=== PATIENT | female | born 1965 | race Caucasian/White ===

== ENCOUNTER 2019-02-16 10:21 | Emergency (ER) | payer OTHER, SELFPAY ==
[2019-02-16 10:22] VITALS: BP 148/99; PULSE 90; RESP 17; TEMP 37; O2SAT 97; BMI 42.7
--- NOTE | 2019-02-16 11:09 | US_ITS ---
STUDY: ULTRASOUND OF THE FEMALE PELVIS - COMPLETE REASON FOR EXAM: Female, 53 years old. 18 day history of vaginal bleeding. LMP: January 30, 2019 TECHNIQUE: Transvaginal TECHNICAL QUALITY: Adequate. COMPARISON: None. FINDINGS: The uterus is anteverted and is in a midline position. The uterus measures 8.7 cm x 7.8 sign of by 4.2 cm. There is a Nabothian cyst of the cervix. The endometrium measures 11.9 mm in thickness, and is hyperechoic. There is no demonstrated endometrial mass. 2 fibroids are seen within the body of the uterus. The larger measures 2 cm x 2.4 cm by 1.9 cm. I.U.D. - The patient does not have an I.U.D. The right ovary is non-visualized. The left ovary is non-visualized. There is no fluid in the cul-de-sac. Polycystic ovary disease: No. US/Transvaginal Non- IMPRESSION: Fibroid uterus. Electronically Signed: Lenny House, at 12:37 EDT , Service support ,
--- NOTE | 2019-02-16 11:10 | ED.VISSUMM ---
- ER Visit Summary Date of Service: 02/16/19 Chief Complaint: Vaginal bleeding History of Present Illness: The patient is a 53 F presenting with vaginal bleeding. Patient states this started 18 days ago. She states she has had daily heavy vaginal bleeding. She is now starting to feel fatigued. She has not passed out. She has intermittent pelvic cramping. 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 She was set up to see Dr. Wallis on Saturday. She was unable to get in before that and was advised to come to the ED for further evaluation. Physical Examination: Vitals are stable. Patient is afebrile. Alert no acute distress. HEENT exam is unremarkable. Neck is supple. Lungs are clear and equal bilaterally. Heart is regular rate and rhythm. Abdomen is soft nontender nondistended. Pelvic: Blood clots are cleared. No active bleeding. Extremities are unremarkable. Skin is warm and dry. Remainder of exam is unremarkable. Emergency Department Course and Treatment: With orthostatic vital signs, her blood pressure remained stable and her heart rate increases. She was given IV fluids. CBC shows hemoglobin 8.5. Chemistries are unremarkable. hCG negative. Pelvic ultrasound shows fibroid uterus. Patient remained hemodynamically stable. Discussed with Dr. Wallis. Patient will be started on Aygestin. Advised to follow-up with him as scheduled. Advised return to ED for worsening complaints. Disposition: Discharge home Impression: Dysfunctional uterine bleeding This note was generated with Rouxbe dictation software. It may contain incorrect words, spelling, and punctuation that were not noted in review of the chart prior to signing ED Disposition - Plan for ED Patient: Instructions: Dysfunctional Uterine Bleeding Prescriptions: Norethindrone [Aygestin] 5 mg PO DAILY 7 Days #42 tab Prescription Printed Referrals: Bran Wallis MD [Primary Care Provider] -
[2019-02-16 11:12] VITALS: BP 144/88; BP 148/88; BP 150/90; PULSE 68; PULSE 96
[2019-02-16] MEDS: 0.9% Normal Saline 1,000 ML 1000 ML IV (11:21)
[2019-02-16 11:31] LABS: Absolute Lymphocyte Count 1.05 X10^3/uL (0.83-4.51); Absolute Neutrophil Count 7.2 X10^3/uL (2.0-7.7); Basophil# 0.04 X10^3/uL; Basophil% 0.4 % (0-1); Differential Indicated SCAN CRITERIA MET; Eosinophil# 0.13 X10^3/uL; Eosinophils% 1.4 % (0-5); Hematocrit 30.8 % (37-47); Hemoglobin 8.5 g/dL (12.0-15.0); Lymphocyte # 1.05 X10^3/ul (4.0); Lymphocyte % 11.7 % (19-41); Mean Corp Hgb Conc 27.6 g/dL (32-36); Mean Corpuscular Hgb 17.1 pg (27.0-32.0); Mean Platelet Vol. 9.3 fl (6.2-12.0); Monocyte# 0.51 X10^3/uL; Monocyte% 5.7 % (0-10); NRBC Flagged by Analyzer 0.2 % (0-5); Neutrophil # 7.18 X10^3/uL (2.7-7.7); Neutrophil % 79.9 % (47-70); POSITIVE MORPHOLOGY YES; Platelet Count 389 K/mm3 (150-450); RBC Distribution Width CV 20.7 % (11.6-14.6); RBC Distribution Width SD 43.4 fl (35.1-43.9); Red Blood Count 4.97 M/mm3 (4.2-5.4)
[2019-02-16 11:44] LABS: Anion Gap 6 (5-15); BUN 15 mg/dL (7-18); BUN/Creat Ratio 15.4 RATIO (10-20); Calcium,Total 8.7 mg/dL (8.5-10.1); Chloride 108 mmol/L (98-107); Creatinine, Serum 0.97 mg/dL (0.55-1.02); EST Glomerular Filtration Rate 64 mL/min (>60); Est Glom Filt Rate - Afr Amer 77 mL/min (>60); Estimated Creatinine Clearance 56.76 ml/min; Glucose 99 mg/dL (74-106); Potassium 4.1 mmol/L (3.5-5.1); Sodium Level 141 mmol/L (136-145)
[2019-02-16 12:03] LABS: Internal QC Validated? YES +Cl - CLEAR BKGD; Pregnancy, Serum, hCG Quali. NEGATIVE Negative
[2019-02-16 12:22] VITALS: BP 142/88; PULSE 86; RESP 16; O2SAT 100
--- NOTE | 2019-02-16 13:25 | ED.DEP ---
ED Disposition - Plan for ED Patient: Instructions: Dysfunctional Uterine Bleeding Prescriptions: Norethindrone [Aygestin] 5 mg PO DAILY 7 Days #42 tablet Referrals: Bran Wallis MD [Primary Care Provider] -
== END 2019-02-16 13:48 | disposition home or self-care (01) ==
PROVIDERS: Emergency Provider Emergency Medicine; Family Provider Obstetrics & Gynecology; PCP Obstetrics & Gynecology
DX: N93.8 Other specified abnormal uterine and vaginal bleeding (principal); D25.9 Leiomyoma of uterus, unspecified
CPT/HCPCS: 76830; 80048; 84703; 85025; 96360; 99285; J7030

== ENCOUNTER → 2019-02-23 17:36 | Outpatient (CLI) | payer OTHER, SELFPAY ==
[2019-02-16 10:22] VITALS: BMI 42.7
--- NOTE | 2019-02-23 16:30 | EMB_PTH ---
PATIENT: LEIDY VAZQUEZ LOC: [facility] U#:[id number] AGE/SX: 59/F ROOM: RE02/23/[address]: Dr. Bran Wallis MD : 1965 BED: DIS: SPEC #: [id number] RECD: 02/23/19 17:40 STATUS: PAUL REYNALDO #: [id number] DAVID: 02/23/19 16:[address]: Bran Wallis DEPT: SURGICAL PATHOLOGY RECD BY: Ken Harrington Tissues: Endometrium, NOS Procedures: Surgery Specimen Level IV HEADER OPERATION: Endometrial biopsy PRE-OP DIAGNOSIS: Abnormal uterine bleeding TISSUE SUBMITTED: Endometrial biopsy MICROSCOPIC DIAGNOSIS Endometrium, biopsy: Secretory endometrium. AM:ashutosh 02/25/19 MICROSCOPIC DESCRIPTION Slides are reviewed. GROSS DESCRIPTION Received in fixative is one container labeled with the patient's name and designated endometrial biopsy. The specimen consists of multiple irregular and elongated fragments of light to dark eckert soft tissue that in aggregate measure 3 x 1.5 x 0.2 cm. The specimen is totally submitted in one cassette. / AM:ashutosh 02/24/19 TC:5 CPT: 62213
[2019-02-27 12:26] LABS: HPV Reflexed? NOT INDICATED
== END ==
PROVIDERS: Family Provider Obstetrics & Gynecology; PCP Obstetrics & Gynecology; Referring Provider Obstetrics & Gynecology; Visit Provider Obstetrics & Gynecology
DX: Z12.4 Encounter for screening for malignant neoplasm of cervix (principal)
CPT/HCPCS: 88175; 88305; G0145

== ENCOUNTER → 2019-03-10 14:28 | Outpatient (CLI) | payer OTHER, SELFPAY ==
[2019-02-16 10:22] VITALS: BMI 42.7
--- NOTE | 2019-03-10 14:30 | BI_ITS ---
MAMMOGRAPHY - BILATERAL SCREENING REASON FOR EXAM: Female, 53 years old. Routine annual screening examination. PERTINENT HISTORY: Mother with breast cancer. TECHNIQUE: Digital bilateral breast bri (3D mammographic acquisition) in the CC and MLO projections. 2-D mediolateral oblique (MLO) and craniocaudad (CC) views of both breasts were obtained. CAD: Full Field Digital Mammography with Computer Added Detection was performed. COMPARISON: Comparison is made with prior study dated June 21, 2015. FINDINGS: Breast Composition: The breasts are almost entirely fatty. There are no dominant masses or suspicious calcifications. Stable small bilateral benign-appearing axillary lymph nodes. No other significant abnormalities are identified. There has been no significant change since the prior study. BI/SCREEN MAMM (CAD) W/BRI BILAT IMPRESSION: Stable bilateral screening mammogram. Yearly follow-up mammogram recommended. (A) ASSESSMENT CATEGORY: BIRADS Category 2: Benign. A letter regarding these results will be sent to the patient by the facility within 30 days. Approximately 10% of breast cancers are not detected by mammography. A normal mammogram should not delay biopsy of a clinically suspicious abnormality. [id number] Electronically Signed: Lenny House, at 8:17 EDT , Service support ,
== END ==
PROVIDERS: Referring Provider Obstetrics & Gynecology; Visit Provider Obstetrics & Gynecology
DX: Z12.31 Encounter for screening mammogram for malignant neoplasm of breast (principal)
CPT/HCPCS: 77063; 77067

== ENCOUNTER 2019-03-23 06:22 | Day surgery (SDC) | payer OTHER, SELFPAY ==
--- NOTE | 2019-03-18 11:01 | EKG12_ITS ---
Test Reason : PREOP Blood Pressure : / mmHG Vent. Rate : 073 BPM Atrial Rate : 073 BPM P-R Int : 160 ms QRS Dur : 090 ms QT Int : 396 ms P-R-T Axes : 032 036 051 degrees QTc Int : 436 ms Normal sinus rhythm Normal ECG Confirmed by ELINA SANTIAGO, RAI ([id number]), editor magazine YAYA CHRISTENSEN ([id number]) on 03/20/2019 11:00:03 AM Referred By: Bran Wallis Confirmed By:RAI ANTOINE MD
[2019-03-18 12:14] LABS: Hematocrit 31.7 % (37-47); Hemoglobin 8.6 g/dL (12.0-15.0); Mean Corp Hgb Conc 27.1 g/dL (32-36); Mean Corpuscular Volume 62.5 fL (81-99); Mean Platelet Vol. 9.5 fl (6.2-12.0); Platelet Count 372 K/mm3 (150-450); RBC Distribution Width CV 19.9 % (11.6-14.6); RBC Distribution Width SD 42.6 fl (35.1-43.9); Red Blood Count 5.07 M/mm3 (4.2-5.4); White Blood Count 7.5 K/mm3 (4.4-11.0)
[2019-03-18 12:17] LABS: Prothrombin Time (Protime)PT. 13.1 SECONDS (11.7-14.9)
[2019-03-18 12:47] LABS: EST Glomerular Filtration Rate 94 mL/min (>60); Est Glom Filt Rate - Afr Amer 114 mL/min (>60); Thyroid Stim Hormone (TSH) 2.36 uIU/mL (0.358-3.74)
--- NOTE | 2019-03-22 15:56 | HP.PCM_ITS ---
History and Physical Date of Admission: 03/23/19 Surgical History and Physical Letty Ruth, a 53 year old female 6 0 0 0 6, presents for RAVH/BSO on March 23, 2019 at 7:30. -- Menorrhagia, Blood Loss Anemia; Submucous Fibroids -- Letty presents here today for concerns regarding excessive bleeding that started 01-30-19 lasting until 02-20-19 after use of Aygestin Taper. 53 y.o G 6 P 6 non-smoker reporting that she had been regular with her menses up until this past several months that became increasingly worse from 2-3 heavy days with menses to 5-6 , then this last episode with continual bleeding. Excessive bleeding, but adds she feels like she could start any moment. Excessive Bleeding which began started 01-30-19. Letty claims it started suddenly and has been present Stopped 02/20/19 after Aygestin Taper. It occurs all the time. It is located in the vagina.; It is located in the lower abdomen. Letty characterizes the quality heavy.; Letty characterizes the quality bleeding. Severity is moderate and not improving and very concerned; Additional comments are: Hgb down to about 8.5; U/S shows 9 cm uterus with two 2-3 cm fibroids present; sent home with Aygestin taper.; Additional comments are: saw in ER after bleeding for 18 days. MEDICATIONS HISTORY: Patient is also takin. lisinopril 5 mg tablet, One pill by mouth once a day 2. Rhinocort Allergy 32 mcg/actuation nasal spray, As Directed prn ALLERGIES: Sulfa (Sulfonamide Antibiotics), Hives and/or rash, Adhesive and Hives and/or rash Infections - Chicken pox, Mumps and Measles Illnesses - no serious past illnesses Accidents - None Hospitalizations - see surgery Review of Systems: GENERAL - Denies fever, or chills SKIN - Denies skin changes EYES - Denies visual changes EARS - Denies difficulty hearing NOSE - Denies nasal congestion or bleeding MOUTH - Denies sore throat or difficulty swallowing NECK - Denies pain or swelling RESPIRATORY - Denies shortness of breath or wheezing CARDIOVASCULAR - Denies palpitations or chest pain GASTROINTESTINAL - Denies nausea, vomiting, diarrhea, constipation GENITOURINARY - Denies dysuria, frequency of urination, incontinence of urine MUSCULOSKELETAL - Denies joint or muscle pain NEUROLOGICAL - Denies localized numbness or weakness PSYCHIATRIC - Denies depression or anxiety ENDOCRINE - Denies heat or cold intolerance, weight loss or gain HEMATO-IMMUNOLOGIC - Denies excessive bleeding with cuts SOCIAL HISTORY: Alcohol Use - socially Smoking - Never Diet - no special diet Lifestyle - moderate stress lifestyle and Exercise - active Seat Belt Use - always Employer - [employer] 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 11/23/1994 2. 2000 (L) Ankle Surgery PHYSICAL EXAM BP- 152/98 Sitting, Right arm, large cuff Weight- 248.35910 lbs Height- 62.5 inch BMI:44.73 CONSTITUTIONAL - NAD, well nourished, and well developed SKIN - No rash, lesions, or ulcers HEENT - Normocephalic, PERRLA, EOMI NECK - No nodes, no nuchal rigidity and thyroid normal size and texture LYMPH NODES - Palpation of lymph nodes in neck and groins within normal limits LUNGS - CTA x2 without wheezes, crackles or rales CARDIAC - Regular rate and rhythm without rubs, murmurs, or gallops ABDOMEN - Without hepatosplenomegaly, distention, masses, rebound, or guarding; normal bowel sounds; no hernias EXTREMITIES - No edema or calf tenderness NEUROLOGICAL - Cranial nerves II-XII grossly intact PSYCHIATRIC - A and O to time, place, person, mood and affect External Genital Vagina - non-tender without lesions Urethra/Urethral Meatus - non-tender Bladder - non-tender Vagina - vaginal angela are pink and moist without loss of rugae and no evidence of atropy Cervix - without cervical motion tenderness and has normal size and features without evident lesions Uterus - multiparous size 6 cm & wt 75-125 g Adnexa - clear without massess or tenderness ASSESSMENT/PLAN: 1. Blood Loss Anemia, Menorrhagia and Submucous Leiomyoma Of Uterus Likely submucous fibroids causing severe menorrhagia. EMBx results ok. Pt desires proceeding with hysterectomy given severity of bleeding. Plan to proceed with RAVH/BSO as had prior . Discussed RBAs and all questions answered.
[2019-03-23] VITALS (11 sets, daily range): BP systolic 127–178; BP diastolic 81–93; PULSE 65–89; RESP 16–18; TEMP 36.3–37.3; O2SAT 92–100; BMI 43.7
[2019-03-23 06:54] LABS: Hematocrit 31.5 % (37-47); Hemoglobin 8.6 g/dL (12.0-15.0); Mean Corp Hgb Conc 27.3 g/dL (32-36); Mean Corpuscular Volume 62.3 fL (81-99); Mean Platelet Vol. 8.8 fl (6.2-12.0); Platelet Count 309 K/mm3 (150-450); RBC Distribution Width CV 19.8 % (11.6-14.6); RBC Distribution Width SD 42.3 fl (35.1-43.9); Red Blood Count 5.06 M/mm3 (4.2-5.4); White Blood Count 9.6 K/mm3 (4.4-11.0)
[2019-03-23] MEDS: Lactated Ringers 1,000 ML 100 ML IV ×2 (07:18→14:00)
--- NOTE | 2019-03-23 08:30 | HYST_PTH ---
PATIENT: LEIDY VAZQUEZ LOC: [facility] – [place] U#:[id number] AGE/SX: 53/F ROOM: RE03/23/[address]: Dr. Bran Wallis MD : 1965 BED: DIS: 03/24/2019 SPEC #: [id number] RECD: 03/23/19 15:47 STATUS: PAUL RESam #: [id number] DAVID: 03/23/19 08:[address]: Bran Wallis DEPT: SURGICAL PATHOLOGY RECD BY: Alejandro Zapata ENTERED: 03/24/19 07:56 SP TYPE: HYSTERECT OTHR DR: Alejandro Monreal, FLOOR CLERK-C Tissues: Uterus, NOS Procedures: Surgery Specimen Level V HEADER OPERATION: Robotic-assisted vaginal hysterectomy, bilateral salpingo-oophorectomy PRE-OP DIAGNOSIS: Blood loss anemia, menorrhagia and submucous leiomyoma of uterus TISSUE SUBMITTED: Uterus, cervix, bilateral fallopian tubes and ovaries MICROSCOPIC DIAGNOSIS Uterus, cervix, bilateral fallopian tubes and ovaries, vaginal hysterectomy and bilateral salpingo-oophorectomy: Cervix - chronic cystic cervicitis with tunnel cluster formation and squamous metaplasia. Endometrium - secretory endometrium. Myometrium - leiomyomas, submucosal and intramural (largest measuring 4 cm in greatest dimension). - Adenomyosis. Bilateral fallopian tubes - no pathologic diagnosis. Bilateral ovaries - mesothelial inclusion cysts with focal calcifications. - Physiologic follicular and corpus luteal cysts. - Focal endometriosis (one of the ovaries). LIN:ashutosh 03/25/19 MICROSCOPIC DESCRIPTION Slides are reviewed. GROSS DESCRIPTION Received in fixative is one container labeled with the patient's name and designated uterus, cervix, bilateral fallopian tubes and bilateral ovaries. The specimen consists of a hysterectomy specimen in multiple pieces consisting of uterus with cervix and bilateral fallopian tubes and ovaries. The bilateral fallopian tubes and ovaries are attached to the largest piece. The specimen's orientation could not be done due to the disrupted nature of the specimen. The uterus with cervix in multiple pieces weighs in aggregate 312 gm. The detached cervix measures 3.5 x 2.5 x 2 cm. The ectocervical mucosa is congested. The external os is oval in contour. The endocervical canal measures up to 1.5 cm in length. Sections reveal unremarkable cut surfaces. Also present in the container is a detached piece of cervix containing proximal portion of cervix measuring 3 x 2.5 x 2.5 cm. The endocervical canal in this portion measures 2 cm in length. Sections reveal a few cysts filled with mucoid material. The largest piece of uterus measures 9 x 7 x 5.5 cm. The endometrial cavity in the larger piece of uterus measures 3.5 cm in length and 4 cm in width. The endometrium is congested without any mass lesion and measures up to 0.2 cm in thickness. Sections of this piece of uterus reveal multiple nodular masses of submucosal and intramural in location. The largest mass measures 4 cm in greatest dimension. The uninvolved uterine wall measures up to 3.5 cm in thickness. The detached smaller pieces of uterus measures in aggregate 7 x 7 x 3 cm. Sections of these reveal one nodular mass measuring 2 cm in greatest dimension. Sections of the nodular masses reveal whorled cut surfaces without areas of hemorrhage, necrosis or cystic degeneration. Sections of the uterine wall also reveal an ill-defined nodular mass. The fallopian tube and ovary could not be oriented due to distorted nature of the specimen. One of the fallopian tubes measures 5.5 cm in length and up to 0.5 cm in diameter. The fimbrial end is identified. No tubo-ovarian adhesions are noted. Sections of fallopian tube reveal unremarkable cut surfaces. The soft to cystic adjacent ovary measures 2.5 x 2 x 2 cm. Sections reveal a hemorrhagic cyst measuring 2 cm in greatest dimension. This cyst appears to be collapsed. The second fallopian tube measures 5.7 cm in length and 0.5 cm in diameter. The fimbrial end is identified. A paratubal cyst is noted at the fimbrial end measuring 0.6 cm in greatest dimension. It is filled with clear fluid. No tubo-ovarian adhesions are noted. The soft to cystic ovary measures 4 x 2.5 x 1.5 cm. A hemorrhagic cyst is noted measuring 1.5 cm in greatest dimension. A second smaller hemorrhagic cyst is also noted measuring 1 cm in greatest dimension. Legal Administrative Secretary sections are submitted in 14 cassettes as follows: 1 & 2 - cervix, 3-6 - endometrium, 7 - largest nodular mass, 8 - second largest nodular mass, 9 - smaller nodular masses, 10 - ill-defined nodular mass, 11 & 12 - one fallopian tube and adjacent ovary, 13 & 14 - second fallopian tube and adjacent ovary. / SJ:ashutosh 03/24/19 TC:1 CPT: 57382
[2019-03-23 08:47] LABS: Internal QC Validated? YES +Cl - CLEAR BKGD; Pregnancy, Serum, hCG Quali. NEGATIVE Negative
[2019-03-23] MEDS: Ropivacaine 0.5% 30 ML Vial (10:30)
--- NOTE | 2019-03-23 13:08 | OP.PCM_ITS ---
Report of Operation Date of Procedure: 03/23/19 Pre-Operative Diagnosis: Menorrhagia, Blood Loss Anemia, Submucous Fibroids Post-Operative Diagnosis: Menorrhagia, Blood Loss Anemia, Submucous Fibroids Surgery/Procedure Performed:: Robotic Assisted Vaginal Hysterectomy and Bilateral Salpingo-Oophorectomy Description of Surgical Findings:: 12 cm uterus with normal-appearing fallopian tubes and ovaries. Evidence of prior section. molder operator: Joaquim Glover molder operator: Carol Krishnamurthy Type of Anesthesia:: General - Endotracheal Anesthesiologist: Rosita Montenegro Specimen's removed: Uterus and bilateral fallopian tubes and ovaries Drains: Cordoba to straight drain Estimated Blood Loss (mL): 50 cc Fluids Replaced: 1800 cc of crystalloid Description of Procedure: Surgeon: Bran Wallis MD, FACOG Indication: This is a 53 year old patient who has been having problems with extremely heavy periods, blood loss anemia and found to have submucous fibroids. Conservative measures have not been helpful. The patient has been counseled regarding the risks, benefits and alternatives of this procedure including the possibility of bleeding, infection, and injury to surrounding structures such as bowel bladder and all questions were answered. She understands that if BSO is performed that she will need to be on HRT for an indefinite period of time. Procedure: Pt taken to the operating room where, after induction of general anesthesia, the patient was prepped and draped in the usual sterile fashion and placed on a non-slip Huggy-u-vac device. Trendelenburg test was satisfactory. Bladder was drained of urine with a Cordoba catheter which was left in place. Anterior cervix grasped and cervix was dilated to about 3-4 mm. Uterus sounded to 11 cms. 0-Vicryl suture was placed at the 3:00 and 9:00 position of the cervix. A small Advincula Oven Heater Helper Uterine Manipulator was then placed in the uterus and attention was turned to the laparoscopic portion of the procedure. Ropivocaine 0.5% was injected approximately 2-3 cm superior to the umbilicus and an 8 mm robotic camera port was introduced directly with intraperitoneal placement confirmed with CO2 insufflation. 8 mm robotic side ports were introduced under direct visualization approximately 11 cm lateral and 2 cm inferior to the umbilical port. A 5 mm left upper quadrant port was introduced and airseal insufflation with CO2 was started. The above findings were noted. Robot was docked without difficulty and attention turned to the robotic portion of the procedure. Approximately 30 cc of Ropivicaine was used. Bilateral infundibulopelvic ligaments were ligated with 35 redd bipolar coagulation to the level of the round ligament. The posterior aspect of the cervix was identified and then opened for about 1 cm using 25 watt monopolar cautery. Bladder flap was opened and divided to the level of the round ligaments using monopolar cautery. Progressive bites were then ligated on each side of the cervix with 35 redd bipolar cautery to the uterine arteries. The anterior vaginal mucosa was entered and cervix circumscribed with monopolar cautery. Uterus and attached tubes and ovaries were removed through the vagina. It was necessary to partially manually morcellate the lower part of the uterus to allow removal through the vagina. Vaginal cuff was closed first with 0- Vicryl Chanda stitches placed at each angle followed by closure of the mid-cuff with 0-Monocryl V-lock suture in two layers. Pelvis was copiously irrigated with saline and the right ureter was noted to peristalse. Robot was undocked and trocars were removed with as much gas as possible. Incisions were closed with 4-0 Monocryl subcuticular sutures and incisions covered with steri-strips. The patient tolerated the procedure well and was taken to the recovery room in satisfactory condition. Sponge, instruments and needle counts were all correct. There were no apparent complications of the surgery. Cefotan 2 gms IV was given prior to the procedure. Grafts/Implants Used: None - Complications None - Admit VTE Documentation VTE Present on Admission: Yes VTE Mechan Device Prophylaxis: SCD's VTE Pharm Prophylaxis ordered?: Yes
--- NOTE | 2019-03-23 13:15 | DCINST_ITS ---
Discharge Diet: No Restrictions Discharge Activity: Return to Normal Activity, May Not Drive - while taking narcotic pain medications., May Shower, May Take a Tub Bath May resume sexual activity in: 6-8 weeks Call your doctor if your incision/area has: Continuous Slow Oozing, Sudden Inc reased Bleeding, Increased Pain/ Swelling, Increased Redness, Foul Smelling Discharge Call your doctor if you observe: Fever of 101 or Higher, Inability to urinate, Inability to have a bowel movement, Using more than one pad per hour Allergies/Adverse Reactions: Allergies Sulfa (Sulfonamide Antibiotics) Allergy (Verified 03/23/19 06:48) Swelling Medications to take at Discharge Budesonide [Rhinocort Allergy] 1 spray NS DAILY 02/16/19 Docusate Sodium [Colace] 100 mg PO BID PRN PRN #60 cap 03/23/19 Estradiol 2 mg PO DAILY #100 tab 03/23/19 Lisinopril [Zestril] 5 mg PO DAILY 03/23/19 Oxycodone [Oxyir] 5 mg PO Q6H PRN PRN 7 Days #14 tab 03/23/19 The following prescriptions were given: Docusate Sodium [Colace] 100 mg PO BID PRN PRN #60 cap PRN Reason: Constipation Prescription Printed Estradiol 2 mg PO DAILY #100 tab Prescription Printed Oxycodone [Oxyir] 5 mg PO Q6H PRN PRN 7 Days #14 tab PRN Reason: Pain Score 6-10/10 Prescription Printed Primary Care Physician: Alejandro Monreal NP-C [Primary Care Provider] - Test Results: Test results from this visit will be discussed in further detail at your follow- up appointment, if applicable. Please Follow Up With: Bran Wallis MD When: 2 to 3 weeks
[2019-03-23] MEDS: Ketorolac 30 MG/ML Syringe IV ×2 (16:27→20:17)
[2019-03-23] MEDS: Dextrose 5%-Lactated Ringers 1,000 ML 150 ML IV (16:28)
[2019-03-23] MEDS: Enoxaparin 40 MG/0.4 ML Syringe SC (18:46)
[2019-03-23] MEDS: Acetaminophen 500 MG Tablet 1000 MG PO (20:17)
[2019-03-24] MEDS: Ketorolac 30 MG/ML Syringe IV ×2 (01:37→08:40)
[2019-03-24 01:41] VITALS: BP 137/77; PULSE 85; RESP 18; TEMP 37; O2SAT 96
[2019-03-24 06:47] LABS: Hematocrit 27.5 % (37-47); Hemoglobin 7.6 g/dL (12.0-15.0); Mean Corp Hgb Conc 27.6 g/dL (32-36); Mean Corpuscular Volume 61.4 fL (81-99); Mean Platelet Vol. 9.3 fl (6.2-12.0); Platelet Count 315 K/mm3 (150-450); RBC Distribution Width CV 19.7 % (11.6-14.6); RBC Distribution Width SD 41.9 fl (35.1-43.9); Red Blood Count 4.48 M/mm3 (4.2-5.4); White Blood Count 13.8 K/mm3 (4.4-11.0)
[2019-03-24 07:06] LABS: Creatinine, Serum 0.91 mg/dL (0.55-1.02); EST Glomerular Filtration Rate 69 mL/min (>60); Est Glom Filt Rate - Afr Amer 84 mL/min (>60)
[2019-03-24 07:35] VITALS: O2SAT 95
[2019-03-24 08:30] VITALS: BP 168/97; PULSE 82; RESP 18; TEMP 36.9; O2SAT 95
[2019-03-24] MEDS: 0.9% Saline Lock 10 ML Syringe IV (08:41)
--- NOTE | 2019-03-24 08:41 | PN.OBGYN_ITS ---
Subjective: Patient without complaints. Tolerating diet well. Positive flatus and able to void on own. Denies any vaginal bleeding at present. Ready to go home. - Physical Exam Vitals/I&O's: Vital Signs Temp Pulse Resp BP Pulse Ox 98.6 F 85 18 137/77 H 95 03/24/19 01:41 03/24/19 01:41 03/24/19 01:41 03/24/19 01:41 03/24/19 07:35 Oxygen Flow Rate (L/min) 2 Oxygen Delivery Method Room Air Weight: 246 lb 11.156 oz Body Mass Index (BMI) 43.7 Intake and Output for Last 24 Hours 03/22/19 03/23/19 03/24/19 23:59 23:59 23:59 Intake Total 2470 / 2470 Output Total 935 / 935 1000 / 1000 Balance 1535 / 1535 -1000 / -1000 Laboratory Results 03/23/19 08:00: Serum , Qual NEGATIVE 03/24/19 06:30: WBC 13.8 H, RBC 4.48, Hgb 7.6 L, Hct 27.5 L, MCV 61.4 L, MCH 17.0 L, MCHC 27.6 L, RDW Std Deviation 41.9, RDW Coeff of Brittny 19.7 H, Plt Count 315, MPV 9.3 03/24/19 06:30: Creatinine 0.91, Estim Creat Clear Calc 60.50, Est GFR (MDRD) Af Amer 84, Est GFR (MDRD) Non-Af 69 Current Medications Acetaminophen (Tylenol) 1,000 mg PO Q8H PRN PRN PRN Reason: Pain Score 1-3/10 or Fever Last Admin: 03/23/19 20:17 Dose: 1,000 mg Documented by: Docusate Sodium (Colace) 100 mg PO BID PRN PRN PRN Reason: CONSTIPATION Estrogens Conjugated (Premarin) 1.25 mg PO DAILY [facility] Fluticasone Propionate (Flonase Nasal [place]) 1 spray NASAL DAILY [facility] Hydromorphone HCl (Dilaudid Inj) 0.5 mg IV Q3H PRN PRN PRN Reason: Pain Score 4-10/10 Ketorolac Tromethamine (Toradol) 30 mg IV Q6H SHONDA Stop: 03/28/19 14:01 Last Admin: 03/24/19 01:37 Dose: 30 mg Documented by: Lisinopril (Zestril) 5 mg PO DAILY [facility] Ondansetron HCl (Zofran) 4 mg IV Q4H PRN PRN PRN Reason: NAUSEA Oxycodone HCl (Oxyir) 5 mg PO Q4H PRN PRN PRN Reason: Pain Score 4-10/10 Simethicone (Mylicon) 80 mg PO [facility] Last Admin: 03/23/19 22:02 Dose: 80 mg Documented by: Sodium Chloride () 10 - 40 ml IV UD PRN PRN Reason: SALINE FLUSH Good urine output. Hemoglobin stable. Creatinine okay. Wounds are clean, dry, intact. Medical Necessity - Tobacco Use Smoking Status: Never smoker Tobacco Use: Non-smoker Assessment/Plan Doing well postoperative day #1 status post robotic assisted vaginal hysterectomy and bilateral salpingo-oophorectomy. Will release to home with routine instructions.
[2019-03-24] MEDS: Lisinopril 5 MG Tablet PO (08:44)
== END 2019-03-24 09:34 | disposition home or self-care (01) ==
LOC: SDC 06:23 → AC 06:25 → MS3 13:20
PROVIDERS: Anesthesiology; Family Provider Nurse Practitioner Primary Care; PCP Nurse Practitioner Primary Care; Referring Provider Obstetrics & Gynecology; Visit Provider Obstetrics & Gynecology
PROC: 0UT94ZZ Resection of Uterus, Percutaneous Endoscopic Approach (ICD-10-PCS; CPT 58552; principal; 2019-03-23 08:10)
DX: N92.0 Excessive and frequent menstruation with regular cycle (principal); N80.1 Endometriosis of ovary; N72 Inflammatory disease of cervix uteri; N83.12 Corpus luteum cyst of left ovary; N83.11 Corpus luteum cyst of right ovary; N80.0 Endometriosis of uterus; D50.0 Iron deficiency anemia secondary to blood loss (chronic); Z79.899 Other long term (current) drug therapy
CPT/HCPCS: 58552; 36415; 82565; 84443; 84703; 85027; 85610; 86850; 86900; 86901; 88307; 93005; J7120; A4216; J2405

== ENCOUNTER → 2019-05-21 12:30 | Outpatient (CLI) | payer OTHER, SELFPAY ==
[2019-05-08 10:50] VITALS: BMI 43.7
--- NOTE | 2019-05-21 12:31 | MRI_ITS ---
STUDY: MRI RIGHT KNEE REASON FOR EXAM: Female, 53 years old. Pain. Injury March 2019. TECHNIQUE: Standardized fat and water weighted pulse sequences were obtained in all 3 orthogonal planes. COMPARISON: None. FINDINGS: There is medial meniscal tear of the posterior horn adjacent to the meniscal root, series 7 image and . Normal hyaline cartilage of the medial femorotibial compartment. Normal medial femoral condyle and tibial plateau. There is a partial sprain of the MCL with interstitial and periligamentous edema. Normal distal semimembranosus, gracilis and semitendinosus tendons. Normal lateral meniscus. Normal hyaline cartilage of the lateral femorotibial compartment. Normal lateral femoral condyle and tibial plateau. Normal proximal tibiofibular articulation. Normal lateral collateral (fibular) ligament. Normal popliteus tendon. Normal biceps femoris tendon. There is edema with swelling and loss of definition of the of the ACL fascicles, producing a celery stick appearance, with preservation of the continuity of fibers, consistent with mucoid cystic degeneration versus sprain. Normal posterior cruciate ligament (PCL). Normal congruent patellofemoral articulation. Normal hyaline cartilage of the patellofemoral compartment. Normal medial and lateral patellar retinaculum. Normal quadriceps tendon. Normal patellar tendon. Normal Hoffa''s fat pad. There is a large volume joint effusion. The soft tissues are unremarkable. The otherwise visualized osseous structures are unremarkable. MRI/Lower Ext Joint Only (Routine) IMPRESSION: Medial meniscus tear. Medial collateral ligament sprain. Mucoid cystic degeneration or sprain of the anterior cruciate ligament. Joint effusion. Electronically Signed: Josiah Barraza MD at 17:22 EST , Service support ,
== END ==
PROVIDERS: Family Provider Nurse Practitioner Primary Care; PCP Nurse Practitioner Primary Care; Referring Provider Orthopaedic Surgery; Visit Provider Orthopaedic Surgery
DX: M25.561 Pain in right knee (principal)
CPT/HCPCS: 73721

== ENCOUNTER → 2019-06-03 15:09 | Outpatient (CLI) | payer OTHER, SELFPAY ==
[2019-06-01 11:15] VITALS: BMI 43.7
[2019-06-03 16:17] LABS: Absolute Lymphocyte Count 1.21 X10^3/uL (0.83-4.51); Absolute Neutrophil Count 6.8 X10^3/uL (2.0-7.7); Basophil# 0.05 X10^3/uL; Basophil% 0.6 % (0-1); Eosinophil# 0.14 X10^3/uL; Eosinophils% 1.6 % (0-5); Hematocrit 35.3 % (37-47); Hemoglobin 9.9 g/dL (12.0-15.0); Lymphocyte # 1.21 X10^3/ul (4.0); Mean Corpuscular Hgb 19.2 pg (27.0-32.0); Mean Corpuscular Volume 68.5 fL (81-99); Mean Platelet Vol. 9.3 fl (6.2-12.0); Monocyte# 0.39 X10^3/uL; Monocyte% 4.5 % (0-10); NRBC Flagged by Analyzer 0 % (0-5); Neutrophil # 6.79 X10^3/uL (2.7-7.7); Neutrophil % 78.8 % (47-70); Platelet Count 347 K/mm3 (150-450); RBC Distribution Width CV 19.6 % (11.6-14.6); RBC Distribution Width SD 47.6 fl (35.1-43.9); Red Blood Count 5.15 M/mm3 (4.2-5.4); White Blood Count 8.6 K/mm3 (4.4-11.0)
[2019-06-03 16:53] LABS: ALB/GLOB Ratio 0.9 RATIO (0.9-2.4); AST(SGOT) 10 U/L (15-37); Alanine Aminotransfer ALT/SGPT 23 U/L (13-56); Albumin, Serum 3.3 g/dL (3.2-5.0); Alkaline Phosphatase 99 U/L (45-117); Anion Gap 8 (5-15); BUN 23 mg/dL (7-18); Calcium,Total 8.3 mg/dL (8.5-10.1); Chloride 106 mmol/L (98-107); Creatinine, Serum 0.96 mg/dL (0.55-1.02); EST Glomerular Filtration Rate 65 mL/min (>60); Est Glom Filt Rate - Afr Amer 79 mL/min (>60); Globulin 3.6 g/dL (2.2-4.2); Glucose 94 mg/dL (74-106); Potassium 3.7 mmol/L (3.5-5.1); Protein, Total 6.9 g/dL (6.4-8.2); Rheumatoid Factor < 10.0 IU/mL (<15); Sodium Level 139 mmol/L (136-145)
[2019-06-04 09:41] LABS: Hepatitis B Surface Antibody Non-Reactive; Hepatitis B Surface Antigen Non-Reactive (Nonreactive); Hepatitis C Antibody Non-Reactive (Nonreactive)
[2019-06-06 15:25] LABS: CCP IgG Antibodies 6 units (0-19); Hepatitis B Core Ab Total Negative (Negative)
[2019-06-07 15:17] LABS: ANTINUCLEAR ANTIBODIES DIRECT Negative (Negative)
== END ==
PROVIDERS: Family Provider Nurse Practitioner Primary Care; PCP Nurse Practitioner Primary Care; Referring Provider Internal Medicine Rheumatology; Visit Provider Internal Medicine Rheumatology
DX: I10 Essential (primary) hypertension (principal); M06.4 Inflammatory polyarthropathy; M79.7 Fibromyalgia; L71.9 Rosacea, unspecified
CPT/HCPCS: 36415; 80053; 85025; 86038; 86200; 86431; 86704; 86706; 86803; 87340

== ENCOUNTER → 2019-06-04 16:11 | Outpatient (CLI) | payer OTHER, SELFPAY ==
[2019-06-04 14:37] VITALS: BMI 43.7
[2019-06-04 16:15] LABS: Pathologist Comment May follow
[2019-06-04 17:14] LABS: Appearance /Synovial Fluid Sl hazy (CLEAR); CRYSTALS, BODY FLUID See PATH REV; Color / Synovial Fluid Yellow (Pale Yellow); Source- Body Fluid SYNOVIAL
[2019-06-04 18:45] LABS: RBC /Synovial Fluid 20 /mm3 (0)
[2019-06-04 18:47] LABS: Synovial Fld Mononuclear WBC # 0.495 10^3/ul; Synovial Fld Mononuclear WBC % 94.8 %; Synovial Fld Polynuclear WBC # 0.027 10^3/uL; Synovial Fld Polynuclear WBC % 5.2 %
[2019-06-04 19:02] LABS: AUTO B FLUID DILUENT BKGD CT WBC <0.1 RBC <0.01 (W<.1,R<.01)
[2019-06-04 19:03] LABS: Body Fluid QC Type(s) BF2Q,BF3Q; Lymph 18 %; Monocyte /Synovial Fluid 75 %; Neutrophil 7 % (0-25)
[2019-06-05 14:14] LABS: Pathologist Review Reviewed
[2019-06-06 15:20] LABS: GLUCOSE, SYNOVIAL FLUID 99 mg/dL (.); PROTEIN, SYNOVIAL FLUID 3.3 g/dL (.)
== END ==
PROVIDERS: Family Provider Nurse Practitioner Primary Care; PCP Nurse Practitioner Primary Care; Referring Provider Orthopaedic Surgery; Visit Provider Orthopaedic Surgery
DX: M25.461 Effusion, right knee (principal)
CPT/HCPCS: 82945; 84157; 87070; 87075; 87205; 89050; 89051; 89060

== ENCOUNTER → 2020-05-05 07:25 | Outpatient (CLI) | payer OTHER, SELFPAY ==
[2019-06-04 14:37] VITALS: BMI 43.7
--- NOTE | 2020-05-05 07:26 | BI_ITS ---
MAMMOGRAPHY - BILATERAL SCREENING REASON FOR EXAM: Female, 54 years old. Routine annual screening examination. PERTINENT HISTORY: Mother with breast cancer. TECHNIQUE: Digital bilateral breast bri (3D mammographic acquisition) in the CC and MLO projections. 2-D mediolateral oblique (MLO) and craniocaudad (CC) views of both breasts were obtained. CAD: Full Field Digital Mammography with Computer Added Detection was performed. COMPARISON: Comparison is made with prior study dated 03/10/2019 and 06/21/2015. FINDINGS: Breast Composition: There are scattered areas of fibroglandular density. There are no dominant masses or suspicious calcifications. Stable small benign appearing bilateral axillary lymph nodes. No other significant abnormalities are identified. There has been no significant change since the prior study. BI/SCREEN MAMM (CAD) W/BRI BILAT IMPRESSION: Stable bilateral screening mammogram. Yearly follow-up mammogram recommended. (A) ASSESSMENT CATEGORY: BIRADS Category 2: Benign. A letter regarding these results will be sent to the patient by the facility within 30 days. Approximately 10% of breast cancers are not detected by mammography. A normal mammogram should not delay biopsy of a clinically suspicious abnormality. [id number] Electronically Signed: Lenny House, at 8:25 EST , Service support ,
== END ==
PROVIDERS: PCP Nurse Practitioner Primary Care; Referring Provider Obstetrics & Gynecology; Visit Provider Obstetrics & Gynecology
DX: Z12.31 Encounter for screening mammogram for malignant neoplasm of breast (principal); Z80.3 Family history of malignant neoplasm of breast
CPT/HCPCS: 77063; 77067

== ENCOUNTER → 2021-01-20 08:42 | Outpatient (CLI) | payer OTHER, SELFPAY ==
[2021-01-20 09:44] LABS: Hemoglobin 14.7 g/dL (12.0-15.0); Mean Corp Hgb Conc 33.4 g/dL (32-36); Mean Corpuscular Hgb 29.4 pg (27.0-32.0); Mean Platelet Vol. 9.5 fl (6.2-12.0); Platelet Count 269 K/mm3 (150-450); RBC Distribution Width CV 12.3 % (11.6-14.6); RBC Distribution Width SD 39.5 fl (35.1-43.9); White Blood Count 6.7 K/mm3 (4.4-11.0)
[2021-01-20 10:21] LABS: Vitamin D,25 Hydroxy 21.4 ng/mL
[2021-01-20 10:25] LABS: AST(SGOT) 12 U/L (15-37); Alanine Aminotransfer ALT/SGPT 23 U/L (13-56); Albumin, Serum 3.5 g/dL (3.2-5.0); Alkaline Phosphatase 75 U/L (45-117); Anion Gap 6 (5-15); BUN 14 mg/dL (7-18); BUN/Creat Ratio 21.8 RATIO (10-20); Calcium,Total 8.8 mg/dL (8.5-10.1); Chloride 103 mmol/L (98-107); Cholesterol 279 mg/dL (200); Creatinine, Serum 0.64 mg/dL (0.55-1.02); EST Glomerular Filtration Rate 103 mL/min (>60); Est Glom Filt Rate - Afr Amer 124 mL/min (>60); Ferritin 43 ng/mL (8-252); Globulin 3.6 g/dL (2.2-4.2); Glucose 93 mg/dL (74-106); High Density Lipoprotein 54 mg/dL; Iron 71 ug/dL (50-170); Potassium 4.1 mmol/L (3.5-5.1); Protein, Total 7.1 g/dL (6.4-8.2); Sodium Level 137 mmol/L (136-145); Thyroid Stim Hormone (TSH) 2.11 uIU/mL (0.358-3.74); Triglycerides 487 mg/dL
== END ==
LOC: LAB 08:47
PROVIDERS: PCP Nurse Practitioner Primary Care; Referring Provider Nurse Practitioner Primary Care; Visit Provider Nurse Practitioner Primary Care
DX: I10 Essential (primary) hypertension (principal); D64.9 Anemia, unspecified; J30.2 Other seasonal allergic rhinitis; R53.83 Other fatigue
CPT/HCPCS: 36415; 80053; 80061; 82306; 82728; 83540; 84443; 85027

== ENCOUNTER → 2021-10-19 | Outpatient (CLI) | payer BC, SELFPAY ==
--- NOTE | 2021-10-19 17:01 | MRI_ITS ---
STUDY: MRI LUMBAR SPINE WITHOUT CONTRAST REASON FOR EXAM: Female, 56 years old. pain lower back just above hips X 3-4 YEARS TECHNIQUE: Standardized fat and water weighted pulse sequences were obtained in the sagittal and axial planes. COMPARISON: Lumbar spine x-ray dated OCTOBER 16, 2021 FINDINGS: T12-L1: Normal endplates. Normal disc height, hydration and morphology. Normal bilateral facet joints. Normal central canal and bilateral lateral recesses. Normal bilateral intervertebral neural foramina. Normal lumbar lordosis. There is no substantial scoliosis. Normal conus medullaris that terminates at the T12-L1 level. No fracture or marrow edema or compression deformity is present. L1-2: Diffuse disc desiccation with mild disc space narrowing and a minimal anterior disc spur complex. No posterior disc herniation or bulging. Slight retrolisthesis of less than 2 mm. Mild fluid distention of the facet joints and hypertrophy. Normal central canal and bilateral lateral recesses. Normal bilateral intervertebral neural foramina. L2-3: Normal endplates. Minor disc desiccation. Normal disc height and morphology. Normal bilateral facet joints. Normal central canal and bilateral lateral recesses. Normal bilateral intervertebral neural foramina. L3-4: Benign fatty hemangioma of the L3 vertebral body. Normal endplates. Diffuse disc desiccation. Normal disc height and morphology. Mild facet joint hypertrophy and fluid distention, as well as degeneration of the posterior aspect of the left facet joint. Normal central canal and bilateral lateral recesses. Normal bilateral intervertebral neural foramina. L4-5: Normal endplates. Diffuse disc desiccation. Slight anterolisthesis of L4 and L5 of less than 2 mm. Mild facet joint and ligament of flava hypertrophy, as well as mild fluid distention of the right facet joint. Normal disc height and morphology. Normal bilateral facet joints. Normal central canal and bilateral lateral recesses. Normal bilateral intervertebral neural foramina. L5-S1: Normal endplates. Diffuse disc desiccation. Normal disc height and morphology. Mild right facet joint hypertrophy and fluid distention. Normal central canal and bilateral lateral recesses. Normal bilateral intervertebral neural foramina. Normal visualized sacral ala. Normal visualized paraspinous soft tissue structures. MRI/Spine Lumbar (Routine) IMPRESSION: Multilevel degenerative changes, as described above. Electronically Signed: Ron Tapia MD at 11:47 EDT ,
== END | disposition home or self-care (01) ==
LOC: MRI 17:01
PROVIDERS: PCP Nurse Practitioner Primary Care; Visit Provider Orthopaedic Surgery
DX: M54.12 Radiculopathy, cervical region (principal); M50.30 Other cervical disc degeneration, unspecified cervical region
CPT/HCPCS: 72148

== ENCOUNTER 2021-11-17 07:00 | Outpatient (RCR) | payer BC, SELFPAY ==
--- NOTE | 2021-10-03 09:00 | HP.PTEVAL ---
Patient's Visit Information LEIDY VAZQUEZ is a 56 year old F referred to Physical Therapy by Dr. Kulwinder Pritchett DO with a diagnosis of Lumbago, B grt trochanteric bursitis. Date of Evaluation: 10/03/21 Physical Therapist: HEIDI Celaya - Visit Plan Frequency: 2x /Week Duration: 3 Weeks Plan: 2X/ week for 3-5 weeks for IT band stretches, hip flexor stretches, Hamstring stretches, core stability, hip strength, gait training (increase stride length) with HEP. HEP: strap HS and IT band stretches, PT, and PT with bridges - Subjective Pt started a few weeks ago a podatrist and had arthritis in feet. Saw Dr and no hip arthritis but bursitis. She can not sleep on both sides due to tender and sore. If she sits for 15 min or more it will be a tight entire leg. She has decrease step length due to tightness and she does walk duck footed. She has catches in her back when she bends wrong. She might have to flex to the ground and then walk up the wall to crawl up and then it usually relieves itself after that. It could do it 16 times a day or could go for over a week. She has an appt with Dr Berrios on the for her back. She has no N&T in her legs. She has lots of problems in her R knee and has nothing holding her knee together. She sleeps on her sides even though it hurts. - Pain R hip pain Pain Intensity (Out of 10): 1 Pain Intensity Range: 7 L hip pain Pain Intensity (Out of 10): 1 Pain Intensity Range: 7 - Objective Gait: Walks with decrease stride length and toe out. B hip drop for weakness. Pt is able to walk on heels and toes but has increase pain due to metatarsal arthritis with heel raises. LE MMT: B hip flex, hip abd, knee ext 4/5 and B knee flex and B hip ext 4/5. PT HAS TIGHT HIP FLEXORS, IT BAND B, HAMSTRINGS, GASTROC. Trunk AROM: flex 100%, Ext 100%, SB B 100%. Patella DTR's 2+/3 B. Good piriformis muscle length but has some increase pain with hip ER B - Balance/Special Test Scores Lower Extremity Functional Score: 25 - Goals Goal 1:: I HEP Goal Time Frame: 4-6 Weeks Goal 2:: Decrease B hip pain to 2/10 with stairs, walking, sit to stand Goal Time Frame: 4-6 Weeks Goal 3:: Decrease frequency of back locking to 1X/ week Goal Time Frame: 4-6 Weeks Goal 4:: Learn how to hold core with ADL's and all exercies Goal 5:: Increase B ITBand, hip flexor flexibility to not have pain with stretching Goal Time Frame: 4-6 Weeks Goal 6:: Increase stride with gait Goal Time Frame: 4-6 Weeks - Rehabilitation Potential Rehabilitation Potential: Good - Anticipated Interventions Patient/Client Instruction: Educate patient on: Condition, Plan of Care For the Purpose of:: To decrease pain, To increase ROM, To improve nutrient delivery to tissue, To improve muscle performance and motor function, To improve ability to perform ADL's, To increase tolerance to activity/condition/position, To improve performance and independence with ADL's, To decrease level of supervision to perform tasks, To improve ability of physical actions for home/community/work/leisure, To improve gait and locomotor functions, To improve health of tissue, To decrease soft tissue restriction, To increase flexibility/ROM Therapeutic Exercise to Include: Strength training, Body mechanics, Postural training, Flexibilty training, Gait and locomotor training, Neuromotor development, Passive ROM, Active ROM, Dynamic Lumbar Stabilization For the Purpose of:: To decrease pain, To increase ROM, To improve nutrient delivery to tissue, To increase oxygenation perfusion, To improve muscle performance and motor function, To improve ability to perform ADL's, To increase tolerance to activity/condition/position, To improve performance and independence with ADL's, To decrease level of supervision to perform tasks, To improve ability of physical actions for home/community/work/leisure, To improve gait and locomotor functions, To improve health of tissue, To decrease soft tissue restriction, To increase flexibility/ROM Functional Training to Include: Gait training For the Purpose of:: To improve gait and locomotor functions Thank you for the opportunity to evaluate your patient. For Medicare and Medicare HMO plans, please review the plan of care and approve it. It will need to be FAXED BACK to us at [phone] for Medicare purposes. For Medicare only, by signing this I certify the plan of care. Please let me know if there are questions or concerns regarding this plan of care. Physician Signature: Date:
--- NOTE | 2021-11-17 07:44 | HP.PTDCSUM_ITS ---
It has been my pleasure to treat LEIDY VAZQUEZ referred by Dr. Kulwinder Pritchett DO, with the diagnosis of Lumbago, B grt trochanteric bursitis for a total of 8 visit(s). Discharge Date: 11/17/21 Please see the following information for a summary of their discharge status. Subjective: Woke up at 4 am she had burning pain in her R knee and could not sl eep but now it seems ok. Stretching is helping with the pain great. She has a pain management appt on Saturday. She is not sure she wants a shot now cause she is not that bad. R hip pain Pain Intensity (Out of 10): 3 L hip pain Pain Intensity (Out of 10): 2 feet Pain Intensity (Out of 10): 4 LBP Pain Intensity (Out of 10): 0 R knee pain Pain Intensity (Out of 10): 2 % Improvement: 99 Objective/Function: Gait: walks with normal gait pattern and increased normal stride compared to shorter stride at [facility]. IT band length: good muscle length. HS length: very good muscle length. Pt was issued an exercise log with all machine numbers, weights, and sets. Pt has full understanding of how to do an I gym workout routine. Goal 1:: I HEP Goal Progress: Goal Met Goal 2:: Decrease B hip pain to 2/10 with stairs, walking, sit to stand Goal Progress: Goal Met Goal 3:: Decrease frequency of back locking to 1X/ week Goal Progress: Goal Met Goal 4:: Learn how to hold core with ADL's and all exercies Goal Progress: Goal Met Goal 5:: Increase B ITBand, hip flexor flexibility to not have pain with stretching Goal Progress: Goal Met Goal 6:: Increase stride with gait Goal Progress: Goal Met Plan: 2X/ week for 3-5 weeks for IT band stretches, hip flexor stretches, Hams tring stretches, core stability, hip strength, gait training (increase stride length) with HEP. HEP: strap HS and IT band stretches, PT, and PT with bridges Discharge Comments: DC PT to HEP If there are questions or concerns regarding this patient's physical therapy, please feel free to call me at [phone]. Thank you for the referral of this patient. Sincerely, Alyson Santana, MPT Balance/Gait/Functional tests - Balance/Special Test Scores Lower Extremity Functional Score: 69
== END 2021-11-17 19:00 | disposition home or self-care (01) ==
LOC: PT 07:00
PROVIDERS: PCP Nurse Practitioner Primary Care; Referring Provider Orthopaedic Surgery; Visit Provider Orthopaedic Surgery
DX: M54.50 Low back pain, unspecified (principal); M70.61 Trochanteric bursitis, right hip; M70.62 Trochanteric bursitis, left hip
CPT/HCPCS: 97110; 97162

== ENCOUNTER → 2022-07-18 | Outpatient (CLI) | payer BC, SELFPAY ==
[2022-07-18 17:51] LABS: Absolute Lymphocyte Count 1.22 X10^3/uL (0.83-4.51); Absolute Neutrophil Count 5.1 X10^3/uL (2.0-7.7); Basophil# 0.03 X10^3/uL; Basophil% 0.4 % (0-1); Eosinophil# 0.07 X10^3/uL; Hematocrit 43.7 % (37-47); Hemoglobin 14.4 g/dL (12.0-15.0); Lymphocyte # 1.22 X10^3/ul (0.83-4.51); Lymphocyte % 17.8 % (19-41); Mean Corpuscular Hgb 29.1 pg (27.0-32.0); Mean Corpuscular Volume 88.5 fL (81-99); Mean Platelet Vol. 10.3 fl (6.2-12.0); Monocyte% 5.8 % (0-10); NRBC Flagged by Analyzer 0 % (0-5); Neutrophil % 74.6 % (47-70); Platelet Count 315 K/mm3 (150-450); RBC Distribution Width CV 12.8 % (11.6-14.6); RBC Distribution Width SD 41.2 fl (35.1-43.9); Red Blood Count 4.94 M/mm3 (4.2-5.4); White Blood Count 6.9 K/mm3 (4.4-11.0)
[2022-07-18 18:40] LABS: ALB/GLOB Ratio 1.1 RATIO (0.9-2.4); Albumin, Serum 3.6 g/dL (3.2-5.0); BUN 25 mg/dL (7-18); BUN/Creat Ratio 27.8 RATIO (10-20); EST Glomerular Filtration Rate 69 mL/min (>60); Est Glom Filt Rate - Afr Amer 84 mL/min (>60); Globulin 3.4 g/dL (2.2-4.2); Glucose 101 mg/dL (74-106)
[2022-07-18 18:41] LABS: AST(SGOT) 13 U/L (15-37); Alanine Aminotransfer ALT/SGPT 25 U/L (13-56); Alkaline Phosphatase 122 U/L (45-117); Anion Gap 7 (5-15); Calcium,Total 9.3 mg/dL (8.5-10.1); Chloride 104 mmol/L (98-107); Sodium Level 137 mmol/L (136-145)
== END | disposition home or self-care (01) ==
PROVIDERS: PCP Nurse Practitioner Primary Care; Referring Provider Podiatrist; Visit Provider Podiatrist
DX: M10.9 Gout, unspecified (principal)
CPT/HCPCS: 36415; 80053; 84550; 85025

== ENCOUNTER 2022-07-20 06:56 | Emergency (ER) | payer BC, SELFPAY ==
[2022-07-20 06:57] VITALS: BP 204/111; PULSE 78; RESP 15; TEMP 36.8; O2SAT 98; BMI 38.4
[2022-07-20 07:01] VITALS: O2SAT 99
--- NOTE | 2022-07-20 07:21 | EX.ED.DYSGE1 ---
HPI History of Present Illness Chief Complaint: Hypertension Informant: patient Narrative Narrative: Patient is a 56-year-old female with history of hypertension, arthritis and gout presenting for headache and elevated blood pressure. Patient states she has been out of her lisinopril (15 mg) for the past month and a half. She states that she is trying to get a new primary care doctor and ran out of her prescription. She reports that she developed a gradual onset of headache yesterday. She notes that over the past month her blood pressure has been around 160 systolic. Her blood pressure has been more elevated over the past day or 2. Initially the headache was in the front and she described it as tension headache and started radiate to the back of her head and she was concerned that maybe she was going to have a stroke as her blood pressure was elevated at home. She notes she does drink a lot of caffeine and knows that she needs to cut back. She did have intra-articular injection of steroids into her foot 2 days ago for gout. She denies any chest pain, nausea, vomiting, vision changes, fever, chills or any other symptoms. Denies any associated numbness, tingling or speech changes. No other complaints at this time. PFSH PFSH Home Medications budesonide 32 mcg/actuation nasal spray 1 spray NS DAILY 02/16/19 [History Last Taken Unknown] lisinopril 5 mg tablet 10 mg PO DAILY 10/02/21 [History Last Taken Unknown] lisinopril 10 mg tablet 15 mg PO DAILY 30 days #45 tabs 07/20/22 [Rx Last Taken Unknown] Allergy/AdvReac Type Severity Reaction Status Date / Time adhesive tape Allergy rash Verified 11/06/21 15:02 Sulfa (Sulfonamide Allergy Swelling Verified 11/06/21 15:02 Antibiotics) Family History Mother CD (celiac disease) Surgical History History of ankle surgery Hx of section Hx of hysterectomy Social History Smoking Status: Never smoker ROS ROS ED Constitutional Constitutional ED: Denies chills or fever(s) Eyes Eyes: Denies blurry vision or change in vision ENT ENT ED: Denies sore throat Cardiovascular Cardiovascular: Denies chest pain or palpitations Respiratory/Chest Respiratory/Chest: Denies cough Gastrointestinal Gastrointestinal: Denies abdominal pain, nausea or vomiting Musculoskeletal Musculoskeletal: Denies myalgias Integumentary Denies rash Neurologic Neurologic: Reports headache(s); Denies paresthesias or weakness Psychiatric Psychiatric: Denies anxiety Hematologic/Lymphatic Hematologic/Lymphatic: Denies easy bleeding or easy bruising EXAM Physical Exam Const Vital Signs: 07/20/22 06:57 07/20/22 07:01 07/20/22 07:02 Temperature 98.3 F Temperature Source Temporal Pulse Rate 78 Respiratory Rate 15 Respiratory Pattern Normal Blood Pressure 204/111 H Blood Pressure Mean 142 Pulse Ox 98 99 Oxygen Delivery Method Room Air Room Air 07/20/22 08:20 07/20/22 08:32 07/20/22 08:48 Temperature Temperature Source Pulse Rate 68 Respiratory Rate 15 18 Respiratory Pattern Blood Pressure 173/115 H 160/100 H Blood Pressure Mean 134 120 Pulse Ox 98 Oxygen Delivery Method Room Air Positive well nourished and well developed General Appearance ED: well developed and NAD HEENT Reports moist mucous membranes Eyes PERRL and EOMs intact bilaterally Neck supple and no JVD Chest Wall inspection of chest normal and palpation of chest normal Resp normal respiratory effort and clear to auscultation bilaterally Cardio regular rate, regular rhythm and no murmurs GI normal to inspection, nondistended, normoactive bowel sounds Palpation: soft Extremity normal to inspection General Extremety ED: Negative for edema General Extremity: Negative for edema Neuro oriented x3, CN's II-XII intact bilaterally and no sensory deficits noted Neuro Narrative: Normal coordination, normal finger-nose. Steady gait. No truncal ataxia. Sensorium / Orientation: alert Motor Exam: strength 5/5 throughout; Negative for general weakness Psych mental status grossly normal Skin no rashes or lesions noted MDM MDM MDM Narrative Medical decision making narrative: Patient is evaluated for elevated blood pressure reading at home as well as headache. Headache seems to be tension headache. No meningeal signs and presentation not consistent with stroke. Patient has a normal neurologic exam. Her blood pressure is elevated and this is likely exacerbated by recent steroid use in conjunction with her not taking her lisinopril because she is out. Patient had lab work 2 days ago that is independently reviewed. She had normal kidney function at that time. No significant electrolyte abnormalities, anemia or leukocytosis. Patient was given a dose of IV Toradol as well as an oral dose of lisinopril 15 mg (her home dose). I do not think this is a hypertensive emergency. Patient will be reevaluated. She has improvement of her symptoms we will give her prescription/refill of her lisinopril and she will continue to work on following up outpatient with a primary care doctor. On repeat evaluation patient's headache is resolved. She is feeling better. Her blood pressure is also improved. She will be discharged home with 30-day supply of her lisinopril and will continue to work on following up with a primary care doctor. Patient verbalized agreement understand this plan. Discharged home in improved and stable condition. Discharge Plan Triage Chief Complaint: Hypertension ED Provider: Thu Marin Dx/Rx/DC Orders Clinical Impression: HTN (hypertension), Acute tension headache Instructions: ED Headache, Tension, ED Hypertension, Established Prescriptions: New lisinopril 10 mg tablet 15 mg PO DAILY 30 Days Qty: 45 0RF No Action budesonide 8.43 ML spray,non-aerosol 1 spray NS DAILY lisinopril 5 mg tablet 10 mg PO DAILY Primary Care Provider: Care Physician,No Primary Referrals: Erin Carmichael DO [Med Staff - Active Staff] - As soon as possible Care Physician,No Primary [Primary Care Provider] - Disposition Disposition: Home, Self Care Discharge Date/Time: 07/20/22 08:48
[2022-07-20] MEDS: Ketorolac 15 MG/ML Vial IV (07:33)
[2022-07-20] MEDS: Lisinopril 5 MG Tablet 15 MG PO (07:35)
[2022-07-20 08:20] VITALS: BP 173/115; PULSE 68; RESP 15; O2SAT 98
[2022-07-20 08:32] VITALS: BP 160/100
[2022-07-20 08:48] VITALS: RESP 18
== END 2022-07-20 08:48 | disposition home or self-care (01) ==
PROVIDERS: Emergency Provider Emergency Medicine; Visit Provider Emergency Medicine
DX: I10 Essential (primary) hypertension (principal); G44.209 Tension-type headache, unspecified, not intractable; Z79.899 Other long term (current) drug therapy; M19.90 Unspecified osteoarthritis, unspecified site
CPT/HCPCS: 96374; 99284; A4216

== ENCOUNTER → 2022-08-22 | Outpatient (CLI) | payer BC, SELFPAY ==
--- NOTE | 2022-08-22 08:45 | US_ITS ---
STUDY: ULTRASOUND BREAST - LEFT REASON FOR EXAM: Female, 57 years old. Palpable lump left breast. TECHNIQUE: Axial and longitudinal images of the LEFT breast were performed with a high resolution ultrasound transducer. # OF IMAGES: 24 COMPARISON: Comparison is made with prior sonogram of the left breast dated December 20, 2015 and prior mammogram done earlier today. FINDINGS: LEFT Breast: The upper inner quadrant of the left breast was examined with ultrasound. The palpable lump corresponds to a 2.4 cm x 2.8 cm x 1.1 cm slightly echogenic nodule suggests a possible lipoma. US/Breast Limited Unilateral IMPRESSION: The pathologic amount to correspond to a 2.4 cm x 2.8 cm x 1.1 cm slightly echogenic nodule suggestive of a small lipoma. ASSESSMENT CATEGORY: BIRADS Category 2: Benign. A letter regarding these results will be sent to the patient by the facility within 30 days. Electronically Signed: Lenny House MD at 15:51 EDT ,
--- NOTE | 2022-08-22 08:45 | BI_ITS ---
MAMMOGRAPHY - BILATERAL DIAGNOSTIC REASON FOR EXAM: Female, 57 years old. Left breast lump. PERTINENT HISTORY: Mother with breast cancer. TECHNIQUE: Digital bilateral breast boby (3D mammographic acquisition) in the CC and MLO projections. 2-D mediolateral oblique (MLO) and craniocaudad (CC) views of both breasts were obtained. CAD: Full Field Digital Mammography with Computer Added Detection was performed. COMPARISON: Comparison is made with prior study dated March 10, 2019 and May 05, 2020. FINDINGS: Breast Composition: The breasts are almost entirely fatty. There are no dominant masses or suspicious calcifications. Stable small benign-appearing bilateral axillary lymph nodes. No other significant abnormalities are identified. There has been no significant change since the prior study. BI/DIAG MAMM W/CAD, BILAT IMPRESSION: Stable bilateral diagnostic mammogram. With the patient''s history of a palpable lump in the anterior upper central portion of the left breast, correlation with ultrasound is recommended. ASSESSMENT CATEGORY: BIRADS Category 0: Incomplete. Need additional imaging evaluation. A letter regarding these results will be sent to the patient by the facility within 30 days. Approximately 10% of breast cancers are not detected by mammography. A normal mammogram should not delay biopsy of a clinically suspicious abnormality. Electronically Signed: Lenny House MD at 8:20 EDT ,
== END | disposition home or self-care (01) ==
PROVIDERS: Visit Provider Obstetrics & Gynecology
DX: N63.22 Unspecified lump in the left breast, upper inner quadrant (principal)
CPT/HCPCS: 76642; 77062; 77066; G0279

== ENCOUNTER → 2022-09-06 | Outpatient (CLI) | payer BC, SELFPAY | END | disposition home or self-care (01) | LOC: SL 11:07 | PROVIDERS: Referring Provider Internal Medicine; Visit Provider Internal Medicine | DX: G47.10 Hypersomnia, unspecified (principal) | CPT/HCPCS: 95806 ==

== ENCOUNTER → 2022-10-04 | Outpatient (CLI) | payer BC, SELFPAY ==
[2022-10-04 11:33] LABS: Anion Gap 3 (5-15); BUN 23 mg/dL (7-18); BUN/Creat Ratio 34.4 RATIO (10-20); Calcium,Total 9.2 mg/dL (8.5-10.1); Chloride 105 mmol/L (98-107); Cholesterol 370 mg/dL (200); Creatinine, Serum 0.67 mg/dL (0.55-1.02); EST Glomerular Filtration Rate 97 mL/min (>60); Est Glom Filt Rate - Afr Amer 118 mL/min (>60); Glucose 121 mg/dL (74-106); High Density Lipoprotein 54 mg/dL; Potassium 4.4 mmol/L (3.5-5.1); Sodium Level 137 mmol/L (136-145); Triglycerides 410 mg/dL; Uric Acid 4.7 mg/dL (2.6-6.0)
== END | disposition home or self-care (01) ==
LOC: LAB 10:27
PROVIDERS: PCP Internal Medicine; Visit Provider Internal Medicine
DX: I10 Essential (primary) hypertension (principal); M79.675 Pain in left toe(s)
CPT/HCPCS: 36415; 80048; 80061; 84550

== ENCOUNTER → 2022-11-14 | Outpatient (CLI) | payer BC, SELFPAY ==
[2022-11-14 08:33] LABS: ALB/GLOB Ratio 1.1 RATIO (0.9-2.4); AST(SGOT) 10 U/L (15-37); Alanine Aminotransfer ALT/SGPT 19 U/L (13-56); Albumin, Serum 3.3 g/dL (3.2-5.0); Alkaline Phosphatase 94 U/L (45-117); Anion Gap 6 (5-15); BUN 18 mg/dL (7-18); BUN/Creat Ratio 27.7 RATIO (10-20); Calcium,Total 9.2 mg/dL (8.5-10.1); Chloride 108 mmol/L (98-107); Creatinine, Serum 0.65 mg/dL (0.55-1.02); EST Glomerular Filtration Rate 101 mL/min (>60); Est Glom Filt Rate - Afr Amer 122 mL/min (>60); Globulin 3.1 g/dL (2.2-4.2); Glucose 93 mg/dL (74-106); Potassium 4.3 mmol/L (3.5-5.1); Protein, Total 6.4 g/dL (6.4-8.2); Sodium Level 143 mmol/L (136-145)
[2022-11-14 08:36] LABS: Hemoglobin A1c 5.3 % (3.8-5.6)
== END | disposition home or self-care (01) ==
LOC: LAB 07:44
PROVIDERS: PCP Internal Medicine; Referring Provider Internal Medicine; Visit Provider Internal Medicine
DX: R73.9 Hyperglycemia, unspecified (principal); E78.5 Hyperlipidemia, unspecified
CPT/HCPCS: 36415; 80053; 83036

== ENCOUNTER → 2023-02-15 | Outpatient (CLI) | payer BC, SELFPAY ==
[2023-02-15 08:12] LABS: Anion Gap 6 (5-15); BUN 21 mg/dL (7-18); Calcium,Total 9.4 mg/dL (8.5-10.1); Chloride 106 mmol/L (98-107); Cholesterol 205 mg/dL (200); Creatinine, Serum 0.78 mg/dL (0.55-1.02); EST Glomerular Filtration Rate 82 mL/min (>60); Est Glom Filt Rate - Afr Amer 99 mL/min (>60); Glucose 92 mg/dL (74-106); High Density Lipoprotein 56 mg/dL; Potassium 4.1 mmol/L (3.5-5.1); Sodium Level 140 mmol/L (136-145); Triglycerides 298 mg/dL; Very Low Density Lipoprotein 60 mg/dL (5-40)
== END | disposition home or self-care (01) ==
PROVIDERS: PCP Internal Medicine; Referring Provider Internal Medicine; Visit Provider Internal Medicine
DX: E78.5 Hyperlipidemia, unspecified (principal); I10 Essential (primary) hypertension
CPT/HCPCS: 36415; 80048; 80061

== ENCOUNTER → 2023-03-25 | Outpatient (CLI) | payer BC, SELFPAY ==
[2023-03-25 12:10] LABS: Erythrocyte Sedimentation Rate 2 mm/hr (0-30)
[2023-03-25 12:14] LABS: Absolute Lymphocyte Count 1.23 X10^3/uL (0.83-4.51); Absolute Neutrophil Count 4.3 X10^3/uL (2.0-7.7); Basophil# 0.03 X10^3/uL; Basophil% 0.5 % (0-1); Eosinophils% 1.6 % (0-5); Hematocrit 43.2 % (37-47); Hemoglobin 14.5 g/dL (12.0-15.0); Lymphocyte # 1.23 X10^3/ul (0.83-4.51); Lymphocyte % 20.2 % (19-41); Mean Corp Hgb Conc 33.6 g/dL (32-36); Mean Corpuscular Hgb 29.7 pg (27.0-32.0); Mean Corpuscular Volume 88.5 fL (81-99); Mean Platelet Vol. 9.8 fl (6.2-12.0); Monocyte# 0.46 X10^3/uL; Monocyte% 7.6 % (0-10); NRBC Flagged by Analyzer 0 % (0-5); Neutrophil # 4.26 X10^3/uL (2.7-7.7); Neutrophil % 69.9 % (47-70); Platelet Count 301 K/mm3 (150-450); RBC Distribution Width CV 12.6 % (11.6-14.6); RBC Distribution Width SD 40.9 fl (35.1-43.9); Red Blood Count 4.88 M/mm3 (4.2-5.4); White Blood Count 6.1 K/mm3 (4.4-11.0)
[2023-03-25 12:48] LABS: ALB/GLOB Ratio 1.2 RATIO (0.9-2.4); AST(SGOT) 13 U/L (15-37); Alanine Aminotransfer ALT/SGPT 28 U/L (13-56); Albumin, Serum 4.1 g/dL (3.2-5.0); Alkaline Phosphatase 97 U/L (45-117); Anion Gap 6 (5-15); BUN 29 mg/dL (7-18); BUN/Creat Ratio 28.2 RATIO (10-20); Calcium,Total 9.7 mg/dL (8.5-10.1); Chloride 106 mmol/L (98-107); Creatinine, Serum 1.03 mg/dL (0.55-1.02); EST Glomerular Filtration Rate 59 mL/min (>60); Est Glom Filt Rate - Afr Amer 71 mL/min (>60); Globulin 3.4 g/dL (2.2-4.2); Glucose 99 mg/dL (74-106); Potassium 4.3 mmol/L (3.5-5.1); Protein, Total 7.5 g/dL (6.4-8.2); Rheumatoid Factor < 10.0 IU/mL (<15); Sodium Level 138 mmol/L (136-145)
[2023-03-25 14:31] LABS: Hepatitis B Surface Antibody Non-Reactive; Hepatitis B Surface Antigen Non-Reactive (Nonreactive); Hepatitis C Antibody Non-Reactive (Nonreactive)
[2023-03-26 12:09] LABS: CCP IgG Antibodies 3 units (0-19)
== END | disposition home or self-care (01) ==
LOC: MTLAB 09:39
PROVIDERS: PCP Internal Medicine; Referring Provider Internal Medicine Rheumatology; Visit Provider Internal Medicine Rheumatology
DX: M06.4 Inflammatory polyarthropathy (principal); M79.7 Fibromyalgia
CPT/HCPCS: 36415; 80053; 85025; 85652; 86140; 86200; 86431; 86706; 86803; 87340

== ENCOUNTER → 2023-05-09 | Outpatient (CLI) | payer BC, SELFPAY ==
[2023-05-09 10:57] LABS: Cholesterol 212 mg/dL (200); High Density Lipoprotein 57 mg/dL; Triglycerides 274 mg/dL; Very Low Density Lipoprotein 55 mg/dL (5-40)
== END | disposition home or self-care (01) ==
LOC: LAB 09:14
PROVIDERS: PCP Internal Medicine; Referring Provider Internal Medicine; Visit Provider Internal Medicine
DX: E78.5 Hyperlipidemia, unspecified (principal)
CPT/HCPCS: 36415; 80061

== ENCOUNTER → 2023-05-22 | Outpatient (CLI) | payer BC, SELFPAY ==
--- NOTE | 2023-05-22 16:01 | US_ITS ---
EXAM: US CHEST CLINICAL INDICATION: Right Left Chest/Back Swelling TECHNIQUE: Real-time ultrasound of the chest with image documentation. COMPARISON: Left shoulder radiograph, 06/21/2015 FINDINGS: SOFT TISSUES: Lobulated masses are identified within the subcutaneous adipose of the right posterior chest wall, slightly echogenic compared to the adjacent fat and hypoechoic compared to skeletal muscle. The largest of these measures up to 5.2 cm with 2 small lesions more superiorly in the subcutaneous adipose measuring 1.1 and 1.5 cm respectively. Lobulated masses within the left posterior chest wall are identified measuring up to 2.0 and 1.3 cm respectively with similar sonographic features. None of these lesions appear to extend beyond the subcutaneous adipose. No pathologic fluid collection is identified. No additional masses. US/Chest IMPRESSION: Multiple posterior chest wall subcutaneous mass is most consistent with lipomas. If there has been interval growth, pain, or other suspicious features, biopsy may be indicated. Consider surgical consultation. Electronically Signed: Rosales Johnson DO at 20:21 EST ,
== END | disposition home or self-care (01) ==
LOC: US 16:00
PROVIDERS: PCP Internal Medicine; Referring Provider Internal Medicine; Visit Provider Internal Medicine
DX: R22.9 Localized swelling, mass and lump, unspecified (principal)
CPT/HCPCS: 76882; 76604

== ENCOUNTER → 2023-06-14 | Outpatient (CLI) | payer BC, SELFPAY ==
--- OUTSIDE RECORDS SUMMARY | 2023-06-14 08:53 | XMS RPT_ITS | CCD ---
Author Name Unknown Address [address] [place] [address] Organization [facility] Results Test Name Value Interpretation Reference Range Facil ity Summary Purpose Family History No Family History Records Found Advance Directives No Advanced Directives Records Found Additional Source Comments INFORMATION SOURCE (unrecogn ized section and content) FOR RECORDS PERTAINING TO PATIENTS WHO ARE OR HAVE BEEN ENROLLED IN A CHEMICAL DEPENDENCY/SUBSTANCEABUSE PROGRAM, SOME INFORMATION MAY BE OMITTED. This clinical summary was aggregated from multiple sources. Caution should be exercised in using it in the provision of clinical care. This summary normalizes information from multiple sources, and as a consequence, information in this document may materially change the coding, format and clinical context of patient data. In addition, data may be omitted in some cases. CLINICAL DECISIONS SHOULD BE BASED ON THE PRIMARY CLINICAL RECORDS. [employer] provides no warranty or guarantee of the accuracy or completeness of information in this document.
[2023-06-14 09:27] LABS: Absolute Lymphocyte Count 1.05 X10^3/uL (0.83-4.51); Absolute Neutrophil Count 3.5 X10^3/uL (2.0-7.7); Basophil# 0.04 X10^3/uL; Basophil% 0.8 % (0-1); Eosinophil# 0.13 X10^3/uL; Eosinophils% 2.5 % (0-5); Hematocrit 41.5 % (37-47); Hemoglobin 13.5 g/dL (12.0-15.0); Lymphocyte # 1.05 X10^3/ul (0.83-4.51); Lymphocyte % 20.3 % (19-41); Mean Corp Hgb Conc 32.5 g/dL (32-36); Mean Corpuscular Hgb 29.3 pg (27.0-32.0); Mean Platelet Vol. 9.4 fl (6.2-12.0); Monocyte# 0.48 X10^3/uL; Monocyte% 9.3 % (0-10); NRBC Flagged by Analyzer 0 % (0-5); Neutrophil # 3.45 X10^3/uL (2.7-7.7); Neutrophil % 66.7 % (47-70); Platelet Count 267 K/mm3 (150-450); RBC Distribution Width CV 13.7 % (11.6-14.6); RBC Distribution Width SD 44.3 fl (35.1-43.9); Red Blood Count 4.61 M/mm3 (4.2-5.4); White Blood Count 5.2 K/mm3 (4.4-11.0)
[2023-06-14 10:12] LABS: ALB/GLOB Ratio 1.1 RATIO (0.9-2.4); AST(SGOT) 19 U/L (15-37); Alanine Aminotransfer ALT/SGPT 42 U/L (13-56); Albumin, Serum 3.6 g/dL (3.2-5.0); Alkaline Phosphatase 116 U/L (45-117); Anion Gap 7 (5-15); BUN 18 mg/dL (7-18); BUN/Creat Ratio 22.3 RATIO (10-20); Calcium,Total 9.9 mg/dL (8.5-10.1); Chloride 105 mmol/L (98-107); Creatinine, Serum 0.81 mg/dL (0.55-1.02); EST Glomerular Filtration Rate 78 mL/min (>60); Est Glom Filt Rate - Afr Amer 95 mL/min (>60); Globulin 3.3 g/dL (2.2-4.2); Glucose 105 mg/dL (74-106); Potassium 4.1 mmol/L (3.5-5.1); Protein, Total 6.9 g/dL (6.4-8.2); Sodium Level 139 mmol/L (136-145)
== END | disposition home or self-care (01) ==
LOC: LAB 08:37
PROVIDERS: PCP Internal Medicine; Referring Provider Internal Medicine Rheumatology; Visit Provider Internal Medicine Rheumatology
DX: M06.4 Inflammatory polyarthropathy (principal); Z79.899 Other long term (current) drug therapy; M79.7 Fibromyalgia
CPT/HCPCS: 36415; 80053; 85025

== ENCOUNTER 2023-06-18 05:55 | Day surgery (SDC) | payer BC, SELFPAY ==
--- OUTSIDE RECORDS SUMMARY | 2023-06-18 05:59 | XMS RPT_ITS | CCD ---
Author Name Unknown Address [address] [place] [address] Organization [facility] Results Test Name Value Interpretation [...] BE BASED ON THE PRIMARY CLINICAL RECORDS. [employer] provides no warranty or guarantee of the accuracy or completeness of information in this document.
[2023-06-18 06:24] VITALS: BP 150/100; PULSE 72; RESP 20; TEMP 36.7; O2SAT 98; BMI 43.2
[2023-06-18] MEDS: Lactated Ringers 1,000 ML 15 ML IV (06:35)
--- NOTE | 2023-06-18 07:12 | HP.PCM_ITS ---
History and Physical Date of Admission: 06/18/23 Date of Service: 05/24/23 MR#: [id number] Acct: [id number] Name: LEIDY VAZQUEZ Rep #: [id number] : 1965 Provider: Dr. Bebe Torres MD Age/Sex: 57/F Location: [facility] Status: Signed Intake Vital Signs 05/13/2313:46 05/24/2309:59 Height 5 ft 2 in 5 ft 6 in Weight: 261 lb 261 lb 8 oz BMI 47.7 42.2 BP 120/82 H 125/89 H Blood Pressure Location Lt brachial Rt brachial Position Sitting Sitting Respiration 14 17 Pulse 74 83 Pulse Source Monitor Monitor Temp 99.8 F H Temp Source Temporal Pulse Oximetry (%) 99 99 Oxygen Delivery Method room air room air Intake Visit Reasons: LIPOMA ON R SIDE OF BACK Chief Complaint: lipoma on back Is patient in pain?: No Allergies adhesive tape Allergy (Verified 05/24/23 10:01) rashSulfa (Sulfonamide Antibiotics) Allergy (Verified 05/24/23 10:01) Swelling Medications budesonide 32 mcg/actuation nasal spray 1 spray NS DAILY 02/16/19 [History Confirmed 05/13/23] triamcinolone acetonide 55 mcg nasal spray aerosol (Nasacort) 1 spray intranasal DAILY 10/08/22 [History Confirmed 05/13/23] olopatadine 0.2 % eye drops 1 drp ophthalmic (eye) DAILY PRN itching #2.5 mL 10/30/22 [Rx Confirmed 05/13/23] gabapentin 100 mg capsule 200 mg (2 x 100 mg) PO BID 1 month #120 caps 01/01/23 [Rx Confirmed 05/13/23] lisinopril 20 mg tablet 20 mg PO BID 3 months #180 tabs 01/21/23 [Rx Confirmed 05/13/23] atorvastatin 40 mg tablet 40 mg PO DAILY #90 tabs 02/15/23 [Rx Confirmed 05/13/23] gabapentin 400 mg capsule 400 mg PO QHS 02/15/23 [History Confirmed 05/13/23] dexamethasone 6 mg tablet 6 mg PO DAILY #5 tabs 04/12/23 [Rx Confirmed 05/13/23] phenylephrine HCl 10 mg tablet (Sudafed PE) 10 mg PO Q6H PRN 04/12/23 [History Confirmed 05/13/23] methotrexate sodium 5 mg tablet 5 mg PO QWEEK 05/13/23 [History Confirmed 05/13/23] prednisone 5 mg tablet 5 mg PO TID 05/13/23 [History Confirmed 05/13/23] folic acid 1 mg tablet 1 mg PO DAILY 05/24/23 [History Confirmed 05/24/23] PFSH Medical History Allergic conjunctivitis Allergic rhinosinusitis Anemia Arthritis Blood glucose elevated High cholesterol History of back problems History of blood transfusion History of pneumonia Hyperlipidemia Hypersomnolence Localized soft tissue swelling Morbid obesity Osteoarthritis Pain of left great toe Seasonal allergies URI (upper respiratory infection) Surgical History History of ankle surgery Hx of section Hx of hysterectomy Family History Mother CD (celiac disease) Depression High cholesterol Thyroid disorder Cancer breastSister AsthmaGrandmother ArthritisFather Heart disease Social History Smoking Status: Never smoker alcohol intake: current alcohol intake frequency: holidays/special occasions only Alcohol type: wine and hard liquor substance use type: does not use what type of physical activity do you participate in: walking frequency: 1-2 times per week seatbelt use: always do you feel safe at home: Yes HPI HPI HPI: 57-year-old female presents due to multiple lipomas and also left-sided skin lesion. Patient states she has had larger 1 lipoma on her right flank about 8 years catches on her bras and also has 1 much more tender right flank just anterior to the larger 1 and another tender 1 on the left flank. Patient also has skin lesion on the left anterior axilla likely seborrheic keratosis that catches on her clothes as well she would like removed. Patient never had previous lipomas removed but does have multiple other lipomas as well. Patient had ultrasound which did confirm these are lipomas. ROS General General: Yes fatigue; No weight change, appetite, colon cancer or breast cancer HEENT HEENT: No difficulty swallowing, eye injury, eye surgery, swollen glands or hoarseness Endo Endocrine: No thyroid disease, diabetes mellitus, thyroid cancer, Hair loss, heat intolerance or cold intolerance Skin Skin: No rash or changing moles Musc Musculoskeletal: Yes back problems and arthritis; No rheumatoid arthritis, gout or joint pain Cardio Cardiovascular: Yes high blood pressure; No murmur, pacemaker, heart disease, atrial fibrillation, heart attack, heart stent, palpitations, shortness of breat with exertion or chest pain Psych Psychiatric: No depression, anxiety or hearing voices Resp Respiratory: No shortness of breath, Yes sleep apnea, No cough, No COPD, No asthma, No emphysema and No wheezing Gastro Gastrointestinal: No abdominal pain, No nausea or vomiting, No diarrhea, No constipation, No blood in stool, No acid reflux, No hemorrhoids, No ulcers, No gallbladder problem and No black,tarry stools Wilmer Hematologic: No blood thinners, No blood disorders, No bleeding, Yes anemia and No blood clots Neuro Neurologic: No numbness and No tingling Exam Const General: cooperative, healthy appearing, comfortable and no acute distress HENMT Head: normocephalic and atraumatic Neck Neck: supple Resp Effort & Inspection: normal respiratory effort Cardio Rate: regular rate GI Inspection: non-distended Palpation: soft Skin Other: Multiple lipomas on the right flank 2 she is interested in having removed 1 is about 4.5 cm mid right flank and the other 1 is about a centimeter anterior and inferior little to the the larger 1. Patient also has 1 on her left flank about 1 to 1.5 cm?tender to palpation. Patient also has seborrheic keratosis on her left anterior axillary skin about 6 mm in size which catches on her close. No changes to the overlying skin and lipomas. Bedside ultrasound also confirmed these are consistent with lipomas. Neuro General: CN's II-XI intact bilaterally Extrem General: normal to inspection Psych Mental Status: mental status grossly normal Attitude: cooperative Assessment and Plan Assessment and Plan (1) Multiple lipomas: Status: Acute Comment: Right and left flank (2) Skin lesion: Status: Acute Comment: Left anterior axillary area Plan Plan for excision of the painful/tender lipomas 2 on the right flank & 1 on the left as well as excision of the left anterior axillary skin lesion with MAC anesthesia. Discussed procedure including but not limited to risk of bleeding, infection, need for further surgery. Patient no further questions at this time. Patient agrees with plan. Patient will be leaving on a cruise 05/28/2023-(available by phone until 4 PM) and returning by 06/07/2023. Bebe Torres M.D. Pager: [phone] [facility] [address] [place] [address], [address] [place] [address] Office: [phone] Coding Level of Care Code Off vis,new,level 3 Diagnoses Multiple lipomas D17.9 Skin lesion L98.9 05/24/23 1015 <Electronically signed by Bebe Torres MD> Date Bebe Torres MD
--- NOTE | 2023-06-18 07:30 | LIP_PTH ---
PATHOLOGY RESULTS PATIENT: LEIDY VAZQUEZ LOC: [facility] U#:[id number] AGE/SX: 57/F ROOM: RE06/18/[address]: Dr. Bebe Torres MD : 1965 BED: DIS: 06/18/2023 SPEC #: [id number] RECD: 06/18/23 12:11 STATUS: CHRISTIAreli JACOBS #: [id number] DAVID: 06/18/23 07:[address]: Bebe Torres DEPT: SURGICAL PATHOLOGY RECD BY: Opal Brady ENTERED: 06/18/23 12:13 SP TYPE: LIPOMA OTHR DR: Dr. Carlyle Elmore MD Tissues: Soft tissues, NOS Soft tissues, NOS Soft tissues, NOS Soft tissues, NOS Skin of axilla, NOS Soft tissues, NOS Procedures: Surgery Specimen Level III Surgery Specimen Level IV HEADER OPERATION: Excision multiple lipomas right and left flanks, skin lesion left anterior axillary area PRE-OP DIAGNOSIS: Multiple lipomas right and left flanks, skin lesion left anterior axillary area TISSUE SUBMITTED: A - Right flank posterior 3.5 x 2.0 x 1.0 cm, B - Right flank middle 1.5 x 1.0 x 1.0 cm, C - Right flank anterior 3.0 x 2.5 x 1.0 cm, D - Left flank anterior 1.5 x 2.0 x 1.0 cm, E - Left anterior axillary skin lesion, F - Left flank posterior 3.0 x 2.0 x 1.0 cm MICROSCOPIC DIAGNOSIS A. Right flank posterior lesion, excision: Angiolipoma. B. Right flank middle lesion, excision: Angiolipoma. C. Right flank anterior lesion, excision: Angiolipoma. D. Left flank anterior lesion, excision: Angiolipoma. E. Left anterior axillary skin lesion, excision: Verrucous keratosis. Negative for malignancy. F. Left flank posterior lesion, excision: Angiolipoma. SJ:ashutosh 06/19/2023 MICROSCOPIC DESCRIPTION Slides are reviewed. GROSS DESCRIPTION A - Received in fixative is one container labeled with the patient's name and designated right flank posterior. The specimen consists of multiple pieces of yellow adipose tissue measuring in aggregate 4.5 x 3.5 x 1.0 cm. Sections reveal yellow adipose cut surfaces without area of hemorrhage, necrosis or cystic degeneration. Tour Actor sections are submitted in two cassettes. B - Received in fixative is one container labeled with the patient's name and designated right flank middle. The specimen consists of a piece of yellow adipose tissue measuring 1.5 x 1.2 x 1.0 cm. The specimen is serially sectioned and reveal yellow adipose cut surfaces without area of hemorrhage, necrosis or cystic degeneration. The entire specimen is submitted in one cassette. C - Received in fixative is one container labeled with the patient's name and designated right flank anterior. The specimen consists of a piece of yellow adipose tissue partly disrupted measuring 3.0 x 2.5 x 1.5 cm. Sections reveal yellow adipose cut surfaces without area of hemorrhage, necrosis or cystic degeneration. Tour Actor sections are submitted in one cassette. D - Received in fixative is one container labeled with the patient's name and designated left flank anterior. The specimen consists of a piece of yellow adipose tissue measuring 2.0 x 2.0 x 1.0 cm. The specimen is serially sectioned and reveal yellow adipose cut surfaces without area of hemorrhage, necrosis or cystic degeneration. The entire specimen is submitted in one cassette. E - Received in fixative is one container labeled with the patient's name and designated left anterior axillary skin lesion. The specimen consists of a polypoid piece of eckert-white skin measuring 1.5 x 1.0 x 0.3 cm. The specimen is inked, bisected and submitted entirely in one cassette. F - Received in fixative is one container labeled with the patient's name and designated left flank posterior. The specimen consists of a piece of yellow adipose tissue partly disrupted measuring 3.0 x 2.0 x 1.5 cm. Sections reveal yellow adipose cut surfaces without area of hemorrhage, necrosis or cystic degeneration. The entire specimen is submitted in two cassettes. / SJ:rg 06/18/2023 TC:1 CPT: 82732 x5, 19612
[2023-06-18] MEDS: Cefazolin 3 GM in 0.9% Normal Saline (100mL Bag) 100 ML IV (07:33)
--- NOTE | 2023-06-18 08:10 | OP.PCM_ITS ---
Report of Operation Date of Procedure: 06/18/23 Pre-Operative Diagnosis: Multiple right and left flank lipomas, left anterior a xillary skin lesion Post-Operative Diagnosis: Same Surgery/Procedure Performed:: Excision of multiple right flank (3) and left flank (2) lipomas, excision of left anterior axillary skin lesion Surgeon: Bebe Torres Type of Anesthesia: Local MAC Anesthesiologist: Valentin Man Special Medications: Ancef 3 g IV x 1 Specimen's removed: 1. Right flank anterior lipoma, 2. Right flank middle lipoma, 3. Right flank posterior lipoma, 4. Left flank anterior lipoma, 5. Left anterior axillary skin lesion, 6. Left flank posterior lipoma Estimated Blood Loss (mL): 10 cc Description of Procedure: Patient was brought to the operating room placed supine on the operating table. A timeout was completed verifying correct patient, procedure, site, positioning, special equipment prior to beginning procedure. MAC anesthesia was induced. Bilateral flanks were prepped and draped with ChloraPrep as well as the left anterior axillary skin lesion. Each of the lipomas were done similarly. Incision was made with a 15 blade scalpel overlying the lipoma. This was deepened with electrocautery and removed and sent to pathology. All lesions were consistent with lipoma electrocautery was used for hemostasis. The left anterior axillary skin incision was excised using the cut on electrocautery. Lipoma sizes were as follows: Right anterior flank 3.5 x 2.5 x 1 cm, right middle flank 1.5 x 1 x 1 cm, right posterior flank 3 x 2.5 x 1 cm, left anterior flank 1.5 x 2 x 1 cm, left posterior flank 3 x 2 x 1 cm. All incisions were closed using subdermal 3-0 Vicryl interrupted sutures and skin was closed with 4-0 Monocryl and Steri-Strips. OpSite's were placed. A Band-Aid was placed over the anterior axillary skin lesion site. Local anesthesia of 0.5% Marcaine?20 cc. Patient tolerated procedure well and taken to the postanesthesia care in stable condition. Complications none
[2023-06-18] MEDS: Bupivacaine Mpf 0.5% 30 ML VIAL (08:15)
--- NOTE | 2023-06-18 08:18 | DCINST_ITS ---
Discharge Instructions Diet Discharge Diet: Light diet - advance as tolerated Activity Discharge Activity: May Not Drive (while taking narcotic pain medications.) May shower in (days): 1 Additional Activity Instructions:: Avoid strenuous activity for 2 days Dressing / Incision Call your doctor if your incision/area has: Continuous Slow Oozing, Sudden Increased Bleeding, Increased Pain/ Swelling, Increased Redness, Foul Smelling Discharge and Swelling at the incision site Call your doctor if you observe: Fever of 101 or Higher Remove Dressing in: 2 days Cleanse incision/area with: Soap & Water Additional Dressing/Incision Instructions:: Steri-Strips will fall off in 7 to 10 days, if they do not fall off okay to remove after 10 days. Follow Up Care Please Follow Up With: Bebe Torres MD When: Call the office for a follow-up appointment 2 weeks; after 5 PM and on the weekends call [phone] with any concerns. Test Results: Test results from this visit will be discussed in further detail at your follow- up appointment, if applicable. Discharge Plan Admission Attending Provider: Bebe Torres Primary Care Provider: Carlyle Elmore Discharge Orders/Prescriptions Prescriptions: New tramadol 50 mg tablet 50 mg PO Q6H PRN (Reason: pain) 3 Days Qty: 7 0RF Continued triamcinolone acetonide [Nasacort] 55 mcg aerosol,spray 1 spray intranasal DAILY PRN (Reason: ALLERGIES) Rx Instructions: administer into each nostril olopatadine 0.2 % drops 1 drp ophthalmic (eye) DAILY PRN (Reason: itching) Qty: 2.5 0RF Rx Instructions: to both eyes gabapentin 400 mg capsule 400 mg PO QHS atorvastatin 40 mg tablet 40 mg PO DAILY Qty: 90 2RF methotrexate sodium 5 mg tablet 5 mg PO QWEEK prednisone 5 mg tablet 5 mg PO TID PRN (Reason: ARTHRITIS) phenylephrine HCl [Sudafed PE] 10 mg tablet 10 mg PO Q6H PRN (Reason: nasal congestion) folic acid 1 mg tablet 2 mg PO DAILY budesonide 8.43 ML spray,non-aerosol 1 spray intranasal DAILY PRN (Reason: ALLERGIES) gabapentin 100 mg capsule 300 mg PO 0800 lisinopril 20 mg tablet 20 mg PO BID 90 Days Qty: 180 1RF Referrals / Follow Up: Carlyle Elmore MD [Primary Care Provider] - Disposition Disposition (needs filled in before D/C Order can be placed): Home, Self Care
[2023-06-18 08:47] VITALS: BP 137/93; BP 150/100; PULSE 76; RESP 18; TEMP 36.1; O2SAT 97
[2023-06-18 08:52] VITALS: BP 130/78; BP 150/100; PULSE 78; RESP 18; O2SAT 98
[2023-06-18 08:55] VITALS: BP 119/85; BP 150/100; PULSE 78; RESP 12; O2SAT 98
[2023-06-18 09:00] VITALS: BP 121/87; BP 150/100; PULSE 64; PULSE 73; RESP 12; RESP 18; TEMP 36.2; O2SAT 100; O2SAT 98
[2023-06-18] MEDS: traMADol 50 MG Tablet PO (09:30)
[2023-06-18 10:30] VITALS: BP 147/90; BP 150/100; PULSE 66; RESP 18; TEMP 36.6; O2SAT 99
== END 2023-06-18 10:35 | disposition home or self-care (01) ==
LOC: SDC 05:59 → AC 06:01
PROVIDERS: PCP Internal Medicine; Referring Provider Surgery; Visit Provider Surgery
PROC: (CPT 11406; principal; 2023-06-18 07:20)
DX: D17.9 Benign lipomatous neoplasm, unspecified (principal); E66.01 Morbid (severe) obesity due to excess calories; Z68.42 Body mass index [BMI] 45.0-49.9, adult; E78.00 Pure hypercholesterolemia, unspecified; I10 Essential (primary) hypertension; Z90.710 Acquired absence of both cervix and uterus; R22.9 Localized swelling, mass and lump, unspecified; G47.10 Hypersomnia, unspecified; Z87.01 Personal history of pneumonia (recurrent); L98.9 Disorder of the skin and subcutaneous tissue, unspecified
CPT/HCPCS: 11406; 00400; 88304; 88305; J7120; J2405

== ENCOUNTER → 2023-08-09 | Outpatient (CLI) | payer BC, SELFPAY ==
--- OUTSIDE RECORDS SUMMARY | 2023-08-09 08:30 | XMS RPT_ITS | CCD ---
Author Name Unknown Address [address] [place] [address] Organization [facility] Results Test Name Value Interpretation [...] BE BASED ON THE PRIMARY CLINICAL RECORDS. [employer] provides no warranty or guarantee of the accuracy or completeness of information in this document.
[2023-08-09 09:03] LABS: Absolute Lymphocyte Count 1.24 X10^3/uL (0.83-4.51); Absolute Neutrophil Count 4.3 X10^3/uL (2.0-7.7); Basophil# 0.03 X10^3/uL; Basophil% 0.5 % (0-1); Eosinophil# 0.21 X10^3/uL; Eosinophils% 3.4 % (0-5); Hematocrit 39.8 % (37-47); Hemoglobin 13.3 g/dL (12.0-15.0); Lymphocyte # 1.24 X10^3/ul (0.83-4.51); Lymphocyte % 19.9 % (19-41); Mean Corp Hgb Conc 33.4 g/dL (32-36); Mean Corpuscular Hgb 30.2 pg (27.0-32.0); Mean Corpuscular Volume 90.5 fL (81-99); Mean Platelet Vol. 9.1 fl (6.2-12.0); Monocyte# 0.42 X10^3/uL; Monocyte% 6.7 % (0-10); NRBC Flagged by Analyzer 0 % (0-5); Platelet Count 294 K/mm3 (150-450); RBC Distribution Width CV 13.1 % (11.6-14.6); RBC Distribution Width SD 42.5 fl (35.1-43.9); White Blood Count 6.2 K/mm3 (4.4-11.0)
[2023-08-09 09:38] LABS: AST(SGOT) 15 U/L (15-37); Alanine Aminotransfer ALT/SGPT 30 U/L (13-56); Albumin, Serum 3.4 g/dL (3.2-5.0); Alkaline Phosphatase 96 U/L (45-117); Anion Gap 5 (5-15); BUN 18 mg/dL (7-18); BUN/Creat Ratio 21.3 RATIO (10-20); Calcium,Total 9.6 mg/dL (8.5-10.1); Chloride 110 mmol/L (98-107); Cholesterol 196 mg/dL (200); Creatinine, Serum 0.85 mg/dL (0.55-1.02); EST Glomerular Filtration Rate 74 mL/min (>60); Est Glom Filt Rate - Afr Amer 90 mL/min (>60); Globulin 3.3 g/dL (2.2-4.2); Glucose 98 mg/dL (74-106); High Density Lipoprotein 53 mg/dL; Potassium 4.3 mmol/L (3.5-5.1); Protein, Total 6.7 g/dL (6.4-8.2); Sodium Level 140 mmol/L (136-145); Triglycerides 241 mg/dL; Very Low Density Lipoprotein 48 mg/dL (5-40)
== END | disposition home or self-care (01) ==
LOC: LAB 08:20
PROVIDERS: PCP Internal Medicine; Referring Provider Internal Medicine Rheumatology; Visit Provider Internal Medicine Rheumatology
DX: M06.4 Inflammatory polyarthropathy (principal); M79.7 Fibromyalgia; Z79.899 Other long term (current) drug therapy
CPT/HCPCS: 36415; 80053; 80061; 85025

== ENCOUNTER → 2023-10-04 | Outpatient (CLI) | payer BC, SELFPAY ==
[2023-10-04 06:21] LABS: Absolute Lymphocyte Count 1.59 X10^3/uL (0.83-4.51); Absolute Neutrophil Count 5.1 X10^3/uL (2.0-7.7); Basophil# 0.04 X10^3/uL; Basophil% 0.6 % (0-1); Eosinophil# 0.13 X10^3/uL; Eosinophils% 1.8 % (0-5); Hematocrit 43.6 % (37-47); Hemoglobin 14.4 g/dL (12.0-15.0); Lymphocyte # 1.59 X10^3/ul (0.83-4.51); Lymphocyte % 21.9 % (19-41); Mean Corpuscular Volume 90.8 fL (81-99); Mean Platelet Vol. 9.5 fl (6.2-12.0); Monocyte# 0.41 X10^3/uL; Monocyte% 5.6 % (0-10); NRBC Flagged by Analyzer 0 % (0-5); Neutrophil # 5.06 X10^3/uL (2.7-7.7); Neutrophil % 69.7 % (47-70); Platelet Count 274 K/mm3 (150-450); RBC Distribution Width CV 13.2 % (11.6-14.6); RBC Distribution Width SD 44.2 fl (35.1-43.9); White Blood Count 7.3 K/mm3 (4.4-11.0)
[2023-10-04 06:57] LABS: AST(SGOT) 9 U/L (15-37); Alanine Aminotransfer ALT/SGPT 25 U/L (13-56); Albumin, Serum 3.5 g/dL (3.2-5.0); Alkaline Phosphatase 101 U/L (45-117); Anion Gap 5 (5-15); BUN 27 mg/dL (7-18); BUN/Creat Ratio 31.8 RATIO (10-20); Calcium,Total 9.7 mg/dL (8.5-10.1); Chloride 107 mmol/L (98-107); Creatinine, Serum 0.85 mg/dL (0.55-1.02); EST Glomerular Filtration Rate 74 mL/min (>60); Est Glom Filt Rate - Afr Amer 89 mL/min (>60); Globulin 3.4 g/dL (2.2-4.2); Glucose 104 mg/dL (74-106); Potassium 4.3 mmol/L (3.5-5.1); Protein, Total 6.9 g/dL (6.4-8.2); Sodium Level 138 mmol/L (136-145)
== END | disposition home or self-care (01) ==
LOC: LAB 06:00
PROVIDERS: PCP Internal Medicine; Referring Provider Internal Medicine Rheumatology; Visit Provider Internal Medicine Rheumatology
DX: M06.4 Inflammatory polyarthropathy (principal); Z79.899 Other long term (current) drug therapy; M79.7 Fibromyalgia; M47.897 Other spondylosis, lumbosacral region; I10 Essential (primary) hypertension; E78.5 Hyperlipidemia, unspecified; L71.9 Rosacea, unspecified
CPT/HCPCS: 36415; 80053; 85025

== ENCOUNTER → 2023-12-03 | Outpatient (CLI) | payer BC, SELFPAY ==
[2023-12-03 17:49] LABS: Absolute Lymphocyte Count 1.42 X10^3/uL (0.83-4.51); Absolute Neutrophil Count 8.6 X10^3/uL (2.0-7.7); Basophil# 0.03 X10^3/uL; Basophil% 0.3 % (0-1); Eosinophil# 0.13 X10^3/uL; Eosinophils% 1.2 % (0-5); Hematocrit 35.1 % (37-47); Hemoglobin 11.5 g/dL (12.0-15.0); Lymphocyte # 1.42 X10^3/ul (0.83-4.51); Mean Corp Hgb Conc 32.8 g/dL (32-36); Mean Corpuscular Hgb 29.7 pg (27.0-32.0); Mean Corpuscular Volume 90.7 fL (81-99); Monocyte# 0.61 X10^3/uL; Monocyte% 5.6 % (0-10); NRBC Flagged by Analyzer 0 % (0-5); Neutrophil # 8.61 X10^3/uL (2.7-7.7); Neutrophil % 78.4 % (47-70); Platelet Count 481 K/mm3 (150-450); RBC Distribution Width SD 45.1 fl (35.1-43.9); Red Blood Count 3.87 M/mm3 (4.2-5.4)
[2023-12-03 18:04] LABS: ALB/GLOB Ratio 0.8 RATIO (0.9-2.4); AST(SGOT) 19 U/L (15-37); Alanine Aminotransfer ALT/SGPT 23 U/L (13-56); Albumin, Serum 3.2 g/dL (3.2-5.0); Alkaline Phosphatase 89 U/L (45-117); Anion Gap 8 (5-15); BUN 15 mg/dL (7-18); BUN/Creat Ratio 17.2 RATIO (10-20); Calcium,Total 9.5 mg/dL (8.5-10.1); Chloride 100 mmol/L (98-107); Creatinine, Serum 0.87 mg/dL (0.55-1.02); EST Glomerular Filtration Rate 71 mL/min (>60); Est Glom Filt Rate - Afr Amer 86 mL/min (>60); Globulin 3.8 g/dL (2.2-4.2); Glucose 149 mg/dL (74-106); Sodium Level 133 mmol/L (136-145)
== END | disposition home or self-care (01) ==
LOC: MTLAB 15:10
PROVIDERS: PCP Internal Medicine; Referring Provider Internal Medicine Rheumatology; Visit Provider Internal Medicine Rheumatology
DX: M06.4 Inflammatory polyarthropathy (principal); M79.7 Fibromyalgia; Z79.899 Other long term (current) drug therapy
CPT/HCPCS: 36415; 80053; 85025

== ENCOUNTER → 2024-01-30 | Outpatient (CLI) | payer BC, SELFPAY ==
[2024-01-30 09:04] LABS: Absolute Lymphocyte Count 1.28 X10^3/uL (0.83-4.51); Absolute Neutrophil Count 3.2 X10^3/uL (2.0-7.7); Basophil# 0.02 X10^3/uL; Basophil% 0.4 % (0-1); Eosinophil# 0.08 X10^3/uL; Eosinophils% 1.6 % (0-5); Hematocrit 42.4 % (37-47); Hemoglobin 13.7 g/dL (12.0-15.0); Lymphocyte # 1.28 X10^3/ul (0.83-4.51); Lymphocyte % 25.5 % (19-41); Mean Corp Hgb Conc 32.3 g/dL (32-36); Mean Corpuscular Hgb 28.5 pg (27.0-32.0); Mean Corpuscular Volume 88.3 fL (81-99); Mean Platelet Vol. 9.9 fl (6.2-12.0); Monocyte# 0.39 X10^3/uL; Monocyte% 7.8 % (0-10); NRBC Flagged by Analyzer 0 % (0-5); Neutrophil # 3.22 X10^3/uL (2.7-7.7); Neutrophil % 64.3 % (47-70); Platelet Count 252 K/mm3 (150-450); RBC Distribution Width CV 13.9 % (11.6-14.6); RBC Distribution Width SD 44.1 fl (35.1-43.9)
[2024-01-30 09:34] LABS: Anion Gap 8 (5-15); BUN 17 mg/dL (7-18); Calcium,Total 9.8 mg/dL (8.5-10.1); Chloride 106 mmol/L (98-107); Cholesterol 210 mg/dL (200); Creatinine, Serum 0.81 mg/dL (0.55-1.02); EST Glomerular Filtration Rate 78 mL/min (>60); Est Glom Filt Rate - Afr Amer 94 mL/min (>60); Glucose 103 mg/dL (74-106); High Density Lipoprotein 53 mg/dL; Potassium 4.3 mmol/L (3.5-5.1); Sodium Level 138 mmol/L (136-145); Triglycerides 209 mg/dL; Very Low Density Lipoprotein 42 mg/dL (5-40)
== END | disposition home or self-care (01) ==
LOC: LAB 08:15
PROVIDERS: PCP Internal Medicine; Referring Provider Internal Medicine; Visit Provider Internal Medicine
DX: I10 Essential (primary) hypertension (principal)
CPT/HCPCS: 36415; 80048; 80061; 85025

== ENCOUNTER → 2024-02-20 | Outpatient (CLI) | payer BC, SELFPAY ==
[2024-02-20 08:44] LABS: Absolute Lymphocyte Count 1.42 X10^3/uL (0.83-4.51); Absolute Neutrophil Count 3.1 X10^3/uL (2.0-7.7); Basophil# 0.03 X10^3/uL; Basophil% 0.6 % (0-1); Eosinophil# 0.09 X10^3/uL; Eosinophils% 1.8 % (0-5); Hematocrit 41.1 % (37-47); Hemoglobin 13.2 g/dL (12.0-15.0); Lymphocyte # 1.42 X10^3/ul (0.83-4.51); Lymphocyte % 27.7 % (19-41); Mean Corp Hgb Conc 32.1 g/dL (32-36); Mean Corpuscular Hgb 28.7 pg (27.0-32.0); Mean Corpuscular Volume 89.3 fL (81-99); Mean Platelet Vol. 10.1 fl (6.2-12.0); Monocyte# 0.47 X10^3/uL; Monocyte% 9.2 % (0-10); NRBC Flagged by Analyzer 0 % (0-5); Neutrophil # 3.09 X10^3/uL (2.7-7.7); Neutrophil % 60.3 % (47-70); Platelet Count 250 K/mm3 (150-450); RBC Distribution Width CV 14.5 % (11.6-14.6); RBC Distribution Width SD 46.3 fl (35.1-43.9); White Blood Count 5.1 K/mm3 (4.4-11.0)
[2024-02-20 09:25] LABS: ALB/GLOB Ratio 1.2 RATIO (0.9-2.4); AST(SGOT) 10 U/L (15-37); Alanine Aminotransfer ALT/SGPT 24 U/L (13-56); Albumin, Serum 3.7 g/dL (3.2-5.0); Alkaline Phosphatase 97 U/L (45-117); Anion Gap 6 (5-15); BUN 17 mg/dL (7-18); BUN/Creat Ratio 20.8 RATIO (10-20); Calcium,Total 9.8 mg/dL (8.5-10.1); Chloride 107 mmol/L (98-107); Creatinine, Serum 0.82 mg/dL (0.55-1.02); EST Glomerular Filtration Rate 77 mL/min (>60); Est Glom Filt Rate - Afr Amer 93 mL/min (>60); Globulin 3.2 g/dL (2.2-4.2); Glucose 110 mg/dL (74-106); Potassium 4.2 mmol/L (3.5-5.1); Protein, Total 6.9 g/dL (6.4-8.2); Sodium Level 140 mmol/L (136-145)
== END | disposition home or self-care (01) ==
LOC: LAB 08:20
PROVIDERS: PCP Internal Medicine; Referring Provider Internal Medicine Rheumatology; Visit Provider Internal Medicine Rheumatology
DX: M06.4 Inflammatory polyarthropathy (principal); M79.7 Fibromyalgia; Z79.899 Other long term (current) drug therapy
CPT/HCPCS: 36415; 80053; 85025

== ENCOUNTER 2024-04-03 12:00 | Outpatient (RCR) | payer BC, SELFPAY ==
--- NOTE | 2023-12-24 07:44 | HP.PTEVAL_ITS ---
Patient's Visit Information Visit Information Visit Information: LEIDY VAZQUEZ is a 58 year old F referred to Physical Therapy by RACHELL WHITE with a diagnosis of Right TKR 11/25/23. Date of Evaluation: 12/24/23 Physical Therapist: Judith Bueno DPT Visit Plan Frequency: 2-3x /Week Duration: 4 Weeks Plan: Right TKR- 12/24/23- Focus on higher level activities- gait, stairs, and proprioception. HEP: reviewed current and added SLS and step stretch Subjective Subjective: Right TKR November 25, [address] Basilio- she stayed overnight- she had one flash pain day a couple days after-she had home therapy 5-6 visits and that ended a week or two ago and she had her follow up on the . She did not have x-ray at that apt but they had no concerns. The swelling isn't too bad right now but by 2:00 this afternoon she will have swelling and heat to the touch. Worst: 7/10 Agg: middle of the night, being up on it after sitting still. Eases: ice, Percoset at night time as needed. Best: 1/10. Today she is 2/10. The pain is located in the whole knee- the stiffness is in the thigh. The pain the most stinging in the knee cap and tightness in the thigh. She has no N/T in the toes. She feels that she is 50% back to normal. She does not perform stairs recip. She feels that she is stressing out her left knee. Sleep: disturbed at least one time a night- she is a side sleeper. 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 PMHx: HTN Meds: Gabapentin, Astrovastin, methotrexate. Objective Objective: Posture: fair throughout Gait: slightly antalgic- decreased stance on right LE HR/TR: able without UE A SLS: 5 sec then LOB Stairs: asc/desc 8 recip with 2 HR- decreased control with descent Palpation: tender along medial and lateral joint lines Observation: incision healing well no s/s of infection ROM:5 degrees from full extension to 104 degrees Strength: Hip: 4+/5 throughout, Core: fair, Knee: Extn: 40 Flexion: 26 Ankle: 5/5 Flex: HS: moderate, Gastroc: moderate Balance/Special Test Scores Lower Extremity Functional Score: 33 Goals Goal 1:: Patient will be I with HEP and progression Goal Time Frame: 4-6 Weeks Goal 2:: Patient will asc/desc 8 stairs recip with a single HR Goal Time Frame: 4-6 Weeks Goal 3:: Patient will ambulate >150 feet with a normalized gait pattern on an uneven surface Goal Time Frame: 4-6 Weeks Goal 4:: Patient will demo 0-115 degrees of ROM Goal Time Frame: 4-6 Weeks Goal 5:: Patient will report 80% improvement Goal Time Frame: 4-6 Weeks Rehabilitation Potential Physical Therapy Diagnosis: Patient presents s/p right TKR- she has decreased ROM, strength, proprioception, flex and muscular endurance leading to abnormal gait pattern and decreased ability to perform ADL's. Rehabilitation Potential: Good Anticipated Interventions Patient/Client Instruction: Educate patient on: Benefits of Fitness Program Therapeutic Exercise to Include: Strength training, Endurance training, Balance training, Agility training, Body mechanics, Postural training, Flexibilty training, Gait and locomotor training, Neuromotor development, Passive ROM, Active ROM, Dynamic Lumbar Stabilization and Scapular Strength/Stabilization For the Purpose of:: To improve muscle performance and motor function Functional Training to Include: Gait training TENS: Yes Cryotherapy (ice pack, ice massage): Yes Thermo therapy (hot pack): Yes Text: Thank you for the opportunity to evaluate your patient. For Medicare and Medicare HMO plans, please review the plan of care and approve it. It will need to be FAXED BACK to us at [phone] for Medicare purposes. For Medicare only, by signing this I certify the plan of care. Please let me know if there are questions or concerns regarding this plan of care. Physician Signature: Date:
--- NOTE | 2024-02-18 14:00 | HP.PTREVAL_ITS ---
Re-Evaluation Intro: GEMA BELLA, TALISHA-C, It has been my pleasure to treat LEIDY VAZQUEZ over the last 16 visits for Right TKR 11/25/23. Please see the progress note below for an update on the physical therapy plan of care! Subjective Subjective: I have made leaps and bounds over the past 2-3 weeks Objective Objective/Function: R knee pain ranges from 0-4/10 R knee ROM: 0-104 degrees R knee MMT: flex= 33, ext= 50 #F Pt is showing significant progress at this time. Still lacks functional strength and ROM which is evident with her inability to negotiate stairs reciprocally Plan Plan Plan: 02/18/24- Cont 2 times per week for 3 weeks with transitioning pt to full LE gym routine Balance/Gait/Functional tests Balance/Special Test Scores Lower Extremity Functional Score: 49 Tug Test: <10 sec.=free mobile Goals Goals Goal 1:: Patient will be I with HEP and progression Goal Time Frame: 4-6 Weeks Goal Progress: Progressing Goal 2:: Patient will asc/desc 8 stairs recip with a single HR Goal Time Frame: 4-6 Weeks Goal Progress: Progressing Goal 3:: Patient will ambulate >150 feet with a normalized gait pattern on an uneven surface Goal Time Frame: 4-6 Weeks Goal Progress: Progressing Goal 4:: Patient will demo 0-115 degrees of ROM Goal Time Frame: 4-6 Weeks Goal Progress: Progressing Goal 5:: Patient will report 80% improvement Goal Time Frame: 4-6 Weeks Goal Progress: Progressing Anticipated Interventions Anticipated Interventions Patient/Client Instruction: Educate patient on: Benefits of Fitness Program Therapeutic Exercise to Include: Strength training, Endurance training, Balance training, Agility training, Body mechanics, Postural training, Flexibilty training, Gait and locomotor training, Neuromotor development, Passive ROM, Active ROM, Dynamic Lumbar Stabilization and Scapular Strength/Stabilization For the Purpose of:: To improve muscle performance and motor function Functional Training to Include: Gait training TENS: Yes Cryotherapy (ice pack, ice massage): Yes Thermo therapy (hot pack): Yes Re-Evaluation Ending Re-evaluation ending: Please do not hesitate to contact me at [phone] by phone or Fax: if you have questions or concerns regarding this new plan of care! Sincerely, Christopher Barth, PT, ATC
--- NOTE | 2024-04-03 12:58 | HP.PTREVAL ---
Re-Evaluation Intro: GEMA BELLA, TALISHA-C, It has been my pleasure to treat LEIDY VAZQUEZ over the last 24 visits for Right TKR 11/25/23. Please see the progress note below for an update on the physical therapy plan of care! Subjective Subjective: Pt reports she is much better now. Significant change in function now. Objective Objective/Function: R knee pain ranges from 0-3/10 R knee ROM 0-115 degrees Stairs: Pt is able to negotiate stairs reciprocally with one rail Walking: Pt is able to ambulate greater than 340 feet without difficulty Plan Plan Plan: Discharge to I gym routine Balance/Gait/Functional tests Balance/Special Test Scores Lower Extremity Functional Score: 56 Tug Test: <10 sec.=free mobile Goals Goals Goal 1:: Patient will be I with HEP and progression Goal Time Frame: 4-6 Weeks Goal Progress: Goal Met Goal 2:: Patient will asc/desc 8 stairs recip with a single HR Goal Time Frame: 4-6 Weeks Goal Progress: Goal Met Goal 3:: Patient will ambulate >150 feet with a normalized gait pattern on an uneven surface Goal Time Frame: 4-6 Weeks Goal Progress: Goal Met Goal 4:: Patient will demo 0-115 degrees of ROM Goal Time Frame: 4-6 Weeks Goal Progress: Goal Met Goal 5:: Patient will report 80% improvement Goal Time Frame: 4-6 Weeks Goal Progress: Goal Met Anticipated Interventions Anticipated Interventions Patient/Client Instruction: Educate patient on: Benefits of Fitness Program Therapeutic Exercise to Include: Strength training, Endurance training, Balance training, Agility training, Body mechanics, Postural training, Flexibilty training, Gait and locomotor training, Neuromotor development, Passive ROM, Active ROM, Dynamic Lumbar Stabilization and Scapular Strength/Stabilization For the Purpose of:: To improve muscle performance and motor function Functional Training to Include: Gait training TENS: Yes Cryotherapy (ice pack, ice massage): Yes Thermo therapy (hot pack): Yes Re-Evaluation Ending Re-evaluation ending: Please do not hesitate to contact me at [phone] by phone or if you have questions or concerns regarding this new plan of care! Sincerely, Christopher Barth, PT, ATC
--- NOTE | 2024-05-15 12:25 | HP.PTDCSUM ---
Discharge Summary D/C summary: It has been my pleasure to treat LEIDY VAZQUEZ referred by RACHELL WHITE, with the diagnosis of Right TKR 11/25/23 for a total of 24 visit(s). Discharge Date: Please see the following information for a summary of their discharge status. Subjective Subjective: Pt reports she is much better now. Significant change in function now. Pain R knee: Pain Intensity (Out of 10): 0 Overall Improvement % Improvement: 90 Objective Objective/Function: R knee pain ranges from 0-3/10 R knee ROM 0-115 degrees Stairs: Pt is able to negotiate stairs reciprocally with one rail Walking: Pt is able to ambulate greater than 340 feet without difficulty Goals Goal 1:: Patient will be I with HEP and progression Goal Progress: Goal Met Goal 2:: Patient will asc/desc 8 stairs recip with a single HR Goal Progress: Goal Met Goal 3:: Patient will ambulate >150 feet with a normalized gait pattern on an uneven surface Goal Progress: Goal Met Goal 4:: Patient will demo 0-115 degrees of ROM Goal Progress: Goal Met Goal 5:: Patient will report 80% improvement Goal Progress: Goal Met Plan Plan: Discharge to I gym routine D/C Information d/c sentence: If there are questions or concerns regarding this patient's physical therapy, please feel free to call me at [phone]. Thank you for the referral of this patient. Sincerely, Christopher Barth, PT, ATC Balance/Gait/Functional tests Balance/Special Test Scores Lower Extremity Functional Score: 56 Tug Test: <10 sec.=free mobile Improvement % Improvement: 90
== END 2024-04-03 19:00 | disposition home or self-care (01) ==
LOC: PT 12:00
PROVIDERS: PCP Internal Medicine; Referring Provider Nurse Practitioner Family; Visit Provider Nurse Practitioner Family
DX: M17.11 Unilateral primary osteoarthritis, right knee (principal); Z96.651 Presence of right artificial knee joint
CPT/HCPCS: 97110; 97162; 97530

== ENCOUNTER → 2024-05-11 | Outpatient (CLI) | payer BC, SELFPAY ==
[2024-05-11 12:18] LABS: Absolute Lymphocyte Count 0.95 X10^3/uL (0.83-4.51); Absolute Neutrophil Count 3.4 X10^3/uL (2.0-7.7); Basophil# 0.03 X10^3/uL; Basophil% 0.6 % (0-1); Eosinophil# 0.12 X10^3/uL; Eosinophils% 2.4 % (0-5); Hematocrit 41.9 % (37-47); Hemoglobin 13.3 g/dL (12.0-15.0); Lymphocyte # 0.95 X10^3/ul (0.83-4.51); Lymphocyte % 19.3 % (19-41); Mean Corp Hgb Conc 31.7 g/dL (32-36); Mean Corpuscular Hgb 28.7 pg (27.0-32.0); Mean Corpuscular Volume 90.5 fL (81-99); Mean Platelet Vol. 10.5 fl (6.2-12.0); Monocyte# 0.39 X10^3/uL; Monocyte% 7.9 % (0-10); NRBC Flagged by Analyzer 0 % (0-5); Neutrophil # 3.41 X10^3/uL (2.7-7.7); Neutrophil % 69.6 % (47-70); Platelet Count 304 K/mm3 (150-450); RBC Distribution Width CV 13.8 % (11.6-14.6); RBC Distribution Width SD 45.5 fl (35.1-43.9); Red Blood Count 4.63 M/mm3 (4.2-5.4); White Blood Count 4.9 K/mm3 (4.4-11.0)
[2024-05-11 13:30] LABS: AST(SGOT) 14 U/L (15-37); Alanine Aminotransfer ALT/SGPT 27 U/L (13-56); Albumin, Serum 3.5 g/dL (3.2-5.0); Alkaline Phosphatase 76 U/L (45-117); Anion Gap 8 (5-15); BUN 17 mg/dL (7-18); BUN/Creat Ratio 18.9 RATIO (10-20); Calcium,Total 9.8 mg/dL (8.5-10.1); Chloride 108 mmol/L (98-107); EST Glomerular Filtration Rate 69 mL/min (>60); Est Glom Filt Rate - Afr Amer 83 mL/min (>60); Globulin 3.4 g/dL (2.2-4.2); Glucose 82 mg/dL (74-106); Potassium 4.4 mmol/L (3.5-5.1); Protein, Total 6.9 g/dL (6.4-8.2); Sodium Level 140 mmol/L (136-145)
== END | disposition home or self-care (01) ==
LOC: BIMLAB 09:14
PROVIDERS: PCP Internal Medicine; Referring Provider Internal Medicine; Visit Provider Internal Medicine
DX: E88.810 Metabolic syndrome (principal)
CPT/HCPCS: 36415; 80053; 85025

== ENCOUNTER → 2024-07-30 | Outpatient (CLI) | payer BC, SELFPAY ==
[2024-07-30 07:57] LABS: Absolute Neutrophil Count 4.1 X10^3/uL (2.0-7.7); Basophil# 0.03 X10^3/uL; Basophil% 0.5 % (0-1); Eosinophils% 1.7 % (0-5); Hematocrit 41.4 % (37-47); Hemoglobin 13.8 g/dL (12.0-15.0); Lymphocyte % 20.7 % (19-41); Mean Corp Hgb Conc 33.3 g/dL (32-36); Mean Corpuscular Hgb 29.3 pg (27.0-32.0); Mean Corpuscular Volume 87.9 fL (81-99); Mean Platelet Vol. 10.1 fl (6.2-12.0); Monocyte% 6.9 % (0-10); NRBC Flagged by Analyzer 0 % (0-5); Neutrophil # 4.05 X10^3/uL (2.7-7.7); Platelet Count 266 K/mm3 (150-450); RBC Distribution Width CV 13.1 % (11.6-14.6); RBC Distribution Width SD 42.1 fl (35.1-43.9); Red Blood Count 4.71 M/mm3 (4.2-5.4); White Blood Count 5.8 K/mm3 (4.4-11.0)
[2024-07-30 08:45] LABS: ALB/GLOB Ratio 1.7 RATIO (0.9-2.4); AST(SGOT) 16 U/L (<=31); Alanine Aminotransfer ALT/SGPT 16 U/L (<=34); Albumin, Serum 4.2 g/dL (3.5-5.0); Alkaline Phosphatase 81 U/L (35-104); Anion Gap 13 (5-15); BUN 18 mg/dL (4-19); BUN/Creat Ratio 19.2 RATIO (10-20); Calcium,Total 9.6 mg/dL (7.6-11.0); Carbon Dioxide 24.9 mmol/L (21.0-32.0); Chloride 103 mmol/L (98-108); Cholesterol 170 mg/dL (<=200); Creatinine, Serum 0.95 mg/dL (0.70-1.20); EST Glomerular Filtration Rate 70 (>60); Globulin 2.5 g/dL (2.2-4.2); Glucose 91 mg/dL (70-99); High Density Lipoprotein 55 mg/dL; Low Density Lipoprotein Calc. 89 mg/dL; Protein, Total 6.6 g/dL (5.9-8.4); Sodium Level 140 mmol/L (133-145); Triglycerides 128 mg/dL; Very Low Density Lipoprotein 26 mg/dL (5-40); cholesterol:hdl ratio screen 3.08
== END | disposition home or self-care (01) ==
PROVIDERS: PCP Internal Medicine; Referring Provider Internal Medicine; Visit Provider Internal Medicine
DX: E78.5 Hyperlipidemia, unspecified (principal); I10 Essential (primary) hypertension
CPT/HCPCS: 36415; 80053; 80061; 85025

== ENCOUNTER → 2024-08-04 | Outpatient (CLI) | payer BC, SELFPAY ==
--- NOTE | 2024-08-04 08:30 | BI_ITS ---
PROCEDURE: SCRN MAMM (CAD)W/BRI BILAT REASON FOR EXAM: F, Age 59 y/o , BREAST CANCER SCREENING. Family history of breast cancer in her mother at age 45. TECHNIQUE: Bilateral screening digital breast tomosynthesis with 2D and 3D images. Computer aided detection. COMPARISON: 08/02/2022 FINDINGS: The breasts are almost entirely fatty. No suspicious masses, areas of developing architectural distortion, or suspicious calcifications. BI/SCRN MAMM (CAD)W/BRI BILAT IMPRESSION: There is no mammographic evidence of malignancy. BI-RADS 1: NEGATIVE. RECOMMEND ANNUAL MAMMOGRAPHIC SCREENING. Follow-up code: Routine Follow-up The patient will be notified of the results by letter. Reading Location: [id number]
== END | disposition home or self-care (01) ==
LOC: OPBI 08:14
PROVIDERS: PCP Internal Medicine; Referring Provider Internal Medicine; Visit Provider Internal Medicine
DX: Z12.31 Encounter for screening mammogram for malignant neoplasm of breast (principal); Z80.3 Family history of malignant neoplasm of breast
CPT/HCPCS: 77063; 77067

== ENCOUNTER → 2024-08-17 | Outpatient (CLI) | payer BC, SELFPAY ==
[2024-08-17 12:39] LABS: Absolute Lymphocyte Count 1.16 X10^3/uL (0.83-4.51); Absolute Neutrophil Count 5.3 X10^3/uL (2.0-7.7); Basophil# 0.01 X10^3/uL; Basophil% 0.1 % (0-1); Eosinophils% 1.4 % (0-5); Hematocrit 42.9 % (37-47); Hemoglobin 14.3 g/dL (12.0-15.0); Lymphocyte # 1.16 X10^3/ul (0.83-4.51); Lymphocyte % 16.3 % (19-41); Mean Corp Hgb Conc 33.3 g/dL (32-36); Mean Corpuscular Hgb 29.4 pg (27.0-32.0); Mean Corpuscular Volume 88.1 fL (81-99); Mean Platelet Vol. 10.2 fl (6.2-12.0); Monocyte# 0.47 X10^3/uL; Monocyte% 6.6 % (0-10); NRBC Flagged by Analyzer 0 % (0-5); Neutrophil # 5.34 X10^3/uL (2.7-7.7); Neutrophil % 75.3 % (47-70); Platelet Count 292 K/mm3 (150-450); RBC Distribution Width CV 12.9 % (11.6-14.6); RBC Distribution Width SD 41.6 fl (35.1-43.9); Red Blood Count 4.87 M/mm3 (4.2-5.4); White Blood Count 7.1 K/mm3 (4.4-11.0)
[2024-08-17 14:45] LABS: ALB/GLOB Ratio 1.8 RATIO (0.9-2.4); AST(SGOT) 16 U/L (<=31); Alanine Aminotransfer ALT/SGPT 15 U/L (<=34); Albumin, Serum 4.2 g/dL (3.5-5.0); Alkaline Phosphatase 82 U/L (35-104); Anion Gap 14 (5-15); BUN 16 mg/dL (4-19); BUN/Creat Ratio 19.1 RATIO (10-20); Calcium,Total 10.1 mg/dL (7.6-11.0); Carbon Dioxide 22.5 mmol/L (21.0-32.0); Chloride 102 mmol/L (98-108); Creatinine, Serum 0.82 mg/dL (0.70-1.20); EST Glomerular Filtration Rate 83 (>60); Globulin 2.4 g/dL (2.2-4.2); Glucose 84 mg/dL (70-99); Potassium 4.2 mmol/L (3.3-5.1); Protein, Total 6.6 g/dL (5.9-8.4); Sodium Level 138 mmol/L (133-145); Total Bilirubin 0.79 mg/dL (0.00-1.30)
== END | disposition home or self-care (01) ==
LOC: LAB 11:34
PROVIDERS: PCP Internal Medicine; Referring Provider Internal Medicine Rheumatology; Visit Provider Internal Medicine Rheumatology
DX: M06.4 Inflammatory polyarthropathy (principal); Z79.899 Other long term (current) drug therapy; M79.7 Fibromyalgia
CPT/HCPCS: 36415; 80053; 85025

== ENCOUNTER → 2024-08-20 | Outpatient (CLI) | payer BC, SELFPAY | END | disposition home or self-care (01) | LOC: LABSPEC 07:41 | PROVIDERS: PCP Internal Medicine; Visit Provider Physician Assistant | DX: R82.90 Unspecified abnormal findings in urine (principal) | CPT/HCPCS: 87086; 87088 ==

== ENCOUNTER → 2024-12-03 | Outpatient (CLI) | payer BC, SELFPAY ==
[2024-12-03 12:18] LABS: Hematocrit 41.2 % (37-47); Hemoglobin 13.9 g/dL (12.0-15.0); Immature Granulocytes Count 0.020 X10^3/uL (0.0-0.0); Mean Corp Hgb Conc 33.7 g/dL (32-36); Mean Corpuscular Volume 88.6 fL (81-99); Mean Platelet Vol. 9.9 fl (6.2-12.0); NRBC Flagged by Analyzer 0 % (0-5); Platelet Count 287 K/mm3 (150-450); RBC Distribution Width CV 13.0 % (11.6-14.6); RBC Distribution Width SD 42.3 fl (35.1-43.9); Red Blood Count 4.65 M/mm3 (4.2-5.4); White Blood Count 6.8 K/mm3 (4.4-11.0)
[2024-12-03 12:47] LABS: AST(SGOT) 18 U/L (<=31); Alanine Aminotransfer ALT/SGPT 20 U/L (<=34); Albumin, Serum 4.1 g/dL (3.5-5.0); Alkaline Phosphatase 75 U/L (35-104); Anion Gap 11 (5-15); BUN 19 mg/dL (4-19); BUN/Creat Ratio 19.8 RATIO (10-20); Calcium,Total 9.6 mg/dL (7.6-11.0); Carbon Dioxide 23.1 mmol/L (21.0-32.0); Chloride 103 mmol/L (98-108); Globulin 2.4 g/dL (2.2-4.2); Glucose 88 mg/dL (70-99); Potassium 4.4 mmol/L (3.3-5.1)
== END | disposition home or self-care (01) ==
LOC: LAB 11:50
PROVIDERS: PCP Internal Medicine; Referring Provider Internal Medicine Rheumatology; Visit Provider Internal Medicine Rheumatology
DX: M06.4 Inflammatory polyarthropathy (principal); Z79.899 Other long term (current) drug therapy; M79.7 Fibromyalgia
CPT/HCPCS: 36415; 80053; 85025

== ENCOUNTER 2025-02-15 08:33 | Outpatient (CLI) | payer BC, SELFPAY ==
[2025-02-15 09:04] LABS: Hematocrit 40.5 % (37-47); Hemoglobin 13.8 g/dL (12.0-15.0); Immature Granulocytes Count 0.010 X10^3/uL (0.0-0.0); Mean Corp Hgb Conc 34.1 g/dL (32-36); Mean Corpuscular Volume 88.0 fL (81-99); Mean Platelet Vol. 9.4 fl (6.2-12.0); NRBC Flagged by Analyzer 0 % (0-5); Platelet Count 254 K/mm3 (150-450); RBC Distribution Width CV 11.9 % (11.6-14.6); RBC Distribution Width SD 38.4 fl (35.1-43.9); Red Blood Count 4.60 M/mm3 (4.2-5.4); White Blood Count 5.0 K/mm3 (4.4-11.0)
[2025-02-15 09:43] LABS: AST(SGOT) 15 U/L (<=31); Alanine Aminotransfer ALT/SGPT 13 U/L (<=34); Albumin, Serum 4.1 g/dL (3.5-5.0); Alkaline Phosphatase 66 U/L (35-104); Anion Gap 10 (5-15); BUN 21 mg/dL (4-19); BUN/Creat Ratio 23.9 RATIO (10-20); Calcium,Total 9.5 mg/dL (7.6-11.0); Carbon Dioxide 24.4 mmol/L (21.0-32.0); Chloride 106 mmol/L (98-108); Globulin 2.2 g/dL (2.2-4.2); Glucose 106 mg/dL (70-99); Potassium 4.6 mmol/L (3.3-5.1)
== END 2025-02-15 23:59 | disposition home or self-care (01) ==
LOC: LAB 08:34
PROVIDERS: PCP Internal Medicine; Referring Provider Internal Medicine Rheumatology; Visit Provider Internal Medicine Rheumatology
DX: M06.4 Inflammatory polyarthropathy (principal); Z79.899 Other long term (current) drug therapy
CPT/HCPCS: 36415; 80053; 85025

== ENCOUNTER → 2025-03-10 | Outpatient (CLI) | payer BC, SELFPAY | END | disposition home or self-care (01) | LOC: LABSPEC 16:01 | PROVIDERS: PCP Internal Medicine; Visit Provider Physician Assistant | DX: R82.90 Unspecified abnormal findings in urine (principal) | CPT/HCPCS: 87077; 87086; 87088; 87186 ==

== ENCOUNTER → 2025-03-25 | Outpatient (CLI) | payer BC, SELFPAY ==
[2025-03-25 11:09] LABS: AST(SGOT) 17 U/L (<=31); Alanine Aminotransfer ALT/SGPT 16 U/L (<=34); Albumin, Serum 4.3 g/dL (3.5-5.0); Alkaline Phosphatase 65 U/L (35-104); Anion Gap 10 (5-15); BUN 16 mg/dL (4-19); BUN/Creat Ratio 18.7 RATIO (10-20); Calcium,Total 9.7 mg/dL (7.6-11.0); Carbon Dioxide 25.7 mmol/L (21.0-32.0); Chloride 105 mmol/L (98-108); Cholesterol 181 mg/dL (<=200); Globulin 2.4 g/dL (2.2-4.2); Glucose 85 mg/dL (70-99); Low Density Lipoprotein Calc. 98 mg/dL; Potassium 4.5 mmol/L (3.3-5.1); Triglycerides 96 mg/dL; Very Low Density Lipoprotein 19 mg/dL (5-40); cholesterol:hdl ratio screen 2.74
== END | disposition home or self-care (01) ==
LOC: LAB 09:41
PROVIDERS: PCP Internal Medicine; Referring Provider Internal Medicine; Visit Provider Internal Medicine
DX: I10 Essential (primary) hypertension (principal); E78.5 Hyperlipidemia, unspecified
CPT/HCPCS: 36415; 80053; 80061

== ENCOUNTER → 2025-05-18 | Outpatient (CLI) | payer BC, SELFPAY ==
--- OUTSIDE RECORDS SUMMARY | 2025-05-18 07:11 | XMS RPT_ITS | CCD ---
Author Organization [facility] Care Team Providers Care Teacher Ballet Name Role Phone Jocelin SIGNAL HELPER, SIGNAL HELPER-C Alejandro Primary Care Provider [phone] Jocelin SIGNAL HELPER, SIGNAL HELPER-C Alejandro Referring Provider [phone] Dr. Kulwinder Pritchett Attending Provider [phone] Dr. Morgan Vo Attending Provider [phone] Dr. Adria Berrios Attending Provider [phone] Care Physician, No Primary Primary Care Provider Unavailable Care Physician, No Primary Referring Provider Un available Dr. Carlyle Elmore Attending Provider [phone] Dr. Carlyle Elmore Primary Care Provider [phone] Dr. Carlyle Elmore Referring Provider [phone] WEI Parham Attending Provider Dr. Carlyle Elmore Primary Care Provider [phone] Dr. Carlyle Elmore Attending Provider [phone] Dr. Carlyle Elmore Referring Provider [phone] Dr. Carlyle Elmore Primary Care Provider [phone] Dr. Carlyle Elmore Attending Provider [phone] Dr. Carlyle Elmore Referring Provider [phone] WEI Almendarez Attending Provider Dr. Bebe Torres Attending Provider Dr. Carlyle Elmore Primary Care Provider [phone] Ramírez, Dr. Tadeo Referring Provider [phone] Ramírez, Dr. Tadeo Attending Provider [phone] Melissa, Dr. Spence Referring Provider [phone] Robotchetan, Dr. Spence Other Provider Ramírez, Dr. Tadeo Primary Care Provider [phone] Ramírez, Dr. Tadeo Attending Provider [phone] Olelaureano, Dr. Tadeo Referring Provider [phone] Melissa, Dr. Spence Attending Provider [facility], Dr. Spence Referring Provider [phone] [facility], Dr. Spence Other Provider LOLA Elizabeth Attending Provider WEI Parham Attending Provider Ramírez SANTIAGO, Dr. Tadeo Primary Care Provider Ramírez SANTIAGO, Dr. Tadeo Attending Provider [phone] Ramírez SANTIAGO, Dr. Tadeo Referring Provider [phone] Samantha SANTIAGO, Dr. Cabrera Attending Provider Samantha SANTIAGO, Dr. Cabrera Referring Provider Rajat Parham Attending Provider Ramírez SANTIAGO, Dr. Tadeo Primary Care Provider Ramírez SANTIAGO, Dr. Tadeo Referring Provider [phone] Ramírez SANTIAGO, Dr. Tadeo Attending Provider [phone] Ramírez SANTIAGO, Dr. Tadeo Primary Care Physician Samantha SANTIAGO, Dr. Cabrera Attending Physician Samantha SANTIAGO, Dr. Cabrera Referring Provider Ramírez SANTIAGO, Dr. Efewongbe Attending Physician [phone] Dr. Carlyle Elmore MD Referring Provider [phone] Rajat Parham Attending Physician Oleghe, Efewongbe Attending Unavailable Oleghe, Efewongbe Referring Unavailable Oleghe, Efewongbe Primary Care Unavailable Oleghe, Efewongbe Primary Care Unavailable Oleghe, Efewongbe Referring Unavailable Oleghe, Efewongbe Attending Unavailable Oleghe, Efewongbe Primary Care Unavailable Oleghe, Efewongbe Referring Unavailable Oleghe, Efewongbe Attending Unavailable Oleghe, Efewongbe Attending Unavailable Oleghe, Efewongbe Primary Care Unavailable Oleghe, Efewongbe Referring Unavailable Oleghe, Efewongbe Primary Care Unavailable Oleghe, Efewongbe Referring Unavailable Rajat Parham Attending Unavailable Oleghe, Efewongbe Referring Unavailable Rajat Parham Attending Unavailable Oleghe, Efewongbe Primary Care Unavailable Vellanki, Deborah Referring Unavailable Vellanki, Deborah Attending Unavailable Oleghe, Efewongbe Primary Care Unavailable Oleghe, Efewongbe Attending Unavailable Oleghe, Efewongbe Primary Care Unavailable Oleghe, Efewongbe Referring Unavailable Vellanki, Deborah Referring Unavailable Vellanki, Deborah Attending Unavailable Oleghe, Efewongbe Primary Care Unavailable Oleghe, Efewongbe Primary Care Unavailable Rajat Parham Attending Unavailable Oleghe, Efewongbe Primary Care Unavailable Oleghe, Efewongbe Referring Unavailable Oleghe, Efewongbe Attending Unavailable Oleghe, Efewongbe Primary Care Unavailable Vellanki, Deborah Referring Unavailable Vellanki, Deborah Attending Unavailable Oleghe, Efewongbe Primary Care Unavailable Oleghe, Efewongbe Referring Unavailable Oleghe, Efewongbe Attending Unavailable Oleghe, Efewongbe Primary Care Unavailable Oleghe, Efewongbe Referring Unavailable Oleghe, Efewongbe Attending Unavailable Oleghe, Efewongbe Primary Care Unavailable GEMA BELLA Referring Unavailable WATGEMA WEAVER Attending Unavailable Oleghe, Efewongbe Primary Care Unavailable Rajat Parham Attending Unavailable Allergies Allergy Classification Reported Allergen(s) Allergy Type Date of Onset Reaction(s) Facility (20 sources) Adhesive Tape; Translations: [adhesive tape] Allergy to substance 06-04-2019 rash [facility] (20 sources) Sulfonamides (Antibiotic); Translations: [Sulfa (Sulfonamide Antibiotics)] Allergy to substance 10-02-2021 Swelling [facility] Comment on above: eye drops are bother some (12 sources) Cheese; Translations: [cheese] Allergy to substance 06-18-2023 Other [facility] Comment on above: PT REPORTS ALLERGY T O BLUE CHEESE REACTION OCCASIONALLY Medications Current Medications Medication Drug Class(es) Dates Sig (Normalized) Sig (Original) dexamethasone 6 mg oral tablet (3 sources) Corticosteroid Start: 04-12-2023 take 6 mg by mouth once daily Dexamethasone Active 6 MG PO DAILY April 12, 2023 12:00am folic acid 1 mg oral tablet (12 sources) Start: 05-24-2023 take 2 tablets by mouth once daily Start: 05-24-2023 take 2 mg by mouth once daily Folic Acid Active 2 MG PO DAILY May 24, 2023 1:00am Start: 05-24-2023 take 1 mg by mouth once daily Folic Acid Active 1 MG PO DAILY May 24, 2023 12:00am gabapentin 400 mg oral capsule (20 sources) Anti-epileptic Agent Start: 07-31-2024 take 1 capsule by mouth twice daily Start: 01-10-2024 End: 07-31-2024 take 1 capsule by mouth once daily in the morning Gabapentin 300 mg capsule Discontinued 300 mg PO EVERY MORNING 90 May 19, 2024 12:11pm July 31, 2024 2:24pm Start: 06-20-2023 End: 01-10-2024 Gabapentin 300 mg capsule Discontinued 0 .ROUTE .COMPLEX 60 June 20, 2023 5:55pm January 10, 2024 5:09pm One capsule in the morning Start: 06-20-2023 End: 06-20-2023 take 2 capsules by mouth twice daily Gabapentin 100 mg capsule Discontinued 0 .ROUTE .COMPLEX 120 June 20, 2023 5:53pm June 20, 2023 5:56pm take 2 capsule by mouth twice a day Start: 06-12-2023 End: 06-20-2023 Gabapentin 100 mg capsule Discontinued 300 mg PO [id number] 12, 2023 1:00am June 20, 2023 5:53pm Start: 06-12-2023 End: 06-20-2023 Gabapentin Discontinued 300 MG PO [id number] 12, 2023 1:00am June 20, 2023 5:53pm Start: 02-15-2023 End: 12-10-2024 take 1 capsule by mouth at bedtime Gabapentin 400 mg capsule Discontinued 400 mg PO AT BEDTIME 90 1 May 19, 2024 12:11pm December 10, 2024 4:37pm Start: 01-01-2023 End: 06-12-2023 take 2 capsules by mouth twice daily Gabapentin 100 mg capsule Discontinued 200 mg PO TWICE A DAY 120 30 January 01, 2023 12:00am June 12, 2023 1:04pm Start: 01-01-2023 End: 06-12-2023 take 200 mg by mouth twice daily Gabapentin Discontinu ed 200 MG PO TWICE A DAY 120 30 January 01, 2023 12:00am June 12, 2023 1:04pm Start: 10-08-2022 End: 12-07-2022 take 2 capsules by mouth twice daily Gabapentin 100 mg capsule Discontinued 200 mg PO TWICE A DAY 240 60 0 October 08, 2022 8:35am December 06, 2022 12:00am December 07, 2022 12:05am Start: 10-08-2022 End: 12-07-2022 take 200 mg by mouth twice daily Gabapentin Discontinu ed 200 MG PO TWICE A DAY 240 60 October 08, 2022 8:35am December 07, 2022 12:05am Start: 10-08-2022 End: 10-08-2022 take 4 capsules by mouth at bedtime Gabapentin 100 mg capsule Discontinued 400 mg PO AT BEDTIME October 08, 2022 8:09am October 08, 2022 8:36am Start: 10-08-2022 End: 10-08-2022 take 400 mg by mouth at bedtime Gabapentin Discontinue d 400 MG PO AT BEDTIME October 08, 2022 8:09am October 08, 2022 8:36am Start: 08-09-2022 End: 10-08-2022 take 1 capsule by mouth at bedtime Gabapentin 100 mg capsule Discontinued 100 mg PO AT BEDTIME August 09, 2022 12:00am October 08, 2022 8:10am lisinopril 20 mg oral tablet (20 sources) Angiotensin Converting Enzyme Inhibitor Start: 12-10-2024 take 1 tablet by mouth once daily Start: 05-11-2024 End: 12-10-2024 take 1 tablet by mouth once daily Lisinopril 30 mg tablet Discontinued 30 mg PO daily 90 90 October 26, 2024 8:12am December 10, 2024 4:39pm Start: 01-28-2024 End: 05-11-2024 take 1 tablet by mouth once daily Lisinopril 40 mg tablet Discontinued 40 mg PO daily 90 90 January 28, 2024 11:24am May 11, 2024 10:06am Start: 01-06-2024 End: 01-28-2024 take 1 tablet by mouth twice daily Lisinopril 20 mg tablet Discontinued 20 mg PO TWICE A DAY 180 90 1 January 06, 2024 12:47pm January 28, 2024 11:25am Start: 10-08-2022 End: 01-05-2024 take 1 tablet by mouth twice daily Lisinopril 20 mg tablet Discontinued 20 mg PO TWICE A DAY 180 90 0 October 07, 2023 5:23pm January 04, 2024 12:00am January 05, 2024 12:04am Start: 08-09-2022 End: 10-08-2022 take 1 tablet by mouth twice daily Lisinopril 10 mg tablet Discontinued 10 mg PO TWICE A DAY October 08, 2022 8:09am October 08, 2022 8:33am Start: 07-20-2022 End: 08-09-2022 Lisinopril 10 mg tablet Disc ontinued 15 mg PO DAILY 45 30 0 July 20, 2022 1:00am August 09, 2022 2:48pm Start: 07-20-2022 End: 08-09-2022 take 15 mg by mouth once daily Lisinopril Discontinued 15 MG PO DAILY 45 30 July 20, 2022 1:00am August 09, 2022 2:48pm Start: 10-02-2021 End: 08-09-2022 take 2 tablets by mouth once daily Lisinopril 5 mg tablet Discontinued 10 mg PO DAILY October 02, 2021 8:43am August 09, 2022 2:49pm Start: 10-02-2021 End: 08-09-2022 take 10 mg by mouth once daily Lisinopril Discontinued 10 MG PO DAILY October 02, 2021 8:43am August 09, 2022 2:49pm Start: 03-23-2019 End: 10-02-2021 take 1 tablet by mouth once daily Lisinopril 5 MG tablet Discontinued 5 mg PO DAILY March 23, 2019 12:00am October 02, 2021 8:43am Multivitamin tablet (8 sources) Start: 01-17-2024 Start: 01-17-2024 Multivitamin t ablet Active 1 {tbl} PO DAILY January 17, 2024 12:00am Multivitamin With Minerals ( Hair,Skin And Nails) tablet (8 sources) Start: 01-17-2024 Start: 01-17-2024 Multivitamin W ith Minerals (Hair,Skin And Nails) tablet Active 1 {tbl} PO DAILY January 17, 2024 12:00am nitrofurantoin, macrocrystals 25 mg / nitrofurantoin, monohydrate 75 mg oral capsule (7 sources) Nitrofuran Antibacterial Start: 03-10-2025 End: 03-15-2025 take 1 capsule by mouth every twelve hours at mealtime Nitrofurantoin Monohyd/M-Cryst (Macrobid) 100 mg capsule Discontinued 100 mg PO Q12H 10 5 0 March 10, 2025 12:00am March 14, 2025 12:00am March 15, 2025 12:08am must administer with a meal/food Start: 08-19-2024 End: 08-24-2024 take 1 capsule by mouth every twelve hours at mealtime Nitrofurantoin Monohyd/M-Cryst (Macrobid) 100 mg capsule Discontinued 100 mg PO Q12H 10 5 0 August 19, 2024 12:00am August 23, 2024 12:00am August 24, 2024 12:09am must administer with a meal/food predniSONE 5 mg oral tablet (14 sources) Start: 05-13-2023 take 1 tablet by julián three times daily as needed for arthritis Tirzepatide (Weight Loss) (20 sources) Start: 02-27-2024 Start: 02-27-2024 Tirzepatide (W eight Loss) (Zepbound) 2.5 mg/0.5 mL solution Active 2.5 mg SC EVERY WEEK 2 February 27, 2024 9:43am Obesity Morbid (severe) obesity due to excess calories Body mass index [BMI] 45.0-49.9, adult dx: obesity E66.9 Start: 02-27-2024 Tirzepatide (W eight Loss) (Zepbound) 2.5 mg/0.5 mL solution Active 2.5 mg SC EVERY WEEK February 27, 2024 9:43am dx: obesity E66.9 Start: 02-26-2024 End: 02-27-2024 Tirzepatide (Weight Loss) (Z epbound) 2.5 mg/0.5 mL solution Discontinued 2.5 mg SC EVERY WEEK February 26, 2024 3:34pm February 27, 2024 9:43am dx: obesity E66.9 Start: 02-24-2024 End: 02-26-2024 Tirzepatide (Weight Loss) (Z epbound) 2.5 mg/0.5 mL solution Discontinued 2.5 mg SC EVERY WEEK 2 February 24, 2024 3:54pm March 22, 2024 12:00am February 26, 2024 3:34pm Start: 02-24-2024 End: 02-26-2024 Tirzepatide (Weight Loss) (Z epbound) 2.5 mg/0.5 mL solution Discontinued 2.5 mg SC EVERY WEEK 2 February 24, 2024 3:54pm March 22, 2024 12:00am February 26, 2024 3:34pm Start: 02-24-2024 End: 02-24-2024 Tirzepatide (Weight Loss) (Z epbound) 2.5 mg/0.5 mL solution Discontinued 2.5 mg SC EVERY WEEK 2 February 24, 2024 12:00am March 22, 2024 12:00am February 24, 2024 3:54pm Start: 02-24-2024 End: 02-24-2024 Tirzepatide (Weight Loss) (Z epbound) 2.5 mg/0.5 mL solution Discontinued 2.5 mg SC EVERY WEEK 2 February 24, 2024 12:00am March 22, 2024 12:00am February 24, 2024 3:54pm traMADol hydrochloride 50 mg oral tablet (11 sources) Opioid Agonist Start: 06-18-2023 take 1 tablet by mouth every six hours as needed for pain triamcinolone acetonide 0.05 5 mg/actuat metered dose nasal spray (17 sources) Corticosteroid Start: 10-08-2022 Start: 10-08-2022 take 1 spray(s) nasa l route once daily Triamcinolone Acetonide (Nasacort) 55 mcg aerosol,spray Active 1 SPRAY INTRANASAL DAILY October 08, 2022 12:00am administer into each nostril Start: 06-04-2019 End: 06-04-2019 Kenalog (triamcinolone aceto nide) 40 mg/mL suspension for injection Discontinued 80 MG INTRAARTIC ONCE June 04, 2019 3:28pm June 04, 2019 4:02pm Completed/Discontinued Medications Medication Drug Class(es) Dates Sig (Normalized) Sig (Original) atorvastatin 40 mg oral tablet (20 sources) HMG-CoA Reductase Inhibitor Start: 10-08-2022 End: 08-21-2024 take 1 tablet by mouth once daily Atorvastatin 40 mg tablet Discontinued 40 mg PO DAILY 90 2 October 30, 2023 6:39pm August 21, 2024 8:39am azithromycin 250 mg oral tablet (9 sources) Macrolide Antimicrobial Start: 07-29-2023 End: 08-12-2023 Azithromycin 250 mg tablet Discontinued 250 mg PO daily 12 0 July 29, 2023 1:00am August 12, 2023 8:18am 2 tablets today, then 1 tablet daily on days 2 through 11 budesonide 0.032 mg/actuat metered dose nasal spray (20 sources) Corticosteroid Start: 02-16-2019 End: 05-11-2024 Budesonide 8.43 ML spray,non-aerosol Discontinued 1 NMA INTRANASAL DAILY as needed for ALLERGIES February 16, 2019 12:00am May 11, 2024 9:52am Start: 02-16-2019 Budesonide Act pippa 1 SPRAY INTRANASAL DAILY February 16, 2019 12:00am docusate sodium 100 mg oral capsule (20 sources) Start: 03-23-2019 End: 05-08-2019 take 1 capsule by mouth twice daily as needed for constipation Docusate Sodium 100 MG capsule Discontinued 100 mg PO TWICE DAILY NEEDED as needed for Constipation 60 1 March 23, 2019 12:00am May 08, 2019 11:50am estradiol 2 mg oral tablet (20 sources) Estrogen Start: 03-23-2019 End: 10-16-2021 take 1 tablet by mouth once daily Estradiol 2 MG tablet Discontinued 2 mg PO DAILY 100 4 March 23, 2019 12:00am October 16, 2021 9:38am methotrexate 2.5 mg oral tablet (20 sources) Folate Analog Metabolic Inhibitor Start: 01-17-2024 End: 05-11-2024 take 5 tablets by mouth every week Methotrexate Sodium 2.5 mg tablet Discontinued 12.5 mg PO EVERY WEEK January 17, 2024 12:00am May 11, 2024 9:52am Start: 08-12-2023 End: 01-17-2024 take 6 mg by mouth every week Methotrexate Sodium 5 mg tablet Discontinued 6 mg PO EVERY WEEK August 12, 2023 8:18am January 17, 2024 8:35am Start: 08-12-2023 take 6 mg by mouth every week Methotrexate Sodium Active 6 MG PO EVERY WEEK August 12, 2023 8:18am Start: 05-13-2023 End: 08-12-2023 take 1 tablet by mouth every week Methotrexate Sodium 5 mg tablet Discontinued 5 mg PO EVERY WEEK May 13, 2023 1:00am August 12, 2023 8:19am methylPREDNISolone 4 mg oral tablet (16 sources) Corticosteroid Start: 10-30-2022 End: 11-15-2022 take 1 tablet by mouth once Methylprednisolone (Medrol (Marco)) 4 mg tablets,dose pack Discontinued 0 PO per package directions 21 0 October 30, 2022 12:00am November 15, 2022 4:11pm PO PER PKG DIR norethindrone acetate 5 mg oral tablet (20 sources) Start: 02-16-2019 End: 02-23-2019 take 2 tablets by mouth every two hours, then take 2 tablets by mouth once daily Norethindrone Acetate 5 MG tablet Discontinued 5 mg PO DAILY 42 7 0 February 16, 2019 12:00am February 22, 2019 12:00am February 23, 2019 12:10am Take 2 tabs every 2 hrs until bleeding stops, do not exceed 12 tabs/day; then take 2 tabs po tid x 3 days; then 2 tabs po bid x 3 days olopatadine 2 mg/ml ophthalmic solution (16 sources) Histamine-1 Receptor Inhibitor Start: 10-30-2022 End: 08-12-2023 Olopatadine 0.2 % drops Discontinued 1 NMA OPHTHALMIC DAILY as needed for itching 2.5 0 October 30, 2022 12:00am August 12, 2023 8:19am to both eyes oxyCODONE hydrochloride 5 mg oral tablet (20 sources) Opioid Agonist Start: 03-23-2019 End: 04-05-2019 take 1 tablet by mouth every six hours as needed for pain Oxycodone 5 MG tablet Discontinued 5 mg PO EVERY 6 HOURS NEEDED as needed for Pain Score 6-10/10 14 7 0 March 23, 2019 March 29, 2019 12:00am April 05, 2019 1:09am Other acute postprocedural pain phenylephrine hydrochloride 10 mg oral tablet (14 sources) alpha-1 Adrenergic Agonist Start: 04-12-2023 End: 10-28-2023 take 1 tablet by mouth every six hours as needed for congestion Phenylephrine Hcl (Sudafed Pe) 10 mg tablet Discontinued 10 mg PO EVERY 6 HOURS as needed for nasal congestion April 12, 2023 1:00am October 28, 2023 3:01pm Semaglutide (2 sources) Start: 01-17-2024 End: 01-31-2024 Semaglutide 0.25 mg or 0.5 mg (2 mg/3 mL) pen injector Discontinued 0.25 mg SC EVERY WEEK 3 January 17, 2024 12:00am January 31, 2024 9:04am for 4 weeks Semaglutide (Weight Loss) (16 sources) Start: 02-26-2024 End: 02-27-2024 Semaglutide (Weight Loss) (Wegovy) 0.25 mg/0.5 mL pen injector Discontinued 0.25 mg SC EVERY WEEK 2 February 26, 2024 4:12pm February 27, 2024 9:42am Obesity Morbid (severe) obesity due to excess calories Body mass index [BMI] 45.0-49.9, adult administer weeks 1 through 4 of therapy Start: 02-26-2024 End: 10-03-2024 Semaglutide (Weight Loss) (W egovy) 0.25 mg/0.5 mL pen injector Discontinued 0.25 mg SC EVERY WEEK 2 February 26, 2024 4:12pm February 27, 2024 9:42am administer weeks 1 through 4 of therapy Start: 01-31-2024 End: 02-24-2024 Semaglutide (Weight Loss) (W egovy) 0.25 mg/0.5 mL pen injector Discontinued 0.25 mg SC EVERY WEEK 2 January 31, 2024 12:00am February 24, 2024 11:07am administer weeks 1 through 4 of therapy Start: 01-31-2024 End: 02-24-2024 Semaglutide (Weight Loss) (W egovy) 0.25 mg/0.5 mL pen injector Discontinued 0.25 mg SC EVERY WEEK 2 January 31, 2024 12:00am February 24, 2024 11:07am administer weeks 1 through 4 of therapy Semaglutide 0.25 mg or 0.5 m g (2 mg/3 mL) pen injector (6 sources) Start: 01-17-2024 End: 01-31-2024 Semaglutide 0.25 mg or 0.5 m g (2 mg/3 mL) pen injector Discontinued 0.25 mg SC EVERY WEEK 3 0 January 17, 2024 12:00am January 31, 2024 9:04am for 4 weeks Start: 01-17-2024 End: 01-31-2024 Semaglutide 0.25 mg or 0.5 m g (2 mg/3 mL) pen injector Discontinued 0.25 mg SC EVERY WEEK 3 January 17, 2024 12:00am January 31, 2024 9:04am for 4 weeks Problems Active Problems Problem Classification Problem Date Documented Date Episodic/Chronic Administrative/social admission (10 sources) Patient encounter status; Translations: [Persons encountering health services in other specified circumstances] 01-17-2024 Episodic Deficiency and other anemia (17 sources) Anemia; Translations: [Anemia, unspecified] 08-09-2022 Episodic Diabetes mellitus without complication (16 sources) Hyperglycemia; Translations: [Hyperglycemia, unspecified] 10-08-2022 Episodic Disorders of lipid metabolism (20 sources) Hypercholesterolemia; Translations: [Pure hypercholesterolemia, unspecified] Onset: 12-10-2024 08-09-2022 Chronic Essential hypertension (20 sources) Hypertensive disorder; Translations: [Essential (primary) hypertension] Onset: 12-10-2024 07-20-2022 Chronic Genitourinary symptoms and ill-defined conditions (2 sources) Unspecified abnormal findings in urine; Translations: [Dysuria] Onset: 03-10-2025 Episodic Headache; including migraine (19 sources) Tension-type headache; Translations: [Tension-type headache, unspecified, not intractable] 07-20-2022 Chronic Immunizations and screening for infectious disease (1 source) Encounter for immunization; Translations: [Encounter for immunization] Onset: 03-26-2025 Episodic Inflammation; infection of eye (except that caused by tuberculosis or sexually transmitteddisease) (17 sources) Allergic conjunctivitis; Translations: [Acute atopic conjunctivitis, unspecified eye] 10-30-2022 Episodic Osteoarthritis (20 sources) Osteoarthritis; Translations: [Unspecified osteoarthritis, unspecified site] Onset: 05-18-2024 11-15-2022 Chronic Other acquired deformities (20 sources) Degenerative spondylolisthesis; Translations: [Spondylolisthesis, site unspecified] 10-16-2021 Episodic Other acquired deformities (3 sources) Spondylolisthesis, site unspecified; Translations: [Acquired spondylolisthesis] Episodic Other and unspecified benign neoplasm (8 sources) Lipoma (clinical); Translations: [Benign lipomatous neoplasm, unspecified] 05-24-2023 Episodic Comment on above: Right and left flank Other and unspecified benign neoplasm (5 sources) Benign lipomatous neoplasm, unspecified; Translations: [Lipoma, unspecified site] 05-24-2023 Episodic Other and unspecified benign neoplasm (4 sources) Multiple lipomata; Translations: [Benign lipomatous neoplasm, unspecified] 07-02-2023 Episodic Comment on above: Right and left flank Other bone disease and musculoskeletal deformities (6 sources) Chondromalacia; Translations: [Chondromalacia, left knee] 01-20-2024 Episodic Other bone disease and musculoskeletal deformities (2 sources) Chondromalacia of left knee; Translations: [Chondromalacia, left knee] 01-20-2024 Episodic Other connective tissue disease (20 sources) Trochanteric bursitis; Translations: [Trochanteric bursitis, right hip] 10-02-2021 Episodic Other connective tissue disease (2 sources) Trochanteric bursitis, right hip; Translations: [Enthesopathy of hip region] Episodic Other connective tissue disease (17 sources) Pain in hallux; Translations: [Pain in left toe(s)] 08-09-2022 Episodic Other connective tissue disease (2 sources) Pain in left toe(s); Translations: [Pain in limb] 08-09-2022 Episodic Other connective tissue disease (8 sources) Triggering of digit; Translations: [Trigger finger, right middle finger] 03-12-2024 Episodic Other connective tissue disease (8 sources) H/O: back problem; Translations: [Personal history of other diseases of the musculoskeletal system and connective tissue] 08-09-2022 Episodic Other lower respiratory disease (17 sources) H/O: pneumonia; Translations: [Personal history of pneumonia (recurrent)] 08-09-2022 Episodic Other nervous system disorders (14 sources) Neuropathy; Translations: [Polyneuropathy, unspecified] 07-31-2024 Chronic Other non-traumatic joint disorders (20 sources) Hip pain; Translations: [Pain in right hip] 10-02-2021 Episodic Other nutritional; endocrine; and metabolic disorders (16 sources) Morbid obesity; Translations: [Morbid (severe) obesity due to excess calories] 10-08-2022 Chronic Other nutritional; endocrine; and metabolic disorders (2 sources) Morbid (severe) obesity due to excess calories; Translations: [Morbid obesity] 10-08-2022 Chronic Other nutritional; endocrine; and metabolic disorders (14 sources) Metabolic syndrome X; Translations: [Metabolic syndrome] 01-31-2024 Chronic Other nutritional; endocrine; and metabolic disorders (12 sources) Obesity; Translations: [Obesity, unspecified] 07-31-2024 Chronic Other nutritional; endocrine; and metabolic disorders (1 source) Metabolic syndrome; Translations: [Metabolic syndrome] Onset: 06-11-2024 Chronic Other skin disorders (14 sources) Soft tissue swelling; Translations: [Localized swelling, mass and lump, unspecified] 05-13-2023 Episodic Other skin disorders (12 sources) Skin lesion; Translations: [Disorder of the skin and subcutaneous tissue, unspecified] 05-24-2023 Episodic Comment on above: Left anterior axilla ry area Other skin disorders (4 sources) Localized swelling, mass and lump, unspecified; Translations: [Localized superficial swelling, mass, or lump] 05-13-2023 Episodic Other skin disorders (4 sources) Disorder of the skin and subcutaneous tissue, unspecified; Translations: [Unspecified disorder of skin and subcutaneous tissue] 05-24-2023 Episodic Other upper respiratory disease (17 sources) Seasonal allergy; Translations: [Other seasonal allergic rhinitis] 08-09-2022 Chronic Other upper respiratory disease (16 sources) Allergic rhinitis; Translations: [Allergic rhinitis, unspecified] 10-30-2022 Chronic Other upper respiratory disease (1 source) Allergic rhinitis, unspecified; Translations: [Allergic rhinitis, cause unspecified] 10-30-2022 Chronic Other upper respiratory infections (20 sources) Upper respiratory infection; Translations: [Acute upper respiratory infection, unspecified] 08-09-2022 Episodic Residual codes; unclassified (17 sources) Hypersomnia; Translations: [Hypersomnia, unspecified] 08-09-2022 Chronic Residual codes; unclassified (2 sources) Hypersomnia, unspecified; Translations: [Hypersomnia, unspecified] 08-09-2022 Chronic Residual codes; unclassified (17 sources) H/O: blood transfusion; Translations: [Personal history of other medical treatment] 08-09-2022 Episodic Residual codes; unclassified (9 sources) H/O: neoplasm; Translations: [Other specified postprocedural states] 07-02-2023 Episodic Residual codes; unclassified (2 sources) Other specified postprocedural states; Translations: [Other postprocedural status] 07-02-2023 Episodic Rheumatoid arthritis and related disease (1 source) Inflammatory polyarthropathy; Translations: [Inflammatory polyarthropathy] Onset: 12-10-2024 Chronic Spondylosis; intervertebral disc disorders; other back problems (20 sources) Low back pain; Translations: [Low back pain] Episodic Unclassified (9 sources) H/O: back problem; Translations: [History of back problems] 08-09-2022 Unclassified (1 source) Encounter for health maintenance examination Unclassified (3 sources) Z00.00 - Encounter for general adult medical examination without abnormal findings Unclassified (2 sources) Patient encounter status Viral infection (19 sources) Disease caused by 2019-nCoV; Translations: [COVID-19] 04-12-2023 Episodic Past or Other Problems Problem Classification Problem Date Documented Da te Episodic/Chronic Other screening for suspected conditions (not mental disorders or infectious disease) (1 source) Encounter for screening mammogram for malignant neoplasm of breast; Translations: [Encounter for screening mammogram for malignant neoplasm of breast] Onset: 08-14-2024 Episodic Results Test Name Value Interpretation Reference Range Facility Internal Medicine Office Vis iton 03-26-2025 Internal Medicine Office Visit [facility] Internal Medicine [address] [place] [address] OFFICE VISIT Date of Service: 03/26/25 MR#: [id number] Acct: [id number] Name: LEIDY VAZQUEZ Rep #: [id number] : 1965 Provider: Dr. Carlyle garg MD Age/Sex: 59/F Location: [facility] Status: Signed Intake Vital Signs 12/10/24 16:07 03/26/25 13:23 Height 5 ft 3 in 5 ft 3 in Weight: 177 lb 8 oz BMI 31.4 BP 118/78 Blood Pressure Location Lt brachial Position Sitting Respiration 16 Pulse 77 Pulse Source Monitor Temp 96.5 F L Temp Source Temporal Pulse Oximetry (%) 99 Oxygen Delivery Method room air Intake Visit Reasons: 3 M FU Chief Complaint: Follow-up chronic conditions Dish Washer Required: No Accompanied by: Self Is patient in pain?: No Allergies cheese Allergy (Severe, Verified 03/26/25 13:20) Other adhesive tape Allergy (Verified 03/26/25 13:20) rash Sulfa (Sulfonamide Antibiotics) Allergy (Verified 03/26/25 13:20) Swelling Medications ???Medication ???Instructions ???Recorded ???Confirmed ???Type triamcinolone acetonide 55 mcg 1 spray intranasal DAILY PRN 10/0803/26/25 History nasal spray aerosol (Nasacort) ALLERGIES prednisone 5 mg tablet 5 mg PO TID PRN ARTHRITIS 05/13/23 03/26/25 History folic acid 1 mg tablet 2 mg PO DAILY 05/24/23 03/26/25 Hi story tramadol 50 mg tablet 50 mg PO Q6H PRN pain 3 days #7 03/26/25 Rx tabs multivitamin 1 tab PO DAILY 01/17/24 03/26/25 H istory multivitamin with minerals 1 tab PO DAILY 01/17/24 03/26/25 H istory (Hair,Skin and Nails tablet) needle (disp) 26 gauge 26 gauge x #100 ea 02/24/24 03/26/25 Rx 3/8 (BD Intradermal Bevel [place]) tirzepatide (weight loss) 2.5 2.5 mg (0.5 mL) subcut QWEEK #2 mL 02/27/24 03/26/25 Rx mg/0.5 mL subcutaneous solution (Zepbound) gabapentin 300 mg capsule 300 mg PO BID #180 caps 07/31/24 1 Rx gabapentin 400 mg capsule 400 mg PO QHS #90 caps 12/10/24 Rx Nifedipine Powder #1 ea 03/26/25 03/26/25 Rx atorvastatin 20 mg tablet 20 mg PO DAILY #90 TABLETS 5 03/26/25 Rx lisinopril 10 mg tablet 10 mg PO QDAY 3 months #90 tabs 03/26/25 Rx Nurse's Note: circulation in feet cold and painful [facility] Medical History (Updated 03/26/25 @ 15:[address] Carlyle Elmore MD) Raynaud's disease with gangrene Colon cancer screening Health care maintenance Neuropathy Trigger finger, right middle finger Metabolic syndrome Preoperative evaluation to rule out surgical contraindication Non-smoker History of stress test Hypertension Multiple lipomas Localized soft tissue swelling Arthritis Osteoarthritis Allergic conjunctivitis Allergic rhinosinusitis Morbid obesity Blood glucose elevated Hyperlipidemia URI (upper respiratory infection) Pain of left great toe Hypersomnolence History of pneumonia High cholesterol History of blood transfusion History of back problems Anemia Seasonal allergies Surgical History Status post right knee replacement S/P excision of lipoma Hx of section History of ankle surgery Hx of hysterectomy Family History Mother CD (celiac disease) Depression High cholesterol Thyroid disorder Cancer breast Sister Asthma Grandmother Arthritis Father Heart disease Social History Smoking Status: Never smoker alcohol intake: current alcohol intake frequency: holidays/special occasions only Alcohol type: wine and hard liquor substance use type: does not use what type of physical activity do you participate in: walking frequency: 1-2 times per week seatbelt use: always do you feel safe at home: Yes HPI HPI Chief Complaint: Follow-up chronic conditions Details: LEIDY VAZQUEZ, is a 59-year-old female with a history of hypercholesterolemia , HTN, and rheumatological conditions, presenting for evaluation of nocturnal cold and painful sensations in her feet. The patient reports experiencing severe cold sensations in her feet at night, followed by intense burning pain once they warm up. This issue has been occurring every night and is described as different from her usual neuropathic pain. She has tried wearing socks and using a heating pad, but the symptoms persist. She denies being a sock person and finds them uncomfortable, often removing them during the night. She notes that her fingers and nose also feel cold, but not to the same extent as her feet. She denies smoking history. The patient is currently under the care of a drainage design coordinator, Dr. Singh, and is on Plaquenil. She has not yet discussed (more content not included)... Normal [facility] Comprehensive Metabolic Prof ilon 03-25-2025 Albumin [Mass/Vol] 4.3 g/dL Normal 3.5-5.0 [facility] Comment on above: Performed By: #### L 100.0100, L500.4050 #### [facility] [address] [place], [address] Albumin/Globulin [Mass ratio] 1.8 {ratio} Normal 0.9-2.4 [facility] Comment on above: Performed By: #### L 100.0100, L500.4050 #### [facility] [address] [place], [address] ALK PHOS 65 U/L Normal 35-104 [facility] Comment on above: Performed By: #### L 100.0100, L500.4050 #### [facility] [address] [place], [address] ALT [Catalytic activity/Vol] 16 U/L Normal <=34 [facility] Comment on above: Performed By: #### L 100.0100, L500.4050 #### [facility] [address] [place], [address] AST [Catalytic activity/Vol] 17 U/L Normal <=31 [facility] Comment on above: Performed By: #### L 100.0100, L500.4050 #### [facility] [address] [place], [address] Bilirubin [Mass/Vol] 0.79 mg/dL Normal 0.00-1.[address] [facility] Comment on above: Performed By: #### L 100.0100, L500.4050 #### [facility] [address] [place], [address] BUN/CRE 18.7 RATIO Normal 10-20 [facility] Comment on above: Performed By: #### L 100.0100, L500.4050 #### [facility] [address] [place], [address] Calcium [Mass/Vol] 9.7 mg/dL Normal 7.6-11.0 [facility] Comment on above: Performed By: #### L 100.0100, L500.4050 #### [facility] [address] [place], [address] Chloride [Moles/Vol] 105 mmol/L Normal 98-[address] [facility] Comment on above: Performed By: #### L 100.0100, L500.4050 #### [facility] [address] [place], [address] CO2 [Moles/Vol] 25.7 mmol/L Normal 21.0-32.0 [facility] Comment on above: Performed By: #### L 100.0100, L500.4050 #### [facility] [address] [place], [address] Creatinine [Mass/Vol] 0.86 mg/dL Normal 0.70-1.20 [facility] Comment on above: Performed By: #### L 100.0100, L500.4050 #### [facility] [address] [place], [address] GAP 10 Normal 5-15 [facility] Comment on above: Performed By: #### L 100.0100, L500.4050 #### [facility] [address] [place], [address] GFR/1.73 sq M.predicted among non-blacks MDRD (S/P/Bld) [Vol rate/Area] 79 mL/min/{1.73_m2} Normal >60 [facility] Comment on above: Result Comment: mL/m in/1.73m2 CKD-EPI Creatinine Equation (2020) Performed By: #### L 100.0100, L500.4050 #### [facility] [address] [place], [address] Globulin (S) [Mass/Vol] 2.4 g/dL Normal 2.2-4.2 [facility] Comment on above: Performed By: #### L 100.0100, L500.4050 #### [facility] [address] [place], [address] Glucose [Mass/Vol] 85 mg/dL Normal 70-99 [facility] Comment on above: Performed By: #### L 100.0100, L500.4050 #### [facility] [address] [place], [address] Potassium [Moles/Vol] 4.5 mmol/L Normal 3.3-5.1 [facility] Comment on above: Performed By: #### L 100.0100, L500.4050 #### [facility] [address] [place], [address] Sodium [Moles/Vol] 141 mmol/L Normal 133-145 [facility] Comment on above: Performed By: #### L 100.0100, L500.4050 #### [facility] [address] [place], [address] T PROT 6.6 g/dL Normal 5.9-8.4 [facility] Comment on above: Performed By: #### L 100.0100, L500.4050 #### [facility] [address] [place], [address] Urea nitrogen [Mass/Vol] 16 mg/dL Normal 4-19 [facility] Comment on above: Performed By: #### L 100.0100, L500.4050 #### [facility] [address] [place], [address] Lipid Profileon 03-25-2025 CHOL:HDL 2.74 Normal [facility] Comment on above: Performed By: #### L 100.0100, L500.4050 #### [facility] [address] [place], [address] Cholesterol [Mass/Vol] 181 mg/dL Normal <=200 [facility] Comment on above: Result Comment: Chol esterol level, Desirable <200 mg/dL Borderline high cholesterol 200-239 mg/dL High cholesterol >=240 mg/dL Recommendations of the NCEP Adult Treatment Panel for the following risk-cutoff thresholds for the [place] population. Performed By: #### L 100.0100, L500.4050 #### [facility] [address] [place], [address] Cholesterol in HDL [Mass/Vol] 66 mg/dL Normal [facility] Comment on above: Result Comment: Gege onal Cholesterol Education Program (NCEP) guidelines: <40 mg/dL: Low HDL-cholesterol (major risk factor for CHD) >= 60 mg/dL: High HDL-cholesterol (negative risk factor for CHD) HDL-cholesterol is affected by a number of factors, e.g. smoking, exercise, hormones, sex and age. Performed By: #### L 100.0100, L500.4050 #### [facility] [address] [place], [address] Cholesterol in LDL [Mass/Vol] 98 mg/dL Normal [facility] Comment on above: Result Comment: Bord xfskhj=000-096 mg/dL Higher Tdro=302 mg/dL or greater Valentin Equation 2020 for LDL-C Performed By: #### L 100.0100, L500.4050 #### [facility] [address] [place], [address] Cholesterol in VLDL [Mass/Vol] 19 mg/dL Normal 5-40 [facility] Comment on above: Performed By: #### L 100.0100, L500.4050 #### [facility] [address] [place], [address] Triglyceride [Mass/Vol] 96 mg/dL Normal [facility] Comment on above: Result Comment: The drugs N-Acetylcysteine and Metamizole may falsely depress this assay. Normal range: <150 mg/dL Borderline High: 150-199 mg/dL High: 200-499 mg/dL Very High: >500 mg/dL Performed By: #### L 100.0100, L500.4050 #### [facility] [address] [place], [address] Urine Cultureon 03-12-2025 [facility] Escherichia coli Grandy Count >100,000 Escherichia coli: REACTION Ampicillin Islt ANDRZEJ 4 Ampicillin+Sulbac Islt ANDRZEJ <=2 S Cefepime Islt NADRZEJ <=0.12 S cefTRIAXone Islt ANDRZEJ <=0.25 S Ciprofloxacin Islt ANDRZEJ <=0.06 S B-Lactamase Extended Susc Islt NEG Gentamicin Islt ANDRZEJ <=1 S levoFLOXacin Islt ANDRZEJ <=0.12 S Meropenem Islt ANDRZEJ <=0.25 S Nitrofurantoin Islt ANDRZEJ <=16 S Pip+Tazo Islt ANDRZEJ <=4 S TMP SMX Islt ANDRZEJ <=20 S Normal [facility] Comment on above: Performed By: #### L 500.4050, L100.0100 #### [facility] [address] [place], [address] Laboratory - Chemistry and C hemistry - challengeOrdered By: Rajat Garcia on 03-10-2025 Bilirubin Ql (U) Negative [facility] Glucose Ql (U) Negative [facility] Ketones Ql (U) Negative [facility] pH (U) 6.0 [pH] [facility] Specific gravity (U) [Rel density] 1.025 [facility] Urobilinogen (U) [Mass/Vol] Negative [facility] Laboratory - Hematology and Cell countsOrdered By: Rajat Garcia on 03-10-2025 Hemoglobin Ql (U) Trace [facility] - Specimen inform ationOrdered By: Rajat Garcia on 03-10-2025 Clarity (U) Cloudy [facility] Color (U) Dk Yellow [facility] - UrinalysisOrder ed By: Rajat Garcia on 03-10-2025 Nitrite Ql (U) Negative [facility] Protein Ql (U) Trace [facility] No Panel InformationOrdered By: Rajat Garcia on 03-10-2025 Urine Leukocytes Positive [facility] Urine Non-Hemolyzed Blood Negative [facility] Urgent Care Visit Reporton 1 Urgent Care Visit Report [facility] [address], [address] [place] [address] OFFICE VISIT Date of Service: 03/10/25 MR#: [id number] Acct: [id number] Name: LEIDY VAZQUEZ Rep #: [id number] : 1965 Provider: WEI Sagastume Age/Sex: 59/F Location: [facility] Status: Signed Intake Vital Signs 12/10/24 16:07 03/10/25 15:46 Height 5 ft 3 in Weight: 191 lb 6 oz BMI 33.9 BP 120/65 144/90 H Blood Pressure Location Lt brachial Lt brachial Position Sitting Sitting Respiration 16 16 Pulse 84 70 Pulse Source Monitor NIBP Temp 97.8 F 97.5 F L Temp Source Temporal Oral Pulse Oximetry (%) 95 99 Oxygen Delivery Method room air Intake Visit Reasons: CONCERN FOR UTI Chief Complaint: dysuria, frequency Dish Washer Required: No Is patient in pain?: No Allergies cheese Allergy (Severe, Verified 03/10/25 15:47) Other adhesive tape Allergy (Verified 03/10/25 15:47) rash Sulfa (Sulfonamide Antibiotics) Allergy (Verified 03/10/25 15:47) Swelling Is last menstrual period known: No Post menopausal: Yes Patient : No Have you fallen in the past year?: No Nurse's Note: dysuria, frequency x 24 houirs. denies abd pain, back pain, fever, blood. concern for UTI [facility] Medical History (Updated 12/15/24 @ 11:[address] Carlyle Elmore MD) Colon cancer screening Health care maintenance Neuropathy Trigger finger, right middle finger Metabolic syndrome Preoperative evaluation to rule out surgical contraindication Non-smoker History of stress test Hypertension Multiple lipomas Localized soft tissue swelling Arthritis Osteoarthritis Allergic conjunctivitis Allergic rhinosinusitis Morbid obesity Blood glucose elevated Hyperlipidemia URI (upper respiratory infection) Pain of left great toe Hypersomnolence History of pneumonia High cholesterol History of blood transfusion History of back problems Anemia Seasonal allergies Surgical History Status post right knee replacement S/P excision of lipoma Hx of section History of ankle surgery Hx of hysterectomy Family History Mother CD (celiac disease) Depression High cholesterol Thyroid disorder Cancer breast Sister Asthma Grandmother Arthritis Father Heart disease Social History Smoking Status: Never smoker alcohol intake: current alcohol intake frequency: holidays/special occasions only Alcohol type: wine and hard liquor substance use type: does not use what type of physical activity do you participate in: walking frequency: 1-2 times per week seatbelt use: always do you feel safe at home: Yes HPI HPI Chief Complaint: dysuria, frequency Details: LEIDY VAZQUEZ, is a 59 F who presents to the office today for [facility] for approximately 24-hour history of dysuria and urinary frequency with suprapubic pressure. No co mplaints of fever, chills, sweats, lightheadedness/dizz iness, nausea/vomiting, chest pain/shortness of breath/dyspnea on exertion, or midback pain. No changes in color/ character of urine or stool. No slai-lqo-stordlj products taken to assist. No other associated symptoms and no alleviating/aggravat ing factors. ROS Const Constitutional: No other (As above) Exam Const General: cooperative, healthy appearing and no acute distress Orientation: alert, awake Chest Chest palpation inspection: normal inspection of the chest Resp Effort Inspection: normal respiratory effort and able to speak in complete sentences Cardio Rate: regular rate Pulses: radial pulses present GI Inspection: normal to inspection Palpation: soft and tender suprapubic (Patient describes upon self-palpation) General: No CVA tenderness Skin General: no rashes or lesions noted Neuro General: patient alert, patient awake Cognition: normal cognition Speech: speech normal Psych Appearance: grossly normal Mental Status: mental status grossly normal Mood: congruent mood Affect: normal affect Speech and Movement: speech and movement normal Attitude: cooperative Diagnoses Urinary tract infection N39.0 Assessment and Plan Assessment and Plan (1) Urinary tract infection: Status: Acute Plan: See POC results; urine sent to lab for C/S. Macribid as prescribed today. Supportive measures as instructed today. Follow-up with PCP in 3 to 5 days should symptoms not improve, sooner should symptoms only worsen or any other concerns develop. Patient states acknowledging understanding all the above. Results POC Urinalysis Dip (Clinic) Office Urine Color Dk Yellow Last Edit by Cass Woody on 03/10/25 15:51 O (more content not included)... Normal [facility] Urine cultureOrdered By: Kashif Garcia on 03-10-2025 Bacteria identified Cx Nom (U) Escherichia coli Abnormal [facility] Absolute lymphocyte countOrd ered By: Deborah Singh on 02-15-2025 Lymphocytes Auto (Unsp spec) [#/Vol] 1.24 10*3/uL 0.83-4.51 [facility] Absolute neutrophil countOrd ered By: Deborah Singh on 02-15-2025 Neutrophils (Bld) [#/Vol] 3.3 10*3/uL 2.0-7.7 [facility] Anion gap in Serum or Plasma Ordered By: Deborah Singh on 02-15-2025 Anion gap [Moles/Vol] 10 mmol/L 5-15 [facility] Automated lymphocyte count a s percentage of total leukocytesOrdered By: Deborah Singh on 02-15-2025 Lymphocytes/100 WBC Auto (Unsp spec) 24.7 % 19-41 [facility] BUN/creatinine ratioOrdered By: Deborah Singh on 02-15-2025 Urea nitrogen/Creatinine [Mass ratio] 23.9 mg/mg High 10-20 [facility] Basophil percentageOrdered B y: Deborah Singh on 02-15-2025 Basophils/100 WBC (Bld) 0.4 % 0-1 [facility] Bilirubin, totalOrdered By: Deborah Singh on 02-15-2025 Bilirubin [Mass/Vol] 0.81 mg/dL 0.00-1.[address] [facility] CBC W/Diff, Automatedon 01-26 Absolute Lymph 1.24 X10 3/uL Normal 0.83-4.51 [facility] Comment on above: Performed By: #### L 500.4050, L100.0100 #### [facility] [address] [place], [address] Absolute Neut 3.3 X10 3/uL Normal 2.0-7.7 [facility] Comment on above: Performed By: #### L 500.4050, L100.0100 #### [facility] [address] [place], [address] Basophils/100 WBC (Bld) 0.4 % Normal 0-1 [facility] Comment on above: Performed By: #### L 500.4050, L100.0100 #### [facility] [address] [place], [address] Eosinophils/100 WBC (Bld) 1.6 % Normal 0-5 [facility] Comment on above: Performed By: #### L 500.4050, L100.0100 #### [facility] [address] [place], [address] Erythrocyte distribution width (RBC) [Ratio] 11.9 % Normal 11.6-14.6 [facility] Comment on above: Performed By: #### L 500.4050, L100.0100 #### [facility] [address] [place], [address] Hematocrit (Bld) [Volume fraction] 40.5 % Normal 37-47 [facility] Comment on above: Performed By: #### L 500.4050, L100.0100 #### [facility] [address] [place], [address] Hemoglobin (Bld) [Mass/Vol] 13.8 g/dL Normal 12.0-15.0 [facility] Comment on above: Performed By: #### L 500.4050, L100.0100 #### [facility] [address] [place], [address] IG% 0.200 Normal 0.0-0.9 [facility] Comment on above: Result Comment: IG% - Immature Granulocytes (promyelocytes, myelocytes and metamyelocytes) > 1% indicates that a LEFT SHIFT is Present. Performed By: #### L 500.4050, L100.0100 #### [facility] [address] [place], [address] Lymphocytes/100 WBC (Bld) 24.7 % Normal 19-41 [facility] Comment on above: Performed By: #### L 500.4050, L100.0100 #### [facility] [address] [place], [address] MCH (RBC) [Entitic mass] 30.0 pg Normal 27.0-32.0 [facility] Comment on above: Performed By: #### L 500.4050, L100.0100 #### [facility] [address] [place], [address] MCHC (RBC) [Mass/Vol] 34.1 g/dL Normal 32-36 [facility] Comment on above: Performed By: #### L 500.4050, L100.0100 #### [facility] [address] [place], [address] MCV (RBC) [Entitic vol] 88.0 fL Normal 81-99 [facility] Comment on above: Performed By: #### L 500.4050, L100.0100 #### [facility] [address] [place], [address] Monocytes/100 WBC (Bld) 7.2 % Normal 0-10 [facility] Comment on above: Performed By: #### L 500.4050, L100.0100 #### [facility] Laboratory [address] [place], [address] Neutrophils/100 WBC (Bld) 65.9 % Normal 47-70 [facility] Comment on above: Performed By: #### L 500.4050, L100.0100 #### [facility] Laboratory [address] [place], [address] Nucleated RBC (Bld) [#/Vol] 0 10*3/uL Normal 0-5 [facility] Comment on above: Performed By: #### L 500.4050, L100.0100 #### [facility] Laboratory [address] [place], [address] Platelet mean volume (Bld) [Entitic vol] 9.4 fL Normal 6.2-12.0 [facility] Comment on above: Performed By: #### L 500.4050, L100.0100 #### [facility] Laboratory [address] [place], [address] Platelets (Bld) [#/Vol] 254 10*3/uL Normal 150-450 [facility] Comment on above: Performed By: #### L 500.4050, L100.0100 #### [facility] Laboratory [address] [place], [address] RBC (Bld) [#/Vol] 4.60 10*6/uL Normal 4.2-5.4 [facility] Comment on above: Performed By: #### L 500.4050, L100.0100 #### [facility] Laboratory [address] [place], [address] RDW SD 38.4 fl Normal 35.1-43.9 [facility] Comment on above: Performed By: #### L 500.4050, L100.0100 #### [facility] Laboratory [address] [place], [address] WBC (Bld) [#/Vol] 5.0 10*3/uL Normal 4.4-11.0 [facility] Comment on above: Performed By: #### L 500.4050, L100.0100 #### [facility] Laboratory [address] [place], [address] Carbon dioxide, total [Moles /volume] in Central venous bloodOrdered By: Deborah Singh on 02-15-2025 CO2 [Moles/Vol] 24.4 mmol/L 21.0-32.0 [facility] Chloride assayOrdered By: Wei Singh on 02-15-2025 Chloride [Moles/Vol] 106 mmol/L 98-[address] [facility] Comprehensive Metabolic Prof ilon 02-15-2025 Albumin [Mass/Vol] 4.1 g/dL Normal 3.5-5.0 [facility] Comment on above: Performed By: #### L 100.0100, L500.4050 #### [facility] Laboratory [address] [place], [address] Albumin/Globulin [Mass ratio] 1.8 {ratio} Normal 0.9-2.4 [facility] Comment on above: Performed By: #### L 100.0100, L500.4050 #### [facility] Laboratory [address] [place], [address] ALK PHOS 66 U/L Normal 35-104 [facility] Comment on above: Performed By: #### L 100.0100, L500.4050 #### [facility] [address] [place], [address] ALT [Catalytic activity/Vol] 13 U/L Normal <=34 [facility] Comment on above: Performed By: #### L 100.0100, L500.4050 #### [facility] [address] [place], [address] AST [Catalytic activity/Vol] 15 U/L Normal <=31 [facility] Comment on above: Performed By: #### L 100.0100, L500.4050 #### [facility] Laboratory [address] [place], [address] Bilirubin [Mass/Vol] 0.81 mg/dL Normal 0.00-1.[address] [facility] Comment on above: Performed By: #### L 100.0100, L500.4050 #### [facility] [address] [place], [address] BUN/CRE 23.9 RATIO High 10-20 [facility] Comment on above: Performed By: #### L 100.0100, L500.4050 #### [facility] [address] [place], [address] Calcium [Mass/Vol] 9.5 mg/dL Normal 7.6-11.0 [facility] Comment on above: Performed By: #### L 100.0100, L500.4050 #### [facility] Laboratory [address] [place], [address] Chloride [Moles/Vol] 106 mmol/L Normal 98-[address] [facility] Comment on above: Performed By: #### L 100.0100, L500.4050 #### [facility] [address] [place], [address] CO2 [Moles/Vol] 24.4 mmol/L Normal 21.0-32.0 [facility] Comment on above: Performed By: #### L 100.0100, L500.4050 #### [facility] Laboratory [address] [place], [address] Creatinine [Mass/Vol] 0.90 mg/dL Normal 0.70-1.20 [facility] Comment on above: Performed By: #### L 100.0100, L500.4050 #### [facility] [address] [place], [address] GAP 10 Normal 5-15 [facility] Comment on above: Performed By: #### L 100.0100, L500.4050 #### [facility] Laboratory [address] [place], [address] GFR/1.73 sq M.predicted among non-blacks MDRD (S/P/Bld) [Vol rate/Area] 75 mL/min/{1.73_m2} Normal >60 [facility] Comment on above: Result Comment: mL/m in/1.73m2 CKD-EPI Creatinine Equation (2020) Performed By: #### L 100.0100, L500.4050 #### [facility] Laboratory [address] [place], [address] Globulin (S) [Mass/Vol] 2.2 g/dL Normal 2.2-4.2 [facility] Comment on above: Performed By: #### L 100.0100, L500.4050 #### [facility] [address] [place], [address] Glucose [Mass/Vol] 106 mg/dL High 70-99 [facility] Comment on above: Performed By: #### L 100.0100, L500.4050 #### [facility] [address] [place], [address] Potassium [Moles/Vol] 4.6 mmol/L Normal 3.3-5.1 [facility] Comment on above: Performed By: #### L 100.0100, L500.4050 #### [facility] [address] [place], [address] Sodium [Moles/Vol] 140 mmol/L Normal 133-145 [facility] Comment on above: Performed By: #### L 100.0100, L500.4050 #### [facility] [address] [place], [address] T PROT 6.2 g/dL Normal 5.9-8.4 [facility] Comment on above: Performed By: #### L 100.0100, L500.4050 #### [facility] [address] [place], [address] Urea nitrogen [Mass/Vol] 21 mg/dL High 4-19 [facility] Comment on above: Performed By: #### L 100.0100, L500.4050 #### [facility] Laboratory [address] [place], [address] Eosinophil percentageOrdered By: Deborah Singh on 02-15-2025 Eosinophils/100 WBC (Bld) 1.6 % 0-5 [facility] Erythrocyte distribution wid th ratioOrdered By: Deborah Singh on 02-15-2025 Erythrocyte distribution width (RBC) [Ratio] 11.9 % 11.6-14.6 [facility] Erythrocyte distribution wid th standard deviationOrdered By: Deborah Singh on 02-15-2025 Erythrocyte distribution width (RBC) [Ratio] 38.4 fl 35.1-43.9 [facility] Glomerular filtration rate ( GFR) estimation/1.73 sq m using serum, plasma, or whole bOrdered By: Deborah Singh on 02-15-2025 GFR/1.73 sq M.predicted among non-blacks MDRD (S/P/Bld) [Vol rate/Area] 75 mL/min/{1.73_m2} >60 [facility] Comment on above: mL/min/1.73m2 CKD-EP I Creatinine Equation (2020) Hematocrit Auto (Bld) [Volum e fraction]Ordered By: Deborah Singh on 02-15-2025 Hematocrit (Bld) [Volume fraction] 40.5 % 37-47 [facility] Hemoglobin measurementOrdere d By: Deborah Singh on 02-15-2025 Hemoglobin (Bld) [Mass/Vol] 13.8 g/dL 12.0-15.0 [facility] Immature granulocytes/100 WB C Auto (Bld)Ordered By: Deborah Singh on 02-15-2025 Immature granulocytes/100 WBC (Bld) 0.200 % 0.0-0.9 [facility] Comment on above: IG% - Immature Granu locytes (promyelocytes, myelocytes and metamyelocytes) > 1% indicates that a LEFT SHIFT is Present. Laboratory - Chemistry and C hemistry - challengeOrdered By: Deborah Singh on 02-15-2025 AST [Catalytic activity/Vol] 15 U/L <32 [facility] MCV (mean corpuscular volume ) determinationOrdered By: Deborah Singh on 02-15-2025 MCV (RBC) [Entitic vol] 88.0 fL 81-99 [facility] Mean corpuscular hemoglobin (MCH) determinationOrdered By: Deborah Singh on 02-15-2025 MCH (RBC) [Entitic mass] 30.0 pg 27.0-32.0 [facility] Mean corpuscular hemoglobin concentration (MCHC) determinationOrdered By: Deborah Singh on 02-15-2025 MCHC (RBC) [Mass/Vol] 34.1 g/dL 32-36 [facility] Mean platelet volume determi nationOrdered By: Deborah Singh on 02-15-2025 Platelet mean volume (Bld) [Entitic vol] 9.4 fL 6.2-12.0 [facility] Monocyte percentageOrdered B y: Deborah Singh on 02-15-2025 Monocytes/100 WBC (Bld) 7.2 % 0-10 [facility] Neutrophil percentageOrdered By: Deborah Singh on 02-15-2025 Neutrophils/100 WBC (Bld) 65.9 % 47-70 [facility] Nucleated red blood cell per centageOrdered By: Deborah Singh on 02-15-2025 Nucleated RBC/100 WBC (Bld) [Ratio] 0 % 0-5 [facility] Platelet countOrdered By: Wei Singh on 02-15-2025 Platelets (Bld) [#/Vol] 254 10*3/uL 150-450 [facility] Potassium measurement (mass/ volume)Ordered By: Deborah Singh on 02-15-2025 Potassium (Unsp spec) [Mass/Vol] 4.6 mmol/L 3.3-5.1 [facility] RBC Auto (Bld) [#/Vol]Ordere d By: Deborah Singh on 02-15-2025 RBC (Bld) [#/Vol] 4.60 10*6/uL 4.2-5.4 [facility] Serum creatinine measurement (mass/volume)Ordered By: Deborah Singh on 02-15-2025 Creatinine [Mass/Vol] 0.90 mg/dL 0.70-1.20 [facility] Serum globulin measurementOr dered By: Deborah Singh on 02-15-2025 Globulin (S) [Mass/Vol] 2.2 g/dL 2.2-4.2 [facility] Serum glucose measurement (m ass/volume)Ordered By: Deborah Singh on 02-15-2025 Glucose [Mass/Vol] 106 mg/dL High 70-99 [facility] Serum or plasma alanine suárez otransferase (ALT) measurementOrdered By: Deborah Singh on 02-15-2025 ALT [Catalytic activity/Vol] 13 U/L <35 [facility] Serum or plasma albumin roland urement (mass/volume)Ordered By: Deborah Singh on 02-15-2025 Albumin [Mass/Vol] 4.1 g/dL 3.5-5.0 [facility] Serum or plasma albumin/glob ulin mass ratioOrdered By: Deborah Singh on 02-15-2025 Albumin/Globulin [Mass ratio] 1.8 {ratio} 0.9-2.4 [facility] Serum or plasma alkaline macie sphatase measurementOrdered By: Deborah Singh on 02-15-2025 ALP [Catalytic activity/Vol] 66 U/L 35-104 [facility] Serum or plasma calcium roland urement (mass/volume)Ordered By: Deborah Singh on 02-15-2025 Calcium [Mass/Vol] 9.5 mg/dL 7.6-11.0 [facility] Serum or plasma urea nitroge n measurement (mass/volume)Ordered By: Deborah Singh on 02-15-2025 Urea nitrogen [Mass/Vol] 21 mg/dL High 4-19 [facility] Sodium levelOrdered By: Sharon Singh on 02-15-2025 Sodium [Moles/Vol] 140 mmol/L 133-145 [facility] Total proteinOrdered By: Karen Singh on 02-15-2025 Protein [Mass/Vol] 6.2 g/dL 5.9-8.4 [facility] White blood cell (WBC) count Ordered By: Deborah Singh on 02-15-2025 WBC (Bld) [#/Vol] 5.0 10*3/uL 4.4-11.0 [facility] Internal Medicine Office Vis ariel 12-10-2024 Internal Medicine Office Visit [facility] [address] [place] [address] [place] [address] OFFICE VISIT Date of Service: 12/10/24 MR#: [id number] Acct: [id number] Name: LEIDY VAZQUEZ Rep #: [id number] : 1965 Provider: Dr. Carlyle garg MD Age/Sex: 59/F Location: [facility] Status: Signed Intake Vital Signs 07/31/24 12:59 12/10/24 08:40 12/10/24 16:07 Height 5 ft 3 in 5 ft 3 in 5 ft 3 in Weight: 191 lb 6 oz BMI 33.9 BP 120/65 Blood Pressure Location Lt brachial Position Sitting Respiration 16 Pulse 84 Pulse Source Monitor Temp 97.8 F Temp Source Temporal Pulse Oximetry (%) 95 Intake Visit Reasons: MED FU Chief Complaint: fu Dish Washer Required: No Accompanied by: Self Is patient in pain?: No Allergies cheese Allergy (Severe, Verified 12/10/24 16:08) Other adhesive tape Allergy (Verified 12/10/24 16:08) rash Sulfa (Sulfonamide Antibiotics) Allergy (Verified 12/10/24 16:08) Swelling Medications ???Medication ???Instructions ???Recorded ???Confirmed ???Type triamcinolone acetonide 55 mcg 1 spray intranasal DAILY PRN 10/0812/10/24 History nasal spray aerosol (Nasacort) ALLERGIES prednisone 5 mg tablet 5 mg PO TID PRN ARTHRITIS 05/13/23 12/10/24 History folic acid 1 mg tablet 2 mg PO DAILY 05/24/23 12/10/24 Hi story tramadol 50 mg tablet 50 mg PO Q6H PRN pain 3 days #7 12/10/24 Rx tabs multivitamin 1 tab PO DAILY 01/17/24 12/10/24 H istory multivitamin with minerals 1 tab PO DAILY 01/17/24 12/10/24 H istory (Hair,Skin and Nails tablet) needle (disp) 26 gauge 26 gauge x #100 ea 02/24/24 12/10/24 Rx 3/8 (BD Intradermal Bevel [place]) tirzepatide (weight loss) 2.5 2.5 mg (0.5 mL) subcut QWEEK #2 mL 02/27/24 12/10/24 Rx mg/0.5 mL subcutaneous solution (Zepbound) gabapentin 300 mg capsule 300 mg PO BID #180 caps 07/31/24 0 12/10/24 Rx atorvastatin 40 mg tablet 40 mg PO DAILY #90 TABLETS 5 12/10/24 Rx gabapentin 400 mg capsule 400 mg PO QHS #90 caps 12/10/24 Rx lisinopril 20 mg tablet 20 mg PO QDAY 3 months #90 tabs 12/10/24 Rx Nurse's Note: F/U. Discuss meds [facility] Medical History (Updated 12/15/24 @ 11:[address] Carlyle Elmore MD) Colon cancer screening Health care maintenance Neuropathy Trigger finger, right middle finger Metabolic syndrome Preoperative evaluation to rule out surgical contraindication Non-smoker History of stress test Hypertension Multiple lipomas Localized soft tissue swelling Arthritis Osteoarthritis Allergic conjunctivitis Allergic rhinosinusitis Morbid obesity Blood glucose elevated Hyperlipidemia URI (upper respiratory infection) Pain of left great toe Hypersomnolence History of pneumonia High cholesterol History of blood transfusion History of back problems Anemia Seasonal allergies Surgical History Status post right knee replacement S/P excision of lipoma Hx of section History of ankle surgery Hx of hysterectomy Family History Mother CD (celiac disease) Depression High cholesterol Thyroid disorder Cancer breast Sister Asthma Grandmother Arthritis Father Heart disease Social History Smoking Status: Never smoker alcohol intake: current alcohol intake frequency: holidays/special occasions only Alcohol type: wine and hard liquor substance use type: does not use what type of physical activity do you participate in: walking frequency: 1-2 times per week seatbelt use: always do you feel safe at home: Yes HPI HPI Chief Complaint: fu Details: LEIDY VAZQUEZ, is a 59-year-old female presenting with management of hypertension, neuropathy, and other chronic conditions The patient has a history of hypertension, with recent home blood pressure readings ranging from 107/60 mmHg to 111/60 mmHg, occasionally experiencing lightheadedness. She has been on tirzepatide for weight loss. The patient reports significant weight loss, having decreased from 279 pounds to 191 pounds over the past 10 months. She engages in 8 to 12 water exercise classes weekly, although her routine has been disrupted recently due to her mother's medical issues. As above, she is currently on tirzepatide which she is tolerating well. The patient experiences neuropathy, for which she takes gabapentin 400 mg at night and 300 mg twice during the day. She reports that the medication helps manage her symptoms, particularly at night. History of hyperlipidemia, with significant weight loss and changes and most recent labs did show remarkable improvement. Currently on atorvastatin and she would like to go down on the dose if her (more content not included)... Normal [facility] Absolute lymphocyte countOrd ered By: Deborah Singh on 12-03-2024 Lymphocytes Auto (Unsp spec) [#/Vol] 1.50 10*3/uL 0.83-4.51 [facility] Absolute neutrophil countOrd ered By: Deborahjohnson Singh on 12-03-2024 Neutrophils (Bld) [#/Vol] 4.7 10*3/uL 2.0-7.7 [facility] Anion gap in Serum or Plasma Ordered By: Deborah Singh on 12-03-2024 Anion gap [Moles/Vol] 11 mmol/L 5- [facility] Automated lymphocyte count a s percentage of total leukocytesOrdered By: Deborah Singh on 12-03-2024 Lymphocytes/100 WBC Auto (Unsp spec) 22.2 % [facility] BUN/creatinine ratioOrdered By: Deborahjohnson Singh on 12-03-2024 Urea nitrogen/Creatinine [Mass ratio] 19.8 mg/mg 03-15 [facility] Basophil percentageOrdered B y: Deborah iSngh on 12-03-2024 Basophils/100 WBC (Bld) 0.4 % 0-1 [facility] Bilirubin, totalOrdered By: Deborah Singh on 12-03-2024 Bilirubin [Mass/Vol] 0.90 mg/dL 0.00-1.[address] [facility] CBC W/Diff, Automatedon 11-24 Absolute Lymph 1.50 X10 3/uL Normal 0.83-4.51 [facility] Comment on above: Performed By: #### L 500.4050, L100.0100 #### [facility] Laboratory [address] [place], [address] Absolute Neut 4.7 X10 3/uL Normal 2.0-7.7 [facility] Comment on above: Performed By: #### L 500.4050, L100.0100 #### [facility] Laboratory [address] [place], [address] Basophils/100 WBC (Bld) 0.4 % Normal 0-1 [facility] Comment on above: Performed By: #### L 500.4050, L100.0100 #### [facility] [address] [place], [address] Eosinophils/100 WBC (Bld) 0.7 % Normal 0-5 [facility] Comment on above: Performed By: #### L 500.4050, L100.0100 #### [facility] [address] [place], [address] Erythrocyte distribution width (RBC) [Ratio] 13.0 % Normal 11.6-14.6 [facility] Comment on above: Performed By: #### L 500.4050, L100.0100 #### [facility] [address] [place], [address] Hematocrit (Bld) [Volume fraction] 41.2 % Normal 37-47 [facility] Comment on above: Performed By: #### L 500.4050, L100.0100 #### [facility] [address] [place], [address] Hemoglobin (Bld) [Mass/Vol] 13.9 g/dL Normal 12.0-15.0 [facility] Comment on above: Performed By: #### L 500.4050, L100.0100 #### [facility] [address] [place], [address] IG% 0.300 Normal 0.0-0.9 [facility] Comment on above: Result Comment: IG% - Immature Granulocytes (promyelocytes, myelocytes and metamyelocytes) > 1% indicates that a LEFT SHIFT is Present. Performed By: #### L 500.4050, L100.0100 #### [facility] [address] [place], [address] Lymphocytes/100 WBC (Bld) 22.2 % Normal 19-41 [facility] Comment on above: Performed By: #### L 500.4050, L100.0100 #### [facility] [address] [place], [address] MCH (RBC) [Entitic mass] 29.9 pg Normal 27.0-32.0 [facility] Comment on above: Performed By: #### L 500.4050, L100.0100 #### [facility] [address] [place], [address] MCHC (RBC) [Mass/Vol] 33.7 g/dL Normal 32-36 [facility] Comment on above: Performed By: #### L 500.4050, L100.0100 #### [facility] [address] [place], [address] MCV (RBC) [Entitic vol] 88.6 fL Normal 81-99 [facility] Comment on above: Performed By: #### L 500.4050, L100.0100 #### [facility] [address] [place], [address] Monocytes/100 WBC (Bld) 6.1 % Normal 0-10 [facility] Comment on above: Performed By: #### L 500.4050, L100.0100 #### [facility] [address] [place], [address] Neutrophils/100 WBC (Bld) 70.3 % High 47-70 [facility] Comment on above: Performed By: #### L 500.4050, L100.0100 #### [facility] [address] [place], [address] Nucleated RBC (Bld) [#/Vol] 0 10*3/uL Normal 0-5 [facility] Comment on above: Performed By: #### L 500.4050, L100.0100 #### [facility] [address] [place], [address] Platelet mean volume (Bld) [Entitic vol] 9.9 fL Normal 6.2-12.0 [facility] Comment on above: Performed By: #### L 500.4050, L100.0100 #### [facility] [address] [place], [address] Platelets (Bld) [#/Vol] 287 10*3/uL Normal 150-450 [facility] Comment on above: Performed By: #### L 500.4050, L100.0100 #### [facility] [address] [place], [address] RBC (Bld) [#/Vol] 4.65 10*6/uL Normal 4.2-5.4 [facility] Comment on above: Performed By: #### L 500.4050, L100.0100 #### [facility] [address] [place], [address] RDW SD 42.3 fl Normal 35.1-43.9 [facility] Comment on above: Performed By: #### L 500.4050, L100.0100 #### [facility] [address] [place], [address] WBC (Bld) [#/Vol] 6.8 10*3/uL Normal 4.4-11.0 [facility] Comment on above: Performed By: #### L 500.4050, L100.0100 #### [facility] [address] [place], [address] Carbon dioxide, total [Moles /volume] in Central venous bloodOrdered By: Deborah Singh on 12-03-2024 CO2 [Moles/Vol] 23.1 mmol/L 21.0-32.0 [facility] Chloride assayOrdered By: Wei Singh on 12-03-2024 Chloride [Moles/Vol] 103 mmol/L 98-[address] [facility] Comprehensive Metabolic Prof ilon 12-03-2024 Albumin [Mass/Vol] 4.1 g/dL Normal 3.5-5.0 [facility] Comment on above: Order Comment: DR. Radha PAPPAS ALSO ORDERED A CMP Performed By: #### L 500.4050, L100.0100 #### [facility] [address] [place], [address] Albumin/Globulin [Mass ratio] 1.7 {ratio} Normal 0.9-2.4 [facility] Comment on above: Order Comment: DR. Radha PAPPAS ALSO ORDERED A CMP Performed By: #### L 500.4050, L100.0100 #### [facility] [address] [place], [address] ALK PHOS 75 U/L Normal 35-104 [facility] Comment on above: Order Comment: DR. Radha PAPPAS ALSO ORDERED A CMP Performed By: #### L 500.4050, L100.0100 #### [facility] [address] [place], [address] ALT [Catalytic activity/Vol] 20 U/L Normal <=34 [facility] Comment on above: Order Comment: DR. Radha PAPPAS ALSO ORDERED A CMP Performed By: #### L 500.4050, L100.0100 #### [facility] [address] [place], [address] AST [Catalytic activity/Vol] 18 U/L Normal <=31 [facility] Comment on above: Order Comment: DR. Radha PAPPAS ALSO ORDERED A CMP Performed By: #### L 500.4050, L100.0100 #### [facility] [address] [place], [address] Bilirubin [Mass/Vol] 0.90 mg/dL Normal 0.00-1.[address] [facility] Comment on above: Order Comment: DR. Radha PAPPAS ALSO ORDERED A CMP Performed By: #### L 500.4050, L100.0100 #### [facility] [address] [place], [address] BUN/CRE 19.8 RATIO Normal 10-20 [facility] Comment on above: Order Comment: DR. Radha PAPPAS ALSO ORDERED A CMP Performed By: #### L 500.4050, L100.0100 #### [facility] [address] [place], [address] Calcium [Mass/Vol] 9.6 mg/dL Normal 7.6-11.0 [facility] Comment on above: Order Comment: DR. Radha PAPPAS ALSO ORDERED A CMP Performed By: #### L 500.4050, L100.0100 #### [facility] [address] [place], [address] Chloride [Moles/Vol] 103 mmol/L Normal 98-[address] [facility] Comment on above: Order Comment: DR. Radha PAPPAS ALSO ORDERED A CMP Performed By: #### L 500.4050, L100.0100 #### [facility] [address] [place], [address] CO2 [Moles/Vol] 23.1 mmol/L Normal 21.0-32.0 [facility] Comment on above: Order Comment: DR. Radha PAPPAS ALSO ORDERED A CMP Performed By: #### L 500.4050, L100.0100 #### [facility] [address] [place], [address] Creatinine [Mass/Vol] 0.96 mg/dL Normal 0.70-1.20 [facility] Comment on above: Order Comment: DR. Radha PAPPAS ALSO ORDERED A CMP Performed By: #### L 500.4050, L100.0100 #### [facility] [address] [place], [address] GAP 11 Normal 5-15 [facility] Comment on above: Order Comment: DR. Radha PAPPAS ALSO ORDERED A CMP Performed By: #### L 500.4050, L100.0100 #### [facility] [address] [place], [address] GFR/1.73 sq M.predicted among non-blacks MDRD (S/P/Bld) [Vol rate/Area] 69 mL/min/{1.73_m2} Normal >60 [facility] Comment on above: Order Comment: DR. Radha PAPPAS ALSO ORDERED A CMP Result Comment: mL/m in/1.73m2 CKD-EPI Creatinine Equation (2020) Performed By: #### L 500.4050, L100.0100 #### [facility] [address] [place], [address] Globulin (S) [Mass/Vol] 2.4 g/dL Normal 2.2-4.2 [facility] Comment on above: Order Comment: DR. Radha PAPPAS ALSO ORDERED A CMP Performed By: #### L 500.4050, L100.0100 #### [facility] [address] [place], [address] Glucose [Mass/Vol] 88 mg/dL Normal 70-99 [facility] Comment on above: Order Comment: DR. Radha PAPPAS ALSO ORDERED A CMP Performed By: #### L 500.4050, L100.0100 #### [facility] [address] [place], [address] Potassium [Moles/Vol] 4.4 mmol/L Normal 3.3-5.1 [facility] Comment on above: Order Comment: DR. Radha PAPPAS ALSO ORDERED A CMP Performed By: #### L 500.4050, L100.0100 #### [facility] [address] [place], [address] Sodium [Moles/Vol] 137 mmol/L Normal 133-145 [facility] Comment on above: Order Comment: DR. Radha PAPPAS ALSO ORDERED A CMP Performed By: #### L 500.4050, L100.0100 #### [facility] [address] [place], [address] T PROT 6.5 g/dL Normal 5.9-8.4 [facility] Comment on above: Order Comment: DR. Radha PAPPAS ALSO ORDERED A CMP Performed By: #### L 500.4050, L100.0100 #### [facility] [address] [place], [address] Urea nitrogen [Mass/Vol] 19 mg/dL Normal 4-19 [facility] Comment on above: Order Comment: DR. Radha PAPPAS ALSO ORDERED A CMP Performed By: #### L 500.4050, L100.0100 #### [facility] [address] [place], [place], [address] Eosinophil percentageOrdered By: Deborah Singh on 12-03-2024 Eosinophils/100 WBC (Bld) 0.7 % 0-5 [facility] Erythrocyte distribution wid th ratioOrdered By: Deborah Singh on 12-03-2024 Erythrocyte distribution width (RBC) [Ratio] 13.0 % 11.6-14.6 [facility] Erythrocyte distribution wid th standard deviationOrdered By: Deborah Singh on 12-03-2024 Erythrocyte distribution width (RBC) [Ratio] 42.3 fl 35.1-43.9 [facility] Glomerular filtration rate ( GFR) estimation/1.73 sq m using serum, plasma, or whole bOrdered By: Deborah Singh on 12-03-2024 GFR/1.73 sq M.predicted among non-blacks MDRD (S/P/Bld) [Vol rate/Area] 69 mL/min/{1.73_m2} >60 [facility] Comment on above: mL/min/1.73m2 CKD-EP I Creatinine Equation (2020) Hematocrit Auto (Bld) [Volum e fraction]Ordered By: Deborah Singh on 12-03-2024 Hematocrit (Bld) [Volume fraction] 41.2 % 37-47 [facility] Hemoglobin measurementOrdere d By: Deborah Singh on 12-03-2024 Hemoglobin (Bld) [Mass/Vol] 13.9 g/dL 12.0-15.0 [facility] Immature granulocytes/100 WB C Auto (Bld)Ordered By: Deborah Singh on 12-03-2024 Immature granulocytes/100 WBC (Bld) 0.300 % 0.0-0.9 [facility] Comment on above: IG% - Immature Granu locytes (promyelocytes, myelocytes and metamyelocytes) > 1% indicates that a LEFT SHIFT is Present. Laboratory - Chemistry and C hemistry - challengeOrdered By: Deborah Singh on 12-03-2024 AST [Catalytic activity/Vol] 18 U/L <32 [facility] MCV (mean corpuscular volume ) determinationOrdered By: Deborah Singh on 12-03-2024 MCV (RBC) [Entitic vol] 88.6 fL 81-99 [facility] Mean corpuscular hemoglobin (MCH) determinationOrdered By: Deborah Singh on 12-03-2024 MCH (RBC) [Entitic mass] 29.9 pg 27.0-32.0 [facility] Mean corpuscular hemoglobin concentration (MCHC) determinationOrdered By: Deborah Singh on 12-03-2024 MCHC (RBC) [Mass/Vol] 33.7 g/dL 32-36 [facility] Mean platelet volume determi nationOrdered By: Deborah Singh on 12-03-2024 Platelet mean volume (Bld) [Entitic vol] 9.9 fL 6.2-12.0 [facility] Monocyte percentageOrdered B y: Deborah Singh on 12-03-2024 Monocytes/100 WBC (Bld) 6.1 % 0-10 [facility] Neutrophil percentageOrdered By: Deborah Singh on 12-03-2024 Neutrophils/100 WBC (Bld) 70.3 % High 47-70 [facility] Nucleated red blood cell per centageOrdered By: Deborah Singh on 12-03-2024 Nucleated RBC/100 WBC (Bld) [Ratio] 0 % 0-5 [facility] Platelet countOrdered By: Wei Singh on 12-03-2024 Platelets (Bld) [#/Vol] 287 10*3/uL 150-450 [facility] Potassium measurement (mass/ volume)Ordered By: Deborah Singh on 12-03-2024 Potassium (Unsp spec) [Mass/Vol] 4.4 mmol/L 3.3-5.1 [facility] RBC Auto (Bld) [#/Vol]Ordere d By: Deborah Singh on 12-03-2024 RBC (Bld) [#/Vol] 4.65 10*6/uL 4.2-5.4 [facility] Serum creatinine measurement (mass/volume)Ordered By: Deborah Singh on 12-03-2024 Creatinine [Mass/Vol] 0.96 mg/dL 0.70-1.20 [facility] Serum globulin measurementOr dered By: Deborah Singh on 12-03-2024 Globulin (S) [Mass/Vol] 2.4 g/dL 2.2-4.2 [facility] Serum glucose measurement (m ass/volume)Ordered By: Deborah Singh on 12-03-2024 Glucose [Mass/Vol] 88 mg/dL 70-99 [facility] Serum or plasma alanine suárez otransferase (ALT) measurementOrdered By: Deborah Singh on 12-03-2024 ALT [Catalytic activity/Vol] 20 U/L <35 [facility] Serum or plasma albumin roland urement (mass/volume)Ordered By: Deborah Singh on 12-03-2024 Albumin [Mass/Vol] 4.1 g/dL 3.5-5.0 [facility] Serum or plasma albumin/glob ulin mass ratioOrdered By: Deborah Singh 12-03-2024 Albumin/Globulin [Mass ratio] 1.7 {ratio} 0.9-2.4 [facility] Serum or plasma alkaline macie sphatase measurementOrdered By: Deborah Singh on 12-03-2024 ALP [Catalytic activity/Vol] 75 U/L 35-104 [facility] Serum or plasma calcium roland urement (mass/volume)Ordered By: Deborah Singh on 12-03-2024 Calcium [Mass/Vol] 9.6 mg/dL 7.6-11.0 [facility] Serum or plasma urea nitroge n measurement (mass/volume)Ordered By: Deborah Singh on 07-10-2025 Urea nitrogen [Mass/Vol] 19 mg/dL 4-19 [facility] Sodium levelOrdered By: Sharon Singh on 12-03-2024 Sodium [Moles/Vol] 137 mmol/L 133-145 [facility] Total proteinOrdered By: Karen Singh on 12-03-2024 Protein [Mass/Vol] 6.5 g/dL 5.9-8.4 [facility] White blood cell (WBC) count Ordered By: Deborah Singh on 12-03-2024 WBC (Bld) [#/Vol] 6.8 10*3/uL 4.4-11.0 [facility] Urine Cultureon 08-22-2024 URC Below infection level. Mixed Gram Pos Gram Neg Org Grandy Count 1000-10,000 MIXC Mixed contaminants. Submit a new specimen if indicated. Normal [facility] Comment on above: Performed By: #### L 500.4050, L100.0100 #### [facility] [address] [place] [address], [id number] Urine cultureOrdered By: Kashif Garcia on 08-20-2024 Bacteria identified Cx Nom (U) Mixed Gram Pos & Gram Neg Org Abnormal [facility] - Chemistry and C hemistry - challengeOrdered By: Rajat Garcia on 08-19-2024 Bilirubin Ql (U) Negative [facility] Glucose Ql (U) Negative [facility] Ketones Ql (U) Negative [facility] pH (U) 5.0 [pH] [facility] Specific gravity (U) [Rel density] 1.030 [facility] Urobilinogen (U) [Mass/Vol] Negative [facility] - Hematology and Cell countsOrdered By: Rajat Garcia on 08-19-2024 Hemoglobin Ql (U) Negative [facility] - Specimen inform ationOrdered By: Rajat Garcia on 08-19-2024 Clarity (U) Clear [facility] Color (U) Yellow [facility] - UrinalysisOrder ed By: Rajat Garcia on 08-19-2024 Nitrite Ql (U) Negative [facility] Protein Ql (U) Trace [facility] No Panel InformationOrdered By: Rajat Garcia on 08-19-2024 Urine Leukocytes Positive [facility] Urine Non-Hemolyzed Blood Negative [facility] Urgent Care Visit Reporton 0 08-19-2024 Urgent Care Visit Report [facility] [address], [address] [place] [address] OFFICE VISIT Date of Service: 08/19/24 MR#: [id number] Acct: [id number] Name: LEIDY VAZQUEZ Rep #: [id number] : 1965 Provider: WEI Sagastume Age/Sex: 59/F Location: [facility] Status: Signed Intake Vital Signs 07/31/24 12:59 08/19/24 17:04 Height 5 ft 3 in Weight: 223 lb 8 oz BMI 39.6 BP 132/78 H 126/60 H Blood Pressure Location Lt brachial Position Sitting Sitting Respiration 16 16 Pulse 80 74 Pulse Source Monitor NIBP Temp 96.9 F L 97.6 F L Temp Source Temporal Oral Pulse Oximetry (%) 94 97 Oxygen Delivery Method room air room air Intake Visit Reasons: CONCERN FOR UTI Chief Complaint: dysuria, decreased output Dish Washer Required: No Is patient in pain?: No Allergies cheese Allergy (Severe, Verified 08/19/24 17:04) Other adhesive tape Allergy (Verified 08/19/24 17:04) rash Sulfa (Sulfonamide Antibiotics) Allergy (Verified 08/19/24 17:04) Swelling Is last menstrual period known: No Post menopausal: Yes Patient : No Have you fallen in the past year?: No Nurse's Note: dysuria, decreased output intermittently x 2 weeks now worsening. c/o bladder spasms as well but denies abd pain, back pain, fever. concern for UTI [facility] Medical History (Updated 07/31/24 @ 13:[address] Carlyle Elmore MD) Health care maintenance Neuropathy Trigger finger, right middle finger Metabolic syndrome Preoperative evaluation to rule out surgical contraindication Non-smoker History of stress test Hypertension Multiple lipomas Localized soft tissue swelling Arthritis Osteoarthritis Allergic conjunctivitis Allergic rhinosinusitis Morbid obesity Blood glucose elevated Hyperlipidemia URI (upper respiratory infection) Pain of left great toe Hypersomnolence History of pneumonia High cholesterol History of blood transfusion History of back problems Anemia Seasonal allergies Surgical History Status post right knee replacement S/P excision of lipoma Hx of section History of ankle surgery Hx of hysterectomy Family History Mother CD (celiac disease) Depression High cholesterol Thyroid disorder Cancer breast Sister Asthma Grandmother Arthritis Father Heart disease Social History Smoking Status: Never smoker alcohol intake: current alcohol intake frequency: holidays/special occasions only Alcohol type: wine and hard liquor substance use type: does not use what type of physical activity do you participate in: walking frequency: 1-2 times per week seatbelt use: always do you feel safe at home: Yes HPI HPI Chief Complaint: dysuria, decreased output Details: LEIDY VAZQUEZ, is a 59 F who presents to the office today for [facility] for approximately 2-week history of waxing and waning dysuria and urinary frequency with suprapubic pressure. No complaints of fever, chills, sweats, lightheadedness/dizz iness, nausea/vomiting, or chest pain/shortness of breath/dyspnea on exertion/back pain. No changes in color/ character of urine or stool. No [id number] products taken to assist. No other associated symptoms and no alleviating/aggravat ing factors. ROS Const Constitutional: No other (As above) Exam Const General: cooperative, healthy appearing and no acute distress Orientation: alert, awake and oriented x3 Chest Chest palpation inspection: normal inspection of the chest Resp Effort Inspection: normal respiratory effort and able to speak in complete sentences Cardio Rate: regular rate Pulses: radial pulses present GI Inspection: normal to inspection Palpation: soft and tender suprapubic (Patient describes upon self-palpation) General: No CVA tenderness Skin General: no rashes or lesions noted Neuro General: patient alert, patient awake and patient oriented x3 Cognition: normal cognition Speech: speech normal Psych Appearance: grossly normal Mental Status: mental status grossly normal Mood: congruent mood Affect: normal affect Speech and Movement: speech and movement normal Attitude: cooperative Diagnoses Urinary tract infection N39.0 Assessment and Plan Assessment and Plan (1) Urinary tract infection: Status: Acute Plan: See POC results; urine sent to lab for UA and C/S. Macrobid as prescribed today. Supportive measures as instructed today. Follow-up with PCP in 3 to 5 days should symptoms not improve, sooner should symptoms only worsen or any other concerns develop. Patient states acknowledging understanding all the above. Resul (more content not included)... Normal [facility] Absolute lymphocyte countOrd ered By: Deborahjohnson Singh on 08-17-2024 Lymphocytes Auto (Unsp spec) [#/Vol] 1.16 10*3/uL 0.83-4.51 [facility] Absolute neutrophil countOrd ered By: [facility] Samantha on 08-17-2024 Neutrophils (Bld) [#/Vol] 5.3 10*3/uL 2.0-7.7 [facility] Anion gap in Serum or Plasma Ordered By: Deborah Singh on 08-17-2024 Anion gap [Moles/Vol] 14 mmol/L 5-15 [facility] Automated lymphocyte count a s percentage of total leukocytesOrdered By: Deborah Singh on 08-17-2024 Lymphocytes/100 WBC Auto (Unsp spec) 16.3 % Low 19-41 [facility] BUN/creatinine ratioOrdered By: [facility] on 08-17-2024 Urea nitrogen/Creatinine [Mass ratio] 19.1 mg/mg 10-20 [facility] Basophil percentageOrdered B y: Deborah Singh on 08-17-2024 Basophils/100 WBC (Bld) 0.1 % 0-1 [facility] Bilirubin, totalOrdered By: Deborah Singh on 08-17-2024 Bilirubin [Mass/Vol] 0.79 mg/dL 0.00-1.[address] [facility] CBC W/Diff, Automatedon 07-26 Absolute Lymph 1.16 X10 3/uL Normal 0.83-4.51 [facility] Comment on above: Performed By: #### L 100.0100, L500.4050 #### [facility] [address] [place], [place], [address] Absolute Neut 5.3 X10 3/uL Normal 2.0-7.7 [facility] Comment on above: Performed By: #### L 100.0100, L500.4050 #### [facility] [address] [place], [address] Basophils/100 WBC (Bld) 0.1 % Normal 0-1 [facility] Comment on above: Performed By: #### L 100.0100, L500.4050 #### [facility] [address] [place], [address] Eosinophils/100 WBC (Bld) 1.4 % Normal 0-5 [facility] Comment on above: Performed By: #### L 100.0100, L500.4050 #### [facility] [address] [place], [address] Erythrocyte distribution width (RBC) [Ratio] 12.9 % Normal 11.6-14.6 [facility] Comment on above: Performed By: #### L 100.0100, L500.4050 #### [facility] [address] [place], [address] Hematocrit (Bld) [Volume fraction] 42.9 % Normal 37-47 [facility] Comment on above: Performed By: #### L 100.0100, L500.4050 #### [facility] [address] [place], [address] Hemoglobin (Bld) [Mass/Vol] 14.3 g/dL Normal 12.0-15.0 [facility] Comment on above: Performed By: #### L 100.0100, L500.4050 #### [facility] [address] [place], [address] IG% 0.300 Normal 0.0-0.9 [facility] Comment on above: Result Comment: IG% - Immature Granulocytes (promyelocytes, myelocytes and metamyelocytes) > 1% indicates that a LEFT SHIFT is Present. Performed By: #### L 100.0100, L500.4050 #### [facility] [address] [place], [address] Lymphocytes/100 WBC (Bld) 16.3 % Low 19-41 [facility] Comment on above: Performed By: #### L 100.0100, L500.4050 #### [facility] [address] [place], [address] MCH (RBC) [Entitic mass] 29.4 pg Normal 27.0-32.0 [facility] Comment on above: Performed By: #### L 100.0100, L500.4050 #### [facility] [address] [place], [address] MCHC (RBC) [Mass/Vol] 33.3 g/dL Normal 32-36 [facility] Comment on above: Performed By: #### L 100.0100, L500.4050 #### [facility] [address] [place], [address] MCV (RBC) [Entitic vol] 88.1 fL Normal 81-99 [facility] Comment on above: Performed By: #### L 100.0100, L500.4050 #### [facility] [address] [place], [address] Monocytes/100 WBC (Bld) 6.6 % Normal 0-10 [facility] Comment on above: Performed By: #### L 100.0100, L500.4050 #### [facility] [address] [place], [address] Neutrophils/100 WBC (Bld) 75.3 % High 47-70 [facility] Comment on above: Performed By: #### L 100.0100, L500.4050 #### [facility] [address] [place], [address] Nucleated RBC (Bld) [#/Vol] 0 10*3/uL Normal 0-5 [facility] Comment on above: Performed By: #### L 100.0100, L500.4050 #### [facility] [address] [place], [address] Platelet mean volume (Bld) [Entitic vol] 10.2 fL Normal 6.2-12.0 [facility] Comment on above: Performed By: #### L 100.0100, L500.4050 #### [facility] [address] [place], [address] Platelets (Bld) [#/Vol] 292 10*3/uL Normal 150-450 [facility] Comment on above: Performed By: #### L 100.0100, L500.4050 #### [facility] [address] [place], [address] RBC (Bld) [#/Vol] 4.87 10*6/uL Normal 4.2-5.4 [facility] Comment on above: Performed By: #### L 100.0100, L500.4050 #### [facility] [address] [place], [address] RDW SD 41.6 fl Normal 35.1-43.9 [facility] Comment on above: Performed By: #### L 100.0100, L500.4050 #### [facility] [address] [place], [address] WBC (Bld) [#/Vol] 7.1 10*3/uL Normal 4.4-11.0 [facility] Comment on above: Performed By: #### L 100.0100, L500.4050 #### [facility] [address] [place], [address] Carbon dioxide, total [Moles /volume] in Central venous bloodOrdered By: Deborah Singh on 08-17-2024 CO2 [Moles/Vol] 22.5 mmol/L 21.0-32.0 [facility] Chloride assayOrdered By: Wei Singh on 08-17-2024 Chloride [Moles/Vol] 102 mmol/L 98-[address] [facility] Comprehensive Metabolic Prof ilon 08-17-2024 Albumin [Mass/Vol] 4.2 g/dL Normal 3.5-5.0 [facility] Comment on above: Performed By: #### L 100.0100, L500.4050 #### [facility] [address] [place], [address] Albumin/Globulin [Mass ratio] 1.8 {ratio} Normal 0.9-2.4 [facility] Comment on above: Performed By: #### L 100.0100, L500.4050 #### [facility] [address] [place], [address] ALK PHOS 82 U/L Normal 35-104 [facility] Comment on above: Performed By: #### L 100.0100, L500.4050 #### [facility] [address] [place], [address] ALT [Catalytic activity/Vol] 15 U/L Normal <=34 [facility] Comment on above: Performed By: #### L 100.0100, L500.4050 #### [facility] [address] [place], [address] AST [Catalytic activity/Vol] 16 U/L Normal <=31 [facility] Comment on above: Performed By: #### L 100.0100, L500.4050 #### [facility] [address] [place], [address] Bilirubin [Mass/Vol] 0.79 mg/dL Normal 0.00-1.[address] [facility] Comment on above: Performed By: #### L 100.0100, L500.4050 #### [facility] [address] [place], [address] BUN/CRE 19.1 RATIO Normal 10-20 [facility] Comment on above: Performed By: #### L 100.0100, L500.4050 #### [facility] [address] [place], [address] Calcium [Mass/Vol] 10.1 mg/dL Normal 7.6-11.0 [facility] Comment on above: Performed By: #### L 100.0100, L500.4050 #### [facility] [address] [place], [address] Chloride [Moles/Vol] 102 mmol/L Normal 98-[address] [facility] Comment on above: Performed By: #### L 100.0100, L500.4050 #### [facility] [address] [place], [address] CO2 [Moles/Vol] 22.5 mmol/L Normal 21.0-32.0 [facility] Comment on above: Performed By: #### L 100.0100, L500.4050 #### [facility] [address] [place], [address] Creatinine [Mass/Vol] 0.82 mg/dL Normal 0.70-1.20 [facility] Comment on above: Performed By: #### L 100.0100, L500.4050 #### [facility] [address] [place], [address] GAP 14 Normal 5-15 [facility] Comment on above: Performed By: #### L 100.0100, L500.4050 #### [facility] [address] [place], [address] GFR/1.73 sq M.predicted among non-blacks MDRD (S/P/Bld) [Vol rate/Area] 83 mL/min/{1.73_m2} Normal >60 [facility] Comment on above: Result Comment: mL/m in/1.73m2 CKD-EPI Creatinine Equation (2020) Performed By: #### L 100.0100, L500.4050 #### [facility] [address] [place], [address] Globulin (S) [Mass/Vol] 2.4 g/dL Normal 2.2-4.2 [facility] Comment on above: Performed By: #### L 100.0100, L500.4050 #### [facility] [address] [place], [address] Glucose [Mass/Vol] 84 mg/dL Normal 70-99 [facility] Comment on above: Performed By: #### L 100.0100, L500.4050 #### [facility] [address] [place], [address] Potassium [Moles/Vol] 4.2 mmol/L Normal 3.3-5.1 [facility] Comment on above: Performed By: #### L 100.0100, L500.4050 #### [facility] [address] [place], [address] Sodium [Moles/Vol] 138 mmol/L Normal 133-145 [facility] Comment on above: Performed By: #### L 100.0100, L500.4050 #### [facility] [address] [place], [address] T PROT 6.6 g/dL Normal 5.9-8.4 [facility] Comment on above: Performed By: #### L 100.0100, L500.4050 #### [facility] [address] [place], [address] Urea nitrogen [Mass/Vol] 16 mg/dL Normal 4-19 [facility] Comment on above: Performed By: #### L 100.0100, L500.4050 #### [facility] [address] [place], [address] Eosinophil percentageOrdered By: Deborah Singh on 08-17-2024 Eosinophils/100 WBC (Bld) 1.4 % 0-5 [facility] Erythrocyte distribution wid th ratioOrdered By: Deborah Singh on 08-17-2024 Erythrocyte distribution width (RBC) [Ratio] 12.9 % 11.6-14.6 [facility] Erythrocyte distribution wid th standard deviationOrdered By: Deborah Singh on 08-17-2024 Erythrocyte distribution width (RBC) [Entitic vol] 41.6 fL 35.1-43.9 [facility] Erythrocyte distribution width (RBC) [Ratio] 41.6 fl 35.1-43.9 [facility] GFR/1.73 sq M.predicted eyal g non-blacks MDRD (S/P/Bld) [Vol rate/Area]Ordered By: Deborah Singh on 08-17-2024 Estimated GFR (MDRD) Non-Af Amer 83 >60 [facility] Comment on above: mL/min/1.73m2 CKD-EP I Creatinine Equation (2020) Glomerular filtration rate ( GFR) estimation/1.73 sq m using serum, plasma, or whole bOrdered By: Deborah Singh on 08-17-2024 GFR/1.73 sq M.predicted among non-blacks MDRD (S/P/Bld) [Vol rate/Area] 83 mL/min/{1.73_m2} >60 [facility] Comment on above: mL/min/1.73m2 CKD-EP I Creatinine Equation (2020) Hematocrit Auto (Bld) [Volum e fraction]Ordered By: Deborah Singh on 08-17-2024 Hematocrit (Bld) [Volume fraction] 42.9 % 37-47 [facility] Hemoglobin measurementOrdere d By: Deborah Singh on 08-17-2024 Hemoglobin (Bld) [Mass/Vol] 14.3 g/dL 12.0-15.0 [facility] Immature granulocytes/100 WB C Auto (Bld)Ordered By: Deborah Singh on 08-17-2024 Immature granulocytes/100 WBC (Bld) 0.300 % 0.0-0.9 [facility] Comment on above: IG% - Immature Granu locytes (promyelocytes, myelocytes and metamyelocytes) > 1% indicates that a LEFT SHIFT is Present. Laboratory - Chemistry and C hemistry - challengeOrdered By: Deborah Singh on 08-17-2024 AST [Catalytic activity/Vol] 16 U/L <32 [facility] Lymphocytes Auto (Unsp spec) [#/Vol]Ordered By: Deborah Singh on 08-17-2024 Lymphocytes (Bld) [#/Vol] 1.16 10*3/uL 0.83-4.51 [facility] Lymphocytes/100 WBC Auto (Un sp spec)Ordered By: Deborah Singh on 08-17-2024 Lymphocytes/100 WBC (Bld) 16.3 % Low 19-41 [facility] MCV (mean corpuscular volume ) determinationOrdered By: Deborah Singh on 08-17-2024 MCV (RBC) [Entitic vol] 88.1 fL 81-99 [facility] Mean corpuscular hemoglobin (MCH) determinationOrdered By: Deborah Singh on 08-17-2024 MCH (RBC) [Entitic mass] 29.4 pg 27.0-32.0 [facility] Mean corpuscular hemoglobin concentration (MCHC) determinationOrdered By: Deborah Singh on 08-17-2024 MCHC (RBC) [Mass/Vol] 33.3 g/dL 32-36 [facility] Mean platelet volume determi nationOrdered By: Deborah Singh on 08-17-2024 Platelet mean volume (Bld) [Entitic vol] 10.2 fL 6.2-12.0 [facility] Monocyte percentageOrdered B y: Deborah Singh on 08-17-2024 Monocytes/100 WBC (Bld) 6.6 % 0-10 [facility] Neutrophil percentageOrdered By: Deborah Singh on 08-17-2024 Neutrophils/100 WBC (Bld) 75.3 % High 47-70 [facility] Nucleated red blood cell per centageOrdered By: Deborah Singh on 08-17-2024 Nucleated RBC/100 WBC (Bld) [Ratio] 0 % 0-5 [facility] Platelet countOrdered By: Wei Singh on 08-17-2024 Platelets (Bld) [#/Vol] 292 10*3/uL 150-450 [facility] Potassium (Unsp spec) [Mass/ Vol]Ordered By: Deborah Singh on 08-17-2024 Potassium [Moles/Vol] 4.2 mmol/L 3.3-5.1 [facility] Potassium measurement (mass/ volume)Ordered By: Deborah Singh on 08-17-2024 Potassium (Unsp spec) [Mass/Vol] 4.2 mmol/L 3.3-5.1 [facility] RBC Auto (Bld) [#/Vol]Ordere d By: Deborah Singh on 08-17-2024 RBC (Bld) [#/Vol] 4.87 10*6/uL 4.2-5.4 [facility] Serum creatinine measurement (mass/volume)Ordered By: Deborah Singh on 08-17-2024 Creatinine [Mass/Vol] 0.82 mg/dL 0.70-1.20 [facility] Serum globulin measurementOr dered By: Deborah Singh on 08-17-2024 Globulin (S) [Mass/Vol] 2.4 g/dL 2.2-4.2 [facility] Serum glucose measurement (m ass/volume)Ordered By: Deborah Singh on 08-17-2024 Glucose [Mass/Vol] 84 mg/dL 70-99 [facility] Serum or plasma alanine suárez otransferase (ALT) measurementOrdered By: Deborah Singh on 08-17-2024 ALT [Catalytic activity/Vol] 15 U/L <35 [facility] Serum or plasma albumin roland urement (mass/volume)Ordered By: Deborah Singh on 08-17-2024 Albumin [Mass/Vol] 4.2 g/dL 3.5-5.0 [facility] Serum or plasma albumin/glob ulin mass ratioOrdered By: Deborah Singh on 08-17-2024 Albumin/Globulin [Mass ratio] 1.8 {ratio} 0.9-2.4 [facility] Serum or plasma alkaline macie sphatase measurementOrdered By: Deborah Singh on 08-17-2024 ALP [Catalytic activity/Vol] 82 U/L 35-104 [facility] Serum or plasma calcium roland urement (mass/volume)Ordered By: Deborah Singh on 08-17-2024 Calcium [Mass/Vol] 10.1 mg/dL 7.6-11.0 [facility] Serum or plasma urea nitroge n measurement (mass/volume)Ordered By: Deborah Singh on 08-17-2024 Urea nitrogen [Mass/Vol] 16 mg/dL 4-19 [facility] Sodium levelOrdered By: Sharon Singh on 08-17-2024 Sodium [Moles/Vol] 138 mmol/L 133-145 [facility] Total proteinOrdered By: Karen Singh on 08-17-2024 Protein [Mass/Vol] 6.6 g/dL 5.9-8.4 [facility] White blood cell (WBC) count Ordered By: Deborah Singh on 08-17-2024 WBC (Bld) [#/Vol] 7.1 10*3/uL 4.4-11.0 [facility] Breast imaging reportOrdered By: Edwige Martínez on 08-04-[address] [facility] Imaging Services [address] [place] [address] SCRN MAMM (CAD)W/RBI BILAT MR#: [id number] Acct: [id number] Name: LEIDY VAZQUEZ Rep #: [id number] : 1965 F 59 From: Starr Martínez MD PCP: Dr. Carlyle Elmore MD Status: R EG CLI Study:SCRN MAMM (CAD)W/BRI BILAT Date of Exa m: 08/04/24 Exam# [id number] Ordering Dr: Sandeep Elmore MD PROCEDURE: SCRN MAMM (CAD)W/BRI BILAT REASON FOR EXAM: F, Age 59 y/o , BREAST CANCER SCREENING. Family history of breast cancer in hermother at age 45. TECHNIQUE: Bilateral screening digital breast tomosynthesis with 2D and 3D images. Computeraided detection. COMPARISON: 08/02/2022 FINDINGS: The breasts are almost entirely fatty. No suspicious masses, areas of developing architectural distortion, or suspicious calcifications. BI/SCRN MAMM (CAD)W/BRI BILAT IMPRESSION: There is no mammographic evidence of malignancy. BI-RADS 1: NEGATIVE. RECOMMEND ANNUAL MAMMOGRAPHIC SCREENING. Follow-up code: Routine Follow-up The patient will be notified of the results by letter. Reading Location: [facility] CC: Dr. Carlyle Elmore MD ~ Senior Shipping Clerk: Signed [facility] SCRN MAMM (CAD)W/BRI BILATo n 08-04-2024 SCRN MAMM (CAD)W/BRI BILAT [facility] Imaging Services [address] [place] [address] [id number] SCRN MAMM (CAD)W/BRI BILAT MR#: [id number] Acct: [id number] Name: LEIDY VAZQUEZ Rep #: [id number] : 1965 F 59 From: Edwige Martínez MD PCP: Dr. Carlyle Elmore MD Status: REG CLI Study: SCRN MAMM (CAD)W/BRI BILAT Date of Exam: 07/25 06/20 Exam# [id number] Ordering Dr: Carlyle Elmore MD PROCEDURE: SCRN MAMM (CAD)W/BRI BILAT REASON FOR EXAM: F, Age 59 y/o , BREAST CANCER SCREENING. Family history of breast cancer in her mother at age 45. TECHNIQUE: Bilateral screening digital breast tomosynthesis with 2D and 3D images. Computer aided detection. COMPARISON: 08/02/2022 FINDINGS: The breasts are almost entirely fatty. No suspicious masses, areas of developing architectural distortion, or suspicious calcifications. BI/SCRN MAMM (CAD)W/BRI BILAT IMPRESSION: There is no mammographic evidence of malignancy. BI-RADS 1: NEGATIVE. RECOMMEND ANNUAL MAMMOGRAPHIC SCREENING. Follow-up code: Routine Follow-up The patient will be notified of the results by letter. Reading Location: [id number] CC: Dr. Carlyle Elmore MD Senior Shipping Clerk: Signed Normal [facility] Internal Medicine Office Vis ariel 07-31-2024 Internal Medicine Office Visit [facility] [address] [place], [place] [address] OFFICE VISIT Date of Service: 07/31/24 MR#: [id number] Acct: [id number] Name: LEIDY VAZQUEZ Rep #: [id number] : 1965 Provider: Dr. Carlyle garg MD Age/Sex: 58/F Location: [facility] Status: Signed Intake Vital Signs 05/11/24 08:52 07/31/24 12:59 Height 5 ft 3 in 5 ft 3 in Weight: 246 lb 223 lb 8 oz BMI 43.5 39.6 BP 114/60 132/78 H Blood Pressure Location Rt brachial Position Sitting Sitting Respiration 16 16 Pulse 73 80 Pulse Source Monitor Monitor Temp 98.6 F 96.9 F L Temp Source Temporal Temporal Pulse Oximetry (%) 99 94 Oxygen Delivery Method room air room air Intake Visit Reasons: 3 M FU Chief Complaint: Follow-up chronic conditions Dish Washer Required: No Accompanied by: Self Is patient in pain?: No Allergies cheese Allergy (Severe, Verified 07/31/24 12:56) Other adhesive tape Allergy (Verified 07/31/24 12:56) rash Sulfa (Sulfonamide Antibiotics) Allergy (Verified 07/31/24 12:56) Swelling Medications ???Medication ???Instructions ???Recorded ???Confirmed ???Type triamcinolone acetonide 55 mcg 1 spray intranasal DAILY PRN 10/0807/31/24 History nasal spray aerosol (Nasacort) ALLERGIES prednisone 5 mg tablet 5 mg PO TID PRN ARTHRITIS 05/13/23 07/31/24 History folic acid 1 mg tablet 2 mg PO DAILY 05/24/23 07/31/24 Hi story tramadol 50 mg tablet 50 mg PO Q6H PRN pain 3 days #7 07/31/24 Rx tabs atorvastatin 40 mg tablet 40 mg PO DAILY #90 tabs 10/30/23 0 07/31/24 Rx multivitamin 1 tab PO DAILY 01/17/24 07/31/24 H istory multivitamin with minerals 1 tab PO DAILY 01/17/24 07/31/24 H istory (Hair,Skin and Nails tablet) needle (disp) 26 gauge 26 gauge x #100 ea 02/24/24 07/31/24 Rx 3/8 (BD Intradermal Bevel [place]) tirzepatide (weight loss) 2.5 2.5 mg (0.5 mL) subcut QWEEK #2 mL 02/27/24 07/31/24 Rx mg/0.5 mL subcutaneous solution (Zepbound) lisinopril 30 mg tablet 30 mg PO QDAY 3 months #90 tabs 07/31/24 Rx gabapentin 400 mg capsule 400 mg PO QHS #90 caps 05/19/24 Rx gabapentin 300 mg capsule 300 mg PO BID #180 caps 07/31/24 0 07/31/24 Rx Have you fallen in the past year?: No PFSH Medical History (Updated 07/31/24 @ 13:[address] Carlyle Elmore MD) Health care maintenance Neuropathy Trigger finger, right middle finger Metabolic syndrome Preoperative evaluation to rule out surgical contraindication Non-smoker History of stress test Hypertension Multiple lipomas Localized soft tissue swelling Arthritis Osteoarthritis Allergic conjunctivitis Allergic rhinosinusitis Morbid obesity Blood glucose elevated Hyperlipidemia URI (upper respiratory infection) Pain of left great toe Hypersomnolence History of pneumonia High cholesterol History of blood transfusion History of back problems Anemia Seasonal allergies Surgical History Status post right knee replacement S/P excision of lipoma Hx of section History of ankle surgery Hx of hysterectomy Family History Mother CD (celiac disease) Depression High cholesterol Thyroid disorder Cancer breast Sister Asthma Grandmother Arthritis Father Heart disease Social History Smoking Status: Never smoker alcohol intake: current alcohol intake frequency: holidays/special occasions only Alcohol type: wine and hard liquor substance use type: does not use what type of physical activity do you participate in: walking frequency: 1-2 times per week seatbelt use: always do you feel safe at home: Yes HPI HPI Chief Complaint: Follow-up chronic conditions Details: LEIDY VAZQUEZ, is a 58 F who presents to the office today for follow-up of her chronic medical conditions. Also has some concerns. History of neuropathy, currently on gabapentin. Also helps for hot flashes. Takes 300 mg in the morning and 400 mg at night. This is helpful for her symptoms however, during the day/in the afternoon, she states that she has noted more numbness/tingling in her feet. Has been more active with her weight loss and symptoms have been more bothersome. History of hypertension, blood pressure today is at 132/78 mmHg. She states that at home, her readings range from 130 to less than 120 systolic. Currently on lisinopril which she is taking as prescribed. Also very active and has been more active with weight loss. Currently on compound tirzepatide for weight loss. Down from a BMI of 43.5 at her last visit to 39.6. She feels well overall. Other chronic conditions are stable. ROS Const Constitutional (more content not included)... Normal [facility] Absolute neutrophil countOrd ered By: Carlyle Elmore on 07-30-2024 Neutrophils (Bld) [#/Vol] 4.1 10*3/uL 2.0-7.7 [facility] Anion gap in Serum or Plasma Ordered By: Carlyle Elmore on 07-30-2024 Anion gap [Moles/Vol] 13 mmol/L 5-15 [facility] BUN/creatinine ratioOrdered By: Carlyle Elmore on 07-30-2024 Urea nitrogen/Creatinine [Mass ratio] 19.2 mg/mg 10-20 [facility] Basophil percentageOrdered B y: Carlyle Elmore on 07-30-2024 Basophils/100 WBC (Bld) 0.5 % 0-1 [facility] Bilirubin, totalOrdered By: Carlyle Elmore on 07-30-2024 Bilirubin [Mass/Vol] 0.80 mg/dL 0.00-1.[address] [facility] CBC W/Diff, Automatedon Absolute Lymph 1.20 X10 3/uL Normal 0.83-4.51 [facility] Comment on above: Performed By: #### L 100.0100, L500.4050, L500.4100 #### [facility] [address] [place], [address] Absolute Neut 4.1 X10 3/uL Normal 2.0-7.7 [facility] Comment on above: Performed By: #### L 100.0100, L500.4050, L500.4100 #### [facility] [address] [place], [address] Basophils/100 WBC (Bld) 0.5 % Normal 0-1 [facility] Comment on above: Performed By: #### L 100.0100, L500.4050, L500.4100 #### [facility] [address] [place], [address] Eosinophils/100 WBC (Bld) 1.7 % Normal 0-5 [facility] Comment on above: Performed By: #### L 100.0100, L500.4050, L500.4100 #### [facility] [address] [place], [address] Erythrocyte distribution width (RBC) [Ratio] 13.1 % Normal 11.6-14.6 [facility] Comment on above: Performed By: #### L 100.0100, L500.4050, L500.4100 #### [facility] [address] [place], [address] Hematocrit (Bld) [Volume fraction] 41.4 % Normal 37-47 [facility] Comment on above: Performed By: #### L 100.0100, L500.4050, L500.4100 #### [facility] [address] [place], [address] Hemoglobin (Bld) [Mass/Vol] 13.8 g/dL Normal 12.0-15.0 [facility] Comment on above: Performed By: #### L 100.0100, L500.4050, L500.4100 #### [facility] [address] [place], [address] IG% 0.200 Normal 0.0-0.9 [facility] Comment on above: Result Comment: IG% - Immature Granulocytes (promyelocytes, myelocytes and metamyelocytes) > 1% indicates that a LEFT SHIFT is Present. Performed By: #### L 100.0100, L500.4050, L500.4100 #### [facility] [address] [place], [address] Lymphocytes/100 WBC (Bld) 20.7 % Normal 19-41 [facility] Comment on above: Performed By: #### L 100.0100, L500.4050, L500.4100 #### [facility] [address] [place], [address] MCH (RBC) [Entitic mass] 29.3 pg Normal 27.0-32.0 [facility] Comment on above: Performed By: #### L 100.0100, L500.4050, L500.4100 #### [facility] [address] [place], [address] MCHC (RBC) [Mass/Vol] 33.3 g/dL Normal 32-36 [facility] Comment on above: Performed By: #### L 100.0100, L500.4050, L500.4100 #### [facility] [address] [place], [address] MCV (RBC) [Entitic vol] 87.9 fL Normal 81-99 [facility] Comment on above: Performed By: #### L 100.0100, L500.4050, L500.4100 #### [facility] [address] [place], [address] Monocytes/100 WBC (Bld) 6.9 % Normal 0-10 [facility] Comment on above: Performed By: #### L 100.0100, L500.4050, L500.4100 #### [facility] [address] [place], [address] Neutrophils/100 WBC (Bld) 70.0 % Normal 47-70 [facility] Comment on above: Performed By: #### L 100.0100, L500.4050, L500.4100 #### [facility] [address] [place], [address] Nucleated RBC (Bld) [#/Vol] 0 10*3/uL Normal 0-5 [facility] Comment on above: Performed By: #### L 100.0100, L500.4050, L500.4100 #### [facility] [address] [place], [address] Platelet mean volume (Bld) [Entitic vol] 10.1 fL Normal 6.2-12.0 [facility] Comment on above: Performed By: #### L 100.0100, L500.4050, L500.4100 #### [facility] [address] [place], [address] Platelets (Bld) [#/Vol] 266 10*3/uL Normal 150-450 [facility] Comment on above: Performed By: #### L 100.0100, L500.4050, L500.4100 #### [facility] [address] [place], [address] RBC (Bld) [#/Vol] 4.71 10*6/uL Normal 4.2-5.4 [facility] Comment on above: Performed By: #### L 100.0100, L500.4050, L500.4100 #### [facility] [address] [place], [address] RDW SD 42.1 fl Normal 35.1-43.9 [facility] Comment on above: Performed By: #### L 100.0100, L500.4050, L500.4100 #### [facility] [address] [place], [address] WBC (Bld) [#/Vol] 5.8 10*3/uL Normal 4.4-11.0 [facility] Comment on above: Performed By: #### L 100.0100, L500.4050, L500.4100 #### [facility] [address] [place], [address] Calculated very low density lipoprotein (VLDL) cholesterol measurementOrdered By: Carlyle Elmore on 07-30-2024 VLDL Cholesterol 26 mg/dL 5-40 [facility] Carbon dioxide, total [Moles /volume] in Central venous bloodOrdered By: Carlyle Elmore on 07-30-2024 CO2 [Moles/Vol] 24.9 mmol/L 21.0-32.0 [facility] Chloride assayOrdered By: Óscar Elmore on 07-30-2024 Chloride [Moles/Vol] 103 mmol/L 98-[address] [facility] Comprehensive Metabolic Prof ilon 07-30-2024 Albumin [Mass/Vol] 4.2 g/dL Normal 3.5-5.0 [facility] Comment on above: Performed By: #### L 100.0100, L500.4050, L500.4100 #### [facility] [address] [place], [address] Albumin/Globulin [Mass ratio] 1.7 {ratio} Normal 0.9-2.4 [facility] Comment on above: Performed By: #### L 100.0100, L500.4050, L500.4100 #### [facility] [address] [place], [address] ALK PHOS 81 U/L Normal 35-104 [facility] Comment on above: Performed By: #### L 100.0100, L500.4050, L500.4100 #### [facility] [address] [place], [address] ALT [Catalytic activity/Vol] 16 U/L Normal <=34 [facility] Comment on above: Performed By: #### L 100.0100, L500.4050, L500.4100 #### [facility] [address] [place], [address] AST [Catalytic activity/Vol] 16 U/L Normal <=31 [facility] Comment on above: Performed By: #### L 100.0100, L500.4050, L500.4100 #### [facility] [address] [place], [address] Bilirubin [Mass/Vol] 0.80 mg/dL Normal 0.00-1.[address] [facility] Comment on above: Performed By: #### L 100.0100, L500.4050, L500.4100 #### [facility] [address] [place], [address] BUN/CRE 19.2 RATIO Normal 10-20 [facility] Comment on above: Performed By: #### L 100.0100, L500.4050, L500.4100 #### [facility] [address] [place], [address] Calcium [Mass/Vol] 9.6 mg/dL Normal 7.6-11.0 [facility] Comment on above: Performed By: #### L 100.0100, L500.4050, L500.4100 #### [facility] [address] [place], [address] Chloride [Moles/Vol] 103 mmol/L Normal 98-[address] [facility] Comment on above: Performed By: #### L 100.0100, L500.4050, L500.4100 #### [facility] [address] [place], [address] CO2 [Moles/Vol] 24.9 mmol/L Normal 21.0-32.0 [facility] Comment on above: Performed By: #### L 100.0100, L500.4050, L500.4100 #### [facility] [address] [place], [address] Creatinine [Mass/Vol] 0.95 mg/dL Normal 0.70-1.20 [facility] Comment on above: Performed By: #### L 100.0100, L500.4050, L500.4100 #### [facility] [address] [place], [address] GAP 13 Normal 5-15 [facility] Comment on above: Performed By: #### L 100.0100, L500.4050, L500.4100 #### [facility] [address] [place], [address] GFR/1.73 sq M.predicted among non-blacks MDRD (S/P/Bld) [Vol rate/Area] 70 mL/min/{1.73_m2} Normal >60 [facility] Comment on above: Result Comment: mL/m in/1.73m2 CKD-EPI Creatinine Equation (2020) Performed By: #### L 100.0100, L500.4050, L500.4100 #### [facility] [address] [place], [address] Globulin (S) [Mass/Vol] 2.5 g/dL Normal 2.2-4.2 [facility] Comment on above: Performed By: #### L 100.0100, L500.4050, L500.4100 #### [facility] [address] [place], [address] Glucose [Mass/Vol] 91 mg/dL Normal 70-99 [facility] Comment on above: Performed By: #### L 100.0100, L500.4050, L500.4100 #### [facility] [address] [place], [address] Potassium [Moles/Vol] 4.0 mmol/L Normal 3.3-5.1 [facility] Comment on above: Performed By: #### L 100.0100, L500.4050, L500.4100 #### [facility] [address] [place], [address] Sodium [Moles/Vol] 140 mmol/L Normal 133-145 [facility] Comment on above: Performed By: #### L 100.0100, L500.4050, L500.4100 #### [facility] [address] [place], [address] T PROT 6.6 g/dL Normal 5.9-8.4 [facility] Comment on above: Performed By: #### L 100.0100, L500.4050, L500.4100 #### [facility] [address] [place], [address] Urea nitrogen [Mass/Vol] 18 mg/dL Normal 4-19 [facility] Comment on above: Performed By: #### L 100.0100, L500.4050, L500.4100 #### [facility] [address] [place], [address] Eosinophil percentageOrdered By: Carlyle Elmore on 07-30-2024 Eosinophils/100 WBC (Bld) 1.7 % 0-5 [facility] Erythrocyte distribution wid th ratioOrdered By: Carlyle Elmore on 07-30-2024 Erythrocyte distribution width (RBC) [Ratio] 13.1 % 11.6-14.6 [facility] Erythrocyte distribution wid th standard deviationOrdered By: Carlyle Elmore on 07-30-2024 Erythrocyte distribution width (RBC) [Entitic vol] 42.1 fL 35.1-43.9 [facility] GFR/1.73 sq M.predicted eyal g non-blacks MDRD (S/P/Bld) [Vol rate/Area]Ordered By: Carlyle Elmore on 07-30-2024 Estimated GFR (MDRD) Non-Af Amer 70 >60 [facility] Comment on above: mL/min/1.73m2 CKD-EP I Creatinine Equation (2020) Hematocrit Auto (Bld) [Volum e fraction]Ordered By: Carlyle Elmore on 07-30-2024 Hematocrit (Bld) [Volume fraction] 41.4 % 37-47 [facility] Hemoglobin measurementOrdere d By: Carlyle Elmore on 07-30-2024 Hemoglobin (Bld) [Mass/Vol] 13.8 g/dL 12.0-15.0 [facility] Immature granulocytes/100 WB C Auto (Bld)Ordered By: Carlyle Elmore on 07-30-2024 Immature granulocytes/100 WBC (Bld) 0.200 % 0.0-0.9 [facility] Comment on above: IG% - Immature Granu locytes (promyelocytes, myelocytes and metamyelocytes) > 1% indicates that a LEFT SHIFT is Present. LDL calc ser/plasOrdered By: Carlyle Elmore on 07-30-2024 LDL Cholesterol, Calculated 89 mg/dL [facility] Comment on above: Efyzmurolm=589-114 m g/dL & Higher Unef=522 mg/dL or greater Laboratory - Chemistry and C hemistry - challengeOrdered By: Carlyle Elmore on 07-30-2024 AST [Catalytic activity/Vol] 16 U/L <32 [facility] Lipid Profileon 07-30-2024 CHOL:HDL 3.08 Normal [facility] Comment on above: Performed By: #### L 100.0100, L500.4050, L500.4100 #### [facility] [address] [place], [place], [id number] Cholesterol [Mass/Vol] 170 mg/dL Normal <=200 [facility] Comment on above: Result Comment: Chol esterol level, Desirable <200 mg/dL Borderline high cholesterol 200-239 mg/dL High cholesterol >=240 mg/dL Recommendations of the NCEP Adult Treatment Panel for the following risk-cutoff thresholds for the [place] population. Performed By: #### L 100.0100, L500.4050, L500.4100 #### [facility] [address] [place], [address] Cholesterol in HDL [Mass/Vol] 55 mg/dL Normal [facility] Comment on above: Result Comment: Gege onal Cholesterol Education Program (NCEP) guidelines: <40 mg/dL: Low HDL-cholesterol (major risk factor for CHD) >= 60 mg/dL: High HDL-cholesterol (negative risk factor for CHD) HDL-cholesterol is affected by a number of factors, e.g. smoking, exercise, hormones, sex and age. Performed By: #### L 100.0100, L500.4050, L500.4100 #### [facility] [address] [place], [address] Cholesterol in LDL [Mass/Vol] 89 mg/dL Normal [facility] Comment on above: Result Comment: Bord uwpawd=352-264 mg/dL Higher Uekn=409 mg/dL or greater Performed By: #### L 100.0100, L500.4050, L500.4100 #### [facility] [address] [place], [address] Cholesterol in VLDL [Mass/Vol] 26 mg/dL Normal 5-40 [facility] Comment on above: Performed By: #### L 100.0100, L500.4050, L500.4100 #### [facility] [address] [place], [address] Triglyceride [Mass/Vol] 128 mg/dL Normal [facility] Comment on above: Result Comment: The drugs N-Acetylcysteine and Metamizole may falsely depress this assay. Normal range: <150 mg/dL Borderline High: 150-199 mg/dL High: 200-499 mg/dL Very High: >500 mg/dL Performed By: #### L 100.0100, L500.4050, L500.4100 #### [facility] [address] [place], [address] Lymphocytes Auto (Unsp spec) [#/Vol]Ordered By: Carlyle Elmore on 07-30-2024 Lymphocytes (Bld) [#/Vol] 1.20 10*3/uL 0.83-4.51 [facility] Lymphocytes/100 WBC Auto (Un sp spec)Ordered By: Carlyle Elmore on 07-30-2024 Lymphocytes/100 WBC (Bld) 20.7 % 19-41 [facility] MCV (mean corpuscular volume ) determinationOrdered By: Carlyle Elmore on 07-30-2024 MCV (RBC) [Entitic vol] 87.9 fL 81-99 [facility] Mean corpuscular hemoglobin (MCH) determinationOrdered By: Carlyle Elmore on 07-30-2024 MCH (RBC) [Entitic mass] 29.3 pg 27.0-32.0 [facility] Mean corpuscular hemoglobin concentration (MCHC) determinationOrdered By: Carlyle Elmore on 07-30-2024 MCHC (RBC) [Mass/Vol] 33.3 g/dL 32-36 [facility] Mean platelet volume determi nationOrdered By: Carlyle Elmore on 07-30-2024 Platelet mean volume (Bld) [Entitic vol] 10.1 fL 6.2-12.0 [facility] Monocyte percentageOrdered B y: Carlyle Elmore on 07-30-2024 Monocytes/100 WBC (Bld) 6.9 % 0-10 [facility] Neutrophil percentageOrdered By: eloymyers flatnimesh Elmore on 07-30-2024 Neutrophils/100 WBC (Bld) 70.0 % 47-70 [facility] Nucleated red blood cell per centageOrdered By: Carlyle Elmore on 07-30-2024 Nucleated RBC/100 WBC (Bld) [Ratio] 0 % 0-5 [facility] Platelet countOrdered By: Óscar Elmore on 07-30-2024 Platelets (Bld) [#/Vol] 266 10*3/uL 150-450 [facility] Potassium (Unsp spec) [Mass/ Vol]Ordered By: Carlyle Elmore on 07-30-2024 Potassium [Moles/Vol] 4.0 mmol/L 3.3-5.1 [facility] RBC Auto (Bld) [#/Vol]Ordere d By: Carlyle Elmore on 07-30-2024 RBC (Bld) [#/Vol] 4.71 10*6/uL 4.2-5.4 [facility] Screening total cholesterol/ high density lipoprotein (HDL) cholesterol ratioOrdered By: Carlyle Elmore on 07-30-2024 Cholesterol.total/Maryjo sterol in HDL [Mass ratio] 3.08 {ratio} [facility] Serum creatinine measurement (mass/volume)Ordered By: Carlyle Elmore on 07-30-2024 Creatinine [Mass/Vol] 0.95 mg/dL 0.70-1.20 [facility] Serum globulin measurementOr dered By: Carlyle Elmore on 07-30-2024 Globulin (S) [Mass/Vol] 2.5 g/dL 2.2-4.2 [facility] Serum glucose measurement (m ass/volume)Ordered By: Carlyle Elmore on 07-30-2024 Glucose [Mass/Vol] 91 mg/dL 70-99 [facility] Serum or plasma alanine suárez otransferase (ALT) measurementOrdered By: Carlyle Elmore on 07-30-2024 ALT [Catalytic activity/Vol] 16 U/L <35 [facility] Serum or plasma albumin roland urement (mass/volume)Ordered By: Carlyle Elmore on 07-30-2024 Albumin [Mass/Vol] 4.2 g/dL 3.5-5.0 [facility] Serum or plasma albumin/glob ulin mass ratioOrdered By: Carlyle Elmore on 07-30-2024 Albumin/Globulin [Mass ratio] 1.7 {ratio} 0.9-2.4 [facility] Serum or plasma alkaline macie sphatase measurementOrdered By: Carlyle Elmore on 07-30-2024 ALP [Catalytic activity/Vol] 81 U/L 35-104 [facility] Serum or plasma calcium roland urement (mass/volume)Ordered By: Carlyle Elmore on 07-30-2024 Calcium [Mass/Vol] 9.6 mg/dL 7.6-11.0 [facility] Serum or plasma cholesterol in HDL measurement (mass/volume)Ordered By: Carlyle Elmore on 07-30-2024 Cholesterol in HDL [Mass/Vol] 55 mg/dL >40 [facility] Comment on above: National Cholesterol Education Program (NCEP) guidelines:<40 mg/dL: Low HDL-cholesterol (major risk factor for CHD)>= 60 mg/dL: High HDL-cholesterol (negative risk factor for CHD)HDL-cholesterol is affected by a number of factors, e.g. smoking, exercise, hormones, sex and age. Serum or plasma cholesterol measurement (mass/volume)Ordered By: Carlyle Elmore on 07-30-2024 Cholesterol [Mass/Vol] 170 mg/dL <201 [facility] Comment on above: Cholesterol level, D esirable <200 mg/dLBorderline high cholesterol 200-239 mg/dLHigh cholesterol >=240 mg/dLRecommendations of the NCEP Adult Treatment Panel for the following risk-cutoff thresholds for the [place] population. Serum or plasma urea nitroge n measurement (mass/volume)Ordered By: Carlyle Elmore on 07-30-2024 Urea nitrogen [Mass/Vol] 18 mg/dL 4-19 [facility] Sodium levelOrdered By: Uzair Elmore on 07-30-2024 Sodium [Moles/Vol] 140 mmol/L 133-145 [facility] Total proteinOrdered By: Israel Elmore on 07-30-2024 Protein [Mass/Vol] 6.6 g/dL 5.9-8.4 [facility] Triglycerides measurementOrd ered By: Carlyle Elmore on 07-30-2024 Triglyceride [Mass/Vol] 128 mg/dL <199 [facility] Comment on above: The drugs N-Acetylcy steine and Metamizole may falsely depress this assay. Normal range: <150 mg/dLBorderline High: 150-199 mg/dLHigh: 200-499 mg/dLVery High: >500 mg/dL White blood cell (WBC) count Ordered By: Carlyle Elmore on 07-30-2024 WBC (Bld) [#/Vol] 5.8 10*3/uL 4.4-11.0 [facility] PT D/C Summary (1)on 024 PT D/C Summary (1) [facility] Physical Therapy [facility] [address] [place] [address] / REHABILITATION SERVICES DISCHARGE SUMMARY MR#: [id number] Acct: [id number] Name: LEIDY VAZQUEZ Rep #: [id number] : 1965 58 From: Christopher Barth PT, ATC Referring Dr.: GEMA BELLA Status: REG RCR Insurance: [employer] SELF PAY INSURANCE Discharge Summary D/C summary: It has been my pleasure to treat LEIDY VAZQUEZ referred by RACHELL WHITE, with the diagnosis of Right TKR 11/25/23 for a total of 24 visit(s). Discharge Date: Please see the following information for a summary of their discharge status. Subjective Subjective: Pt reports she is much better now. Significant change in function now. Pain R knee: Pain Intensity (Out of 10): 0 Overall Improvement % Improvement: 90 Objective Objective/Function: R knee pain ranges from 0-3/10 R knee ROM 0-115 degrees Stairs: Pt is able to negotiate stairs reciprocally with one rail Walking: Pt is able to ambulate greater than 340 feet without difficulty Goals Goal 1:: Patient will be I with HEP and progression Goal Progress: Goal Met Goal 2:: Patient will asc/desc 8 stairs recip with a single HR Goal Progress: Goal Met Goal 3:: Patient will ambulate >150 feet with a normalized gait pattern on an uneven surface Goal Progress: Goal Met Goal 4:: Patient will demo 0-115 degrees of ROM Goal Progress: Goal Met Goal 5:: Patient will report 80% improvement Goal Progress: Goal Met Plan Plan: Discharge to I gym routine D/C Information d/c sentence: If there are questions or concerns regarding this patient's physical therapy, please feel free to call me at [phone]. Thank you for the referral of this patient. Sincerely, Christopher Barth, PT, ATC Balance/Gait/Functio nal tests Balance/Special Test Scores Lower Extremity Functional Score: 56 Tug Test: <10 sec.=free mobile Improvement % Improvement: 90 05/15/24 1225 CC: Dr. Carlyle Elmore MD; GEMA BELLA [facility] Signed Normal [facility] Absolute neutrophil countOrd ered By: Carlyle Elmore on 05-11-2024 Neutrophils (Bld) [#/Vol] 3.4 10*3/uL 2.0-7.7 [facility] Albumin to globulin ratioOrd ered By: Carlyle Elmore on 05-11-2024 Albumin/Globulin [Mass ratio] 1.0 {ratio} 0.9-2.4 [facility] Basophil percentageOrdered B y: Carlyle Elmore on 05-11-2024 Basophils/100 WBC (Bld) 0.6 % 0-1 [facility] Bilirubin, totalOrdered By: Carlyle Elmore on 05-11-2024 Bilirubin [Mass/Vol] 0.80 mg/dL 0.20-1.[address] [facility] Comment on above: For patients on eltr ombopag therapy, use of Dimension [place] TBIL is not recommended. Blood urea nitrogen (BUN)/cr eatinine ratioOrdered By: Carlyle Elmore on 05-11-2024 Urea nitrogen/Creatinine [Mass ratio] 18.9 mg/mg - [facility] CBC W/Diff, Automatedon 04-26 Absolute Lymph 0.95 X10 3/uL Normal 0.83-4.51 [facility] Comment on above: Performed By: #### L 100.0100, L500.4050 #### [facility] [address] [place], [address] Absolute Neut 3.4 X10 3/uL Normal 2.0-7.7 [facility] Comment on above: Performed By: #### L 100.0100, L500.4050 #### [facility] [address] [place], [address] Basophils/100 WBC (Bld) 0.6 % Normal 0-1 [facility] Comment on above: Performed By: #### L 100.0100, L500.4050 #### [facility] [address] [place], [address] Eosinophils/100 WBC (Bld) 2.4 % Normal 0-5 [facility] Comment on above: Performed By: #### L 100.0100, L500.4050 #### [facility] [address] [place], [address] Erythrocyte distribution width (RBC) [Ratio] 13.8 % Normal 11.6-14.6 [facility] Comment on above: Performed By: #### L 100.0100, L500.4050 #### [facility] [address] [place], [address] Hematocrit (Bld) [Volume fraction] 41.9 % Normal 37-47 [facility] Comment on above: Performed By: #### L 100.0100, L500.4050 #### [facility] [address] [place], [address] Hemoglobin (Bld) [Mass/Vol] 13.3 g/dL Normal 12.0-15.0 [facility] Comment on above: Performed By: #### L 100.0100, L500.4050 #### [facility] [address] [place], [address] IG% 0.200 Normal 0.0-0.9 [facility] Comment on above: Result Comment: IG% - Immature Granulocytes (promyelocytes, myelocytes and metamyelocytes) > 1% indicates that a LEFT SHIFT is Present. Performed By: #### L 100.0100, L500.4050 #### [facility] [address] [place], [address] Lymphocytes/100 WBC (Bld) 19.3 % Normal 19-41 [facility] Comment on above: Performed By: #### L 100.0100, L500.4050 #### [facility] [address] [place], [address] MCH (RBC) [Entitic mass] 28.7 pg Normal 27.0-32.0 [facility] Comment on above: Performed By: #### L 100.0100, L500.4050 #### [facility] [address] [place], [address] MCHC (RBC) [Mass/Vol] 31.7 g/dL Low 32-36 [facility] Comment on above: Performed By: #### L 100.0100, L500.4050 #### [facility] [address] [place], [address] MCV (RBC) [Entitic vol] 90.5 fL Normal 81-99 [facility] Comment on above: Performed By: #### L 100.0100, L500.4050 #### [facility] [address] [place], [address] Monocytes/100 WBC (Bld) 7.9 % Normal 0-10 [facility] Comment on above: Performed By: #### L 100.0100, L500.4050 #### [facility] [address] [place], [address] Neutrophils/100 WBC (Bld) 69.6 % Normal 47-70 [facility] Comment on above: Performed By: #### L 100.0100, L500.4050 #### [facility] [address] [place], [address] Nucleated RBC (Bld) [#/Vol] 0 10*3/uL Normal 0-5 [facility] Comment on above: Performed By: #### L 100.0100, L500.4050 #### [facility] [address] [place], [address] Platelet mean volume (Bld) [Entitic vol] 10.5 fL Normal 6.2-12.0 [facility] Comment on above: Performed By: #### L 100.0100, L500.4050 #### [facility] [address] [place], [address] Platelets (Bld) [#/Vol] 304 10*3/uL Normal 150-450 [facility] Comment on above: Performed By: #### L 100.0100, L500.4050 #### [facility] [address] [place], [address] RBC (Bld) [#/Vol] 4.63 10*6/uL Normal 4.2-5.4 [facility] Comment on above: Performed By: #### L 100.0100, L500.4050 #### [facility] [address] [place], [address] RDW SD 45.5 fl High 35.1-43.9 [facility] Comment on above: Performed By: #### L 100.0100, L500.4050 #### [facility] [address] [place], [address] WBC (Bld) [#/Vol] 4.9 10*3/uL Normal 4.4-11.0 [facility] Comment on above: Performed By: #### L 100.0100, L500.4050 #### [facility] [address] [place], [address] Carbon dioxide measurementOr dered By: Carlyle Elmore on 05-11-2024 CO2 [Moles/Vol] 25.0 mmol/L 21.0-32.0 [facility] Chloride measurementOrdered By: Carlyle Elmore on 05-11-2024 Chloride [Moles/Vol] 108 mmol/L High 98-[address] [facility] Comprehensive Metabolic Prof ilon 05-11-2024 Albumin [Mass/Vol] 3.5 g/dL Normal 3.2-5.0 [facility] Comment on above: Performed By: #### L 100.0100, L500.4050 #### [facility] [address] [place], [address] Albumin/Globulin [Mass ratio] 1.0 {ratio} Normal 0.9-2.4 [facility] Comment on above: Performed By: #### L 100.0100, L500.4050 #### [facility] [address] [place], [address] ALK P 76 U/L Normal 45-117 [facility] Comment on above: Performed By: #### L 100.0100, L500.4050 #### [facility] [address] [place], [address] ALT [Catalytic activity/Vol] 27 U/L Normal 13-56 [facility] Comment on above: Performed By: #### L 100.0100, L500.4050 #### [facility] [address] [place], [address] AST [Catalytic activity/Vol] 14 U/L Low 15-37 [facility] Comment on above: Performed By: #### L 100.0100, L500.4050 #### [facility] [address] [place], [address] Bilirubin [Mass/Vol] 0.80 mg/dL Normal 0.20-1.[address] [facility] Comment on above: Result Comment: For patients on eltrombopag therapy, use of Dimension [place] TBIL is not recommended. Performed By: #### L 100.0100, L500.4050 #### [facility] [address] [place], [address] BUN/CRE 18.9 RATIO Normal 10-20 [facility] Comment on above: Performed By: #### L 100.0100, L500.4050 #### [facility] [address] [place], [address] CA,Total 9.8 mg/dL Normal 8.5-10.1 [facility] Comment on above: Performed By: #### L 100.0100, L500.4050 #### [facility] [address] [place], [address] Chloride [Moles/Vol] 108 mmol/L High 98-[address] [facility] Comment on above: Performed By: #### L 100.0100, L500.4050 #### [facility] [address] [place], [address] CO2 [Moles/Vol] 25.0 mmol/L Normal 21.0-32.0 [facility] Comment on above: Performed By: #### L 100.0100, L500.4050 #### [facility] [address] [place], [address] Creatinine [Mass/Vol] 0.90 mg/dL Normal 0.55-1.02 [facility] Comment on above: Result Comment: The validity of the calculated GFR GFRAA in patients over 70 years has not been determined. Clinical correlation is essential. Performed By: #### L 100.0100, L500.4050 #### [facility] [address] [place], [address] EST GFR - AA 83 mL/min Normal >60 [facility] Comment on above: Result Comment: Afri can [place] GFR Calc Performed By: #### L 100.0100, L500.4050 #### [facility] [address] [place], [address] GAP 8 Normal 5-15 [facility] Comment on above: Performed By: #### L 100.0100, L500.4050 #### [facility] [address] [place], [address] GFR/1.73 sq M.predicted among non-blacks MDRD (S/P/Bld) [Vol rate/Area] 69 mL/min/{1.73_m2} Normal >60 [facility] Comment on above: Result Comment: Non- GFR Calc Performed By: #### L 100.0100, L500.4050 #### [facility] [address] [place], [address] Globulin (S) [Mass/Vol] 3.4 g/dL Normal 2.2-4.2 [facility] Comment on above: Performed By: #### L 100.0100, L500.4050 #### [facility] [address] [place], [address] Glucose [Mass/Vol] 82 mg/dL Normal 74-106 [facility] Comment on above: Performed By: #### L 100.0100, L500.4050 #### [facility] [address] [place], [address] Potassium [Moles/Vol] 4.4 mmol/L Normal 3.5-5.1 [facility] Comment on above: Performed By: #### L 100.0100, L500.4050 #### [facility] [address] [place], [address] Sodium [Moles/Vol] 140 mmol/L Normal 136-145 [facility] Comment on above: Performed By: #### L 100.0100, L500.4050 #### [facility] [address] [place], [address] T PROT 6.9 g/dL Normal 6.4-8.2 [facility] Comment on above: Performed By: #### L 100.0100, L500.4050 #### [facility] [address] [place], [address] Urea nitrogen [Mass/Vol] 17 mg/dL Normal 7-18 [facility] Comment on above: Performed By: #### L 100.0100, L500.4050 #### [facility] [address] [place], [address] Eosinophil percentageOrdered By: Carlyle Elmore on 05-11-2024 Eosinophils/100 WBC (Bld) 2.4 % 0-5 [facility] Erythrocyte distribution wid th ratioOrdered By: Carlyle Elmore on 05-11-2024 Erythrocyte distribution width (RBC) [Ratio] 13.8 % 11.6-14.6 [facility] Erythrocyte distribution wid th standard deviationOrdered By: Carlyle Elmore on 05-11-2024 Erythrocyte distribution width (RBC) [Entitic vol] 45.5 fL High 35.1-43.9 [facility] Estimated glomerular filtrat ion rate (GFR) AmericanOrdered By: Carlyle Elmore on 05-11-2024 Estimated GFR (MDRD) Amer 83 mL/min >60 [facility] Comment on above: GFR Calc Glomerular filtration rate ( GFR) estimationOrdered By: Carlyle Elmore on 05-11-2024 Estimated GFR (MDRD) Non-Af Amer 69 mL/min >60 [facility] Comment on above: Non- GFR Calc Glucose measurementOrdered B y: Carlyle Elmore on 05-11-2024 Glucose [Mass/Vol] 82 mg/dL 74-106 [facility] Hematocrit Auto (Bld) [Volum e fraction]Ordered By: Carlyle Elmore on 05-11-2024 Hematocrit (Bld) [Volume fraction] 41.9 % 37-47 [facility] Hemoglobin measurementOrdere d By: Carlyle Elmore on 05-11-2024 Hemoglobin (Bld) [Mass/Vol] 13.3 g/dL 12.0-15.0 [facility] Immature granulocytes/100 WB C Auto (Bld)Ordered By: Carlyle Elmore on 05-11-2024 Immature granulocytes/100 WBC (Bld) 0.200 % 0.0-0.9 [facility] Comment on above: IG% - Immature Granu locytes (promyelocytes, myelocytes and metamyelocytes) > 1% indicates that a LEFT SHIFT is Present. Internal Medicine Office Vis iton 05-11-2024 Internal Medicine Office Visit [facility] [address] [place] [address] [place] [address] OFFICE VISIT Date of Service: 05/11/24 MR#: [id number] Acct: [id number] Name: LEIDY VAZQUEZ Rep #: [id number] : 1965 Provider: Dr. Carlyle garg MD Age/Sex: 58/F Location: [facility] Status: Signed Intake Vital Signs 01/31/24 09:04 03/11/24 14:13 05/11/24 08:52 Height 5 ft 3 in 5 ft 3 in 5 ft 3 in Weight: 246 lb BMI 43.5 BP 114/60 Blood Pressure Location Rt brachial Position Sitting Respiration 16 Pulse 73 Pulse Source Monitor Temp 98.6 F Temp Source Temporal Pulse Oximetry (%) 99 Oxygen Delivery Method room air Intake Visit Reasons: 3 M FU Chief Complaint: f/u Dish Washer Required: No Is patient in pain?: No Allergies cheese Allergy (Severe, Verified 05/11/24 08:47) Other adhesive tape Allergy (Verified 05/11/24 08:47) rash Sulfa (Sulfonamide Antibiotics) Allergy (Verified 05/11/24 08:47) Swelling Medications ???Medication ???Instructions ???Recorded ???Confirmed ???Type triamcinolone acetonide 55 mcg 1 spray intranasal DAILY PRN 10/08/22 05/11/24 History nasal spray aerosol (Nasacort) ALLERGIES prednisone 5 mg tablet 5 mg PO TID PRN ARTHRITIS 05/13/23 05/11/24 History folic acid 1 mg tablet 2 mg PO DAILY 05/24/23 05/11/24 History tramadol 50 mg tablet 50 mg PO Q6H PRN pain 3 days #7 06/18/23 05/11/24 Rx tabs atorvastatin 40 mg tablet 40 mg PO DAILY #90 tabs 10/30/23 05/11/24 Rx gabapentin 300 mg capsule 300 mg PO QAM #60 caps 01/10/24 05/11/24 Rx gabapentin 400 mg capsule 400 mg PO QHS #60 caps 01/10/24 05/11/24 Rx multivitamin 1 tab PO DAILY 01/17/24 05/11/24 History multivitamin with minerals 1 tab PO DAILY 01/17/24 05/11/24 History (Hair,Skin and Nails tablet) needle (disp) 26 gauge 26 gauge x #100 ea 02/24/24 05/11/24 Rx 3/8 (BD Intradermal [place]) tirzepatide (weight loss) 2.5 2.5 mg (0.5 mL) subcut QWEEK #2 mL 02/27/24 05/11/24 Rx mg/0.5 mL subcutaneous solution (Zepbound) lisinopril 30 mg tablet 30 mg PO QDAY 3 months #90 tabs 05/11/24 05/11/24 Rx PFSH Medical History Trigger finger, right middle finger Metabolic syndrome Preoperative evaluation to rule out surgical contraindication Non-smoker History of stress test Hypertension Multiple lipomas Localized soft tissue swelling Arthritis Osteoarthritis Allergic conjunctivitis Allergic rhinosinusitis Morbid obesity Blood glucose elevated Hyperlipidemia URI (upper respiratory infection) Pain of left great toe Hypersomnolence History of pneumonia High cholesterol History of blood transfusion History of back problems Anemia Seasonal allergies Surgical History Status post right knee replacement S/P excision of lipoma Hx of section History of ankle surgery Hx of hysterectomy Family History Mother CD (celiac disease) Depression High cholesterol Thyroid disorder Cancer breast Sister Asthma Grandmother Arthritis Father Heart disease Social History Smoking Status: Never smoker alcohol intake: current alcohol intake frequency: holidays/special occasions only Alcohol type: wine and hard liquor substance use type: does not use what type of physical activity do you participate in: walking frequency: 1-2 times per week seatbelt use: always do you feel safe at home: Yes HPI HPI Chief Complaint: f/u Details: LEIDY VAZQUEZ, is a 58 F who presents to the office today for follow-up of her chronic conditions. Also has some concerns. Has lost about 20lbs since her last visit. Currently on Tirzepatide which she has tolerated without any concerns. Now working with an [employer] to get her prescriptions. 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 With weight loss, has had lower blood pressure readings at home. Symptomatic/lighthea ded with these episodes. Currently on lisinopril 40 mg daily. She stays rather active exercising a couple days a week. No chest pain, palpitation or shortness of breath. Other chronic medical conditions are stable. ROS Const Constitutional: No body ache, chills, excessive sweating, fatigue, fever(s), frequent falls, headache(s), snoring, weakness, sleep problems or change in appetite Eyes Eyes: No blurry vision, change in vision, bulging eyes, floaters, visual disturbances, eye pain or Light sensitivity ENT ENT: No abnormal hearing, ear or mastoid pain, tinnitus, balance problems, nosebleed/epistaxis, nasal congestion, headache(s), neck pain or sore thro (more content not included)... Normal [facility] Laboratory - Chemistry and C hemistry - challengeOrdered By: Carlyle Elmore on 05-11-2024 AST [Catalytic activity/Vol] 14 U/L Low 15-37 [facility] Lymphocytes Auto (Unsp spec) [#/Vol]Ordered By: Carlyle Elmore on 05-11-2024 Lymphocytes (Bld) [#/Vol] 0.95 10*3/uL 0.83-4.51 [facility] Lymphocytes/100 WBC Auto (Un sp spec)Ordered By: Carlyle Elmore on 05-11-2024 Lymphocytes/100 WBC (Bld) 19.3 % 19-41 [facility] MCV (mean corpuscular volume ) determinationOrdered By: Carlyle Elmore on 05-11-2024 MCV (RBC) [Entitic vol] 90.5 fL 81-99 [facility] Mean corpuscular hemoglobin (MCH) determinationOrdered By: Efdaphnie Elmore on 05-11-2024 MCH (RBC) [Entitic mass] 28.7 pg 27.0-32.0 [facility] Mean corpuscular hemoglobin concentration (MCHC) determinationOrdered By: Carlyle Elmore on 05-11-2024 MCHC (RBC) [Mass/Vol] 31.7 g/dL Low 32-36 [facility] Mean platelet volume determi nationOrdered By: Carlyle Elmore on 05-11-2024 Platelet mean volume (Bld) [Entitic vol] 10.5 fL 6.2-12.0 [facility] Monocyte percentageOrdered B y: Carlyle Elmore on 05-11-2024 Monocytes/100 WBC (Bld) 7.9 % 0-10 [facility] Neutrophil percentageOrdered By: Carlyle Elmore on 05-11-2024 Neutrophils/100 WBC (Bld) 69.6 % 47-70 [facility] Nucleated red blood cell per centageOrdered By: Carlyle Elmore on 05-11-2024 Nucleated RBC/100 WBC (Bld) [Ratio] 0 % 0-5 [facility] Platelet countOrdered By: Óscar Elmore on 05-11-2024 Platelets (Bld) [#/Vol] 304 10*3/uL 150-450 [facility] Potassium measurementOrdered By: Carlyle Elmore on 05-11-2024 Potassium [Moles/Vol] 4.4 mmol/L 3.5-5.1 [facility] RBC Auto (Bld) [#/Vol]Ordere d By: Carlyle Elmore on 05-11-2024 RBC (Bld) [#/Vol] 4.63 10*6/uL 4.2-5.4 [facility] Serum anion gap measurementO rdered By: Carlyle Elmore on 05-11-2024 Anion gap [Moles/Vol] 8 mmol/L 5-15 [facility] Serum globulin measurementOr dered By: Carlyle Elmore on 05-11-2024 Globulin (S) [Mass/Vol] 3.4 g/dL 2.2-4.2 [facility] Serum or plasma alanine suárez otransferase (ALT) measurementOrdered By: Carlyle Elmore on 05-11-2024 ALT [Catalytic activity/Vol] 27 U/L 13-56 [facility] Serum or plasma albumin roland urement (mass/volume)Ordered By: Carlyle Elmore on 05-11-2024 Albumin [Mass/Vol] 3.5 g/dL 3.2-5.0 [facility] Serum or plasma alkaline macie sphatase measurementOrdered By: Carlyle Elmore on 05-11-2024 ALP [Catalytic activity/Vol] 76 U/L 45-117 [facility] Serum or plasma calcium roland urement (mass/volume)Ordered By: Carlyle Elmore on 05-11-2024 Calcium [Mass/Vol] 9.8 mg/dL 8.5-10.1 [facility] Serum or plasma creatinine m easurement (mass/volume)Ordered By: Carlyle Elmore on 05-11-2024 Creatinine [Mass/Vol] 0.90 mg/dL 0.55-1.02 [facility] Comment on above: The validity of the calculated GFR & GFRAA in patients over 70 years has not been determined. Clinical correlation is essential. Serum or plasma urea nitroge n measurement (mass/volume)Ordered By: aCrlyle Elmore on 05-11-2024 Urea nitrogen [Mass/Vol] 17 mg/dL 7-18 [facility] Sodium levelOrdered By: Uzair greshamjorgesandeep Elmore on 05-11-2024 Sodium [Moles/Vol] 140 mmol/L 136-145 [facility] Total proteinOrdered By: Israel Elmore on 05-11-2024 Protein [Mass/Vol] 6.9 g/dL 6.4-8.2 [facility] White blood cell (WBC) count Ordered By: Carlyle Antoniolaureano on 05-11-2024 WBC (Bld) [#/Vol] 4.9 10*3/uL 4.4-11.0 [facility] Re-Evaluation - PT (1)on Re-Evaluation - PT (1) [facility] Physical Therapy [facility] [address] [place] [address] / REEVALUATION / MEDICARE RECERTIFICATION PHYSICAL THERAPY MR#: [id number] Acct: [id number] Name: LEIDY VAZQUEZ Rep #: [id number] : 1965 58 From: Christopher Barth PT, ATC Referring Dr.: GEMA BELLA Status:REG RCR Insurance: [employer] SELF PAY INSURANCE Re-Evaluation Intro: RACHELL WHITE, It has been my pleasure to treat LEIDY VAZQUEZ over the last 24 visits for Right TKR 11/25/23. Please see the progress note below for an update on the physical therapy plan of care! Subjective Subjective: Pt reports she is much better now. Significant change in function now. Objective Objective/Function: R knee pain ranges from 0-3/10 R knee ROM 0-115 degrees Stairs: Pt is able to negotiate stairs reciprocally with one rail Walking: Pt is able to ambulate greater than 340 feet without difficulty Plan Plan Plan: Discharge to gym routine Balance/Gait/Functio nal tests Balance/Special Test Scores Lower Extremity Functional Score: 56 Tug Test: <10 sec.=free mobile Goals Goals Goal 1:: Patient will be I with HEP and progression Goal Time Frame: 4-6 Weeks Goal Progress: Goal Met Goal 2:: Patient will asc/desc 8 stairs recip with a single HR Goal Time Frame: 4-6 Weeks Goal Progress: Goal Met Goal 3:: Patient will ambulate >150 feet with a normalized gait pattern on an uneven surface Goal Time Frame: 4-6 Weeks Goal Progress: Goal Met Goal 4:: Patient will demo 0-115 degrees of ROM Goal Time Frame: 4-6 Weeks Goal Progress: Goal Met Goal 5:: Patient will report 80% improvement Goal Time Frame: 4-6 Weeks Goal Progress: Goal Met Anticipated Interventions Anticipated Interventions Patient/Client Instruction: Educate patient on: Benefits of Fitness Program Therapeutic Exercise to Include: Strength training, Endurance training, Balance training, Agility training, Body mechanics, Postural training, Flexibilty training, Gait and locomotor training, Neuromotor development, Passive ROM, Active ROM, Dynamic Lumbar Stabilization and Scapular Strength/Stabilizati on For the Purpose of:: To improve muscle performance and motor function Functional Training to Include: Gait training TENS: Yes Cryotherapy (ice pack, ice massage): Yes Thermo therapy (hot pack): Yes Re-Evaluation Ending Re-evaluation ending: Please do not hesitate to contact me at [phone] by phone or if you have questions or concerns regarding this new plan of care! Sincerely, Christopher Barth, PT, ATC 04/03/24 1258 CC: Dr. Carlyle Elmore MD; GEMA BELLA [facility] Signed For Medicare only, by signing this I certify the plan of care. Physicians Signature Date Normal [facility] Absolute lymphocyte countOrd ered By: Carlyle Elmore on 08-09-2023 Lymphocytes Auto (Unsp spec) [#/Vol] 1.24 10*3/uL 0.83-4.51 [facility] Automated lymphocyte count a s percentage of total leukocytesOrdered By: Carlyle Elmore on 08-09-2023 Lymphocytes/100 WBC Auto (Unsp spec) 19.9 % 19-41 [facility] Basophil percentageOrdered B y: Carlyle Elmore on 08-09-2023 Basophils/100 WBC (Bld) 0.5 % 0-1 [facility] Bilirubin [Mass/Vol] 0.50 mg/dL 0.20-1.[address] [facility] Comment on above: For patients on eltr ombopag therapy, use of Dimension [place] TBIL is not recommended. Chloride [Moles/Vol] 110 mmol/L 98-[address] [facility] Cholesterol [Mass/Vol] 196 mg/dL <200 [facility] Comment on above: <200 mg/dL Desirable 200-240 mg/dL Borderline >240 mg/dL High Risk Eosinophils/100 WBC (Bld) 3.4 % 0-5 [facility] Glucose [Mass/Vol] 98 mg/dL 74-106 [facility] Hemoglobin (Bld) [Mass/Vol] 13.3 g/dL 12.0-15.0 [facility] Monocytes/100 WBC (Bld) 6.7 % 0-10 [facility] Neutrophils (Bld) [#/Vol] 4.3 10*3/uL 2.0-7.7 [facility] Neutrophils/100 WBC (Bld) 69.0 % 47-70 [facility] Potassium [Moles/Vol] 4.3 mmol/L 3.5-5.1 [facility] Protein [Mass/Vol] 6.7 g/dL 6.4-8.2 [facility] Sodium [Moles/Vol] 140 mmol/L 136-145 [facility] Triglyceride [Mass/Vol] 241 mg/dL <199 [facility] Comment on above: The drugs N-Acetylcy steine and Metamizole may falsely depress this assay.Serum Triglycerides Reference Interval Normal <150 mg/dL Borderline high 150 - 199 mg/dL High 200 - 499 mg/dL Very High > or = 500 mg/dL WBC (Bld) [#/Vol] 6.2 10*3/uL 4.4-11.0 [facility] Determination of erythrocyte mean corpuscular volume (MCV)Ordered By: Carlyle Elmore on 08-09-2023 MCV (RBC) [Entitic vol] 90.5 fL 81-99 [facility] Erythrocyte distribution wid th ratioOrdered By: Carlyle Elmore on 08-09-2023 Erythrocyte distribution width (RBC) [Ratio] 13.1 % 11.6-14.6 [facility] Erythrocyte distribution wid th standard deviationOrdered By: Carlyle Elmore on 08-09-2023 Erythrocyte distribution width (RBC) [Entitic vol] 42.5 fL 35.1-43.9 [facility] Hematocrit Auto (Bld) [Volum e fraction]Ordered By: Carlyle Elmore on 08-09-2023 Hematocrit (Bld) [Volume fraction] 39.8 % 37-47 [facility] Immature granulocytes/100 WB C Auto (Bld)Ordered By: [facility] on 08-09-2023 Immature granulocytes/100 WBC (Bld) 0.500 % 0.0-0.9 [facility] Comment on above: IG% - Immature Granu locytes (promyelocytes, myelocytes and metamyelocytes) > 1% indicates that a LEFT SHIFT is Present. Laboratory - Chemistry and C hemistry - challengeOrdered By: Carlyle Elmore on 08-09-2023 Albumin/Globulin [Mass ratio] 1.0 {ratio} 0.9-2.4 [facility] ALP [Catalytic activity/Vol] 96 U/L 45-117 [facility] ALT [Catalytic activity/Vol] 30 U/L 13-56 [facility] Cholesterol in HDL [Mass/Vol] 53 mg/dL >40 [facility] Comment on above: The drugs N-Acetylcy steine and Metamizole may falsely depress this assay. Reference Range HDL <40 mg/dL Low HDL Cholesterol HDL >or= 60 mg/dL High HDL Cholesterol Cholesterol in LDL [Mass/Vol] 95 mg/dL 0-130 [facility] CO2 [Moles/Vol] 25.0 mmol/L 21.0-32.0 [facility] Globulin (S) [Mass/Vol] 3.3 g/dL 2.2-4.2 [facility] Urea nitrogen/Creatinine [Mass ratio] 21.3 mg/mg 10-20 [facility] Laboratory - Hematology and Cell countsOrdered By: Uzairmyers flatnimesh Elmore on 08-09-2023 MCH (RBC) [Entitic mass] 30.2 pg 27.0-32.0 [facility] MCHC (RBC) [Mass/Vol] 33.4 g/dL 32-36 [facility] Nucleated RBC/100 WBC (Bld) [Ratio] 0 % 0-5 [facility] Platelet mean volume (Bld) [Entitic vol] 9.1 fL 6.2-12.0 [facility] Platelets (Bld) [#/Vol] 294 10*3/uL 150-450 [facility] No Panel InformationOrdered By: Carlyle Elmore on 08-09-2023 Estimated GFR (MDRD) Amer 90 mL/min >60 [facility] Comment on above: GFR Calc Estimated GFR (MDRD) Non-Af Amer 74 mL/min >60 [facility] Comment on above: Non- GFR Calc VLDL Cholesterol 48 mg/dL 5-40 [facility] RBC Auto (Bld) [#/Vol]Ordere d By: Carlyle Elmore on 08-09-2023 RBC (Bld) [#/Vol] 4.40 10*6/uL 4.2-5.4 [facility] Serum or plasma calcium roland urement (mass/volume)Ordered By: Carlyle Elmore on 08-09-2023 Calcium [Mass/Vol] 9.6 mg/dL 8.5-10.1 [facility] Serum or plasma creatinine m easurement (mass/volume)Ordered By: Carlyle Elmore on 08-09-2023 Creatinine [Mass/Vol] 0.85 mg/dL 0.55-1.02 [facility] Comment on above: The validity of the calculated GFR & GFRAA in patients over 70 years has not been determined. Clinical correlation is essential. Serum or plasma urea nitroge n measurement (mass/volume)Ordered By: Carlyle Elmore on 08-09-2023 Urea nitrogen [Mass/Vol] 18 mg/dL 7-18 [facility] Thin prep Papanicolaou smear with manual screeningOrdered By: Carlyle Elmore on 08-09-2023 Thin prep Papanicolaou smear with manual screening 3.4 g/dL 3.2-5.0 [facility] Thin prep Papanicolaou smear with manual screening 15 U/L 15-37 [facility] Thin prep Papanicolaou smear with manual screening 5 5-15 [facility] Absolute lymphocyte countOrd ered By: Deborah Singh on 06-14-2023 Lymphocytes Auto (Unsp spec) [#/Vol] 1.05 10*3/uL 0.83-4.51 [facility] Automated lymphocyte count a s percentage of total leukocytesOrdered By: Deborah Singh on 06-14-2023 Lymphocytes/100 WBC Auto (Unsp spec) 20.3 % 19-41 [facility] Basophil percentageOrdered B y: Deborah Singh on 06-14-2023 Basophils/100 WBC (Bld) 0.8 % 0-1 [facility] Bilirubin [Mass/Vol] 0.70 mg/dL 0.20-1.[address] [facility] Comment on above: For patients on eltr ombopag therapy, use of Dimension [place] TBIL is not recommended. Chloride [Moles/Vol] 105 mmol/L 98-[address] [facility] Eosinophils/100 WBC (Bld) 2.5 % 0-5 [facility] Glucose [Mass/Vol] 105 mg/dL 74-106 [facility] Comment on above: Fasting Glucose resu lt from 100 to 125 mg/dL suggests IMPAIRED HOMEOSTASIS per A.D.A. criteria. Hemoglobin (Bld) [Mass/Vol] 13.5 g/dL 12.0-15.0 [facility] Monocytes/100 WBC (Bld) 9.3 % 0-10 [facility] Neutrophils (Bld) [#/Vol] 3.5 10*3/uL 2.0-7.7 [facility] Neutrophils/100 WBC (Bld) 66.7 % 47-70 [facility] Potassium [Moles/Vol] 4.1 mmol/L 3.5-5.1 [facility] Protein [Mass/Vol] 6.9 g/dL 6.4-8.2 [facility] Sodium [Moles/Vol] 139 mmol/L 136-145 [facility] WBC (Bld) [#/Vol] 5.2 10*3/uL 4.4-11.0 [facility] Determination of erythrocyte mean corpuscular volume (MCV)Ordered By: Deborah Singh on 06-14-2023 MCV (RBC) [Entitic vol] 90.0 fL 81-99 [facility] Erythrocyte distribution wid th ratioOrdered By: Deborah Singh on 06-14-2023 Erythrocyte distribution width (RBC) [Ratio] 13.7 % 11.6-14.6 [facility] Erythrocyte distribution wid th standard deviationOrdered By: Deborah Singh on 06-14-2023 Erythrocyte distribution width (RBC) [Entitic vol] 44.3 fL 35.1-43.9 [facility] Hematocrit Auto (Bld) [Volum e fraction]Ordered By: Deborah Singh on 06-14-2023 Hematocrit (Bld) [Volume fraction] 41.5 % 37-47 [facility] Immature granulocytes/100 WB C Auto (Bld)Ordered By: Deborah Singh on 06-14-2023 Immature granulocytes/100 WBC (Bld) 0.400 % 0.0-0.9 [facility] Comment on above: IG% - Immature Granu locytes (promyelocytes, myelocytes and metamyelocytes) > 1% indicates that a LEFT SHIFT is Present. Laboratory - Chemistry and C hemistry - challengeOrdered By: Deborahjohnson Singh on 06-14-2023 Albumin/Globulin [Mass ratio] 1.1 {ratio} 0.9-2.4 [facility] ALP [Catalytic activity/Vol] 116 U/L 45-117 [facility] ALT [Catalytic activity/Vol] 42 U/L 13-56 [facility] CO2 [Moles/Vol] 27.0 mmol/L 21.0-32.0 [facility] Globulin (S) [Mass/Vol] 3.3 g/dL 2.2-4.2 [facility] Urea nitrogen/Creatinine [Mass ratio] 22.3 mg/mg 10-20 [facility] Laboratory - Hematology and Cell countsOrdered By: Deborah Singh on 06-14-2023 MCH (RBC) [Entitic mass] 29.3 pg 27.0-32.0 [facility] MCHC (RBC) [Mass/Vol] 32.5 g/dL 32-36 [facility] Nucleated RBC/100 WBC (Bld) [Ratio] 0 % 0-5 [facility] Platelets (Bld) [#/Vol] 267 10*3/uL 150-450 [facility] No Panel InformationOrdered By: Deborah Singh on 06-14-2023 Estimated GFR (MDRD) Amer 95 mL/min >60 [facility] Comment on above: GFR Calc Estimated GFR (MDRD) Non-Af Amer 78 mL/min >60 [facility] Comment on above: Non- GFR Calc Platelet mean volume Cyrus-Ec ker (Bld) [Entitic vol]Ordered By: Deborah Singh on 06-14-2023 Platelet mean volume (Bld) [Entitic vol] 9.4 fL 6.2-12.0 [facility] RBC Auto (Bld) [#/Vol]Ordere d By: Deborah Singh on 06-14-2023 RBC (Bld) [#/Vol] 4.61 10*6/uL 4.2-5.4 [facility] Serum or plasma calcium roland urement (mass/volume)Ordered By: Deborah Singh on 06-14-2023 Calcium [Mass/Vol] 9.9 mg/dL 8.5-10.1 [facility] Serum or plasma creatinine m easurement (mass/volume)Ordered By: Deborah Singh on 06-14-2023 Creatinine [Mass/Vol] 0.81 mg/dL 0.55-1.02 [facility] Comment on above: The validity of the calculated GFR & GFRAA in patients over 70 years has not been determined. Clinical correlation is essential. Serum or plasma urea nitroge n measurement (mass/volume)Ordered By: Deborah Singh on 06-14-2023 Urea nitrogen [Mass/Vol] 18 mg/dL 7-18 [facility] Thin prep Papanicolaou smear with manual screeningOrdered By: Deborah Singh on 06-14-2023 Thin prep Papanicolaou smear with manual screening 3.6 g/dL 3.2-5.0 [facility] Thin prep Papanicolaou smear with manual screening 19 U/L 15-37 [facility] Thin prep Papanicolaou smear with manual screening 7 5-15 [facility] Basophil percentageOrdered B y: Carlyle Elmore on 05-09-2023 Cholesterol [Mass/Vol] 212 mg/dL <200 [facility] Comment on above: <200 mg/dL Desirable 200-240 mg/dL Borderline >240 mg/dL High Risk Triglyceride [Mass/Vol] 274 mg/dL <199 [facility] Comment on above: The drugs N-Acetylcy steine and Metamizole may falsely depress this assay.Serum Triglycerides Reference Interval Normal <150 mg/dL Borderline high 150 - 199 mg/dL High 200 - 499 mg/dL Very High > or = 500 mg/dL Serum or plasma cholesterol in HDL measurement (mass/volume)Ordered By: Carlyle Elmore on 05-09-2023 Cholesterol in HDL [Mass/Vol] 57 mg/dL >40 [facility] Comment on above: The drugs N-Acetylcy steine and Metamizole may falsely depress this assay. Reference Range HDL <40 mg/dL Low HDL Cholesterol HDL >or= 60 mg/dL High HDL Cholesterol Serum or plasma cholesterol in VLDL measurement (mass/volume)Ordered By: Carlyle Elmore on 05-09-2023 Cholesterol in VLDL [Mass/Vol] 55 mg/dL 5-40 [facility] Serum or plasma low density lipoprotein (LDL) cholesterol measurement (mass/volume)Ordered By: Carlyle Elmore on 05-09-2023 Cholesterol in LDL [Mass/Vol] 100 mg/dL 0-130 [facility] Laboratory - Microbiology an d Antimicrobial susceptibilityon 04-12-2023 SARS-CoV-2 (COVID-19) RNA JORDANA+probe Ql (Unsp spec) Detected [facility] No Panel Informationon 04-12 Influenza Types A,B Rapid (Clinic) Not detected [facility] Absolute lymphocyte countOrd ered By: Deborah Singh on 03-25-2023 Lymphocytes Auto (Unsp spec) [#/Vol] 1.23 10*3/uL 0.83-4.51 [facility] Basophil percentageOrdered B y: Deborah Singh on 03-25-2023 Basophils/100 WBC (Bld) 0.5 % 0-1 [facility] Bilirubin [Mass/Vol] 0.60 mg/dL 0.20-1.[address] [facility] Comment on above: For patients on eltr ombopag therapy, use of Dimension [place] TBIL is not recommended. Chloride [Moles/Vol] 106 mmol/L 98-[address] [facility] Eosinophils/100 WBC (Bld) 1.6 % 0-5 [facility] Glucose [Mass/Vol] 99 mg/dL 74-106 [facility] Neutrophils (Bld) [#/Vol] 4.3 10*3/uL 2.0-7.7 [facility] Neutrophils/100 WBC (Bld) 69.9 % 47-70 [facility] Potassium [Moles/Vol] 4.3 mmol/L 3.5-5.1 [facility] Protein [Mass/Vol] 7.5 g/dL 6.4-8.2 [facility] Sodium [Moles/Vol] 138 mmol/L 136-145 [facility] WBC (Bld) [#/Vol] 6.1 10*3/uL 4.4-11.0 [facility] Blood erythrocytes count (nu mber/volume)Ordered By: Deborah Singh on 03-25-2023 RBC (Bld) [#/Vol] 4.88 10*6/uL 4.2-5.4 [facility] Blood hemoglobin measurement (mass/volume)Ordered By: Deborah Singh on 03-25-2023 Hemoglobin (Bld) [Mass/Vol] 14.5 g/dL 12.0-15.0 [facility] Blood lymphocytes/100 leukoc ytesOrdered By: Deborah Singh on 03-25-2023 Lymphocytes/100 WBC (Bld) 20.2 % 19-41 [facility] Blood monocytes/100 leukocyt esOrdered By: Deborah Singh on 03-25-2023 Monocytes/100 WBC (Bld) 7.6 % 0-10 [facility] Blood platelet mean volumeOr dered By: Deborah Singh on 03-25-2023 Platelet mean volume (Bld) [Entitic vol] 9.8 fL 6.2-12.0 [facility] Determination of erythrocyte mean corpuscular volume (MCV)Ordered By: Deborah Singh on 03-25-2023 MCV (RBC) [Entitic vol] 88.5 fL 81-99 [facility] Erythrocyte sedimentation ra teOrdered By: Deborah Singh on 03-25-2023 ESR (Bld) [Velocity] 2 mm/h 0-[address] [facility] Hematocrit Auto (Bld) [Volum e fraction]Ordered By: Deborah Singh on 03-25-2023 Hematocrit (Bld) [Volume fraction] 43.2 % 37-47 [facility] Laboratory - Chemistry and C hemistry - challengeOrdered By: Deborah Singh on 03-25-2023 ALP [Catalytic activity/Vol] 97 U/L 45-117 [facility] ALT [Catalytic activity/Vol] 28 U/L 13-56 [facility] CO2 [Moles/Vol] 26.0 mmol/L 21.0-32.0 [facility] Globulin (S) [Mass/Vol] 3.4 g/dL 2.2-4.2 [facility] Urea nitrogen/Creatinine [Mass ratio] 28.2 mg/mg 10-20 [facility] - Hematology and Cell countsOrdered By: Deborah Singh on 03-25-2023 Erythrocyte distribution width (RBC) [Entitic vol] 40.9 fL 35.1-43.9 [facility] Erythrocyte distribution width (RBC) [Ratio] 12.6 % 11.6-14.6 [facility] Immature granulocytes/100 WBC (Bld) 0.200 % 0.0-0.9 [facility] Comment on above: IG% - Immature Granu locytes (promyelocytes, myelocytes and metamyelocytes) > 1% indicates that a LEFT SHIFT is Present. MCH (RBC) [Entitic mass] 29.7 pg 27.0-32.0 [facility] Nucleated RBC/100 WBC (Bld) [Ratio] 0 % 0-5 [facility] MCHC Auto (RBC) [Mass/Vol]Or dered By: Deborah Singh on 03-25-2023 MCHC (RBC) [Mass/Vol] 33.6 g/dL 32-36 [facility] No Panel InformationOrdered By: Deborah Singh on 03-25-2023 Estimated GFR (MDRD) Amer 71 mL/min >60 [facility] Comment on above: GFR Calc Estimated GFR (MDRD) Non-Af Amer 59 mL/min >60 [facility] Comment on above: Non- GFR Calc Hepatitis B Surface Antigen Non-Reactive Nonreactive [facility] Hepatitis C Antibody Non-Reactive Nonreactive [facility] Comment on above: Non Reactive: < 0.8 Equivocal: >/= 0.8 to < 1.0 Reactive: >/= 1.0The CDC recommends that a reactive/equivocal HCV antibody result be followed up by the HCV Nucleic Acid Amplificationtest (110877) Platelets bldOrdered By: Karen Singh on 03-25-2023 Platelets (Bld) [#/Vol] 301 10*3/uL 150-450 [facility] Serum cyclic citrullinated p eptide IgG antibody assay (units/volume)Ordered By: Deborah Singh on 03-25-2023 Cyclic citrullinated peptide IgG Qn 3 units 0-19 [facility] Comment on above: Negative <20 Weak po sitive 20 - 39 Moderate positive 40 - 59 Strong positive >59Performed at: [place] [id number] Director: Jose Lawson PhD, Phone: [phone] Serum hepatitis B virus surf zara antibody IgG detectionOrdered By: Deborah Singh on 03-25-2023 HBV surface IgG Ql (S) Non-Reactive [facility] Comment on above: Non Reactive: Incons istent with immunity less than <10 mIU/mL Reactive: Consistent with immunity greater than or equal to 10 mIU/mL Serum or plasma C reactive p rotein measurement (mass/volume)Ordered By: Deborah Singh on 03-25-2023 CRP [Mass/Vol] 3.90 mg/L 0.0-3.0 [facility] Comment on above: C-Reactive Protein ( CRP) provides useful information for thediagnosis, therapy and monitoring of inflammatory processesand associated diseases. For the evaluation of Relative Riskfor Cardiovascular Disease, a High Sensitivity CRP (HSCRP)should be ordered. Serum or plasma albumin roland urement (mass/volume)Ordered By: Deborah Singh on 03-25-2023 Albumin [Mass/Vol] 4.1 g/dL 3.2-5.0 [facility] Serum or plasma albumin/glob ulin mass ratioOrdered By: Deborah Singh on 03-25-2023 Albumin/Globulin [Mass ratio] 1.2 {ratio} 0.9-2.4 [facility] Serum or plasma calcium roland urement (mass/volume)Ordered By: Deborah Singh on 03-25-2023 Calcium [Mass/Vol] 9.7 mg/dL 8.5-10.1 [facility] Serum or plasma creatinine m easurement (mass/volume)Ordered By: Deborah Singh on 03-25-2023 Creatinine [Mass/Vol] 1.03 mg/dL 0.55-1.02 [facility] Comment on above: The validity of the calculated GFR & GFRAA in patients over 70 years has not been determined. Clinical correlation is essential. Serum or plasma urea nitroge n measurement (mass/volume)Ordered By: Deborah Singh on 03-25-2023 Urea nitrogen [Mass/Vol] 29 mg/dL 7-18 [facility] Serum rheumatoid factor dete ctionOrdered By: Deborahjohnson Singh on 03-25-2023 Rheumatoid factor Ql (S) < 10.0 IU/mL <15 [facility] Thin prep Papanicolaou smear with manual screeningOrdered By: Deborah Singh on 03-25-2023 Thin prep Papanicolaou smear with manual screening 13 U/L 15-37 [facility] Thin prep Papanicolaou smear with manual screening 6 5-15 [facility] Basophil percentageOrdered B y: Carlyle Elmore on 02-15-2023 Chloride [Moles/Vol] 106 mmol/L 98-[address] [facility] Cholesterol [Mass/Vol] 205 mg/dL <200 [facility] Comment on above: <200 mg/dL Desirable 200-240 mg/dL Borderline >240 mg/dL High Risk Glucose [Mass/Vol] 92 mg/dL 74-106 [facility] Potassium [Moles/Vol] 4.1 mmol/L 3.5-5.1 [facility] Sodium [Moles/Vol] 140 mmol/L 136-145 [facility] Triglyceride [Mass/Vol] 298 mg/dL <199 [facility] Comment on above: The drugs N-Acetylcy steine and Metamizole may falsely depress this assay.Serum Triglycerides Reference Interval Normal <150 mg/dL Borderline high 150 - 199 mg/dL High 200 - 499 mg/dL Very High > or = 500 mg/dL Laboratory - Chemistry and C hemistry - challengeOrdered By: Carlyle Elmore on 02-15-2023 CO2 [Moles/Vol] 28.0 mmol/L 21.0-32.0 [facility] Urea nitrogen/Creatinine [Mass ratio] 27.0 mg/mg 10-20 [facility] - Hematology and Cell countson 02-15-2023 HbA1c (Bld) [Mass fraction] 5.5 % 4.2-6.3 [facility] No Panel InformationOrdered By: Carlyle Elmore on 02-15-2023 Estimated GFR (MDRD) Amer 99 mL/min >60 [facility] Comment on above: GFR Calc Estimated GFR (MDRD) Non-Af Amer 82 mL/min >60 [facility] Comment on above: Non- GFR Calc Serum or plasma calcium roland urement (mass/volume)Ordered By: Carlyle Elmore on 02-15-2023 Calcium [Mass/Vol] 9.4 mg/dL 8.5-10.1 [facility] Serum or plasma cholesterol in HDL measurement (mass/volume)Ordered By: Carlyle Elmore on 02-15-2023 Cholesterol in HDL [Mass/Vol] 56 mg/dL >40 [facility] Comment on above: The drugs N-Acetylcy steine and Metamizole may falsely depress this assay. Reference Range HDL <40 mg/dL Low HDL Cholesterol HDL >or= 60 mg/dL High HDL Cholesterol Serum or plasma cholesterol in VLDL measurement (mass/volume)Ordered By: Carlyle Elmore on 02-15-2023 Cholesterol in VLDL [Mass/Vol] 60 mg/dL 5-40 [facility] Serum or plasma creatinine m easurement (mass/volume)Ordered By: Carlyle Elmore on 02-15-2023 Creatinine [Mass/Vol] 0.78 mg/dL 0.55-1.02 [facility] Comment on above: The validity of the calculated GFR & GFRAA in patients over 70 years has not been determined. Clinical correlation is essential. Serum or plasma low density lipoprotein (LDL) cholesterol measurement (mass/volume)Ordered By: Carlyle Elmore on 02-15-2023 Cholesterol in LDL [Mass/Vol] 89 mg/dL 0-130 [facility] Serum or plasma urea nitroge n measurement (mass/volume)Ordered By: Carlyle Elmore on 02-15-2023 Urea nitrogen [Mass/Vol] 21 mg/dL 7-18 [facility] Thin prep Papanicolaou smear with manual screeningOrdered By: Carlyle Elmore on 02-15-2023 Thin prep Papanicolaou smear with manual screening 6 5-15 [facility] Basophil percentageOrdered B y: Dr. Elmore on 11-14-2022 Bilirubin [Mass/Vol] 0.40 mg/dL 0.20-1.[address] [facility] Comment on above: For patients on eltr ombopag therapy, use of Dimension [place] TBIL is not recommended. Chloride [Moles/Vol] 108 mmol/L 98-[address] [facility] Glucose [Mass/Vol] 93 mg/dL 74-106 [facility] Potassium [Moles/Vol] 4.3 mmol/L 3.5-5.1 [facility] Protein [Mass/Vol] 6.4 g/dL 6.4-8.2 [facility] Sodium [Moles/Vol] 143 mmol/L 136-145 [facility] Laboratory - Chemistry and C hemistry - challengeOrdered By: Dr. Elmore on 11-14-2022 ALP [Catalytic activity/Vol] 94 U/L 45-117 [facility] ALT [Catalytic activity/Vol] 19 U/L 13-56 [facility] CO2 [Moles/Vol] 29.0 mmol/L 21.0-32.0 [facility] Globulin (S) [Mass/Vol] 3.1 g/dL 2.2-4.2 [facility] Urea nitrogen/Creatinine [Mass ratio] 27.7 mg/mg 10-20 [facility] No Panel InformationOrdered By: Dr. Elmore on 11-14-2022 Estimated GFR (MDRD) Amer 122 mL/min >60 [facility] Comment on above: GFR Calc Estimated GFR (MDRD) Non-Af Amer 101 mL/min >60 [facility] Comment on above: Non- GFR Calc Serum or plasma albumin roland urement (mass/volume)Ordered By: Dr. Elmore on 11-14-2022 Albumin [Mass/Vol] 3.3 g/dL 3.2-5.0 [facility] Serum or plasma albumin/glob ulin mass ratioOrdered By: Dr. Elmore on 11-14-2022 Albumin/Globulin [Mass ratio] 1.1 {ratio} 0.9-2.4 [facility] Serum or plasma calcium orland urement (mass/volume)Ordered By: Dr. Elmore on 11-14-2022 Calcium [Mass/Vol] 9.2 mg/dL 8.5-10.1 [facility] Serum or plasma creatinine m easurement (mass/volume)Ordered By: Dr. Elmore on 11-14-2022 Creatinine [Mass/Vol] 0.65 mg/dL 0.55-1.02 [facility] Comment on above: The validity of the calculated GFR & GFRAA in patients over 70 years has not been determined. Clinical correlation is essential. Serum or plasma urea nitroge n measurement (mass/volume)Ordered By: Dr. Elmore on 11-14-2022 Urea nitrogen [Mass/Vol] 18 mg/dL 7-18 [facility] Thin prep Papanicolaou smear with manual screeningOrdered By: Dr. Elmore on 11-14-2022 Thin prep Papanicolaou smear with manual screening 10 U/L 15-37 [facility] Thin prep Papanicolaou smear with manual screening 6 5-15 [facility] Whole blood hemoglobin A1c/t otal hemoglobin ratio (mass fraction)Ordered By: Dr. Elmore on 11-14-2022 HbA1c (Bld) [Mass fraction] 5.3 % 3.8-5.6 [facility] Comment on above: Normal < 5.7 % Predi abetic 5.7 - 6.4 % Diabetic >or= 6.5 % Please note range changes. Basophil percentageOrdered B y: Dr. Elmore on 10-04-2022 Chloride [Moles/Vol] 105 mmol/L 98-[address] [facility] Cholesterol [Mass/Vol] 370 mg/dL <200 [facility] Comment on above: <200 mg/dL Desirable 200-240 mg/dL Borderline >240 mg/dL High Risk Glucose [Mass/Vol] 121 mg/dL 74-106 [facility] Comment on above: Fasting Glucose resu lt from 100 to 125 mg/dL suggests IMPAIRED HOMEOSTASIS per A.D.A. criteria. Potassium [Moles/Vol] 4.4 mmol/L 3.5-5.1 [facility] Sodium [Moles/Vol] 137 mmol/L 136-145 [facility] Triglyceride [Mass/Vol] 410 mg/dL <199 [facility] Comment on above: The drugs N-Acetylcy steine and Metamizole may falsely depress this assay. TRIGLYCERIDE IS GREATER THAN 400 mg/dL. LDL RESULT IS INVALID AND WILL NOT BE REPORTED.Serum Triglycerides Reference Interval Normal <150 mg/dL Borderline high 150 - 199 mg/dL High 200 - 499 mg/dL Very High > or = 500 mg/dL Laboratory - Chemistry and C hemistry - challengeOrdered By: Dr. Elmore on 10-04-2022 CO2 [Moles/Vol] 29.0 mmol/L 21.0-32.0 [facility] Urea nitrogen/Creatinine [Mass ratio] 34.4 mg/mg 10-20 [facility] No Panel InformationOrdered By: Dr. Elmore on 10-04-2022 Estimated GFR (MDRD) Amer 118 mL/min >60 [facility] Comment on above: GFR Calc Estimated GFR (MDRD) Non-Af Amer 97 mL/min >60 [facility] Comment on above: Non- GFR Calc Serum or plasma calcium roland urement (mass/volume)Ordered By: Dr. Elmore on 10-04-2022 Calcium [Mass/Vol] 9.2 mg/dL 8.5-10.1 [facility] Serum or plasma cholesterol in HDL measurement (mass/volume)Ordered By: Dr. Elmore on 10-04-2022 Cholesterol in HDL [Mass/Vol] 54 mg/dL >40 [facility] Comment on above: The drugs N-Acetylcy steine and Metamizole may falsely depress this assay. Reference Range HDL <40 mg/dL Low HDL Cholesterol HDL >or= 60 mg/dL High HDL Cholesterol Serum or plasma cholesterol in VLDL measurement (mass/volume)Ordered By: Dr. Elmore on 10-04-2022 Cholesterol in VLDL [Mass/Vol] [facility] Comment on above: Test not performed Serum or plasma creatinine m easurement (mass/volume)Ordered By: Dr. Elmore on 10-04-2022 Creatinine [Mass/Vol] 0.67 mg/dL 0.55-1.02 [facility] Comment on above: The validity of the calculated GFR & GFRAA in patients over 70 years has not been determined. Clinical correlation is essential. Serum or plasma low density lipoprotein (LDL) cholesterol measurement (mass/volume)Ordered By: Dr. Elmore on 10-04-2022 Cholesterol in LDL [Mass/Vol] [facility] Comment on above: Test not performed Serum or plasma urea nitroge n measurement (mass/volume)Ordered By: Dr. Elmore on 10-04-2022 Urea nitrogen [Mass/Vol] 23 mg/dL 7-18 [facility] Serum or plasma uric acid me asurement (mass/volume)Ordered By: Dr. Elmore on 10-04-2022 Urate [Mass/Vol] 4.7 mg/dL 2.6-6.0 [facility] Comment on above: The drugs N-Acetylcy steine and Metamizole may falsely depress this assay. Thin prep Papanicolaou smear with manual screeningOrdered By: Dr. Elmore on 10-04-2022 Thin prep Papanicolaou smear with manual screening 3 5-15 [facility] - Microbiology an d Antimicrobial susceptibilityon 08-09-2022 S. pyogenes Ag IA Ql (Unsp spec) Negative [facility] Absolute lymphocyte countOrd ered By: Dr. Duvall on 07-18-2022 Lymphocytes Auto (Unsp spec) [#/Vol] 1.22 10*3/uL 0.83-4.51 [facility] Basophil percentageOrdered B y: Dr. Duvall on 07-18-2022 Basophils/100 WBC (Bld) 0.4 % 0-1 [facility] Bilirubin [Mass/Vol] 0.60 mg/dL 0.20-1.[address] [facility] Comment on above: For patients on eltr ombopag therapy, use of Dimension [place] TBIL is not recommended. Chloride [Moles/Vol] 104 mmol/L 98-[address] [facility] Eosinophils/100 WBC (Bld) 1.0 % 0-5 [facility] Glucose [Mass/Vol] 101 mg/dL 74-106 [facility] Comment on above: Fasting Glucose resu lt from 100 to 125 mg/dL suggests IMPAIRED HOMEOSTASIS per A.D.A. criteria. Neutrophils (Bld) [#/Vol] 5.1 10*3/uL 2.0-7.7 [facility] Neutrophils/100 WBC (Bld) 74.6 % 47-70 [facility] Potassium [Moles/Vol] 4.0 mmol/L 3.5-5.1 [facility] Protein [Mass/Vol] 7.0 g/dL 6.4-8.2 [facility] Sodium [Moles/Vol] 137 mmol/L 136-145 [facility] WBC (Bld) [#/Vol] 6.9 10*3/uL 4.4-11.0 [facility] Blood erythrocytes count (nu mber/volume)Ordered By: Dr. Duvall on 07-18-2022 RBC (Bld) [#/Vol] 4.94 10*6/uL 4.2-5.4 [facility] Blood hemoglobin measurement (mass/volume)Ordered By: Dr. Duvall on 07-18-2022 Hemoglobin (Bld) [Mass/Vol] 14.4 g/dL 12.0-15.0 [facility] Blood lymphocytes/100 leukoc ytesOrdered By: Dr. Duvall on 07-18-2022 Lymphocytes/100 WBC (Bld) 17.8 % 19-41 [facility] Blood monocytes/100 leukocyt esOrdered By: Dr. Duvall on 07-18-2022 Monocytes/100 WBC (Bld) 5.8 % 0-10 [facility] Blood platelet mean volumeOr dered By: Dr. Duvall on 07-18-2022 Platelet mean volume (Bld) [Entitic vol] 10.3 fL 6.2-12.0 [facility] Determination of erythrocyte mean corpuscular volume (MCV)Ordered By: Dr. Duvall on 07-18-2022 MCV (RBC) [Entitic vol] 88.5 fL 81-99 [facility] Hematocrit Auto (Bld) [Volum e fraction]Ordered By: Dr. Duvall on 07-18-2022 Hematocrit (Bld) [Volume fraction] 43.7 % 37-47 [facility] - Chemistry and C hemistry - challengeOrdered By: Dr. Duvall on 07-18-2022 ALP [Catalytic activity/Vol] 122 U/L 45-117 [facility] ALT [Catalytic activity/Vol] 25 U/L 13-56 [facility] CO2 [Moles/Vol] 26.0 mmol/L 21.0-32.0 [facility] Globulin (S) [Mass/Vol] 3.4 g/dL 2.2-4.2 [facility] Urea nitrogen/Creatinine [Mass ratio] 27.8 mg/mg 10-20 [facility] - Hematology and Cell countsOrdered By: Dr. Duvall on 07-18-2022 Erythrocyte distribution width (RBC) [Entitic vol] 41.2 fL 35.1-43.9 [facility] Erythrocyte distribution width (RBC) [Ratio] 12.8 % 11.6-14.6 [facility] Immature granulocytes/100 WBC (Bld) 0.400 % 0.0-0.9 [facility] Comment on above: IG% - Immature Granu locytes (promyelocytes, myelocytes and metamyelocytes) > 1% indicates that a LEFT SHIFT is Present. MCH (RBC) [Entitic mass] 29.1 pg 27.0-32.0 [facility] Nucleated RBC/100 WBC (Bld) [Ratio] 0 % 0-5 [facility] MCHC Auto (RBC) [Mass/Vol]Or dered By: Dr. Duvall on 07-18-2022 MCHC (RBC) [Mass/Vol] 33.0 g/dL 32-36 [facility] No Panel InformationOrdered By: Dr. Duvall on 07-18-2022 Estimated GFR (MDRD) Amer 84 mL/min >60 [facility] Comment on above: GFR Calc Estimated GFR (MDRD) Non-Af Amer 69 mL/min >60 [facility] Comment on above: Non- GFR Calc Platelets bldOrdered By: Dr. Duvall on 07-18-2022 Platelets (Bld) [#/Vol] 315 10*3/uL 150-450 [facility] Serum or plasma albumin roland urement (mass/volume)Ordered By: Dr. Duvall on 07-18-2022 Albumin [Mass/Vol] 3.6 g/dL 3.2-5.0 [facility] Serum or plasma albumin/glob ulin mass ratioOrdered By: Dr. Duvall on 07-18-2022 Albumin/Globulin [Mass ratio] 1.1 {ratio} 0.9-2.4 [facility] Serum or plasma calcium roland urement (mass/volume)Ordered By: Dr. Duvall on 07-18-2022 Calcium [Mass/Vol] 9.3 mg/dL 8.5-10.1 [facility] Serum or plasma creatinine m easurement (mass/volume)Ordered By: Dr. Duvall on 07-18-2022 Creatinine [Mass/Vol] 0.90 mg/dL 0.55-1.02 [facility] Comment on above: The validity of the calculated GFR & GFRAA in patients over 70 years has not been determined. Clinical correlation is essential. Serum or plasma urea nitroge n measurement (mass/volume)Ordered By: Dr. Duvall on 07-18-2022 Urea nitrogen [Mass/Vol] 25 mg/dL 7-18 [facility] Serum or plasma uric acid me asurement (mass/volume)Ordered By: Dr. Duvall on 07-18-2022 Urate [Mass/Vol] 5.0 mg/dL 2.6-6.0 [facility] Comment on above: The drugs N-Acetylcy steine and Metamizole may falsely depress this assay. Thin prep Papanicolaou smear with manual screeningOrdered By: Dr. Duvall on 07-18-2022 Thin prep Papanicolaou smear with manual screening 13 U/L 15-37 [facility] Thin prep Papanicolaou smear with manual screening 7 5-15 [facility] Jessica 07-07-2019 Ferritin [Mass/Vol] 9 ng/mL Normal 8-252 [facility] ([place]) Comment on above: Performed By: #### F , FERR #### [address] [address] FESon 07-06-2019 Iron [Mass/Vol] 19 ug/dL Low 50-170 Replaced By [facility] ([place]) Comment on above: Performed By: #### F ES, FERR #### [place] [address] Iron Sat 3 % Normal Replaced By [facility] ([place]) Comment on above: Performed By: #### F ES, FERR #### [place] [address] TIBC 592 mcg/dL High 250-450 Replaced By [facility] ([place]) Comment on above: Performed By: #### F ES, FERR #### [place] [address] XR KNEE THREE VIEWS RIGHTon 05-04-2019 XR KNEE THREE VIEWS RIGHT ORIGINAL XR KNEE THREE VIEWS RIGHT CLINICAL STATEMENT: rt knee pain. COMPARISON: None FINDINGS: There is some enthesopathy at the patellar tendon insertion. No fracture, dislocation or joint fluid seen. No acute finding. Interpreted By: Saqib Wilburn MD Preliminary Report By: Saqib Wilburn MD Electronically Signed By: Saqib Wilburn MD Dictated Date: 05/04/2019 4:31:37 PM Prelim Date: 05/04/2019 4:31:37 PM Sign Date: 05/04/2019 4:32:01 PM Ordering Provider:Alejandro Graff Replaced By [facility] ([place]) Vital Signs Date Time Vital Sign Value Performing Clinician Giovanny gasca 03-10-2025 15:46-0400 Body temperature 97.5 [degF] Dr. Carlyle Elmore MD Work Phone: [facility] 03-10-2025 15:46-0400 Diastolic blood pressure 90 mm[Hg] Dr. Carlyle Elmore MD Work Phone: [facility] 03-10-2025 15:46-0400 Heart rate 70 /min Dr. Carlyle Elmore MD Work Phone: [facility] 03-10-2025 15:46-0400 Respiratory rate 16 /min Dr. Carlyle Elmore MD Work Phone: [facility] 03-10-2025 15:46-0400 SaO2% (BldA) [Mass fraction] 99 % Dr. Carlyle Elmore MD Work Phone: [facility] 03-10-2025 15:46-0400 Systolic blood pressure 144 mm[Hg] Dr. Carlyle Elmore MD Work Phone: [facility] 12-10-2024 16:07-0400 Body height 160.[address] Carlyle Elmore MD Work Phone: [facility] 12-10-2024 16:07-0400 Body mass index (BMI) [Ratio] 33.9 kg/m2 Dr. Carlyle Elmore MD Work Phone: [facility] 12-10-2024 16:07-0400 Body temperature 97.8 [degF] Dr. Carlyle Elmore MD Work Phone: [facility] 12-10-2024 16:07-0400 Body weight 86.[address] Carlyle Elmore MD Work Phone: [facility] 12-10-2024 16:07-0400 Diastolic blood pressure 65 mm[Hg] Dr. Carlyle Elmore MD Work Phone: [facility] 12-10-2024 16:07-0400 Heart rate 84 /min Dr. Carlyle Elmore MD Work Phone: [facility] 12-10-2024 16:07-0400 Respiratory rate 16 /min Dr. Carlyle Elmore MD Work Phone: [facility] 12-10-2024 16:07-0400 SaO2% (BldA) [Mass fraction] 95 % Dr. Carlyle Elmore MD Work Phone: [facility] 12-10-2024 16:07-0400 Systolic blood pressure 120 mm[Hg] Dr. Carlyle Elmore MD Work Phone: [facility] 08-19-2024 17:04-0400 Body temperature 97.6 [degF] Dr. Carlyle Elmore MD Work Phone: [facility] 08-19-2024 17:04-0400 Diastolic blood pressure 60 mm[Hg] Dr. Carlyle Elmore MD Work Phone: [facility] 08-19-2024 17:04-0400 Heart rate 74 /min Dr. Carlyle Elmore MD Work Phone: [facility] 08-19-2024 17:04-0400 Respiratory rate 16 /min Dr. Carlyle Elmore MD Work Phone: [facility] 08-19-2024 17:04-0400 SaO2% (BldA) [Mass fraction] 97 % Dr. Carlyle Elmore MD Work Phone: [facility] 08-19-2024 17:04-0400 Systolic blood pressure 126 mm[Hg] Dr. Carlyle Elmore MD Work Phone: [facility] 07-31-2024 12:59-0500 Body height 160.[address] Carlyle Elmore MD Work Phone: [facility] 07-31-2024 12:59-0500 Body mass index (BMI) [Ratio] 39.6 kg/m2 Dr. Carlyle Elmore MD Work Phone: [facility] 07-31-2024 12:59-0500 Body temperature 96.9 [degF] Dr. Carlyle Elmore MD Work Phone: [facility] 07-31-2024 12:59-0500 Body weight 101.[address] Carlyle Elmore MD Work Phone: [facility] 07-31-2024 12:59-0500 Diastolic blood pressure 78 mm[Hg] Dr. Carlyle Elmore MD Work Phone: [facility] 07-31-2024 12:59-0500 Heart rate 80 /min Dr. Carlyle Elmore MD Work Phone: [facility] 07-31-2024 12:59-0500 Respiratory rate 16 /min Dr. Carlyle Elmore MD Work Phone: [facility] 07-31-2024 12:59-0500 SaO2% (BldA) [Mass fraction] 94 % Dr. Carlyle Elmore MD Work Phone: [facility] 07-31-2024 12:59-0500 Systolic blood pressure 132 mm[Hg] Dr. Carlyle Elmore MD Work Phone: [facility] 05-11-2024 08:52-0500 Body mass index (BMI) [Ratio] 43.5 kg/m2 Dr. Carlyle Elmore MD Work Phone: [facility] 05-11-2024 08:52-0500 Body temperature 98.6 [degF] Dr. Carlyle Elmore MD Work Phone: [facility] 05-11-2024 08:52-0500 Body weight 111.[address] Carlyle Elmore MD Work Phone: [facility] 05-11-2024 08:52-0500 Diastolic blood pressure 60 mm[Hg] Dr. Carlyle Elomre MD Work Phone: [facility] 05-11-2024 08:52-0500 Heart rate 73 /min Dr. Carlyle Elmore MD Work Phone: [facility] 05-11-2024 08:52-0500 Respiratory rate 16 /min Dr. Carlyle Elmore MD Work Phone: [facility] 05-11-2024 08:52-0500 SaO2% (BldA) [Mass fraction] 99 % Dr. Carlyle Elmore MD Work Phone: [facility] 05-11-2024 08:52-0500 Systolic blood pressure 114 mm[Hg] Dr. Carlyle Elmore MD Work Phone: [facility] 08-12-2023 08:16-0400 Body height 160.[address] Carlyle Elmore Work Phone: [facility] 08-12-2023 08:16-0400 Body mass index (BMI) [Ratio] 46.7 kg/m2 Dr. Carlyle Elmore Work Phone: [facility] 08-12-2023 08:16-0400 Body temperature 98.4 [degF] Dr. Carlyle Elmore Work Phone: [facility] 08-12-2023 08:16-0400 Body weight 119.[address] Carlyle Elmore Work Phone: [facility] 08-12-2023 08:16-0400 Diastolic blood pressure 84 mm[Hg] Dr. Carlyle Elmore Work Phone: [facility] 08-12-2023 08:16-0400 Heart rate 75 /min Dr. Carlyle Elmore Work Phone: [facility] 08-12-2023 08:16-0400 Respiratory rate 17 /min Dr. Carlyle Elmore Work Phone: [facility] 08-12-2023 08:16-0400 SaO2% (BldA) [Mass fraction] 99 % Dr. Carlyle Elmore Work Phone: [facility] 08-12-2023 08:16-0400 Systolic blood pressure 132 mm[Hg] Dr. Carlyle Elmore Work Phone: [facility] 07-29-2023 08:03-0500 Body temperature 98.6 [degF] Dr. Carlyle Elmore Work Phone: [facility] 07-29-2023 08:03-0500 Diastolic blood pressure 82 mm[Hg] Dr. Carlyle Elmore Work Phone: [facility] 07-29-2023 08:03-0500 Heart rate 120 /min Dr. Carlyle Elmore Work Phone: [facility] 07-29-2023 08:03-0500 Respiratory rate 12 /min Dr. Carlyle Elmore Work Phone: [facility] 07-29-2023 08:03-0500 SaO2% (BldA) [Mass fraction] 97 % Dr. Carlyle Elmore Work Phone: [facility] 07-29-2023 08:03-0500 Systolic blood pressure 124 mm[Hg] Dr. Carlyle Elmore Work Phone: [facility] 06-18-2023 10:30-0500 Body temperature 98 [degF] Dr. Carlyle Elmore Work Phone: [facility] 06-18-2023 10:30-0500 Diastolic blood pressure 90 mm[Hg] Dr. Carlyle Elmore Work Phone: [facility] 06-18-2023 10:30-0500 Heart rate 66 /min Dr. Carlyle Elmore Work Phone: [facility] 06-18-2023 10:30-0500 Respiratory rate 18 /min Dr. Carlyle Elmore Work Phone: [facility] 06-18-2023 10:30-0500 SaO2% (BldA) [Mass fraction] 99 % Dr. Carlyle Elmore Work Phone: [facility] 06-18-2023 10:30-0500 Systolic blood pressure 147 mm[Hg] Dr. Carlyle Elmore Work Phone: [facility] 06-18-2023 07:14-0500 Body height 167.[address] Carlyle Elmore Work Phone: [facility] 06-18-2023 06:24-0500 Body mass index (BMI) [Ratio] 43.2 kg/m2 Dr. Carlyle Elmore Work Phone: [facility] 06-18-2023 06:24-0500 Body weight 121.[address] Carlyle Elmore Work Phone: [facility] 05-24-2023 09:59-0500 Body height 167.[address] Carlyle Elmore Work Phone: [facility] 05-24-2023 09:59-0500 Body mass index (BMI) [Ratio] 42.2 kg/m2 Dr. Carlyle Elmore Work Phone: [facility] 05-24-2023 09:59-0500 Body weight 118.[address] Carlyle Elmore Work Phone: [facility] 05-24-2023 09:59-0500 Diastolic blood pressure 89 mm[Hg] Dr. Carlyle Elmore Work Phone: [facility] 05-24-2023 09:59-0500 Heart rate 83 /min Dr. Carlyle Elmore Work Phone: [facility] 05-24-2023 09:59-0500 Respiratory rate 17 /min Dr. Carlyle Elmore Work Phone: [facility] 05-24-2023 09:59-0500 SaO2% (BldA) [Mass fraction] 99 % Dr. Carlyle Elmore Work Phone: [facility] 05-24-2023 09:59-0500 Systolic blood pressure 125 mm[Hg] Dr. Carlyle Elmore Work Phone: [facility] 05-13-2023 13:46-0500 Body height 157.[address] Carlyle Elmore Work Phone: [facility] 05-13-2023 13:46-0500 Body mass index (BMI) [Ratio] 47.7 kg/m2 Dr. Carlyle Elmore Work Phone: [facility] 05-13-2023 13:46-0500 Body temperature 99.8 [degF] Dr. Carlyle Elmore Work Phone: [facility] 05-13-2023 13:46-0500 Body weight 118.[address] Carlyle Elmore Work Phone: [facility] 05-13-2023 13:46-0500 Diastolic blood pressure 82 mm[Hg] Dr. Carlyle Elmore Work Phone: [facility] 05-13-2023 13:46-0500 Heart rate 74 /min Dr. Carlyle Elmore Work Phone: [facility] 05-13-2023 13:46-0500 Respiratory rate 14 /min Dr. Carlyle Elmore Work Phone: [facility] 05-13-2023 13:46-0500 SaO2% (BldA) [Mass fraction] 99 % Dr. Carlyle Elmore Work Phone: [facility] 05-13-2023 13:46-0500 Systolic blood pressure 120 mm[Hg] Dr. Carlyle Elmore Work Phone: [facility] 04-12-2023 11:25-0500 Body temperature 98 [degF] Dr. Carlyle Elmore Work Phone: [facility] 04-12-2023 11:25-0500 Diastolic blood pressure 94 mm[Hg] Dr. Carlyle Elmore Work Phone: [facility] 04-12-2023 11:25-0500 Heart rate 72 /min Dr. Carlyle Elmore Work Phone: [facility] 04-12-2023 11:25-0500 Respiratory rate 16 /min Dr. Carlyle Elmore Work Phone: [facility] 04-12-2023 11:25-0500 SaO2% (BldA) [Mass fraction] 96 % Dr. Carlyle Elmore Work Phone: [facility] 04-12-2023 11:25-0500 Systolic blood pressure 133 mm[Hg] Dr. Carlyle Elmore Work Phone: [facility] 02-15-2023 11:07-0400 Body height 157.[address] Carlyle Elmore Work Phone: [facility] 02-15-2023 11:07-0400 Body mass index (BMI) [Ratio] 47.5 kg/m2 Dr. Carlyle Elmore Work Phone: [facility] 02-15-2023 11:07-0400 Body temperature 99.2 [degF] Dr. Carlyle Elmore Work Phone: [facility] 02-15-2023 11:07-0400 Body weight 117.[address] Carlyle Elmore Work Phone: [facility] 02-15-2023 11:07-0400 Diastolic blood pressure 80 mm[Hg] Dr. Carlyle Elmore Work Phone: [facility] 02-15-2023 11:07-0400 Heart rate 83 /min Dr. Carlyle Elmore Work Phone: [facility] 02-15-2023 11:07-0400 Respiratory rate 16 /min Dr. Carlyle Elmore Work Phone: [facility] 02-15-2023 11:07-0400 SaO2% (BldA) [Mass fraction] 97 % Dr. Carlyle Elmore Work Phone: [facility] 02-15-2023 11:07-0400 Systolic blood pressure 132 mm[Hg] Dr. Carlyle Elmore Work Phone: [facility] 11-15-2022 16:14-0400 Body height 1584.96 cm No Primary Care Physician [facility] 11-15-2022 16:14-0400 Body mass index (BMI) [Ratio] 0.4 kg/m2 No Primary Care Physician [facility] 11-15-2022 16:14-0400 Body temperature 98.3 [degF] No Primary Care Physician [facility] 11-15-2022 16:14-0400 Body weight 120.65 kg No Primary Care Physician [facility] 11-15-2022 16:14-0400 Diastolic blood pressure 86 mm[Hg] No Primary Care Physician [facility] 11-15-2022 16:14-0400 Heart rate 77 /min No Primary Care Physician [facility] 11-15-2022 16:14-0400 Respiratory rate 14 /min No Primary Care Physician [facility] 11-15-2022 16:14-0400 SaO2% (BldA) [Mass fraction] 98 % No Primary Care Physician [facility] 11-15-2022 16:14-0400 Systolic blood pressure 148 mm[Hg] No Primary Care Physician [facility] 10-30-2022 13:28-0400 Body mass index (BMI) [Ratio] 47.4 kg/m2 No Primary Care Physician [facility] 10-30-2022 13:28-0400 Body temperature 97.4 [degF] No Primary Care Physician [facility] 10-30-2022 13:28-0400 Body weight 117.59 kg No Primary Care Physician [facility] 10-30-2022 13:28-0400 Diastolic blood pressure 86 mm[Hg] No Primary Care Physician [facility] 10-30-2022 13:28-0400 Heart rate 76 /min No Primary Care Physician [facility] 10-30-2022 13:28-0400 Respiratory rate 16 /min No Primary Care Physician [facility] 10-30-2022 13:28-0400 SaO2% (BldA) [Mass fraction] 76 % No Primary Care Physician [facility] 10-30-2022 13:28-0400 Systolic blood pressure 144 mm[Hg] No Primary Care Physician [facility] 10-08-2022 08:10-0400 Body mass index (BMI) [Ratio] 46.7 kg/m2 No Primary Care Physician [facility] 10-08-2022 08:10-0400 Body temperature 96 [degF] No Primary Care Physician [facility] 10-08-2022 08:10-0400 Body weight 115.83 kg No Primary Care Physician [facility] 10-08-2022 08:10-0400 Diastolic blood pressure 96 mm[Hg] No Primary Care Physician [facility] 10-08-2022 08:10-0400 Heart rate 96 /min No Primary Care Physician [facility] 10-08-2022 08:10-0400 Respiratory rate 18 /min No Primary Care Physician [facility] 10-08-2022 08:10-0400 SaO2% (BldA) [Mass fraction] 96 % No Primary Care Physician [facility] 10-08-2022 08:10-0400 Systolic blood pressure 142 mm[Hg] No Primary Care Physician [facility] 08-09-2022 14:28-0400 Body height 157.48 cm No Primary Care Physician [facility] 08-09-2022 14:28-0400 Body mass index (BMI) [Ratio] 45.8 kg/m2 No Primary Care Physician [facility] 08-09-2022 14:28-0400 Body temperature 99.4 [degF] No Primary Care Physician [facility] 08-09-2022 14:28-0400 Body weight 113.85 kg No Primary Care Physician [facility] 08-09-2022 14:28-0400 Diastolic blood pressure 90 mm[Hg] No Primary Care Physician [facility] 08-09-2022 14:28-0400 Heart rate 79 /min No Primary Care Physician [facility] 08-09-2022 14:28-0400 Respiratory rate 16 /min No Primary Care Physician [facility] 08-09-2022 14:28-0400 SaO2% (BldA) [Mass fraction] 99 % No Primary Care Physician [facility] 08-09-2022 14:28-0400 Systolic blood pressure 140 mm[Hg] No Primary Care Physician [facility] 07-20-2022 08:48-0500 Respiratory rate 18 /min [facility] 07-20-2022 08:32-0500 Diastolic blood pressure 100 mm[Hg] [facility] 07-20-2022 08:32-0500 Systolic blood pressure 160 mm[Hg] [facility] 07-20-2022 08:20-0500 Heart rate 68 /min [facility] 07-20-2022 08:20-0500 SaO2% (BldA) [Mass fraction] 98 % [facility] 07-20-2022 06:57-0500 Body height 157.48 cm [facility] 07-20-2022 06:57-0500 Body mass index (BMI) [Ratio] 38.4 kg/m2 [facility] 07-20-2022 06:57-0500 Body temperature 98.3 [degF] [facility] 07-20-2022 06:57-0500 Body weight 95.3 kg [facility] 11-06-2021 15:02-0400 Body height 158.75 cm SIGNAL HELPER-C Alejandro Monreal SIGNAL HELPER Work Phone: [facility] Work Phone: 11-06-2021 15:02-0400 Body mass index (BMI) [Ratio] 39.9 kg/m2 SIGNAL HELPER-C Alejandro Monreal SIGNAL HELPER Work Phone: [facility] Work Phone: 11-06-2021 15:02-0400 Body weight 100.69 kg SIGNAL HELPER-C Alejandro De Leontes SIGNAL HELPER Work Phone: [facility] Work Phone: 10-02-2021 08:36-0400 Body mass index (BMI) [Ratio] 45.7 kg/m2 SIGNAL HELPER-C Alejandro De Leontes SIGNAL HELPER Work Phone: [facility] Work Phone: 10-02-2021 08:36-0400 Body weight 115.21 kg SIGNAL HELPER-C Alejandro De Leontes SIGNAL HELPER Work Phone: [facility] Work Phone: 10-02-2021 08:36-0400 Body height 158.75 cm SIGNAL HELPER-C Alejandro Jocelin SIGNAL HELPER Work Phone: [facility] Work Phone: 10-02-2021 08:36-0400 Body mass index (BMI) [Ratio] 45.7 kg/m2 SIGNAL HELPER-C Alejandro Jocelin SIGNAL HELPER Work Phone: [facility] Work Phone: 10-02-2021 08:36-0400 Body weight 115.21 kg SIGNAL HELPER-C Alejandro Jocelin SIGNAL HELPER Work Phone: [facility] Work Phone: Encounters Encounter Date Encounter Type Care Provider Facility Start: 03-26-2025 End: 03-26-2025 ambulatory [facility] Facility:[facility] Start: 03-25-2025 ambulatory [facility] ty:[facility] Start: 03-10-2025 End: 03-10-2025 Patient encounter procedure Rajat CARVAJAL -Laboratory Specimen Work Phone: Start: 03-10-2025 End: 03-10-[address] Carlyle Elmore MD Work Phone: [facility] Start: 03-10-2025 End: 03-10-2025 ambulatory [facility] Facility:[facility] Start: 02-25-2025 Encounter for genera l adult medical examination without abnormal findings [facility] Start: 02-15-2025 End: 02-15-[address] Carlyle Elmore MD Work Phone: -Laboratory Start: 02-15-2025 End: 02-15-[address] Deborah Singh MD -Laboratory Work Phone: Start: 02-15-2025 End: 02-15-[facility] Start: 12-10-2024 End: 12-10-[address] Carlyle Elmore MD -[facility] Work Phone: Start: 12-10-2024 End: 12-10-[address] Carlyle Elmore MD [facility] Start: 12-10-2024 End: 12-10-[address] Carlyle Elmore MD Work Phone: -[facility] Start: 12-03-2024 End: 12-03-[address] Carlyle Elmore MD Work Phone: -Laboratory Start: 12-03-2024 End: 12-03-[address] Deborah Singh MD -Laboratory Work Phone: Start: 12-03-2024 End: 12-03-2024 ambulatory Deborah Singh Facility:[facility] Start: 08-20-2024 End: 08-20-[address] Carlyle Elmore MD Work Phone: [facility] Work Phone: Start: 08-20-2024 End: 08-20-2024 Patient encounter procedure Rajat CARVAJAL -Laboratory, Specimen Work Phone: Start: 08-19-2024 End: 08-19-2024 Patient encounter procedure Rajat CARVAJAL -[facility] Work Phone: Start: 08-19-2024 End: 08-20-2024 ambulatory [facility] Facility:[facility] Start: 08-17-2024 End: 08-17-[address] Carlyle Elmore MD Work Phone: [facility] Work Phone: Start: 08-17-2024 End: 08-17-[address] Deborah Singh MD -Laboratory Work Phone: Start: 08-17-2024 End: 08-17-2024 [facility] Start: 08-04-2024 End: 08-04-[address] Carlyle Elmore MD Work Phone: [facility] Work Phone: Start: 08-04-2024 End: 08-04-[address] Carlyle Elmore MD -Outpatient [facility] Work Phone: Start: 08-04-2024 End: 08-04-2024 ambulatory [facility] Facility:[facility] Start: 07-31-2024 End: 07-31-[address] Carlyle Elmore MD -[facility] Work Phone: Start: 07-31-2024 End: 07-31-[address] Carlyle Elmore MD [facility] Start: 07-31-2024 End: 07-31-2024 ambulatory [facility] Facility:[facility] Start: 07-30-2024 End: 07-30-[address] Carlyle Elmore MD Work Phone: [facility] Work Phone: Start: 07-30-2024 End: 07-30-[address] Carlyle Elmore MD -Laboratory Work Phone: Start: 07-30-2024 End: 07-30-2024 ambulatory [facility] Facility:[facility] Start: 05-11-2024 End: 05-11-[address] Carlyle Elmore MD -[facility] Work Phone: Start: 05-11-2024 End: 05-11-2024 ambulatory [facility] Facility:[facility] Start: 05-11-2024 End: 05-11-2024 ambulatory [facility] Facility:[facility] Start: 04-03-2024 End: 04-03-2024 ambulatory [facility] Facility:[facility] Start: 08-12-[address] Carlyle Elmore Work Phone: [facility] Start: 08-12-2023 End: 08-12-2023 Emergency department patient visit Dr. Carlyle Elmore Work Phone: [facility] Start: 08-12-2023 End: 08-12-[address] Carlyle Elmore Work Phone: [facility] Work Phone: Start: 08-09-2023 End: 08-09-[address] Carlyle Elmore Work Phone: [facility] Work Phone: Start: 08-09-2023 End: 08-09-[address] Carlyle Elmore Work Phone: [facility]-Laboratory Work Phone: Start: 07-29-2023 End: 07-29-[address] Carlyle Elmore Work Phone: [facility] Work Phone: Start: 07-18-2023 End: 07-18-[address] Carlyle Elmore Work Phone: [facility] Work Phone: Start: 07-02-2023 End: 07-02-[address] Carlyle Elmore Work Phone: [facility] Work Phone: Start: 06-18-2023 Non-patient / Non-visit Dr. Óscar Elmore Work Phone: [facility] Start: 06-18-2023 End: 06-18-2023 Admission to same day surgery center Dr. Carlyle Elmore Work Phone: [facility] Start: 06-18-2023 End: 06-18-[address] Carlyle Elmore Work Phone: [facility] Work Phone: Start: 06-14-2023 End: 06-14-[address] Carlyle Elmore Work Phone: [facility] Work Phone: Start: 06-14-2023 End: 06-14-[address] Carlyle Elmore Work Phone: [facility]-Laboratory Work Phone: Start: 05-24-2023 End: 05-24-[address] Carlyle Elmore Work Phone: [facility] Work Phone: Start: 05-22-2023 End: 05-22-[address] Carlyle Elmore Work Phone: [facility] Work Phone: Start: 05-22-2023 End: 05-22-[address] Carlyle Elmore Work Phone: [facility] Work Phone: Start: 05-13-2023 End: 05-13-[address] Carlyle Elmore Work Phone: [facility] Work Phone: Start: 05-13-2023 End: 05-13-[address] Carlyle Elmore Work Phone: [facility] Work Phone: Start: 05-09-2023 End: 05-09-[address] Carlyle Elmore Work Phone: [facility] Work Phone: Start: 05-09-2023 End: 05-09-[address] [facility] Start: 04-12-2023 End: 04-12-[address] Carlyle Elmore Work Phone: [facility] Work Phone: Start: 03-25-2023 End: 03-25-[address] Carlyle Elmore Work Phone: [facility] Work Phone: Start: 03-25-2023 End: 03-25-[address] Carlyle Elmore Work Phone: [facility] Work Phone: Start: 02-15-2023 End: 02-15-[address] Carlyle Elmore Work Phone: [facility] Work Phone: Start: 02-15-2023 End: 02-15-[address] Carlyle Elmore Work Phone: [facility] Work Phone: Start: 11-15-2022 End: 11-15-2022 Patient encounter procedure No Primary Care Physician [facility] Start: 11-14-2022 End: 11-14-2022 ambulatory No Primary Care Physician [facility] Work Phone: Start: 11-14-2022 End: 11-14-2022 Patient encounter procedure No Primary Care Physician [facility]-Laboratory Start: 10-30-2022 End: 10-30-2022 Patient encounter procedure No Primary Care Physician [facility] Start: 10-08-2022 End: 10-08-2022 Patient encounter procedure No Primary Care Physician [facility] Start: 10-04-2022 End: 10-04-2022 Patient encounter procedure [facility] Start: 09-06-2022 End: 09-06-2022 ambulatory No Primary Care Physician [facility] Work Phone: Start: 09-06-2022 End: 09-06-2022 Patient encounter procedure No Primary Care Physician [facility]-Sleep Lab Start: 08-22-2022 End: 08-22-2022 Patient encounter procedure No Primary Care Physician [facility]-Outpatient Breast Imaging Start: 08-09-2022 End: 08-09-2022 Patient encounter procedure No Primary Care Physician [facility] Start: 07-20-2022 End: 07-20-2022 Emergency department patient visit [facility]-Emergency Department Start: 07-18-2022 End: 07-18-2022 ambulatory [facility] Work Phone: Start: 07-18-2022 End: 07-18-2022 Patient encounter procedure [facility]-Laboratory, [place] Start: 11-17-2021 End: 11-17-2021 Discharged Recurring SIGNAL HELPER-C Alejandro Monreal SIGNAL HELPER Work Phone: [facility]-Physical Therapy Start: 11-06-2021 End: 11-06-2021 Patient encounter procedure SIGNAL HELPER-C Alejandro Monreal SIGNAL HELPER Work Phone: [facility] Start: 10-19-2021 End: 10-19-2021 Patient encounter procedure SIGNAL HELPER-C Alejandro Monreal SIGNAL HELPER Work Phone: [facility]-MRI - [facility] Start: 10-18-2021 Registered Recurring SIGNAL HELPER-C Alejandro Monreal SIGNAL HELPER Work Phone: [facility]-Physical Therapy Start: 10-16-2021 End: 10-16-2021 Patient encounter procedure SIGNAL HELPER-C Alejandro Monreal SIGNAL HELPER Work Phone: [facility] Start: 10-02-2021 End: 10-02-2021 Patient encounter procedure SIGNAL HELPER-C Alejandro Monreal SIGNAL HELPER Work Phone: [facility] Procedures Date Procedure Procedure Detail Performing Clinician Start: 03-10-[address] Chris Elmore MD Work Phone: Start: 08-20-[address] Chris Elmore MD Work Phone: Start: 08-04-2024 Screening mammography Luisa Elmore MD Work Phone: Start: 06-18-[address] Armando Elmore Work Phone: Start: 05-22-[address] Carlyle Elmore Work Phone: Start: 08-22-2022 Bilateral mammography N o Primary Care Physician Start: 08-22-2022 Ultrasonography of breast No Primary Care Physician Start: 10-19-2021 MRI of lumbar spine SIGNAL HELPER- C Alejandro Monreal SIGNAL HELPER Work Phone: Start: 10-16-2021 X-ray of lumbar spin e, two or three views SIGNAL HELPER-C Alejandro Monreal SIGNAL HELPER Work Phone: Start: 10-02-2021 Plain x-ray of pelvi s and lower extremity SIGNAL HELPER-C Alejandro Monreal SIGNAL HELPER Work Phone: Plan of Treatment Date Care Activity Detail Author Start: 06-18-2023 Anes integ extremities ant trunk & perineum nos ANESTH SKIN EXT/PER/ATRUNK [facility] Start: 06-18-2023 Exc b9 lesion mrgn xcp sk tg t/a/l >4.0 cm EXC TR-EXT B9+SAURAV >4.0 CM [facility] Start: 06-18-2023 Patient discharge [facility] Start: 05-22-2023 Us lmtd joint/oth nonvasc xtr strux r-t w/img US LMTD JT/FCL EVL NVASC XTR [facility] Start: 05-13-2023 Patient referral [facility] Work Phone: Start: 02-15-2023 Patient referral [facility] Work Phone: Start: 11-07-2021 Patient referral [facility] Work Phone: Blood chemistry [facility] Blood chemistry [facility] Comprehensive metabo lic 1999 panel - Serum or Plasma [facility] metabo lic 1999 panel - Serum or Plasma [facility] Lipid 1995 panel - S aldair or Plasma [facility] Lipid 1995 panel - S aldair or Plasma [facility] Lipid 1995 panel - S aldair or Plasma [facility] Lipid 1995 panel - S aldair or Plasma [facility] Lipid 1995 panel - S aldair or Plasma [facility] Patient Education ED Headache, T ension ED Hypertension, Established [facility] Work Phone: Patient referral [facility] Work Phone: Urate [Mass/volume] in Serum or Plasma [facility] Payers Date Payer Category Payer Self-pay [id number] 2021 Unknown [id number] Private Health Insurance [id number] Unknown [id number] 2.16.8 [id number] Unknown [id number] 2.16.8 [id number] Unknown [id number] 2.16.8 40.1.330073.3.579.2.462 Unknown [id number] 2.16.8 40.1.325893.3.579.2.462 Unknown [id number] 2.16.8 40.1.526450.3.579.2.462 Unknown [id number] 2.16.8 40.1.204936.3.579.2.462 Unknown [id number] 2.16.8 40.1.356539.3.579.2.462 Unknown [id number] 2.16.8 40.1.373826.3.579.2.462 Unknown [id number] 2.16.8 40.1.936709.3.579.2.462 Unknown [id number] 2.16.8 40.1.958975.3.579.2.462 Unknown [id number] 2.16.8 40.1.356045.3.579.2.462 Unknown [id number] 2.16.8 40.1.997878.3.579.2.462 Unknown [id number] 2.16.8 40.1.869683.3.579.2.462 Unknown [id number] 2.16.8 [id number] Unknown [id number] 2.16.8 [id number] Unknown [id number] 2.16.8 [id number] Social History Date Type Detail Facility Start: 10-16-2021 End: 08-12-2023 Tobacco smoking status [facility] Unknown if ever smoked [facility] Start: 03-16-2019 Non-smoker [facility] Start: 1965 Sex Assigned At Female [facility] Start: 01-13-2024 End: 12-10-2024 Tobacco smoking status UTIS Never smoked tobacco (finding) [facility] Start: 08-13-2024 End: 08-25-2024 Sex Female (finding) [facility] Sex Female [facility] Medical Equipment Procedure Code Equipment Code Equipment Origin al Text Equipment Identifier Dates Robot-assisted total abdominal hysterectomy with bilateral salpingo-oophorectom y (LISA TOD 3GRM HEMOSTAT ABS FDA Start: 03-23-2019 Robot-assisted total abdominal hysterectomy with bilateral salpingo-oophorectom y (LISA TOD 3GRM HEMOSTAT ABS FDA Start: 03-23-2019 Robot-assisted total abdominal hysterectomy with bilateral salpingo-oophorectom y (LISA TOD 3GRM HEMOSTAT ABS FDA Start: 03-23-2019 Robot-assisted total abdominal hysterectomy with bilateral salpingo-oophorectom y (LISA TOD 3GRM HEMOSTAT ABS FDA Start: 03-23-2019 Robot-assisted total abdominal hysterectomy with bilateral salpingo-oophorectom y (LISA TOD 3GRM HEMOSTAT ABS FDA Start: 03-23-2019 Robot-assisted total abdominal hysterectomy with bilateral salpingo-oophorectom y (LISA TOD 3GRM HEMOSTAT ABS FDA Start: 03-23-2019 Robot-assisted total abdominal hysterectomy with bilateral salpingo-oophorectom y (LISA TOD 3GRM HEMOSTAT ABS FDA Start: 03-23-2019 Robot-assisted total abdominal hysterectomy with bilateral salpingo-oophorectom y (LISA TOD 3GRM HEMOSTAT ABS FDA Start: 03-23-2019 Robot-assisted total abdominal hysterectomy with bilateral salpingo-oophorectom y (LISA TOD 3GRM HEMOSTAT ABS FDA Start: 03-23-2019 Robot-assisted total abdominal hysterectomy with bilateral salpingo-oophorectom y (LISA TOD 3GRM HEMOSTAT ABS FDA Start: 03-23-2019 Robot-assisted total abdominal hysterectomy with bilateral salpingo-oophorectom y (LISA TOD 3GRM HEMOSTAT ABS FDA Start: 03-23-2019 Robot-assisted total abdominal hysterectomy with bilateral salpingo-oophorectom y (LISA TOD 3GRM HEMOSTAT ABS FDA Start: 03-23-2019 Robot-assisted total abdominal hysterectomy with bilateral salpingo-oophorectom y (LISA TOD 3GRM HEMOSTAT ABS FDA Start: 03-23-2019 Robot-assisted total abdominal hysterectomy with bilateral salpingo-oophorectom y (LISA TOD 3GRM HEMOSTAT ABS FDA Start: 03-23-2019 Robot-assisted total abdominal hysterectomy with bilateral salpingo-oophorectom y (LISA TOD 3GRM HEMOSTAT ABS FDA Start: 03-23-2019 Robot-assisted total abdominal hysterectomy with bilateral salpingo-oophorectom y (LISA TOD 3GRM HEMOSTAT ABS FDA Start: 03-23-2019 Robot-assisted total abdominal hysterectomy with bilateral salpingo-oophorectom y (LISA TOD 3GRM HEMOSTAT ABS FDA Start: 03-23-2019 Robot-assisted total abdominal hysterectomy with bilateral salpingo-oophorectom y (LISA TOD 3GRM HEMOSTAT ABS FDA Start: 03-23-2019 Robot-assisted total abdominal hysterectomy with bilateral salpingo-oophorectom y (LISA TOD 3GRM HEMOSTAT ABS FDA Start: 03-23-2019 Robot-assisted total abdominal hysterectomy with bilateral salpingo-oophorectom y (LISA TOD 3GRM HEMOSTAT ABS FDA Start: 03-23-2019 Robot-assisted total abdominal hysterectomy with bilateral salpingo-oophorectom y (LISA TOD 3GRM HEMOSTAT ABS FDA Start: 03-23-2019 Robot-assisted total abdominal hysterectomy with bilateral salpingo-oophorectom y (LISA TOD 3GRM HEMOSTAT ABS FDA Start: 03-23-2019 Robot-assisted total abdominal hysterectomy with bilateral salpingo-oophorectom y (LISA TOD 3GRM HEMOSTAT ABS FDA Start: 03-23-2019 Robot-assisted total abdominal hysterectomy with bilateral salpingo-oophorectom y (LISA TOD 3GRM HEMOSTAT ABS FDA Start: 03-23-2019 Robot-assisted total abdominal hysterectomy with bilateral salpingo-oophorectom y (LISA TOD 3GRM HEMOSTAT ABS FDA Start: 03-23-2019 Robot-assisted total abdominal hysterectomy with bilateral salpingo-oophorectom y (LISA TOD 3GRM HEMOSTAT ABS FDA Start: 03-23-2019 Robot-assisted total abdominal hysterectomy with bilateral salpingo-oophorectom y (LISA TOD 3GRM HEMOSTAT ABS FDA Start: 03-23-2019 Robot-assisted total abdominal hysterectomy with bilateral salpingo-oophorectom y (LISA TOD 3GRM HEMOSTAT ABS FDA Start: 03-23-2019 Robot-assisted total abdominal hysterectomy with bilateral salpingo-oophorectom y (LISA TOD 3GRM HEMOSTAT ABS FDA Start: 03-23-2019 Robot-assisted total abdominal hysterectomy with bilateral salpingo-oophorectom y (LISA TOD 3GRM HEMOSTAT ABS FDA Start: 03-23-2019 Robot-assisted total abdominal hysterectomy with bilateral salpingo-oophorectom y (LISA TOD 3GRM HEMOSTAT ABS FDA Start: 03-23-2019 Robot-assisted total abdominal hysterectomy with bilateral salpingo-oophorectom y (LISA TOD 3GRM HEMOSTAT ABS FDA Start: 03-23-2019 Robot-assisted total abdominal hysterectomy with bilateral salpingo-oophorectom y ([facility] TOD 3GRM HEMOSTAT ABS FDA Start: 03-23-2019 Robot-assisted total abdominal hysterectomy with bilateral salpingo-oophorectom y (LISA TOD 3GRM HEMOSTAT ABS FDA Start: 03-23-2019 Robot-assisted total abdominal hysterectomy with bilateral salpingo-oophorectom y ([facility] TOD 3GRM HEMOSTAT ABS FDA Start: 03-23-2019 Robot-assisted total abdominal hysterectomy with bilateral salpingo-oophorectom y ([facility] TOD 3GRM HEMOSTAT ABS FDA Start: 03-23-2019 Robot-assisted total abdominal hysterectomy with bilateral salpingo-oophorectom y ([facility] TOD 3GRM HEMOSTAT ABS FDA Start: 03-23-2019 Robot-assisted total abdominal hysterectomy with bilateral salpingo-oophorectom y ([facility] TOD 3GRM HEMOSTAT ABS FDA Start: 03-23-2019 Robot-assisted total abdominal hysterectomy with bilateral salpingo-oophorectom y ([facility] TOD 3GRM HEMOSTAT ABS FDA Start: 03-23-2019 Robot-assisted total abdominal hysterectomy with bilateral salpingo-oophorectom y ([facility] TOD 3GRM HEMOSTAT ABS FDA Start: 03-23-2019 Robot-assisted total abdominal hysterectomy with bilateral salpingo-oophorectom y ([facility] TOD 3GRM HEMOSTAT ABS FDA Start: 03-23-2019 Robot-assisted total abdominal hysterectomy with bilateral salpingo-oophorectom y ([facility] TOD 3GRM HEMOSTAT ABS FDA Start: 03-23-2019 Robot-assisted total abdominal hysterectomy with bilateral salpingo-oophorectom y ([facility] TOD 3GRM HEMOSTAT ABS FDA Start: 03-23-2019 Robot-assisted total abdominal hysterectomy with bilateral salpingo-oophorectom y (LISA TOD 3GRM HEMOSTAT ABS FDA Start: 03-23-2019 Robot-assisted total abdominal hysterectomy with bilateral salpingo-oophorectom y (LISA TOD 3GRM HEMOSTAT ABS FDA Start: 03-23-2019 Robot-assisted total abdominal hysterectomy with bilateral salpingo-oophorectom y (LISA TOD 3GRM HEMOSTAT ABS FDA Start: 03-23-2019 Robot-assisted total abdominal hysterectomy with bilateral salpingo-oophorectom y (LISA TOD 3GRM HEMOSTAT ABS FDA Start: 03-23-2019 Robot-assisted total abdominal hysterectomy with bilateral salpingo-oophorectom y (LISA TOD 3GRM HEMOSTAT ABS FDA Start: 03-23-2019 Robot-assisted total abdominal hysterectomy with bilateral salpingo-oophorectom y ([facility] TOD 3GRM HEMOSTAT ABS FDA Start: 03-23-2019 Robot-assisted total abdominal hysterectomy with bilateral salpingo-oophorectom y (LISA TOD 3GRM HEMOSTAT ABS FDA Start: 03-23-2019 Robot-assisted total abdominal hysterectomy with bilateral salpingo-oophorectom y ([facility] TOD 3GRM HEMOSTAT ABS FDA Start: 03-23-2019 Robot-assisted total abdominal hysterectomy with bilateral salpingo-oophorectom y ([facility] TOD 3GRM HEMOSTAT ABS FDA Start: 03-23-2019 Robot-assisted total abdominal hysterectomy with bilateral salpingo-oophorectom y ([facility] TOD 3GRM HEMOSTAT ABS FDA Start: 03-23-2019 Robot-assisted total abdominal hysterectomy with bilateral salpingo-oophorectom y ([facility] TOD 3GRM HEMOSTAT ABS FDA Start: 03-23-2019 Robot-assisted total abdominal hysterectomy with bilateral salpingo-oophorectom y ([facility] TOD 3GRM HEMOSTAT ABS FDA Start: 03-23-2019 Robot-assisted total abdominal hysterectomy with bilateral salpingo-oophorectom y ([facility] TOD 3GRM HEMOSTAT ABS FDA Start: 03-23-2019 Robot-assisted total abdominal hysterectomy with bilateral salpingo-oophorectom y (LISA TOD 3GRM HEMOSTAT ABS FDA Start: 03-23-2019 Robot-assisted total abdominal hysterectomy with bilateral salpingo-oophorectom y (LISA TOD 3GRM HEMOSTAT ABS FDA Start: 03-23-2019 Robot-assisted total abdominal hysterectomy with bilateral salpingo-oophorectom y (LISA TOD 3GRM HEMOSTAT ABS FDA Start: 03-23-2019 Robot-assisted total abdominal hysterectomy with bilateral salpingo-oophorectom y (LISA TOD 3GRM HEMOSTAT ABS FDA Start: 03-23-2019 Robot-assisted total abdominal hysterectomy with bilateral salpingo-oophorectom y (LISA TOD 3GRM HEMOSTAT ABS FDA Start: 03-23-2019 Robot-assisted total abdominal hysterectomy with bilateral salpingo-oophorectom y (LISA TOD 3GRM HEMOSTAT ABS FDA Start: 03-23-2019 Robot-assisted total abdominal hysterectomy with bilateral salpingo-oophorectom y (LISA TOD 3GRM HEMOSTAT ABS FDA Start: 03-23-2019 Needle (Disp) 26 Gauge (Bd Intradermal Bevel [place]) 26 gauge x 3/8 needle Start: 02-24-2024 Needle (Disp) 26 Gauge (Bd Intradermal Bevel [place]) 26 gauge x 3/8 needle Start: 02-24-2024 End: 02-24-2024 Pen Needle, Diabetic (Comfort Ez Pen [place]) 31 gauge x 1/4 needle Start: 02-24-2024 End: 02-24-2024 Needle (Disp) 26 Gauge (Bd Intradermal Bevel [place]) 26 gauge x 3/8 needle Start: 02-24-2024 Needle (Disp) 26 Gauge (Bd Intradermal Bevel [place]) 26 gauge x 3/8 needle Start: 02-24-2024 End: 02-24-2024 Pen Needle, Diabetic (Comfort Ez Pen [place]) 31 gauge x 1/4 needle Start: 02-24-2024 End: 02-24-2024 Needle (Disp) 26 Gauge (Bd Intradermal Bevel [place]) 26 gauge x 3/8 needle Start: 02-24-2024 Needle (Disp) 26 Gauge (Bd Intradermal Bevel [place]) 26 gauge x 3/8 needle Start: 02-24-2024 End: 02-24-2024 Pen Needle, Diabetic (Comfort Ez Pen [place]) 31 gauge x 1/4 needle Start: 02-24-2024 End: 02-24-2024 Needle (Disp) 26 Gauge (Bd Intradermal Bevel [place]) 26 gauge x 3/8 needle Start: 02-24-2024 Needle (Disp) 26 Gauge (Bd Intradermal Bevel [place]) 26 gauge x 3/8 needle Start: 02-24-2024 End: 02-24-2024 Pen Needle, Diabetic (Comfort Ez Pen [place]) 31 gauge x 1/4 needle Start: 02-24-2024 End: 02-24-2024 Needle (Disp) 26 Gauge (Bd Intradermal Bevel [place]) 26 gauge x 3/8 needle Start: 02-24-2024 Needle (Disp) 26 Gauge (Bd Intradermal Bevel [place]) 26 gauge x 3/8 needle Start: 02-24-2024 End: 02-24-2024 Pen Needle, Diabetic (Comfort Ez Pen [place]) 31 gauge x 1/4 needle Start: 02-24-2024 End: 02-24-2024 Needle (Disp) 26 Gauge (Bd Intradermal Bevel [place]) 26 gauge x 3/8 needle Start: 02-24-2024 Needle (Disp) 26 Gauge (Bd Intradermal Bevel [place]) 26 gauge x 3/8 needle Start: 02-24-2024 End: 02-24-2024 Pen Needle, Diabetic (Comfort Ez Pen [place]) 31 gauge x 1/4 needle Start: 02-24-2024 End: 02-24-2024 Needle (Disp) 26 Gauge (Bd Intradermal Bevel [place]) 26 gauge x 3/8 needle Start: 02-24-2024 Needle (Disp) 26 Gauge (Bd Intradermal Bevel [place]) 26 gauge x 3/8 needle Start: 02-24-2024 End: 02-24-2024 Pen Needle, Diabetic (Comfort Ez Pen [place]) 31 gauge x 1/4 needle Start: 02-24-2024 End: 02-24-2024 Needle (Disp) 26 Gauge (Bd Intradermal Bevel [place]) 26 gauge x 3/8 needle Start: 02-24-2024 Needle (Disp) 26 Gauge (Bd Intradermal Bevel [place]) 26 gauge x 3/8 needle Start: 02-24-2024 End: 02-24-2024 Pen Needle, Diabetic (Comfort Ez Pen [place]) 31 gauge x 1/4 needle Start: 02-24-2024 End: 02-24-2024 Goals Date Patient Goal Desired Activity /State Mental Status Date Assessment Result Facility 06-18-2023 Cognitive function Awake;Alert [facility] Work Phone: 07-20-2022 Cognitive function Level Of Cons ciousness Awake;Alert;Appropriate [facility] Work Phone: Clinical Notes 06-18-2023 to 03-10-2025 Note Date & Type Note Facility 03-10-2025 Progress note [facility] 03-10-2025 Progress note Note Date/Time March 10, 2025 3:54pm [facility] [address], [address] [place] [address] OFFICE VISIT Date of Service: 03/10/25 MR#: [id number] Acct: [id number] Name: LEIDY VAZQUEZ Rep #: [id number] : 1965 Provider: WEI Sagastume Age/Sex: 59/F Location: [facility] Status: Signed Intake Vital Signs 12/10/24 16:07 03/10/25 15:46 Height 5 ft 3 in Weight: 191 lb 6 oz BMI 33.9 BP 120/65 144/90 H Blood Pressure Location Lt brachial Lt brachial Position Sitting Sitting Respiration 16 16 Pulse 84 70 Pulse Source Monitor NIBP Temp 97.8 F 97.5 F L Temp Source Temporal Oral Pulse Oximetry (%) 95 99 Oxygen Delivery Method room air Intake Visit Reasons: CONCERN FOR UTI Chief Complaint: dysuria, frequency Dish Washer Required: No Is patient in pain?: No Allergies cheese Allergy (Severe, Verified 03/10/25 15:47) Other adhesive tape Allergy (Verified 03/10/25 15:47) rash Sulfa (Sulfonamide Antibiotics) Allergy (Verified 03/10/25 15:47) Swelling Is last menstrual period known: No Post menopausal: Yes Patient : No Have you fallen in the past year?: No Nurse's Note: dysuria, frequency x 24 houirs. denies abd pain, back pain, fever, blood. concern for UTI [facility] Medical History (Updated 12/15/24 @ 11:[address] Carlyle Elmore MD) Colon cancer screening Health care maintenance Neuropathy Trigger finger, right middle finger Metabolic syndrome Preoperative evaluation to rule out surgical contraindication Non-smoker History of stress test Hypertension Multiple lipomas Localized soft tissue swelling Arthritis Osteoarthritis Allergic conjunctivitis Allergic rhinosinusitis Morbid obesity Blood glucose elevated Hyperlipidemia URI (upper respiratory infection) Pain of left great toe Hypersomnolence History of pneumonia High cholesterol History of blood transfusion History of back problems Anemia Seasonal allergies Surgical History Status post right knee replacement S/P excision of lipoma Hx of section History of ankle surgery Hx of hysterectomy Family History Mother CD (celiac disease) Depression High cholesterol Thyroid disorder Cancer breast Sister Asthma Grandmother Arthritis Father Heart disease Social History Smoking Status: Never smoker alcohol intake: current alcohol intake frequency: holidays/special occasions only Alcohol type: wine and hard liquor substance use type: does not use what type of physical activity do you participate in: walking frequency: 1-2 times per week seatbelt use: always do you feel safe at home: Yes HPI HPI Chief Complaint: dysuria, frequency Details: LEIDY VAZQUEZ, is a 59 F who presents to the office today for [facility] at [facility] for approximately 24-hour history of dysuria and urinary frequency with suprapubic pressure. No complaints of fever, chills, sweats, lightheadedness/dizziness, nausea/vomiting, chest pain/shortness of breath/dyspnea on exertion, or midback pain. No changes in color/ character of urine or stool. No oole-beh-vxmzhun products taken to assist. No other associated symptoms and no alleviating/aggravating factors. ROS Const Constitutional: No other (As above) Exam Const General: cooperative, healthy appearing and no acute distress Orientation: alert, awake Chest Chest palpation & inspection: normal inspection of the chest Resp Effort & Inspection: normal respiratory effort and able to speak in complete sentences Cardio Rate: regular rate Pulses: radial pulses present GI Inspection: normal to inspection Palpation: soft and tender suprapubic (Patient describes upon self-palpation) General: No CVA tenderness Skin General: no rashes or lesions noted Neuro General: patient alert, patient awake Cognition: normal cognition Speech: speech normal Psych Appearance: grossly normal Mental Status: mental status grossly normal Mood: congruent mood Affect: normal affect Speech and Movement: speech and movement normal Attitude: cooperative Diagnoses Urinary tract infection N39.0 Assessment and Plan Assessment and Plan (1) Urinary tract infection: Status: Acute Plan: See POC results; urine sent to lab for C/S. Macribid as prescribed today. Supportive measures as instructed today. Follow-up with PCP in 3 to 5 days should symptoms not improve, sooner should symptoms only worsen or any other concerns develop. Patient states acknowledging understanding all the above. Results POC Urinalysis Dip (Clinic) Office Urine Color Dk Yellow Last Edit by Cass Woody on 03/10/25 15:51 Office Urine Clarity Cloudy Last Edit by Cass Woody on 03/10/25 15:51 Office Urine Glucose Negative Last Edit by Cass Woody on 03/10/25 15:51 Office Urine Ketones Negative Last Edit by Cass Woody on 03/10/25 15:51 Off Ur Spec [place] 1.025 Last Edit by Cass Woody on 03/10/25 15:51 Office Urine pH 6.0 Last Edit by Cass Woody on 03/10/25 15:51 Office Urine Bilirubin Negative Last Edit by Cass Woody on 03/10/25 15: 51 Office Urine Urobilinogen Negative Last Edit by Cass Woody on 03/10/25 1 5:51 Office Urine Blood Trace Last Edit by Cass Woody on 03/10/25 15:51 Office Urine Blood Hemolyzed Negative Last Edit by Cass Woody on 15:51 Office Urine Protein Trace Last Edit by Cass Woody on 03/10/25 15:51 Office Urine Nitrate Negative Last Edit by Cass Woody on 03/10/25 15:51 Off Ur Leukocytes Positive Last Edit by Cass Woody on 03/10/25 15:51 Coding Level of Care Code Off vis,est,level 3 Assessment and Plan Assessment and Plan Orders: Orders POC Urinalysis Dip (Clinic) Today R30.0 - Dysuria Culture, Urine Today R82.90 - Unspecified abnormal findings in urine Medications: New nitrofurantoin monohyd/m-cryst 100 mg (Macrobid) must administer with a meal/food 100 mg PO Q12H 10 caps 0RF 5 days Clinical Quality Measures Falls Risk Screening/Assistive Devices Have you fallen in the past year?: No 03/10/25 6194 <Electronically signed by Rajat CARVAJAL> Date _ Rajat Rosales Signature: Date (if applicable) CC: ~ [facility] Work Phone: 1(226) 902-991807-17-2025 Evaluation note* Diagnosis Onset Date Resolution Status Admit Date Health care maintenance acute J andre 2024 3:57pm HTN (hypertension) chronic November 242024 3:57pm Hyperlipidemia chronic December 10, 2024 3:57pm Metabolic syndrome chronic November 242024 3:57pm Neuropathy chronic December 10 3:57pm [facility] Work Phone: 1(703) 983-400512-16-2024 Evaluation note* Diagnosis Onset Date Resolution Status Admit Date HTN (hypertension) chronic [facility] er 2023 8:45am Hyperlipidemia chronic April 262023 8:45am Metabolic syndrome chronic [facility] er 2023 8:45am Health care maintenance acute [facility] 2024 12:55pm HTN (hypertension) chronic July 31, 2024 12:55pm Hyperlipidemia chronic July 31, 2024 12:55pm Neuropathy chronic July 31 12:55pm Obesity chronic July 31 12:55pm [facility] Work Phone: 1(250) 636-537001-23-2024 Discharge summary Author Bebe Torres [facility] June 18, 2023 8:19am Note Date/Time June 18, 2023 8 :19am [facility] Medical Records Department [address] [place] [id number] Instructions for Home/Discharge Instructions 06/18/23 0818 MR#: [id number] Acct: [id number] Name: LEIDY VAZQUEZ Rep #:[id number] : 1965 57 From: Bebe Torres MD PCP: Dr. Carlyle Elmore MD Status:R [facility] Discharge Instructions Diet Discharge Diet: Light diet - advance as tolerated Activity Discharge Activity: May Not Drive (while taking narcotic pain medications.) May shower in (days): 1 Additional Activity Instructions:: Avoid strenuous activity for 2 days Dressing / Incision Call your doctor if your incision/area has: Continuous Slow Oozing, Sudden Increased Bleeding, Increased Pain/ Swelling, Increased Redness, Foul Smelling Discharge and Swelling at the incision site Call your doctor if you observe: Fever of 101 or Higher Remove Dressing in: 2 days Cleanse incision/area with: Soap & Water Additional Dressing/Incision Instructions:: Steri-Strips will fall off in 7 to 10 days, if they do not fall off okay to remove after 10 days. Follow Up Care Please Follow Up With: Bebe Torres MD When: Call the office for a follow-up appointment 2 weeks; after 5 PM and on call [phone] with any concerns. Test Results: Test results from this visit will be discussed in further detail at your follow- up appointment, if applicable. Discharge Plan Admission Attending Provider: Bebe Torres Primary Care Provider: Carlyle Elmore Discharge Orders/Prescriptions Prescriptions: New tramadol 50 mg tablet 50 mg PO Q6H PRN (Reason: pain) 3 Days Qty: 7 0RF Continued triamcinolone acetonide [Nasacort] 55 mcg aerosol,spray 1 spray intranasal DAILY PRN (Reason: ALLERGIES) Rx Instructions: administer into each nostril olopatadine 0.2 % drops 1 drp ophthalmic (eye) DAILY PRN (Reason: itching) Qty: 2.5 0RF Rx Instructions: to both eyes gabapentin 400 mg capsule 400 mg PO QHS atorvastatin 40 mg tablet 40 mg PO DAILY Qty: 90 2RF methotrexate sodium 5 mg tablet 5 mg PO QWEEK prednisone 5 mg tablet 5 mg PO TID PRN (Reason: ARTHRITIS) phenylephrine HCl [Sudafed PE] 10 mg tablet 10 mg PO Q6H PRN (Reason: nasal congestion) folic acid 1 mg tablet 2 mg PO DAILY budesonide 8.43 ML spray,non-aerosol 1 spray intranasal DAILY PRN (Reason: ALLERGIES) gabapentin 100 mg capsule 300 mg PO 0800 lisinopril 20 mg tablet 20 mg PO BID 90 Days Qty: 180 1RF Referrals / Follow Up: Carlyle Elmore MD [Primary Care Provider] - Disposition Disposition (needs filled in before D/C Order can be placed): Home, Self Care 06/18/23 0819<Electronically signed by Bebe Torres MD>Bebe Torres MD CC: Dr. Carlyle Elmore MD ~ Signed [facility] Work Phone: 1(349) 622-923501-23-2024 History and physical note Author Bebe Torres [facility] June 18, 2023 7:14am Note Date/Time June 18, 2023 7 :13am [facility] Medical Records Department [address] [place] [address] History & Physical Exam 06/18/23 0712 MR#: [id number] Acct: [id number] Name: LEIDY VAZQUEZ Rep #:[id number] : 1965 57 From: Bebe Torres MD PCP: Dr. Carlyle Elmore MD Status:[facility] Location: [place] [address] History and Physical Date of Admission: 06/18/23 Date of Service: 05/24/23 MR#: [id number] Acct: [id number] Name: LEIDY VAZQUEZ Rep #: [id number] : 1965 Provider: Dr. Bebe Torres MD Age/Sex: 57/F Location: [facility] Status: Signed Intake Vital Signs 05/13/2313:46 05/24/2309:59 Height 5 ft 2 in 5 ft 6 in Weight: 261 lb 261 lb 8 oz BMI 47.7 42.2 BP 120/82 H 125/89 H Blood Pressure Location Lt brachial Rt brachial Position Sitting Sitting Respiration 14 17 Pulse 74 83 Pulse Source Monitor Monitor Temp 99.8 F H Temp Source Temporal Pulse Oximetry (%) 99 99 Oxygen Delivery Method room air room air Intake Visit Reasons: LIPOMA ON R SIDE OF BACK Chief Complaint: lipoma on back Is patient in pain?: No Allergies adhesive tape Allergy (Verified 05/24/23 10:01) rashSulfa (Sulfonamide Antibiotics) Allergy (Verified 05/24/23 10:01) Swelling Medications budesonide 32 mcg/actuation nasal spray 1 spray NS DAILY 02/16/19 [History Confirmed 05/13/23] triamcinolone acetonide 55 mcg nasal spray aerosol (Nasacort) 1 spray intranasalDAILY 10/08/22 [History Confirmed 05/13/23] olopatadine 0.2 % eye drops 1 drp ophthalmic (eye) DAILY PRN itching #2.5 mL 10/30/22 [Rx Confirmed 05/13/23] gabapentin 100 mg capsule 200 mg (2 x 100 mg) PO BID 1 month #120 caps 01/01/23 [Rx Confirmed 05/13/23] lisinopril 20 mg tablet 20 mg PO BID 3 months #180 tabs 01/21/23 [Rx Confirmed 05/13/23] atorvastatin 40 mg tablet 40 mg PO DAILY #90 tabs 02/15/23 [Rx Confirmed 05/13/23] gabapentin 400 mg capsule 400 mg PO QHS 02/15/23 [History Confirmed 05/13/23] dexamethasone 6 mg tablet 6 mg PO DAILY #5 tabs 04/12/23 [Rx Confirmed 05/13/23] phenylephrine HCl 10 mg tablet (Sudafed PE) 10 mg PO Q6H PRN 04/12/23 [History Confirmed 05/13/23] methotrexate sodium 5 mg tablet 5 mg PO QWEEK 05/13/23 [History Confirmed 05/13/23] prednisone 5 mg tablet 5 mg PO TID 05/13/23 [History Confirmed 05/13/23] folic acid 1 mg tablet 1 mg PO DAILY 05/24/23 [History Confirmed 05/24/23] PFSH Medical History Allergic conjunctivitis Allergic rhinosinusitis Anemia Arthritis Blood glucose elevated High cholesterol History of back problems History of blood transfusion History of pneumonia Hyperlipidemia Hypersomnolence Localized soft tissue swelling Morbid obesity Osteoarthritis Pain of left great toe Seasonal allergies URI (upper respiratory infection) Surgical History History of ankle surgery Hx of section Hx of hysterectomy Family History Mother CD (celiac disease) Depression High cholesterol Thyroid disorder Cancer breastSister AsthmaGrandmother ArthritisFather Heart disease Social History Smoking Status: Never smoker alcohol intake: current alcohol intake frequency: holidays/special occasions only Alcohol type: wine and hard liquor substance use type: does not use what type of physical activity do you participate in: walking frequency: 1-2 times per week seatbelt use: always do you feel safe at home: Yes HPI HPI HPI: 57-year-old female presents due to multiple lipomas and also left-sided skin lesion. Patient states she has had larger 1 lipoma on her right flank about 8 years catches on her bras and also has 1 much more tender right flank just anterior to the larger 1 and another tender 1 on the left flank. Patient also has skin lesion on the left anterior axilla likely seborrheic keratosis that catches on her clothes as well she would like removed. Patient never had previous lipomas removed but does have multiple other lipomas as well. Patient had ultrasound which did confirm these are lipomas. ROS General General: Yes fatigue; No weight change, appetite, colon cancer or breast cancer HEENT HEENT: No difficulty swallowing, eye injury, eye surgery, swollen glands or hoarseness Endo Endocrine: No thyroid disease, diabetes mellitus, thyroid cancer, Hair loss, heat intolerance or cold intolerance Skin Skin: No rash or changing moles Musc Musculoskeletal: Yes back problems and arthritis; No rheumatoid arthritis, gout or joint pain Cardio Cardiovascular: Yes high blood pressure; No murmur, pacemaker, heart disease, atrial fibrillation, heart attack, heart stent, palpitations, shortness of breat with exertion or chest pain Psych Psychiatric: No depression, anxiety or hearing voices Resp Respiratory: No shortness of breath, Yes sleep apnea, No cough, No COPD, No asthma, No emphysema and No wheezing Gastro Gastrointestinal: No abdominal pain, No nausea or vomiting, No diarrhea, No constipation, No blood in stool, No acid reflux, No hemorrhoids, No ulcers, No gallbladder problem and No black,tarry stools Wilmer Hematologic: No blood thinners, No blood disorders, No bleeding, Yes anemia and No blood clots Neuro Neurologic: No numbness and No tingling Exam Const General: cooperative, healthy appearing, comfortable and no acute distress [facility] Head: normocephalic and atraumatic Neck Neck: supple Resp Effort & Inspection: normal respiratory effort Cardio Rate: regular rate GI Inspection: non-distended Palpation: soft Skin Other: Multiple lipomas on the right flank 2 she is interested in having removed 1 is about 4.5 cm mid right flank and the other 1 is about a centimeter anterior and inferior little to the the larger 1. Patient also has 1 on her left flank about1 to 1.5 cm?tender to palpation. Patient also has seborrheic keratosis on her left anterior axillary skin about 6 mm in size which catches on her close. No changes to the overlying skin and lipomas. Bedside ultrasound also confirmed these are consistent with lipomas. Neuro General: CN's II-XI intact bilaterally Extrem General: normal to inspection Psych Mental Status: mental status grossly normal Attitude: cooperative Assessment and Plan Assessment and Plan (1) Multiple lipomas: Status: Acute Comment: Right and left flank (2) Skin lesion: Status: Acute Comment: Left anterior axillary area Plan Plan for excision of the painful/tender lipomas 2 on the right flank & 1 on the left as well as excision of the left anterior axillary skin lesion with MAC anesthesia. Discussed procedure including but not limited to risk of bleeding, infection, need for further surgery. Patient no further questions at this time. Patient agrees with plan. Patient will be leaving on a cruise 05/28/2023-(available by phone until 4 PM) andreturning by 06/07/2023. Bebe Torres M.D. Pager: [phone] [facility] [address] [place] [address], [address] [place] [address] Office: [phone] Coding Level of Care Code Off vis,new,level 3 Diagnoses Multiple lipomas D17.9 Skin lesion L98.9 05/24/23 1015 <Electronically signed by Bebe Torres MD> Date Bebe Torres MD 06/18/23 0713 <Electronically signed by Bebe Torres MD> Cosigner Signature (if applicable): CC: Dr. Carlyle Elmore MD; Dr. Bebe Torres MD~ Signed ADDENDUM by Dr. Bebe Torres MD on 06/18/23 at 0714 Addendum I have examined the patient the following changes are noted: Patient has a totalof 3 on the right and 2 on the left lipoma she would like removed-as they are tender- as well as the left axillary skin lesion. 06/18/23 0714<Electronically signed by Bebe Torres MD> Cosigner Signature (if applicable): cc: Dr. Carlyle Elmore MD; Dr. Bebe Torres MD ~* Signed [facility] Work Phone: Evaluation note* Diagnosis Onset Date Resolution Status Greater trochanteric bursitis of both hips acute Lumbago acute Degenerative spondylolisthesis acute Lumbago acute [facility] Work Phone: Evaluation note* Diagnosis Onset Date Resolution Status Greater trochanteric bursitis of both hips acute Lumbago acute Degenerative spondylolisthesis acute Lumbago acute Degenerative spondylolisthesis acute Sacroiliac joint dysfunction of right side acute [facility] Work Phone: Evaluation noteNo assessment information available [facility] Work Phone: Evaluation note* Diagnosis Onset Date Resolution Status Pain of left great toe acute URI (upper respiratory infection) acute HTN (hypertension) chronic Hypersomnolence chronic [facility] Work Phone: Evaluation note* Diagnosis Onset Date Resolution Status Pain of left great toe acute URI (upper respiratory infection) acute HTN (hypertension) chronic Hypersomnolence chronic HTN (hypertension) chronic Hyperlipidemia chronic Morbid obesity chronic Allergic conjunctivitis acut e Allergic rhinosinusitis acut e URI (upper respiratory infection) acute HTN (hypertension) chronic Hyperlipidemia chronic Osteoarthritis chronic [facility] Work Phone: Evaluation note* Diagnosis Onset Date Resolution Status Arthritis chronic HTN (hypertension) chronic Hyperlipidemia chronic [facility] Work Phone: Evaluation note* Diagnosis Onset Date Resolution Status Arthritis chronic HTN (hypertension) chronic Hyperlipidemia chronic COVID-19 acute [facility] Work Phone: Evaluation note* Diagnosis Onset Date Resolution Status Arthritis chronic HTN (hypertension) chronic Hyperlipidemia chronic COVID-19 acute HTN (hypertension) chronic Hyperlipidemia chronic Localized soft tissue swelling chronic Multiple lipomas acute Skin lesion acute [facility] Work Phone: Evaluation note* Diagnosis Onset Date Resolution Status COVID-19 acute HTN (hypertension) chronic Hyperlipidemia chronic Localized soft tissue swelling chronic Multiple lipomas acute Skin lesion acute [facility] Work Phone: Evaluation note* Diagnosis Onset Date Resolution Status HTN (hypertension) chronic Hyperlipidemia chronic Localized soft tissue swelling chronic Multiple lipomas acute Skin lesion acute S/P excision of lipoma acute Multiple lipomas acute S/P excision of lipoma acute Preoperative evaluation to r ule out surgical contraindication acute HTN (hypertension) chronic Hyperlipidemia chronic Morbid obesity chronic [facility] Work Phone: Hospital Discharge instructionsAmbulatory Orders* General Surgery Location: None Selected [facility] Work Phone: Hospital Discharge instructionsAmbulatory Orders* Dermatology Location: None Selected [facility] Work Phone: Reason for referral (narrative)No reason for referral information [facility] Work Phone: Summary Purpose Family History No Family History Records Found Relationship Condition Age at Onset Recorded Date/T mercedes mother Celiac disease Unknown Relationship Condition Age at Onset Recorded Date/T mercedes mother Celiac disease Unknown Depression Unknown High blood cholesterol Unknown Disorder of thyroid Unknown Malignant neoplasm Unknown sister Asthma Unknown grandmother Arthritis Unknown father Cardiac disease Unknown Advance Directives No Advanced Directives Records Found Advance Directive Response Recorded Date/ Time Living Will No May 06, 019 1:52pm Power of Box Order Person No May 06, 2019 1:52pm Advance Directive Response Recorded Date/ Time Living Will No July 20, 023 7:01am Power of Box Order Person No July 20, 2022 7:01am Advance Directive Response Recorded Date/ Time Living Will No July 20, 023 8:01am Power of Box Order Person No July 20, 2022 8:01am Advance Directive Response Recorded Date/ Time Living Will No June 12 12:11pm Power of Box Order Person No June 12, 2023 12:11pm Advance Directive Response Recorded Date/ Time Living Will No June 12 1:11pm Power of Box Order Person No June 12, 2023 1:11pm Advance Directive Response Recorded Date/ Time Living Will No January 12 8:16am Do you have a Healthcare Power of Box Order Person? No January 13, 2024 8:16am Chief Complaint and Reason for Visit Chief Complaint Bilat hips xray Lumbar spine xray LUMBAGO, BL GREATER TROCHANTERIC BURSITIS. RX HERE LUMBAR PAIN Reason for Visit Greater trochanteric bursitis of both hips Lumbago Degenerative spondylolisthesis Lumbago Chief Complaint Bilat hips xray Lumbar spine xray LUMBAR PAIN Lumbar pain LUMBAGO, BL GREATER TROCHANTERIC BURSITIS. 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 EST CARE - NEEDS PPW LEFT BREAST LUMP HYPERSOMNOLENCE Reason for Visit Pain of left great t oe URI (upper respiratory infection) HTN (hypertension) Hypersomnolence Chief Complaint htn SIGNAL HELPER. EST CARE - NEEDS PPW LEFT BREAST LUMP HYPERSOMNOLENCE E ORDER 2 M FU BILATERAL EYE REDDNESS/SWELLING 1 M FU Reason for Visit Pain of left great t oe URI (upper respiratory infection) HTN (hypertension) Hypersomnolence HTN (hypertension) Hyperlipidemia Morbid obesity Allergic conjunctivitis Allergic rhinosinusitis URI (upper respiratory infection) HTN (hypertension) Hyperlipidemia Osteoarthritis Chief Complaint INT LABS 3 M FU Reason for Visit Arthritis HTN (hypertension) Hyperlipidemia Chief Complaint INT LABS 3 M FU SINUS INFECTION E ORDER 3 M FU Reason for Visit Arthritis HTN (hypertension) Hyperlipidemia COVID-19 Chief Complaint INT LABS 3 M FU SINUS INFECTION E ORDER 3 M FU RIGHT CHEST BACK SWELLING LIPOMA ON R SIDE OF BACK Reason for Visit Arthritis HTN (hypertension) Hyperlipidemia COVID-19 HTN (hypertension) Hyperlipidemia Localized soft tissue swelling Multiple lipomas Skin lesion Chief Complaint SINUS INFECTION E ORDER 3 M FU RIGHT CHEST BACK SWELLING LIPOMA ON R SIDE OF BACK Excision, Multiple Lipoma right and left flanks & Excision, Multiple Lipoma right and left flanks & Reason for Visit COVID-19 HTN (hypertension) Hyperlipidemia Localized soft tissue swelling Multiple lipomas Skin lesion Chief Complaint E ORDER 3 M FU RIGHT CHEST BACK SWELLING LIPOMA ON R SIDE OF BACK Excision, Multiple Lipoma right and left flanks & Excision, Multiple Lipoma right and left flanks & EXCISION OF LIPOMA DOS 06/18 DISCUSS LIPOMA REMOVAL COUGH/SINUS PAIN/PRESSURE 2 ORDERING DRS/E ORDER AND PAPER 3 M FU Reason for Visit HTN (hypertension) Hyperlipidemia Localized soft tissue swelling Multiple lipomas Skin lesion S/P excision of lipoma Multiple lipomas S/P excision of lipoma Preoperative evaluation to rule out surgical contraindication HTN (hypertension) Hyperlipidemia Morbid obesity Chief Complaint Admit Date 3 M FU May 11, 2024 8:45am 3 M FU July 31, 2024 12:5 5pm Breast cancer screening August 04, 2024 8:13am Reason for Visit Admit Date HTN (hypertension) May 11, 2024 8:45am Hyperlipidemia May 11, 2024 8:45am Metabolic syndrome May 11, 2024 8:45am Health care maintenance July 31, 2024 12:55pm HTN (hypertension) July 31, 2024 12:5 5pm Hyperlipidemia July 31, 2024 12:5 5pm Neuropathy July 31, 2024 12:5 5pm Obesity July 31, 2024 12:5 5pm Chief Complaint Admit Date 3 M FU May 11, 2024 8:45am 3 M FU July 31, 2024 12:5 5pm Breast cancer screening August 04, 2024 8:13am CONCERN FOR UTI August 19, 2024 4:5 4pm Chief Complaint Admit Date CONCERN FOR UTI August 19, 2024 4:5 4pm 2 ORDERING DOCTORS LAUREL powell 2024 11:48am Chief Complaint Admit Date CONCERN FOR UTI August 19, 2024 4:5 4pm 2 ORDERING DOCTORS LAUREL powell 2024 11:48am MED FU December 10, 2024 3:57 pm Chief Complaint Admit Date 2 ORDERING DOCTORS LAUREL powell 2024 11:48am MED FU December 10, 2024 3:57 pm Reason for Visit Admit Date Health care maintenance December 10, 2024 3:57pm HTN (hypertension) December 10, 2024 3:57 pm Hyperlipidemia December 10, 2024 3:57 pm Metabolic syndrome December 10, 2024 3:57 pm Neuropathy December 10, 2024 3:57 pm Chief Complaint Admit Date 2 ORDERING DOCTORS LAUREL powell 2024 11:48am MED FU December 10, 2024 3:57 pm CONCERN FOR UTI March 10, 2025 3 :42pm Additional Source Comments INFORMATION SOURCE (unrecogn ized section and content) DATE CREATED AUTHOR 07/07/2019 [facility] ([place]) DATE CREATED AUTHOR AUTHOR'S ORGANIZ ATION 03/26/2025 [facility] Goals (unrecognized section and content) Goals may be documented in a n alternate sectionGoals may be documented in an alternate sectionGoals may be documented in an alternate sectionGoals may be documented in an alternate sectionGoals may be documented in an alternate sectionGoals may be documented in an alternate sectionGoals may be documented in an alternate sectionGoals may be documented in an alternate sectionGoals may be documented in an alternate sectionGoals may be documented in an alternate sectionGoals may be documented in an alternate sectionGoals may be documented in an alternate sectionGoals may be documented in an alternate sectionGoals may be documented in an alternate sectionGoals may be documented in an alternate sectionGoals may be documented in an alternate sectionGoals may be documented in an alternate sectionGoals may be documented in an alternate section Care Teams (unrecognized sec tion and content) Team Status: Active Member Role Status Dates Alejandro Monreal SIGNAL HELPER, SIGNAL HELPER-C Family Provider Active No Primary Care Physician Primary Care Provider Active Team Status: Active Member Role Status Dates Alejandro Monreal SIGNAL HELPER, SIGNAL HELPER-C Primary Care Provider Active Dr. Reed Duvall DPM Attending Provider, Referrin g Provider Active Team Status: Inactive Member Role Status Dates No Primary Care Physician Primary Care Provider Active Dr. Thu Marin DO Emergency Provider Active Team Status: Inactive Member Role Status Dates Alejandro Monreal SIGNAL HELPER, SIGNAL HELPER-C Primary Care Provider Active Dr. Reed Duvall DPM Attending Provider, Referrin g Provider Active Team Status: Inactive Member Role Status Dates No Primary Care Physician Primary Care Provider, Refer ring Provider Active Dr. Carlyle Elmore MD Attending Provider Active Team Status: Inactive Member Role Status Dates No Primary Care Physician Primary Care Provider Active Dr. Thu Marin DO Attending Provider, Emergency P curly Active Team Status: Inactive Member Role Status Dates No Primary Care Physician Primary Care Provider Active Dr. Bong Luque MD Attending Provider Active Team Status: Inactive Member Role Status Dates No Primary Care Physician Primary Care Provider Active Dr. Carlyle Elmore MD Attending Provider, Referrin g Provider Active Team Status: Active Member Role Status Dates Alejandro Monreal SIGNAL HELPER, SIGNAL HELPER-C Family Provider Active Dr. Carlyle Elmore MD Primary Care Provider Active Team Status: Inactive Member Role Status Dates No Primary Care Physician Referring Provider Active Dr. Carlyle Elmore MD Primary Care Provider, Atten ding Provider Active Team Status: Inactive Member Role Status Dates Dr. Carlyle Elmore MD Primary Care P rovider, Attending Provider, Referring Provider Active Team Status: Inactive Member Role Status Dates Dr. Carlyle Elmore MD Primary Care Provider, Refer ring Provider Active Rajat Garcia PA, PA Attending Provider Active Team Status: Inactive Member Role Status Dates Dr. Carlyle Elmore MD Primary Care Provider, Atten ding Provider Active Team Status: Inactive Member Role Status Dates Dr. Carlyle Elmore MD Primary Care Provider Active Dr. Deborah Singh MD Attending Provider, Referring Provider Active Team Status: Inactive Member Role Status Dates Dr. Carlyle Elmore MD Primary Care Provider, Refer ring Provider Active Maximiliano CARVAJAL, PA Attending Provider Active Team Status: Inactive Member Role Status Dates Dr. Carlyle Elmore MD Primary Care Provider, Refer ring Provider Active Dr. Bebe Torres MD Attending Provider Active Team Status: Active Member Role Status Dates Dr. Carlyle Elmore MD Primary Care Provider Active Dr. Bebe Torres MD Attending Provi dennis, Referring Provider, Other Provider Active Team Status: Inactive Member Role Status Dates Dr. Carlyle Elmore MD Primary Care Provider Active Dr. Bebe Torres MD Attending Provider, Referring Provider Active Team Status: Active Member Role Status Dates Dr. Carlyle Elmore MD Primary Care Provider Active Dr. Deborah Singh MD Attending Provider, Referring Provider Active Team Status: Inactive Member Role Status Dates Dr. Carlyle Elmore MD Primary Care Provider, Refer ring Provider Active Patti CARVAJAL PA-C Attending Provider Active Team Status: Active Member Role Status Dates Dr. Carlyle Elmore MD Primary Care Provider Active Team Status: Inactive Member Role Status Dates Dr. Carlyle Elmore MD Primary Care Provider Active Start: May 11, 2024 End: May 11, 2024 Dr. Carlyle Elmore MD Attending Provider Active Start: May 11, 2024 End: May 11, 2024 Dr. Carlyle Elmore MD Referring Provider Active Start: May 11, 2024 End: May 11, 2024 Team Status: Inactive Member Role Status Dates Dr. Carlyle Elmore MD Primary Care Provider Active Start: July 30, 2024 End: July 30, 2024 Dr. Carlyle Elmore MD Attending Provider Active Start: July 30, 2024 End: July 30, 2024 Dr. Carlyle Elmore MD Referring Provider Active Start: July 30, 2024 End: July 30, 2024 Team Status: Inactive Member Role Status Dates Dr. Carlyle Elmore MD Primary Care Provider Active Start: July 31, 2024 End: July 31, 2024 Dr. Carlyle Elmore MD Attending Provider Active Start: July 31, 2024 End: July 31, 2024 Dr. Carlyle Elmore MD Referring Provider Active Start: July 31, 2024 End: July 31, 2024 Team Status: Active Member Role Status Dates Dr. Carlyle Elmore MD Primary Care Provider Active Start: August 04, 2024 Dr. Carlyle Elmore MD Attending Provider Active Start: August 04, 2024 Dr. Carlyle Elmore MD Referring Provider Active Start: August 04, 2024 Team Status: Inactive Member Role Status Dates Dr. Carlyle Elmore MD Primary Care Provider Active Start: August 04, 2024 End: August 04, 2024 Dr. Carlyle Elmore MD Attending Provider Active Start: August 04, 2024 End: August 04, 2024 Dr. Carlyle Elmore MD Referring Provider Active Start: August 04, 2024 End: August 04, 2024 Team Status: Inactive Member Role Status Dates Dr. Carlyle Elmore MD Primary Care Provider Active Start: August 17, 2024 End: August 17, 2024 Dr. Deborah Singh MD Attending Provider Active Start: August 17, 2024 End: August 17, 2024 Dr. Deborah Singh MD Referring Provider Active Start: August 17, 2024 End: August 17, 2024 Team Status: Inactive Member Role Status Dates Dr. Carlyle Elmore MD Primary Care Provider Active Start: August 19, 2024 End: August 19, 2024 Dr. Carlyle Elmore MD Referring Provider Active Start: August 19, 2024 End: August 19, 2024 WEI Ramirez Attending Provider Active Start: August 19, 2024 End: August 19, 2024 Team Status: Active Member Role Status Dates Dr. Carlyle Elmore MD Primary Care Provider Active Start: August 20, 2024 WEI Ramirez Attending Provider Active Start: August 20, 2024 Team Status: Inactive Member Role Status Dates Dr. Carlyle Elmore MD Primary Care Provider Active Start: August 20, 2024 End: August 20, 2024 WEI Ramirez Attending Provider Active Start: August 20, 2024 End: August 20, 2024 Team Status: Active Member Role/Relationship Status Dates Dr. Carlyle Elmore MD Primary Care Provider Active Team Status: Inactive Member Role/Relationship Status Dates Dr. Carlyle Elmore MD Primary Care Provider Active Start: August 17, 2024 End: August 17, 2024 Dr. Deborah Singh MD Attending Provider Active Start: August 17, 2024 End: August 17, 2024 Dr. Deborah Singh MD Referring Provider Active Start: August 17, 2024 End: August 17, 2024 Team Status: Inactive Member Role/Relationship Status Dates Dr. Carlyle Elmore MD Primary Care Provider Active Start: August 19, 2024 End: August 19, 2024 Dr. Carlyle Elmore MD Referring Provider Active Start: August 19, 2024 End: August 19, 2024 WEI Ramirez Attending Provider Active Start: August 19, 2024 End: August 19, 2024 Team Status: Inactive Member Role/Relationship Status Dates Dr. Carlyle Elmore MD Primary Care Provider Active Start: August 20, 2024 End: August 20, 2024 WEI Ramirez Attending Provider Active Start: August 20, 2024 End: August 20, 2024 Team Status: Inactive Member Role/Relationship Status Dates Dr. Carlyle Elmore MD Primary Care Provider Active Start: December 03, 2024 End: December 03, 2024 Dr. Deborah Singh MD Attending Provider Active Start: December 03, 2024 End: December 03, 2024 Dr. Deborah Singh MD Referring Provider Active Start: December 03, 2024 End: December 03, 2024 Team Status: Inactive Member Role/Relationship Status Dates Dr. Carlyle Elmore MD Primary Care Provider Active Start: December 10, 2024 End: December 10, 2024 Dr. Carlyle Elmore MD Attending Provider Active Start: December 10, 2024 End: December 10, 2024 Dr. Carlyle Elmore MD Referring Provider Active Start: December 10, 2024 End: December 10, 2024 Team Status: Active Member Role/Relationship Status Dates Dr. Carlyle Elmore MD Primary care physician Activ e Team Status: Inactive Member Role/Relationship Status Dates Dr. Carlyle Elmore MD Primary care physician Activ e Start: December 03, 2024 End: December 03, 2024 Dr. Deborah Singh MD Attending physician Active Start: December 03, 2024 End: December 03, 2024 Dr. Deborah Singh MD Referring Provider Active Start: December 03, 2024 End: December 03, 2024 Team Status: Inactive Member Role/Relationship Status Dates Dr. Carlyle Elmore MD Primary care physician Activ e Start: December 10, 2024 End: December 10, 2024 Dr. Carlyle Elmore MD Attending physician Active Start: December 10, 2024 End: December 10, 2024 Dr. Carlyle Elmore MD Referring Provider Active Start: December 10, 2024 End: December 10, 2024 Team Status: Inactive Member Role/Relationship Status Dates Dr. Carlyle Elmore MD Primary care physician Activ e Start: February 15, 2025 End: February 15, 2025 Dr. Deborah Singh MD Attending physician Active Start: February 15, 2025 End: February 15, 2025 Dr. Deborah Singh MD Referring Provider Active Start: February 15, 2025 End: February 15, 2025 Team Status: Inactive Member Role/Relationship Status Dates Dr. Carlyle Elmore MD Primary care physician Activ e Start: March 10, 2025 End: March 10, 2025 Dr. Carlyle Elmore MD Referring Provider Active Start: March 10, 2025 End: March 10, 2025 WEI Ramirez Attending physician Active Start: March 10, 2025 End: March 10, 2025 Team Status: Active Member Role/Relationship Status Dates Dr. Carlyle Elmore MD Primary care physician Activ e Start: March 10, 2025 WEI Ramirez Attending physician Active Start: March 10, 2025 FOR RECORDS PERTAINING TO PATIENTS WHO ARE [...] BE BASED ON THE PRIMARY CLINICAL RECORDS. [employer] provides no warranty or guarantee of the accuracy or completeness of information in this document.
[2025-05-18 10:00] LABS: Hematocrit 38.5 % (37-47); Hemoglobin 12.7 g/dL (12.0-15.0); Immature Granulocytes Count 0.010 X10^3/uL (0.0-0.0); Mean Corp Hgb Conc 33.0 g/dL (32-36); Mean Corpuscular Volume 88.1 fL (81-99); Mean Platelet Vol. 9.8 fl (6.2-12.0); NRBC Flagged by Analyzer 0 % (0-5); Platelet Count 267 K/mm3 (150-450); RBC Distribution Width CV 12.7 % (11.6-14.6); RBC Distribution Width SD 40.9 fl (35.1-43.9); Red Blood Count 4.37 M/mm3 (4.2-5.4); White Blood Count 5.2 K/mm3 (4.4-11.0)
[2025-05-18 10:35] LABS: AST(SGOT) 16 U/L (<=31); Alanine Aminotransfer ALT/SGPT 15 U/L (<=34); Albumin, Serum 4.0 g/dL (3.5-5.0); Alkaline Phosphatase 67 U/L (35-104); Anion Gap 10 (7-18); BUN 21 mg/dL (4-19); BUN/Creat Ratio 23.7 RATIO (10-20); Calcium,Total 9.4 mg/dL (7.6-11.0); Carbon Dioxide 25.0 mmol/L (20.0-29.0); Chloride 106 mmol/L (96-106); Globulin 2.2 g/dL (2.2-4.2); Glucose 61 mg/dL (70-99); Potassium 4.0 mmol/L (3.5-5.1)
== END | disposition home or self-care (01) ==
LOC: MTLAB 07:08
PROVIDERS: PCP Internal Medicine; Referring Provider Internal Medicine Rheumatology; Visit Provider Internal Medicine Rheumatology
DX: M06.4 Inflammatory polyarthropathy (principal); Z79.899 Other long term (current) drug therapy; M79.7 Fibromyalgia
CPT/HCPCS: 36415; 80053; 85025